=== PATIENT | male | born 1970 | race Two or more races ===

== ENCOUNTER 2017-08-29 23:50 | Emergency (ER) | payer BC, SELFPAY ==
[2017-08-29 23:59] VITALS: BP 118/80; PULSE 60; RESP 18; TEMP 36.8; O2SAT 98; BMI 28.6
--- NOTE | 2017-08-30 00:23 | HMH.EDGENADL ---
ED Disposition Clinical Impression: Paronychia of fifth toe, left, Onychomycosis Disposition: Home, Self-Care Condition on Discharge: Good Instructions: DI for Paronychia Additional Instructions: see pcp or podiatry for follow up Prescriptions: cephALEXin [Keflex 500mg Cap] 500 mg PO TID #30 cap Referrals: Dona Babb DPM [Physician] - - Critical Care Critical Care Time: No Attestation: On , the high probability of a clinically significant, sudden or life threatening deterioration of the following system(s) required my full and direct attention, intervention and personal management. The time I documented below is in addition to time spent performing reported procedures but includes the following listed in this critical care notation. Medical Decision Making - Medical Records Medical records reviewed: Yes: I reviewed the patient's medical records. Vital Signs: 08/29/17 23:59 Temperature 98.2 F Temperature Source Oral Pulse Rate [Right Radial] 60 Respiratory Rate 18 Blood Pressure [Right Arm] 118/80 Blood Pressure Mean [Right Arm] 92 Blood Pressure Source [Right Arm] Automatic Cuff Blood Pressure Position [Right Arm] Sitting 02 Sat by Pulse Oximetry 98 Oxygen Delivery Method Room Air - Jose Inquiry Pt receiving controlled substance: No General Adult HPI - General Chief complaint: PAIN Stated complaint: Bite on little toe left foot, swelling, pain Time Seen by Provider: 08/30/17 00:23 Mode of Arrival: Ambulatory Source of Information: Patient, Spouse, Medical Record Limitations: No Limitations Description of Symptoms (Recalled from ER Triage Doc. by RN): PT REPORTS PAIN AND PULSATING SENSATION IN LEFT PINKY TOE. - History of Present Illness HPI narrative: 1 day hx of lt fifth which is described as pulsation toe pain Onset (ago): day(s) Location: left, lower extremity Radiation: non-radiation Severity: moderate Associated symptoms: negative: rash Treatments prior to arrival: none - Related Data Home Medications Medication Instructions Recorded Confirmed Aspirin [Aspirin 81mg EC Tab] 81 mg PO DAILY 08/30/17 08/30/17 lamoTRIgine [Lamictal 100mg Tablet] 200 mg PO DAILY 08/30/17 08/30/17 Previous Rx's Medication Instructions Recorded cephALEXin [Keflex 500mg Cap] 500 mg PO TID #30 cap 08/30/17 Allergies Allergy/AdvReac Type Severity Reaction Status Date / Time acetaminophen [From NORCO] Allergy Unknown Verified 08/30/17 00:09 atorvastatin [From LIPITOR] Allergy Unknown FACIAL Verified 08/30/17 00:09 SWELLING hydrocodone [HYDROCODONE] Allergy Unknown FACIAL Verified 08/30/17 00:09 SWELLING oxycodone [From PERCOCET] Allergy Unknown FACIAL Verified 08/30/17 00:09 SWELLING [facility] History I have reviewed the patient's past medical history: Yes - *Social History Alcohol Intake: current Alcohol Intake Frequency:: a few times a month - Psychiatric History Expresses thoughts of harming self/others: None Suicide Plan Description: No Plan ROS Obtained: Yes All systems reviewed & no additional complaints - Constitutional Constitutional: Denies fever(s) - Eyes Eyes: Denies change in vision - Cardiovascular Cardiovascular: Denies chest pain - Respiratory Respiratory: No pain with cough - Gastrointestinal Gastrointestingal: Denies: abdominal pain - Integumentary/Breasts Skin/Breast: Reports as per HPI, Reports nail changes, Denies rash - Neurologic Neurologic: Denies seizure-like activity Physical Exam - General General appearance: alert - Head Head exam: normocephalic - Eye Eye exam: Present: PERRL, EOMI - ENT ENT exam: Present: mucous membranes moist - Neck Neck exam: Present: trachea midline - Respiratory Respiratory exam: Absent: respiratory distress - Cardiovascular Cardiovascular exam: Present: regular rate - Extremities Exam Extremities exam: Present: full ROM - Expanded Lower Extremity Exam
--- NOTE | 2017-08-30 05:36 | ED_ITS ---
ED Disposition Clinical Impression: Paronychia of fifth toe, left, Onychomycosis Disposition: Home, Self-Care Condition on Discharge: Good Instructions: DI for Paronychia Additional Instructions: see pcp or podiatry for follow up Prescriptions: cephALEXin [Keflex 500mg Cap] 500 mg PO TID #30 cap Referrals: Dona Babb DPM [Physician] - - Critical Care Critical Care Time: No Attestation: On , the high probability of a clinically significant, sudden or life threatening deterioration of the following system(s) required my full and direct attention, intervention and personal management. The time I documented below is in addition to time spent performing reported procedures but includes the following listed in this critical care notation. Medical Decision Making - Medical Records Medical records reviewed: Yes: I reviewed the patient's medical records. Vital Signs: 08/29/17 23:59 Temperature 98.2 F Temperature Source Oral Pulse Rate [Right Radial] 60 Respiratory Rate 18 Blood Pressure [Right Arm] 118/80 Blood Pressure Mean [Right Arm] 92 Blood Pressure Source [Right Arm] Automatic Cuff Blood Pressure Position [Right Arm] Sitting 02 Sat by Pulse Oximetry 98 Oxygen Delivery Method Room Air - Jose Inquiry Pt receiving controlled substance: No General Adult HPI - General Chief complaint: PAIN Stated complaint: Bite on little toe left foot, swelling, pain Time Seen by Provider: 08/30/17 00:23 Mode of Arrival: Ambulatory Source of Information: Patient, Spouse, Medical Record Limitations: No Limitations Description of Symptoms (Recalled from ER Triage Doc. by RN): PT REPORTS PAIN AND PULSATING SENSATION IN LEFT PINKY TOE. - History of Present Illness HPI narrative: 1 day hx of lt fifth which is described as pulsation toe pain Onset (ago): day(s) Location: left, lower extremity Radiation: non-radiation Severity: moderate Associated symptoms: negative: rash Treatments prior to arrival: none - Related Data Home Medications Medication Instructions Recorded Confirmed Aspirin [Aspirin 81mg EC Tab] 81 mg PO DAILY 08/30/17 08/30/17 lamoTRIgine [Lamictal 100mg Tablet] 200 mg PO DAILY 08/30/17 08/30/17 Previous Rx's Medication Instructions Recorded cephALEXin [Keflex 500mg Cap] 500 mg PO TID #30 cap 08/30/17 Allergies Allergy/AdvReac Type Severity Reaction Status Date / Time acetaminophen [From NORCO] Allergy Unknown Verified 08/30/17 00:09 atorvastatin [From LIPITOR] Allergy Unknown FACIAL Verified 08/30/17 00:09 SWELLING hydrocodone [HYDROCODONE] Allergy Unknown FACIAL Verified 08/30/17 00:09 SWELLING oxycodone [From PERCOCET] Allergy Unknown FACIAL Verified 08/30/17 00:09 SWELLING [facility] History I have reviewed the patient's past medical history: Yes - *Social History Alcohol Intake: current Alcohol Intake Frequency:: a few times a month - Psychiatric History Expresses thoughts of harming self/others: None Suicide Plan Description: No Plan ROS Obtained: Yes All systems reviewed & no additional complaints - Constitutional Constitutional: Denies fever(s) - Eyes Eyes: Denies change in vision - Cardiovascular Cardiovascular: Denies chest pain - Respiratory
== END 2017-08-30 00:44 | disposition home or self-care (01) ==
PROVIDERS: Emergency Provider Emergency Medicine; Family Provider Emergency Medicine; PCP Emergency Medicine
DX: L03.032 Cellulitis of left toe (principal); B35.1 Tinea unguium; Z79.899 Other long term (current) drug therapy; Z79.82 Long term (current) use of aspirin
CPT/HCPCS: 99282

== ENCOUNTER 2017-09-13 18:34 | Emergency (ER) | payer BC, SELFPAY ==
[2017-09-13 18:41] VITALS: BP 124/73; PULSE 56; RESP 18; TEMP 36.8; O2SAT 98; BMI 31.3
--- NOTE | 2017-09-13 18:50 | HMH.EDEYEP ---
ED Disposition Clinical Impression: Acute conjunctivitis of left eye Disposition: Home, Self-Care Condition on Discharge: Fair Additional Instructions: I discussed with the patient and his the need to start on allergy medication. Cannot totally exclude absence of foreign body. I will give him antibiotics. I strongly recommended full dilated eye examination by an jitterbug operator. They verbalized understanding Prescriptions: Ketotifen Fumarate [Zaditor] 5 ml OP Q6 #1 drops Referrals: Yoni Eason MD [Primary Care Provider] - - Critical Care Critical Care Time: No Attestation: On 09/13/17, the high probability of a clinically significant, sudden or life threatening deterioration of the following system(s) required my full and direct attention, intervention and personal management. The time I documented below is in addition to time spent performing reported procedures but includes the following listed in this critical care notation. Medical Decision Making - Medical Records Medical records reviewed: Yes: I reviewed the patient's medical records. Vital Signs: 09/13/17 18:41 Temperature 98.2 F Temperature Source Oral Pulse Rate [Right Brachial] 56 L Respiratory Rate 18 Blood Pressure [Right Arm] 124/73 Blood Pressure Mean [Right Arm] 90 Blood Pressure Source [Right Arm] Automatic Cuff Blood Pressure Position [Right Arm] Sitting 02 Sat by Pulse Oximetry 98 Oxygen Delivery Method Room Air - Jose Inquiry Pt receiving controlled substance: No Jose was queried for this patient: No Eye Problem HPI - General Chief complaint: Eye Problems Stated complaint: FB in Left Eye Mode of Arrival: Family Vehicle Limitations: No Limitations Description of Symptoms (Recalled from ER Triage Doc. by RN): object in eye - History of Present Illness HPI Narrative: 27 years old Salvadorean-speaking patient was brought by his because of a foreign body sensation and redness in the left eye. After feeding the cows had a the night before, he woke up with left eye foreign body sensation and irritation. there is no pain with movement. No fever or chills. He has no blurring of vision or diplopia. chief complaint: eye redness Onset (ago): day(s) (Yesterday) Onset description: gradual Duration: constant Location: left eye Eye Symptoms: redness, foreign body sensation Severity: mild (Irritation.) - Related Data Patient tetanus UTD: No Home Medications Medication Instructions Recorded Confirmed Aspirin [Aspirin 81mg EC Tab] 81 mg PO DAILY 08/30/17 08/30/17 lamoTRIgine [Lamictal 100mg Tablet] 200 mg PO DAILY 08/30/17 08/30/17 pantoprazole 40 mg tablet,delayed 40 mg PO QDAY 09/12/17 release Previous Rx's Medication Instructions Recorded cetirizine 10 mg tablet 10 mg PO QDAY #30 tab 09/12/17 ofloxacin 0.3 % eye drops 1 drp OPHTHALMIC QID 7 Days #20 ml 09/12/17 Ketotifen Fumarate [Zaditor] 5 ml OP Q6 #1 drops 09/13/17 Allergies Allergy/AdvReac Type Severity Reaction Status Date / Time acetaminophen [From NORCO] Allergy Unknown Verified 09/12/17 14:47 atorvastatin [From LIPITOR] Allergy Unknown FACIAL Verified 09/12/17 14:47 SWELLING hydrocodone [HYDROCODONE] Allergy Unknown FACIAL Verified 09/12/17 14:47 SWELLING oxycodone [From PERCOCET] Allergy Unknown FACIAL Verified 09/12/17 14:47 SWELLING [facility] History I have reviewed the patient's past medical history: Yes Medical History: Reports:: Gastroesophageal Reflux Disease(GERD), Seizures Amputation: No Fractures: No - *Social History Smoking Status: Never smoker Alcohol Intake: never Alcohol Intake Frequency:: a few times a month Substance Use Type: denies use - Psychiatric History Expresses thoughts of harming self/others: None Suicide Plan Description: No Plan *Family Hx:: Hypertension, Heart Attack, Diabetes ROS Obtained: Yes All systems reviewed & no additional complaints Physical Exam - G
--- NOTE | 2017-09-13 18:53 | ED_ITS ---
ED Disposition Clinical Impression: Acute conjunctivitis of left eye Disposition: Home, Self-Care Condition on Discharge: Fair Additional Instructions: I discussed with the patient and his the need to start on allergy medication. Cannot totally exclude absence of foreign body. I will give him antibiotics. I strongly recommended full dilated eye examination by an greenhouse transplanter. They verbalized understanding Prescriptions: Ketotifen Fumarate [Zaditor] 5 ml OP Q6 #1 drops Referrals: Yoni Eason MD [Primary Care Provider] - - Critical Care Critical Care Time: No Attestation: On 09/13/17, the high probability of a clinically significant, sudden or life threatening deterioration of the following system(s) required my full and direct attention, intervention and personal management. The time I documented below is in addition to time spent performing reported procedures but includes the following listed in this critical care notation. Medical Decision Making - Medical Records Medical records reviewed: Yes: I reviewed the patient's medical records. Vital Signs: 09/13/17 18:41 Temperature 98.2 F Temperature Source Oral Pulse Rate [Right Brachial] 56 L Respiratory Rate 18 Blood Pressure [Right Arm] 124/73 Blood Pressure Mean [Right Arm] 90 Blood Pressure Source [Right Arm] Automatic Cuff Blood Pressure Position [Right Arm] Sitting 02 Sat by Pulse Oximetry 98 Oxygen Delivery Method Room Air - Jose Inquiry Pt receiving controlled substance: No Jose was queried for this patient: No Eye Problem HPI - General Chief complaint: Eye Problems Stated complaint: FB in Left Eye Mode of Arrival: Family Vehicle Limitations: No Limitations Description of Symptoms (Recalled from ER Triage Doc. by RN): object in eye - History of Present Illness HPI Narrative: 27 years old Marshallese-speaking patient was brought by his because of a foreign body sensation and redness in the left eye. After feeding the cows had a the night before, he woke up with left eye foreign body sensation and irritation. there is no pain with movement. No fever or chills. He has no blurring of vision or diplopia. chief complaint: eye redness Onset (ago): day(s) (Yesterday) Onset description: gradual Duration: constant Location: left eye Eye Symptoms: redness, foreign body sensation Severity: mild (Irritation.) - Related Data Patient tetanus UTD: No Home Medications Medication Instructions Recorded Confirmed Aspirin [Aspirin 81mg EC Tab] 81 mg PO DAILY 08/30/17 08/30/17 lamoTRIgine [Lamictal 100mg Tablet] 200 mg PO DAILY 08/30/17 08/30/17 pantoprazole 40 mg tablet,delayed 40 mg PO QDAY 09/12/17 release Previous Rx's Medication Instructions Recorded cetirizine 10 mg tablet 10 mg PO QDAY #30 tab 09/12/17 ofloxacin 0.3 % eye drops 1 drp OPHTHALMIC QID 7 Days #20 ml 09/12/17 Ketotifen Fumarate [Zaditor] 5 ml OP Q6 #1 drops 09/13/17 Allergies Allergy/AdvReac Type Severity Reaction Status Date / Time acetaminophen [From NORCO] Allergy Unknown Verified 09/12/17 14:47 atorvastatin [From LIPITOR] Allergy Unknown FACIAL Verified 09/12/17 14:47 SWELLING hydrocodone [HYDROCODONE] Allergy Unknown FACIAL Verified 09/12/17 14:47 SWELLING oxycodone [From
== END 2017-09-13 19:18 | disposition home or self-care (01) ==
PROVIDERS: Emergency Provider Emergency Medicine; Family Provider Emergency Medicine; PCP Emergency Medicine
DX: H10.32 Unspecified acute conjunctivitis, left eye (principal); Z79.82 Long term (current) use of aspirin; Z79.899 Other long term (current) drug therapy; K21.9 Gastro-esophageal reflux disease without esophagitis
CPT/HCPCS: 99282

== ENCOUNTER → 2018-07-15 06:07 | Outpatient (CLI) | payer BC, SELFPAY ==
[2018-07-15 07:01] LABS: Basophils % 0.6 % (0.1-2.0); Eosinophils # 0.1 K/mm3 (0.0-0.4); Eosinophils % 2.5 % (0.1-12.0); Hematocrit 45.9 % (42.0-52.0); Hemoglobin 15.6 g/dL (14.1-18.0); Lymphocytes # 1.9 K/mm3 (0.7-4.5); Lymphocytes % 32.7 % (10-50); Mean Corpuscular HGB Conc 33.9 g/dL (31.8-35.4); Mean Corpuscular Hemoglobin 30.5 pg (27.0-31.2); Mean Platelet Volume 9.3 fl (7.4-10.4); Monocytes # 0.2 K/mm3 (0.1-1.0); Monocytes % 3.9 % (1.7-9.3); Neutrophils # 3.5 K/mm3 (1.8-7.8); Neutrophils % 60.3 % (37.0-80.0); Platelet Count 187 K/mm3 (142-424); Red Cell Distribution Width 13.6 % (11.5-17.5); White Blood Count 5.9 K/mm3 (4.8-10.8)
[2018-07-15 07:46] LABS: Alanine Aminotransferase 65 U/L (12-78); Albumin Level 4.2 gm/dL (3.4-5.0); Albumin/Globulin Ratio 1.2 (1.1-1.8); Alkaline Phosphatase 132 U/L (46-116); Anion Gap 14.4 mEq/L (5-15); Aspartate Amino Transferase 13 U/L (15-37); Bilirubin,Total 0.7 mg/dL (0.2-1.0); Blood Urea Nitrogen 26 mg/dL (7-18); Calcium 8.4 mg/dL (8.5-10.1); Carbon Dioxide 28 mmol/L (21.0-32.0); Chloride 104 mmol/L (98-107); Chol/HDL Ratio 7.2 (1-3.5); Cholesterol 230 mg/dL (140-200); Creatinine,Serum 0.69 mg/dL (0.70-1.30); Estimated Glomerular Filt Rate 122 ml/min (>60); Free T4 (Free Thyroxine) 0.86 ng/dl (0.76-1.46); GFR (African American) 147 ML/MIN (>60); Globulin 3.6 gm/dl (1.3-3.2); Glucose 128 mg/dL (74-106); HDL Cholesterol 32 mg/dL (27-67); Potassium 4.4 mmoL/L (3.5-5.1); Sodium 142 mmol/L (136-145); Thyroid Stimulating Hormone 3.73 uIU/ml (0.358-3.740); Total Protein,Serum 7.8 gm/dL (6.4-8.2)
[2018-07-15 08:17] LABS: Triglycerides 522 mg/dL (30-200)
[2018-07-17 10:51] LABS: Vitamin D 25 Hydroxy 13.9 ng/mL (30.0-100.0)
[2018-07-17 10:56] LABS: Lamotrigine (Lamictal) None Detected ug/mL (2.0-20.0)
[2018-07-17 13:52] LABS: Hemoglobin A1C 5.6 % (0.0-7.0)
== END ==
PROVIDERS: PCP Emergency Medicine; Visit Provider Nurse Practitioner Family
DX: G40.909 Epilepsy, unspecified, not intractable, without status epilepticus (principal); R53.83 Other fatigue
CPT/HCPCS: 80053; 80061; 80168; 82652; 83036; 84439; 84443; 85025

== ENCOUNTER → 2019-04-15 16:02 | Outpatient (CLI) | payer BC, SELFPAY ==
[2019-04-15 16:14] LABS: Basophils # 0.1 K/mm3 (0-0.2); Basophils % 0.9 % (0.1-2.0); Eosinophils # 0.1 K/mm3 (0.0-0.4); Eosinophils % 1.8 % (0.1-12.0); Hematocrit 41.5 % (42.0-52.0); Lymphocytes # 1.7 K/mm3 (0.7-4.5); Lymphocytes % 32.7 % (10-50); Mean Corpuscular HGB Conc 33.8 g/dL (31.8-35.4); Mean Corpuscular Hemoglobin 29.9 pg (27.0-31.2); Mean Corpuscular Volume 88.5 fl (80-94); Mean Platelet Volume 10.1 fl (7.4-10.4); Monocytes # 0.2 K/mm3 (0.1-1.0); Monocytes % 4.5 % (1.7-9.3); Neutrophils # 3.1 K/mm3 (1.8-7.8); Platelet Count 200 K/mm3 (142-424); Red Blood Count 4.69 M/mm3 (4.60-6.20); Red Cell Distribution Width 13.5 % (11.5-17.5); White Blood Count 5.2 K/mm3 (4.8-10.8)
[2019-04-15 16:54] LABS: Alanine Aminotransferase 36 U/L (12-78); Albumin Level 4.1 gm/dL (3.4-5.0); Albumin/Globulin Ratio 1.4 (1.1-1.8); Alkaline Phosphatase 93 U/L (46-116); Anion Gap 12.5 mEq/L (5-15); Aspartate Amino Transferase 22 U/L (15-37); Bilirubin,Total 1.3 mg/dL (0.2-1.0); Blood Urea Nitrogen 21 mg/dL (7-18); Calcium 8.5 mg/dL (8.5-10.1); Carbon Dioxide 25 mmol/L (21.0-32.0); Chloride 106 mmol/L (98-107); Cholesterol 170 mg/dL (140-200); Creatinine,Serum 0.74 mg/dL (0.70-1.30); Estimated Glomerular Filt Rate 112 ml/min (>60); GFR (African American) 135 ML/MIN (>60); Globulin 2.9 gm/dl (1.3-3.2); Glucose 113 mg/dL (74-106); HDL Cholesterol 34 mg/dL (27-67); LDL Cholesterol 101 mg/dL (0-130); Potassium 3.5 mmoL/L (3.5-5.1); Sodium 140 mmol/L (136-145); T4 (Thyroxine) 5.6 ug/dl (4.7-13.3); Thyroid Stimulating Hormone 1.82 uIU/ml (0.358-3.740); Triglycerides 177 mg/dL (30-200); VLDL Cholesterol 35 mg/dL (0-40)
== END ==
PROVIDERS: Visit Provider Nurse Practitioner Family
DX: B35.1 Tinea unguium (principal); R52 Pain, unspecified
CPT/HCPCS: 80053; 80061; 82652; 84436; 84443; 85025

== ENCOUNTER → 2019-05-07 17:14 | Outpatient (CLI) | payer BC, SELFPAY ==
[2019-05-07 17:50] LABS: Alanine Aminotransferase 34 U/L (12-78); Albumin Level 4.6 gm/dL (3.4-5.0); Albumin/Globulin Ratio 1.2 (1.1-1.8); Alkaline Phosphatase 115 U/L (46-116); Anion Gap 14.2 mEq/L (5-15); Aspartate Amino Transferase 24 U/L (15-37); Bilirubin,Total 1.1 mg/dL (0.2-1.0); Blood Urea Nitrogen 27 mg/dL (7-18); Calcium 9.3 mg/dL (8.5-10.1); Carbon Dioxide 25 mmol/L (21.0-32.0); Chloride 102 mmol/L (98-107); Creatinine,Serum 1.19 mg/dL (0.70-1.30); Estimated Glomerular Filt Rate 65 ml/min (>60); GFR (African American) 78 ML/MIN (>60); Globulin 3.7 gm/dl (1.3-3.2); Glucose 107 mg/dL (74-106); Potassium 4.2 mmoL/L (3.5-5.1); Sodium 137 mmol/L (136-145); Total Protein,Serum 8.3 gm/dL (6.4-8.2)
[2019-05-10 14:26] LABS: Vitamin D 25 Hydroxy 36.6 ng/mL (30.0-100.0)
== END ==
PROVIDERS: Nurse Practitioner Family; Visit Provider Emergency Medicine
DX: R53.83 Other fatigue (principal); N28.9 Disorder of kidney and ureter, unspecified
CPT/HCPCS: 80053; 82652

== ENCOUNTER → 2020-03-31 17:19 | Outpatient (CLI) | payer BC, SELFPAY ==
[2020-03-31 17:37] LABS: Basophils % 0.5 % (0.1-2.0); Eosinophils # 0.2 K/mm3 (0.0-0.4); Eosinophils % 2.5 % (0.1-12.0); Hematocrit 40.1 % (42.0-52.0); Hemoglobin 14.5 g/dL (14.1-18.0); Lymphocytes # 1.8 K/mm3 (0.7-4.5); Lymphocytes % 30.9 % (10-50); Mean Corpuscular HGB Conc 36.1 g/dL (31.8-35.4); Mean Corpuscular Hemoglobin 31.6 pg (27.0-31.2); Mean Corpuscular Volume 87.4 fl (80-94); Monocytes # 0.2 K/mm3 (0.1-1.0); Monocytes % 3.3 % (1.7-9.3); Neutrophils # 3.7 K/mm3 (1.8-7.8); Neutrophils % 62.8 % (37.0-80.0); Platelet Count 177 K/mm3 (142-424); Red Blood Count 4.59 M/mm3 (4.60-6.20); Red Cell Distribution Width 13.5 % (11.5-17.5); White Blood Count 5.9 K/mm3 (4.8-10.8)
[2020-03-31 17:39] LABS: Chloride 108 mmol/L (98-107); Sodium 140 mmol/L (136-145)
[2020-03-31 17:42] LABS: Alanine Aminotransferase 24 U/L (12-78); Albumin Level 4.1 g/dl (3.5-5.0); Albumin/Globulin Ratio 1.5 (1.1-1.8); Alkaline Phosphatase 93 U/L (38-126); Aspartate Amino Transferase 25 U/L (17-59); Bilirubin,Total 0.6 mg/dl (0.2-1.3); Blood Urea Nitrogen 18 mg/dl (9-20); Calcium 9.1 mg/dl (8.4-10.2); Carbon Dioxide 23 mmol/L (22.0-30.0); Estimated Glomerular Filt Rate 142 ml/min (>60); GFR (African American) 172 ML/MIN (>60); Globulin 2.8 g/dL (1.3-3.2); Glucose 119 mg/dl (74-100); Total Protein,Serum 6.9 g/dl (6.3-8.2)
== END ==
PROVIDERS: Visit Provider Emergency Medicine
DX: R10.9 Unspecified abdominal pain (principal)
CPT/HCPCS: 80053; 85025

== ENCOUNTER 2020-04-05 23:11 | Emergency (ER) | payer BC, SELFPAY ==
[2020-04-05 23:21] VITALS: BP 116/73; PULSE 68; RESP 14; TEMP 37.1; O2SAT 97; BMI 25.7
--- NOTE | 2020-04-05 23:29 | CT_ITS ---
PROCEDURE: CT ABDOMEN PELVIS W CON CLINICAL INDICATION: N/V Nausea and vomiting COMPARISON: CT ABDPELWO CT abdomen pelvis wo con from 04/24/2018 TECHNIQUE: IV Contrast: 75ML OPTIRAY 350 Oral Contrast None Axial images obtained with sagittal and coronal reformats. All CT scans at the facility use one or more dose reduction, viz: automated exposure control, ma/kV adjustment per patient size (including targeted exams where dose is matched to indication, i.e. head), or iterative reconstruction technique. FINDINGS: LOWER THORAX: No acute finding ABDOMEN & PELVIS: Prior cholecystectomy. The liver, spleen adrenal glands, and pancreas have an unremarkable appearance. No evidence of appendicitis. No intestinal obstruction or free air. There is a 2 mm stone at the right ureterovesical junction with minimal ectasia of the right distal ureter. No evidence of diverticulitis. No pelvic mass or localized fluid collection. There is mild lumbar scoliosis convex right. IMPRESSION: 2 mm right distal ureteral calculus at the UVJ with minimal ectasia of the distal right ureter Dictated by: Miles Monterroso MD 04/06/2020 06:01 Miles Monterroso MD in [facility] 04/06/2020 06:01
[2020-04-05 23:35] LABS: Basophils # 0.1 K/mm3 (0-0.2); Basophils % 0.4 % (0.1-2.0); Eosinophils # 0.1 K/mm3 (0.0-0.4); Eosinophils % 0.4 % (0.1-12.0); Hemoglobin 15.4 g/dL (14.1-18.0); Lymphocytes # 2.1 K/mm3 (0.7-4.5); Lymphocytes % 15.6 % (10-50); Mean Corpuscular HGB Conc 35.9 g/dL (31.8-35.4); Mean Corpuscular Hemoglobin 31.6 pg (27.0-31.2); Mean Corpuscular Volume 87.9 fl (80-94); Mean Platelet Volume 10.6 fl (7.4-10.4); Monocytes # 0.7 K/mm3 (0.1-1.0); Monocytes % 5.5 % (1.7-9.3); Neutrophils # 10.4 K/mm3 (1.8-7.8); Neutrophils % 78.2 % (37.0-80.0); Platelet Count 191 K/mm3 (142-424); Red Blood Count 4.89 M/mm3 (4.60-6.20); Red Cell Distribution Width 13.4 % (11.5-17.5); White Blood Count 13.3 K/mm3 (4.8-10.8)
[2020-04-05 23:40] LABS: Chloride 104 mmol/L (98-107)
[2020-04-05 23:41] LABS: Potassium 4.1 mmoL/L (3.5-5.1); Sodium 141 mmol/L (136-145)
[2020-04-05 23:43] LABS: Alanine Aminotransferase 46 U/L (12-78); Aspartate Amino Transferase 40 U/L (17-59); Blood Urea Nitrogen 24 mg/dl (9-20); Creatinine Clearance Estimated 84 mL/min (50-200); Estimated Glomerular Filt Rate 71 ml/min (>60); GFR (African American) 85 ML/MIN (>60)
[2020-04-05 23:44] LABS: Albumin Level 4.7 g/dl (3.5-5.0); Albumin/Globulin Ratio 1.5 (1.1-1.8); Alkaline Phosphatase 76 U/L (38-126); Anion Gap 16.1 mEq/L (5-15); Bilirubin,Total 1.4 mg/dl (0.2-1.3); Calcium 9.9 mg/dl (8.4-10.2); Carbon Dioxide 25 mmol/L (22.0-30.0); Globulin 3.2 g/dL (1.3-3.2); Glucose 106 mg/dl (74-100); Total Protein,Serum 7.9 g/dl (6.3-8.2)
[2020-04-05 23:49] LABS: C-Reactive Protein 1.8 mg/L (0-4)
[2020-04-06 00:06] LABS: Erythrocyte Sedimentation Rate 14 mm/hr (0-20)
[2020-04-06 00:13] VITALS: BP 129/76; PULSE 71; RESP 16; O2SAT 96
[2020-04-06 01:05] LABS: Microscopic, Urine URINE MICROSCOPIC (MICROSCOPIC)
[2020-04-06 01:11] LABS: Appearance,Urine CLEAR (Clear); Bilirubin,Urine Negative (Negative); Blood, Urine Negative (Negative); Color,Urine YELLOW (Yellow); Glucose,Urine (UA) Negative (Negative); Ketones,Urine Negative (Negative); Leukocyte Esterase,Urine Negative (Negative); Nitrate,Urine Negative (Negative); Protein,Urine Negative (Negative); Specific Gravity, Urine 1.015 (1.005-1.030); Urobilinogen,Urine 0.2 EU/dl (0.2)
[2020-04-06 01:20] LABS: Bacteria,Urine Trace /lpf; WBC,Urine Occasional #/hpf (0-3)
--- NOTE | 2020-04-06 01:21 | HMH.EDNVD ---
ED Disposition Clinical Impression: Renal colic on right side Tobacco poisoning Qualifiers: Encounter type: initial encounter Injury intent: accidental or unintentional Qualified Code(s): T65.291A - Toxic effect of other tobacco and nicotine, accidental (unintentional), initial encounter Disposition: Home, Self-Care Condition on Discharge: Good Instructions: DI for Nausea -- Adult Additional Instructions: fluids and call pcp for follow up and final reading of ct Referrals: Yoni Eason MD [Primary Care Provider] - - Critical Care Critical Care Time: No Attestation: On 04/05/20, the high probability of a clinically significant, sudden or life threatening deterioration of the following system(s) required my full and direct attention, intervention and personal management. The time I documented below is in addition to time spent performing reported procedures but includes the following listed in this critical care notation. Medical Decision Making - Medical Records Medical records reviewed: Yes: I reviewed the patient's medical records. - Jose Inquiry Pt receiving controlled substance: No Vital Signs: 04/05/20 23:21 04/06/20 00:13 Temperature 98.8 F Temperature Source Oral Pulse Rate [Right] 68 71 Respiratory Rate 14 16 Blood Pressure [Right Arm] 116/73 129/76 Blood Pressure Mean [Right Arm] 87 93 Blood Pressure Source [Right Arm] Automatic Cuff Automatic Cuff Blood Pressure Position [Right Arm] Supine Sitting 02 Sat by Pulse Oximetry 97 96 Oxygen Delivery Method Room Air Room Air - Lab Data Lab Results 04/05/20 23:23: WBC 13.3 H, RBC 4.89, Hgb 15.4, Hct 43.0, MCV 87.9, MCH 31.6 H, MCHC 35.9 H, RDW 13.4, Plt Count 191, MPV 10.6 H, Neut % (Auto) 78.2, Lymph % (Auto) 15.6, [place] % (Auto) 5.5, Eos % (Auto) 0.4, Baso % (Auto) 0.4, Neut # (Auto) 10.4 H, Lymph # (Auto) 2.1, [place] # (Auto) 0.7, Eos # (Auto) 0.1, Baso # (Auto) 0.1, ESR 14 04/05/20 23:23: Sodium 141, Potassium 4.1, Chloride 104, Carbon Dioxide 25, Anion Gap 16.1 H, BUN 24 H, Creatinine 1.10, Estimated Creat Clear 84, Estimated GFR 71, Est GFR ( Amer) 85, Glucose 106 H, Calcium 9.9, Total Bilirubin 1.4 H, AST 40, ALT 46, Alkaline Phosphatase 76, C-Reactive Protein 1.8, Total Protein 7.9, Albumin 4.7, Globulin 3.2, Albumin/Globulin Ratio 1.5 04/06/20 00:50: Urine Color Yellow, Urine Appearance Clear, Urine pH 6.0, Ur Specific [place] 1.015, Urine Protein Negative, Urine Glucose (UA) Negative, Urine Ketones Negative, Urine Blood Negative, Urine Nitrate Negative, Urine Bilirubin Negative, Urine Urobilinogen 0.2, Ur Leukocyte Esterase Negative, Urine WBC Occasional, Urine Bacteria Trace Result diagrams: 04/05/20 23:23 04/05/20 23:23 Orders (Tests/Meds): ED MEDICATIONS Generic Name Dose Route Start Last Admin Trade Name Freq PRN Reason Stop Dose Admin Sodium Chloride 1,000 mls @ 999 mls/hr 04/05/20 23:30 04/05/20 23:36 Sod Chlor 0.9% 1000ml Bag IV 04/06/20 00:30 999 mls/hr .Q1H1M JUSTIN Administration Sodium Chloride 1,000 mls @ 999 mls/hr 04/06/20 01:15 04/06/20 01:14 Sod Chlor 0.9% 1000ml Bag IV 04/06/20 02:15 999 mls/hr .Q1H1M JUSTIN Administration Discontinued Medications Generic Name Dose Route Start Last Admin Trade Name Freq PRN Reason Stop Dose Admin Ioversol 75 ml 04/06/20 00:09 04/06/20 00:10 Rad-Optiray 350 100ml Vial IV 04/06/20 00:10 75 ml ONCE ONE Administration Protocol Ondansetron HCl 4 mg 04/05/20 23:29 04/05/20 23:36 Zofran 4mg/2ml Vial IV 04/05/20 23:30 4 mg ONCE ONE Administration Sodium Chloride 10 ml 04/06/20 00:09 04/06/20 00:10 Rad-Saline Flush 10ml Syringe IV 04/06/20 00:10 10 ml ONCE ONE Administration ORDERS Category Date Time Status CT abdomen pelvis w con Stat Cat Scan 04/05/20 23:29 Taken - CT Data CT Scan: Abdomen, Pelvis Time Received: 01:[address] Reviewed: Yes: I have viewed the radiologist's interpretation Prel
[2020-04-06 01:44] VITALS: BP 119/75; PULSE 72; RESP 15; TEMP 36.8; O2SAT 97
== END 2020-04-06 01:47 | disposition home or self-care (01) ==
PROVIDERS: Emergency Provider Emergency Medicine; PCP Emergency Medicine
DX: N23 Unspecified renal colic (principal); T65.291A Toxic effect of other tobacco and nicotine, accidental (unintentional), initial encounter; K21.9 Gastro-esophageal reflux disease without esophagitis; E78.5 Hyperlipidemia, unspecified; Z79.899 Other long term (current) drug therapy; Z88.5 Allergy status to narcotic agent; Z90.49 Acquired absence of other specified parts of digestive tract
CPT/HCPCS: 74177; 80053; 81001; 85025; 85651; 86140; 96365; 96366; 96375; 99283; J2405; Q9967

== ENCOUNTER → 2020-04-14 16:14 | Outpatient (CLI) | payer BC, SELFPAY | PROVIDERS: PCP Nurse Practitioner Family; Visit Provider Nurse Practitioner Family | DX: N20.0 Calculus of kidney (principal) | CPT/HCPCS: 87086 ==

== ENCOUNTER → 2020-04-14 16:17 | Outpatient (CLI) | payer BC, SELFPAY ==
--- NOTE | 2020-04-14 16:20 | XR_ITS ---
PROCEDURE: XR KUB CLINICAL INDICATION: hematuria Follow-up ureteral stone COMPARISON: CT CT ABDOMEN PELVIS W CON from 04/05/2020 FINDINGS: Mild dextroscoliosis of the thoracolumbar spine. Surgical clips right upper quadrant. Nonspecific bowel gas pattern. There is a faint calcific density in the right pelvic region which could be due to a tiny distal ureteral stone at approximately 2 mm. IMPRESSION: Possible 2 mm right ureterovesical junction stone Dictated by: Miles Monterroso MD 04/14/2020 16:36 Miles Monterroso MD in [facility] 04/14/2020 16:36
== END ==
PROVIDERS: PCP Emergency Medicine; Visit Provider Urology
DX: R31.9 Hematuria, unspecified (principal)
CPT/HCPCS: 74018

== ENCOUNTER → 2020-04-19 13:10 | Outpatient (CLI) | payer BC, SELFPAY ==
[2020-04-19 15:53] LABS: Coronavirus 19 IgG Antibody Negative (Negative); Coronavirus 19 IgM Antibody Negative (Negative)
[2020-04-20 18:25] LABS: Chloride 105 mmol/L (98-107); Potassium 4.3 mmoL/L (3.5-5.1); Sodium 138 mmol/L (136-145)
[2020-04-20 18:28] LABS: Blood Urea Nitrogen 20 mg/dl (9-20); Calcium 9.2 mg/dl (8.4-10.2); Estimated Glomerular Filt Rate 119 ml/min (>60); GFR (African American) 144 ML/MIN (>60); Glucose 113 mg/dl (74-100)
[2020-04-20 19:49] LABS: Anion Gap 12.3 mEq/L (5-15); Carbon Dioxide 25 mmol/L (22.0-30.0)
== END ==
PROVIDERS: Visit Provider Urology
DX: N20.1 Calculus of ureter (principal)
CPT/HCPCS: 36415; 80048; 86328

== ENCOUNTER 2020-04-21 09:37 | Day surgery (SDC) | payer BC, SELFPAY ==
[2020-04-19 08:55] VITALS: BMI 27.1
[2020-04-21] VITALS (12 sets, daily range): BP systolic 109–140; BP diastolic 62–83; PULSE 46–92; RESP 17–23; TEMP 36.2–36.8; O2SAT 90–100
--- NOTE | 2020-04-21 10:17 | SUR.PREOP ---
Translation services offered to pt and family. Services declined. Pt's family member fluent in Arabic.
--- NOTE | 2020-04-21 10:41 | HMH.ANESCL ---
[facility] Anesthesia Checklist - Patient Identification Patient Identification: Arm Band - Structural Data Admitted From: Home Planned Operative Procedure/s: right ureteroscopy with stone extraction Consent for Planned Operative Procedure(s) Verified: Yes Verified Documents: Surgical Consent, History and Physical - NPO Status Verified Time NPO: 00:00 - Additional verifications Anesthesia Reactions: No Hx Blood Transfusions: No Blood Transfusion Reaction: No - Airway Assessment C-Spine Mobility Assessed: Yes (mp2) TMJ Mobility Assessed: Yes Dentition: Good Dentition - Neurological Assessment Level of Consciousness: Awake, Alert - Anesthesia Plan Anesthesia Risk discussed: Yes Anesthesia Plan: Verified ASA Class: II Anesthesia Type: General [facility] History I have reviewed the patient's past medical history: Yes Medical History: Reports:: Gastroesophageal Reflux Disease(GERD), Hyperlipidemia, Seizures (1 year ago) Denies:: Cancer, Diabetes Mellitus Type 1, Diabetes Mellitus Type 2, MRSA *Have you ever received a pneumonia vaccine?: No *Have you received a flu vaccine this season?: Yes Other Medical History: Denies: Blood Transfusion Reaction Anesthesia experience/problems:: nac Other Surgeries: Yes: Cardiac Catheterization, Cholecystectomy Amputation: No Fractures: No - *Social History Last grade of school completed: 5th or 6th Smoking Status: Never smoker Alcohol Intake: current Alcohol Intake Frequency:: holidays/special occasions only Substance Use Type: denies use *Occupational Status:: unemployed Housing: house Household Members: family *Travel in the last 8 weeks: None Family Hx:: Hypertension, Heart Attack, Diabetes
[2020-04-21 10:42] LABS: Basophils % 0.7 % (0.1-2.0); Eosinophils # 0.2 K/mm3 (0.0-0.4); Eosinophils % 4.3 % (0.1-12.0); Hematocrit 41.9 % (42.0-52.0); Lymphocytes % 34.8 % (10-50); Mean Corpuscular HGB Conc 35.8 g/dL (31.8-35.4); Mean Corpuscular Hemoglobin 32.1 pg (27.0-31.2); Mean Corpuscular Volume 89.4 fl (80-94); Mean Platelet Volume 9.9 fl (7.4-10.4); Monocytes # 0.3 K/mm3 (0.1-1.0); Monocytes % 4.6 % (1.7-9.3); Neutrophils # 3.1 K/mm3 (1.8-7.8); Neutrophils % 55.5 % (37.0-80.0); Platelet Count 162 K/mm3 (142-424); Red Blood Count 4.69 M/mm3 (4.60-6.20); Red Cell Distribution Width 13.6 % (11.5-17.5); White Blood Count 5.6 K/mm3 (4.8-10.8)
--- NOTE | 2020-04-21 11:38 | FL_ITS ---
PROCEDURE: FL URETHROCYSTOGRAM RETRO CLINICAL INDICATION: RIGHT URETEROSCOPY INOR COMPARISON: No exams were available for comparison FINDINGS: Fluoro time 1.2 minutes Single image submitted with the C-arm shows ureteral scope and ureteral wire in place on the right IMPRESSION: C-arm utilized for ureteroscopy Dictated by: Miles Monterroso MD 04/21/2020 15:03 Miles Monterroso MD in [facility] 04/21/2020 15:03
--- NOTE | 2020-04-21 11:38 | HMH.ANESI ---
[facility] Anesthesia Record Part I Intake, IV Amount: 900 Estimated blood loss (mL): 5 Urine output (mL): 0 Blood Products used (#): none Blood Pressure: 131/76 SaO2: 94 Pulse Rate: 53 Respiratory Rate: 18 Temperature: 97.1 F Patient is:: Drowsy, Nasal O2 Stable to PACU at:: 11:35
--- NOTE | 2020-04-21 13:14 | P.OP_ITS ---
Date of procedure: 04/21/20 Pre-op Diagnosis:: Right distal ureteral stone Post-op Diagnosis:: No evidence of ureteral stone, urethral stricture Procedure performed:: Cystoscopy with urethral dilation right ureteroscopy and left ureteral catheterization Surgeon:: Hugo Thompson MD ELECTRONIC PREPRESS TECHNICIAN:: Eleazar Oseguera Anesthesia: GETNicolette Estimated blood loss (mL): 0 Clinical Note:: 50-year-old male with bilateral lower abdominal pain had a recent CT scan which showed a small distal right ureteral stone. His pain has persisted and he presents for urologic evaluation. Operative findings:: Urethral stricture was noted and dilated, bladder was within normal limits, no evidence of trauma around the ureteral orifices, no evidence of stone in the right ureter. Operative note:: Patient taken to the operating room after informed consent was obtained. Placed on the operating table in supine position and general anesthesia administered. Preoperative antibiotics and sequential compression devices placed. He was then placed into the dorsal lithotomy position prepped and draped in the standard surgical fashion. 22 Kole attempted to be passed into the urethra but there was a resistance met about 2 cm into the urethra. The scope removed and the urethra dilated with a 20-24 and 26 [place] sound. Scope was then repassed without difficulty and prostatic urethra showed some moderate hyperplasia. The bladder was entered and examined in a systematic fashion. There is no evidence of mucosal abnormalities, stones, diverticula or trabeculation. The ureteral orifices in their normal anatomic position there is no evidence of any recent trauma from stone passage. A a guidewire was passed into the left ureteral orifice and under fluoroscopy passed proximally to the kidney. There is no evidence of any resistance or calcifications along the course of the ureter. The wire then passed into the right ureteral orifice and under fluoroscopy passed into the renal pelvis. Again there is no evidence of resistance or calcifications along the course of the urinary tract. Her cystos cope removed and our flexible ureteroscope was then passed over the guidewire and into the right ureteral orifice without difficulty. The guidewire removed and the ureter was examined from the renal pelvis to the bladder. There is no evidence of any stones in the right renal pelvis or ureter. Scope removed. Urojet placed into the urethra for comfort measures. Patient tolerated procedure well no complications. Condition: stable Disposition: PACU Specimens:: None Complications:: None
--- NOTE | 2020-04-21 13:37 | SUR.OPER ---
1045-interviewed patient at this time, patient and sister denied use of ipad for translation that is available in facility, sister at bedside and noted to speak fluent samoan, patient answering simple questions appropriately and able to verify name//procedure to be done correctly.
--- NOTE | 2020-04-21 14:08 | HMH.ANESII ---
[facility] Anesthesia Record Part II Discharge Time: 12:05 Destination: Surgical Day Care (OP Surgery) PACU nurse assessment reviewed?: Yes Patient Condition:: Good Anesthesia Complications:: None Swallowing reflex intact?: Yes Cyanosis?: No Blood Pressure: 127/75 Pulse Rate: 92 Temperature: 98.2 F Mental Status: Alert & Oriented Pain level:: 3 Nausea and/or vomitting:: None Intake, IV Amount: 25
== END 2020-04-21 12:53 | disposition home or self-care (01) ==
LOC: OR 09:39
PROVIDERS: PCP Emergency Medicine; Visit Provider Urology
PROC: (CPT 52352; principal; 2020-04-21 11:15)
DX: N20.1 Calculus of ureter (principal); N40.0 Benign prostatic hyperplasia without lower urinary tract symptoms; K21.9 Gastro-esophageal reflux disease without esophagitis; E78.5 Hyperlipidemia, unspecified; R56.9 Unspecified convulsions; Z79.82 Long term (current) use of aspirin; Z79.899 Other long term (current) drug therapy; Z90.49 Acquired absence of other specified parts of digestive tract; Z82.49 Family history of ischemic heart disease and other diseases of the circulatory system; Z83.3 Family history of diabetes mellitus; Z88.6 Allergy status to analgesic agent
CPT/HCPCS: 52344; 74450; 85025; 96374

== ENCOUNTER → 2020-04-26 06:26 | Outpatient (CLI) | payer BC, SELFPAY ==
--- NOTE | 2020-04-26 | CA_ITS ---
APPROVED REPORT Exam: Exercise Treadmill Technologist: [place], Ht: 5 ft 7 in Wt: 172 lbs BSA: 1.90 m2 HR: 52 bpm BP: 152/83 mmHg Indications: Chest pain Medical History Medications: Pantoprazole,,,,, LaMotrigine,,,,, Asprin,,,,, Stress Test Details Test: Kirk HR Resting HR: 59 bpm Max Heart Rate (APMHR): 169 bpm Max HR Achieved: 130 bpm Target HR (85% APMHR): 143 bpm % of APMHR: 76 Recovery HR: 78 bpm BP Resting BP: 117/82 mmHg Max BP: 152/83 mmHg Recovery BP: 136.0/76.0 mmHg ECG Clinical Exercise duration: 11:31 min Highest Stage Achieved: Exercise capacity: 12.8 METs Stress ECG Conclusion Resting EKG: Sinus kymberly, voltage criteria for LVH, ST abns inferiorly Exercised 11:31 on Kirk protocol Max HR: 130 % of PM: 77% Max BP: 152/70 MET's: 12.8 Test stopped due to SOA, leg fatigue Symptoms: No Chest pain Arrythmias/Ectopy: None ST-T changes: Exaggeration of baseline ST abns inferiorly, otherwise normal ST response to exercise. Conclusion: The EKG portion of the exercise Myoview is nondiagnostic due to patient not achieving the target heart rate. Test Summary RECOVERY 02:00 0.0 0.0 91 . 152/ 70 . . REST 06:08 0.0 0.0 59 . 117/ 82 . . Stage 1 01:00 10.0 1.7 78 . . . . Stage 1 02:00 10.0 1.7 74 . . . . Stage 1 03:00 10.0 1.7 80 . 126/ 80 . . Stage 2 01:00 12.0 2.5 81 . . . . Stage 2 02:00 12.0 2.5 80 . . . . Stage 2 03:00 12.0 2.5 82 . 130/ 76 . . Stage 3 01:00 14.0 3.4 92 . . . . Stage 3 02:00 14.0 3.4 96 . . . . Stage 3 03:00 14.0 3.4 98 . 140/ 78 . . Stage 4 01:00 16.0 4.2 115 . . . . Stage 4 . . . . . . . Myoview Injected Stage 4 02:00 16.0 4.2 123 . . . . Stage 4 02:31 16.0 4.2 129 . . . Stop exercise at 11:31 RECOVERY 01:00 0.0 0.0 109 . 152/ 70 . . RECOVERY 02:00 0.0 0.0 91 . 152/ 70 . . RECOVERY 03:00 0.0 0.0 80 . 146/ 72 . . RECOVERY 04:00 0.0 0.0 79 . 136/ 76 . . RECOVERY 05:00 0.0 0.0 74 . 136/ 76 . . RECOVERY 05:20 0.0 0.0 75 . 136/ 76 . . Electronically signed by : Yadiel Sprague, 04/27/2020 10:42:49
--- NOTE | 2020-04-26 06:32 | NM_ITS ---
APPROVED REPORT Exam: Nuclear Stress Test Indication: Chest pain, SOB, CAD, Family history Patient Location: Outpatient Stress Tech: Jess Solorzano NM Tech:Tiffanie Eisenberg, ARRT, RT (R)(N) Ht: 5 ft 7 in Wt: 172 lbs HR: 52 bpm BP: 117/82 mmHg BSA: 1.90 m2 BMI: 26.9 History: Chest pain, SOB, CAD, Family history Procedure: Patient exercised on Kirk protocol 11:31 minutes and sec, resting heart rate 52 bpm, resting blood pressure 117/82 mmHg, with exercise maximum heart rate achived was 130 bpm which is Less than 85 % of the maximum predicted heart rate and blood pressure was 152/70 mmHg. Test was stopped due to SOA and leg fatigue. Patient denied any complaint of chest pain. Patient has Good exercise capacity, achieved 12.8 METs of workload on treadmill, the blood pressure response to exercise was Adequate. Electrocardiogram Resting electrocardiogram showed sinus rhythm, with exercise there is less than 1.[address] segment depression noted from the baseline EKG. The EKG portion of the exercise Myoview is nondiagnostic as patient did not achieve the target heart rate. Cardiac Stress and Resting SPECT Images: Cardiac Stress and Resting SPECT images were obtained using technetium 99m Myoview 31.0 mCi stress and 10.52 mCi at rest. Gated SPECT for the analysis of segmental wall motion and calculation of the ejection fraction also done. Cardiac stress and resting SPECT images show a mild fixed defect in the apex with normal contractility gated SPECT is likely secondary to apical thinning, no reversible ischemia seen. Computer derived ejection fraction is 59% with no regional wall motion abnormality. Conclusion: 1. The EKG portion of the exercise Myoview is nondiagnostic as patient did not achieve the target heart rate, patient has good exercise capacity achieved 12.8 mets of workload on treadmill, the blood pressure response to exercise was adequate, there was no exercise-induced chest discomfort. 2. No scintigraphic evidence of reversible ischemia seen at this level of exercise, computer derived ejection fraction is 59% with no regional wall motion abnormality, right ventricle is normal size and contractility. Electronically signed by : Yadiel Sprague, 04/27/2020 10:52:48
--- NOTE | 2020-04-26 08:53 | HMH.ITSHM ---
Current Home Medications as stated by this patient Sincere Randhawa or customer sales representative. []LAMOTRIGINE PANTOPRAZOLE ASA
== END ==
PROVIDERS: PCP Emergency Medicine; Visit Provider Emergency Medicine
DX: R07.9 Chest pain, unspecified (principal); R06.00 Dyspnea, unspecified; R55 Syncope and collapse; R94.31 Abnormal electrocardiogram [ECG] [EKG]; R11.0 Nausea
CPT/HCPCS: 78454; 93017; A9502

== ENCOUNTER → 2020-04-28 17:53 | Outpatient (CLI) | payer BC, SELFPAY ==
[2020-04-28 18:30] LABS: Chol/HDL Ratio 6.2 (1-3.5); Cholesterol 197 mg/dl (140-200); HDL Cholesterol 32 mg/dl (40-60)
[2020-04-28 18:31] LABS: Hemoglobin A1C 5.8 % (4.0-6.0)
[2020-04-28 18:32] LABS: Triglycerides 455 mg/dl (30-150)
[2020-04-28 18:41] LABS: Direct LDL Cholesterol 117.65 mg/dL (100-129)
== END ==
PROVIDERS: Visit Provider Nurse Practitioner Family
DX: R53.83 Other fatigue (principal); R07.9 Chest pain, unspecified; R55 Syncope and collapse; R94.31 Abnormal electrocardiogram [ECG] [EKG]; R06.00 Dyspnea, unspecified; G40.909 Epilepsy, unspecified, not intractable, without status epilepticus
CPT/HCPCS: 80061; 83036

== ENCOUNTER 2020-05-12 08:28 | Day surgery (SDC) | payer BC, SELFPAY ==
[2020-05-12] VITALS (10 sets, daily range): BP systolic 109–133; BP diastolic 60–75; PULSE 44–60; RESP 16; TEMP 36.4; O2SAT 94–99; BMI 27.8
--- NOTE | 2020-05-12 | IR_ITS ---
APPROVED REPORT Patient Location: Outpatient Forensic Anthropologist: JUSTA Monk RT (R) PROCEDURES Left heart catheterization Left ventriculogram Selective coronary angiogram INDICATION Unstable angina, Bradycardia, Abnormal EKG Informed consent was obtained prior to the procedure. COMPLICATIONS None Estimated Blood Loss: less than 10 ml TECHNIQUE One percent lidocaine used to anesthetize the right anterior aspect of the wrist. The right radial artery was accessed via the Seldinger technique. A 6 Brazilian sheath was placed in the right radial artery. 2.5 mg of verapamil, 800 mcg of nitroglycerin, 1mg Lidocaine and 5000 U Heparin were given through the arterial sheath. The trap catheter was also used to perform left heart catheterization, left ventriculogram and selective coronary angiogram. At the end of the procedure the sheath was removed good hemostasis was achieved using Traclet band, patient was transferred to the postop holding area in stable condition. ANGIOGRAPHIC RESULTS The left main artery Normal The left anterior descending artery Normal The circumflex artery Normal The right coronary artery Dominant normal The TORIBIO ventriculogram reveals Normal 65% The left ventricular end-diastolic pressure Normal less than 10 mmHg IMPRESSION Normal coronary arteries Normal ejection fraction Normal left ventricular end-diastolic pressure PLAN 1. Evaluation of noncardiac chest pain Electronically signed by : Delon Jang, 05/12/2020 10:58:49
[2020-05-12 09:32] LABS: Chloride 104 mmol/L (98-107)
[2020-05-12 09:33] LABS: Potassium 4.3 mmoL/L (3.5-5.1); Sodium 140 mmol/L (136-145)
[2020-05-12 09:35] LABS: Blood Urea Nitrogen 19 mg/dl (9-20); Creatinine Clearance Estimated 125 mL/min (50-200); Estimated Glomerular Filt Rate 102 ml/min (>60); GFR (African American) 123 ML/MIN (>60)
[2020-05-12 09:36] LABS: Anion Gap 14.3 mEq/L (5-15); Calcium 8.6 mg/dl (8.4-10.2); Carbon Dioxide 26 mmol/L (22.0-30.0); Glucose 120 mg/dl (74-100)
[2020-05-12 09:47] LABS: Basophils % 0.8 % (0.1-2.0); Eosinophils # 0.1 K/mm3 (0.0-0.4); Eosinophils % 2.6 % (0.1-12.0); Hematocrit 42.1 % (42.0-52.0); Lymphocytes # 1.9 K/mm3 (0.7-4.5); Lymphocytes % 35.9 % (10-50); Mean Corpuscular HGB Conc 35.7 g/dL (31.8-35.4); Mean Corpuscular Hemoglobin 31.7 pg (27.0-31.2); Mean Corpuscular Volume 88.8 fl (80-94); Mean Platelet Volume 9.8 fl (7.4-10.4); Monocytes # 0.2 K/mm3 (0.1-1.0); Monocytes % 4.6 % (1.7-9.3); Neutrophils # 2.9 K/mm3 (1.8-7.8); Platelet Count 180 K/mm3 (142-424); Red Blood Count 4.74 M/mm3 (4.60-6.20); Red Cell Distribution Width 13.6 % (11.5-17.5); White Blood Count 5.2 K/mm3 (4.8-10.8)
[2020-05-12 09:56] LABS: Coronavirus 19 IgG Antibody Negative (Negative); Coronavirus 19 IgM Antibody Negative (Negative)
== END 2020-05-12 14:07 | disposition home or self-care (01) ==
LOC: CATHLAB 08:29
PROVIDERS: PCP Nurse Practitioner Family; Visit Provider Internal Medicine
DX: I25.118 Atherosclerotic heart disease of native coronary artery with other forms of angina pectoris (principal); R94.31 Abnormal electrocardiogram [ECG] [EKG]; R07.9 Chest pain, unspecified; R55 Syncope and collapse; G40.909 Epilepsy, unspecified, not intractable, without status epilepticus; Z88.8 Allergy status to other drugs, medicaments and biological substances; Z79.82 Long term (current) use of aspirin; Z79.899 Other long term (current) drug therapy
CPT/HCPCS: 80048; 85025; 86328; 93458; 99152; C1725; C1769; J1644; Q9967

== ENCOUNTER → 2020-05-23 14:53 | Outpatient (CLI) | payer BC, SELFPAY ==
--- NOTE | 2020-05-23 14:56 | XR_ITS ---
PROCEDURE: XR CHEST 2V CLINICAL HISTORY: dyspnea COMPARISON: CR CXR CHEST(2 VIEWS-NOT PORTABLE) from 04/17/2017 DX CXR CHEST(2 VIEWS-NOT PORTABLE) from 07/09/2017 CR CXR2V XR chest 2V from 04/24/2018 FINDINGS: The cardiomediastinal silhouette and pulmonary vascularity are within normal limits. The lungs are clear without infiltrates, suspicious nodules, or pleural effusions. No acute bony abnormalities. IMPRESSION: No acute findings. Dictated by: Miles Monterroso MD 05/23/2020 17:25 Miles Monterroso MD in [facility] 05/23/2020 17:25
== END ==
PROVIDERS: PCP Emergency Medicine; Visit Provider Nurse Practitioner Family
DX: R07.9 Chest pain, unspecified (principal); R06.00 Dyspnea, unspecified; R94.31 Abnormal electrocardiogram [ECG] [EKG]
CPT/HCPCS: 71046

== ENCOUNTER → 2020-05-25 11:19 | Outpatient (CLI) | payer BC, SELFPAY ==
--- NOTE | 2020-05-25 11:47 | CA_ITS ---
APPROVED REPORT EXAM: Comprehensive 2D, Doppler, and color-flow Echocardiogram Police Guard: Ivana Badillo RVT Ht: 5 ft 7 in Wt: 173lbs BSA: 1.90 BP: 110/58 mmHg Indications: SOA,BRADYCARDIA 2D Dimensions LVOT 2.33 cm (M/F) 1.5-2.5 M-Mode Dimensions RVDd 2.86 cm (0.9-2.6) LVDd 5.19 cm (3.5-5.7) LVDs 3.18 cm (3.5-5.7) IVSd 0.52 cm (0.6-1.1) PWd 1.01 cm (0.6-1.1) EF (Teich) 68.70% FS 38.70% EDV (Teich) 128.90 mL ESV (Teich) 40.30 mL LV Diastology E/A Ratio 0.76 Mitral Valve MV A Velocity 58.00 (40-130 cm/s) Left Ventricle Left atrium is approximately normal size, left ventricle is normal size, left ventricle wall thickness is upper limit of the normal, there is preserved left ventricular systolic function, visually estimated ejection fraction 55% with no regional wall motion abnormality, grade 1 diastolic dysfunction seen without tissue Doppler evidence of raise left atrial pressure. Right Ventricle Right atrium and right ventricular normal size and contractility. Aortic Valve Aortic valve is minimally thickened and fibrosed, there is no aortic stenosis or aortic insufficiency. Mitral Valve Mitral valve is grossly normal, there is mild mitral regurgitation. Tricuspid Valve Tricuspid valve grossly normal, there is mild tricuspid regurgitation. Pulmonic Valve Pulmonic valve is poorly visualized. Great Vessels Aortic root is normal size. Pericardium No significant pericardial effusion noted. Conclusion 1. Normal left ventricular size, preserved left ventricular systolic function, visually estimated ejection fraction 55% with no regional wall motion abnormality, grade 1 diastolic dysfunction seen without tissue Doppler evidence of raise left atrial pressure. 2. Mild mitral and tricuspid regurgitation. 3. No significant pericardial effusion noted. Electronically signed by : Yadiel Sprague, 05/25/2020 15:20:44
== END ==
PROVIDERS: PCP Emergency Medicine; Visit Provider Nurse Practitioner Family
DX: R06.00 Dyspnea, unspecified (principal); R07.9 Chest pain, unspecified; R94.31 Abnormal electrocardiogram [ECG] [EKG]
CPT/HCPCS: 93306; 94060; 94726; 94729

== ENCOUNTER → 2020-06-23 07:59 | Outpatient (CLI) | payer BC, SELFPAY ==
--- NOTE | 2020-06-23 07:59 | CT_ITS ---
PROCEDURE: CT CHEST WO CON CLINICAL INDICATION: soa dyspnea x 6 months COMPARISON: No exams were available for comparison TECHNIQUE: Axial images obtained with sagittal and coronal reformats. All CT scans at the facility use one or more dose reduction, viz: automated exposure control, ma/kV adjustment per patient size (including targeted exams where dose is matched to indication, i.e. head), or iterative reconstruction technique. FINDINGS: HEART AND MEDIASTINAL STRUCTURES: Unremarkable. LUNGS AND PLEURAL SPACES: Unremarkable. BONY STRUCTURES: No acute bony abnormalities apparent. UPPER ABDOMEN: Unremarkable. ADDITIONAL FINDINGS: No other significant abnormalities. IMPRESSION: Negative CT chest, no acute finding Dictated by: Miles Monterroso MD 06/24/2020 11:08 Miles Monterroso MD in [facility] 06/24/2020 11:08
== END ==
PROVIDERS: PCP Emergency Medicine; Visit Provider Physician Assistant
DX: R06.00 Dyspnea, unspecified (principal); R42 Dizziness and giddiness; E78.2 Mixed hyperlipidemia
CPT/HCPCS: 71250

== ENCOUNTER → 2020-06-29 15:00 | Outpatient (CLI) | payer BC, SELFPAY ==
[2020-06-29 15:39] LABS: Basophils % 0.5 % (0.1-2.0); Eosinophils # 0.1 K/mm3 (0.0-0.4); Eosinophils % 1.8 % (0.1-12.0); Hematocrit 42.9 % (42.0-52.0); Mean Corpuscular HGB Conc 34.9 g/dL (31.8-35.4); Mean Corpuscular Hemoglobin 30.9 pg (27.0-31.2); Mean Corpuscular Volume 88.3 fl (80-94); Mean Platelet Volume 9.9 fl (7.4-10.4); Monocytes # 0.3 K/mm3 (0.1-1.0); Monocytes % 4.3 % (1.7-9.3); Neutrophils # 3.5 K/mm3 (1.8-7.8); Neutrophils % 59.3 % (37.0-80.0); Platelet Count 193 K/mm3 (142-424); Red Blood Count 4.85 M/mm3 (4.60-6.20); Red Cell Distribution Width 13.5 % (11.5-17.5); White Blood Count 5.9 K/mm3 (4.8-10.8)
[2020-06-29 15:56] LABS: D-Dimer 0.39 ug/mL (0.15-8.0)
== END ==
PROVIDERS: Visit Provider Internal Medicine Pulmonary Disease
DX: J45.909 Unspecified asthma, uncomplicated (principal)
CPT/HCPCS: 36415; 85025; 85378

== ENCOUNTER → 2020-07-05 07:12 | Outpatient (CLI) | payer BC, SELFPAY ==
[2020-07-05 09:12] LABS: Erythrocyte Sedimentation Rate 44 mm/hr (0-20)
[2020-07-06 13:50] LABS: Rapid Plasma Reagin Ab Titer Non Reactive (NonRea<1:1)
[2020-07-15 18:38] LABS: Antinuclear Antibodies (ANA) NEGATIVE
== END ==
PROVIDERS: Visit Provider Specialist
DX: R42 Dizziness and giddiness (principal); G89.29 Other chronic pain; G93.40 Encephalopathy, unspecified; R51.9 Headache, unspecified
CPT/HCPCS: 36415; 85651; 86038; 86592

== ENCOUNTER → 2020-07-31 08:57 | Outpatient (CLI) | payer BC, SELFPAY ==
[2020-07-31 11:53] LABS: Coronavirus 19 IgG Antibody Negative (Negative); Coronavirus 19 IgM Antibody Negative (Negative)
--- NOTE | 2020-07-31 13:10 | MR_ITS ---
PROCEDURE: MR HEAD/BRAIN WO/W CON CLINICAL INDICATION: encephalopathy DIZZINESS. INTERMITTENT BLURRED VISION AND DARKNESS, HEADACHE, AND FORGETFULNESS. COMPARISON: No exams were available for comparison TECHNIQUE: Routine multiplanar multi echo sequences are performed without and with gadolinium enhancement. FINDINGS: No midline shift, mass effect, intracranial hemorrhage, or hydrocephalus. No evidence of acute infarction. The cerebellopontine angle, cerebellum, midbrain, and brainstem have an unremarkable appearance. The pituitary, , corpus callosum, and craniocervical junction are unremarkable. There is a bulging disc at C3-C4 with narrowing of the canal and some contour deformity of the anterior cord at that level with canal stenosis at 10 mm There are a few small T2 white matter hyperintensities nonspecific. These are in the frontal lobes. There is a rounded hypointensity anterior to the optic chiasm consistent with a 5 mm anterior communicating artery aneurysm which is abutting the optic chiasm. Suggest confirmation with MR angiogram. No enhancing lesions are evident. No mastoid effusion or sinus air-fluid level. 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 Recommend MRA for confirmation. Dictated by: Miles Monterroso MD 08/01/2020 06:18 Miles Monterroso MD in [facility] 08/01/2020 06:18
== END ==
PROVIDERS: Urology; PCP Emergency Medicine; Visit Provider Specialist
DX: R42 Dizziness and giddiness (principal); R51.9 Headache, unspecified; G89.29 Other chronic pain; G93.40 Encephalopathy, unspecified
CPT/HCPCS: 36415; 70553; 86328; A9576

== ENCOUNTER → 2020-07-31 20:05 | Outpatient (CLI) | payer BC, SELFPAY | PROVIDERS: PCP Emergency Medicine; Visit Provider Specialist | DX: Z01.818 Encounter for other preprocedural examination (principal); Z03.818 Encounter for observation for suspected exposure to other biological agents ruled out; G47.33 Obstructive sleep apnea (adult) (pediatric) | CPT/HCPCS: 95810 ==

== ENCOUNTER → 2020-08-02 12:49 | Outpatient (CLI) | payer BC, SELFPAY ==
--- NOTE | 2020-08-02 12:49 | MR_ITS ---
PROCEDURE: MR ANGIO HEAD WO CON CLINICAL INDICATION: Dizziness with intermittent blurred vision and headaches. Follow-up abnormal MRI. Abnormal finding on brain MRI ABNORMAL FINDONG ON MRI BRAIN 07-31-20 COMPARISON: MR MR HEAD/BRAIN WO/W CON from 07/31/2020 TECHNIQUE: [id number] images obtained without contrast with 3D multi slab MIP reformats. FINDINGS: There is a 6 x 5 mm aneurysm involving the anterior communicating artery. This projects anteriorly and inferiorly into the pituitary fossa region. This does have some compression upon the optic chiasm as seen on previous MRI. There is some flow artifact within the aneurysm. The right posterior cerebral artery arises from the anterior aspect of the supraclinoid portion of the right internal carotid artery approximately 8 mm proximal to the ICA bifurcation. This represents a replaced posterior cerebral artery on the right. At the SCRAP COLLECTOR origin there is a lobulation of the SCRAP COLLECTOR suggesting a small aneurysm at approximately 3 mm. There is also a lobular contour of the posterior aspect of the right ICA at its bifurcation suggesting some aneurysmal dilatation at this area. On the left side there is an absent A1 segment of the anterior cerebral artery.. The A1 segment on the right is hypertrophy. The basilar artery has an unremarkable appearance. The left posterior cerebral artery arises from the basilar artery. The right SCRAP COLLECTOR arises from the internal carotid artery. No evidence of AVM. There is hypertrophy of the left PICA. Single-shot MRV is unremarkable. IMPRESSION: 1. 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 2. Replaced right posterior cerebral artery with suspected 3 mm aneurysm at its origin 3. Mild fusiform dilatation of the right internal carotid artery. This may only represent infundibulum however cannot exclude an aneurysm measuring approximately 3 mm in with. 4. Absent A1 segment on the left. 5. CT angiogram of the brain may better demonstrate the anatomy and anatomic variance if clinically desired. Dictated by: Miles Monterroso MD 08/03/2020 09:02 Miles Monterroso MD in [facility] 08/03/2020 09:02
== END ==
PROVIDERS: PCP Emergency Medicine; Visit Provider Specialist
DX: I67.1 Cerebral aneurysm, nonruptured (principal)
CPT/HCPCS: 70544

== ENCOUNTER → 2020-08-03 11:34 | Outpatient (CLI) | payer BC, SELFPAY ==
[2020-08-03 14:05] LABS: Thyroid Stimulating Hormone 1.67 uIU/mL (0.465-4.68)
[2020-08-03 14:24] LABS: Vitamin B12 248 pg/mL (239-931)
[2020-08-04 10:28] LABS: HIV Screen 4th Generation wRfx Non Reactive (Non Reactive)
== END ==
PROVIDERS: Visit Provider Specialist
DX: G31.84 Mild cognitive impairment of uncertain or unknown etiology (principal); G89.29 Other chronic pain; H53.9 Unspecified visual disturbance; R51.9 Headache, unspecified
CPT/HCPCS: 36415; 82607; 84443; 86618; 86703; G0432

== ENCOUNTER → 2021-01-18 15:33 | Outpatient (CLI) | payer BC, SELFPAY ==
[2021-01-18 16:56] LABS: Basophils % 0.9 % (0.1-2.0); Eosinophils # 0.1 K/mm3 (0.0-0.4); Eosinophils % 2.8 % (0.1-12.0); Hematocrit 44.8 % (42.0-52.0); Lymphocytes # 1.6 K/mm3 (0.7-4.5); Mean Corpuscular HGB Conc 33.5 g/dL (31.8-35.4); Mean Corpuscular Hemoglobin 30.2 pg (27.0-31.2); Mean Corpuscular Volume 90.2 fl (80-94); Monocytes # 0.3 K/mm3 (0.1-1.0); Monocytes % 5.1 % (1.7-9.3); Neutrophils % 59.2 % (37.0-80.0); Platelet Count 167 K/mm3 (142-424); Red Blood Count 4.97 M/mm3 (4.60-6.20); Red Cell Distribution Width 13.2 % (11.5-17.5); White Blood Count 5.1 K/mm3 (4.8-10.8)
[2021-01-18 17:17] LABS: Alanine Aminotransferase 99 U/L (12-78); Albumin Level 4.5 g/dl (3.5-5.0); Albumin/Globulin Ratio 1.7 (1.1-1.8); Alkaline Phosphatase 120 U/L (38-126); Anion Gap 13.1 mEq/L (5-15); Aspartate Amino Transferase 55 U/L (17-59); Bilirubin,Total 0.7 mg/dl (0.2-1.3); Blood Urea Nitrogen 16 mg/dl (9-20); Calcium 8.7 mg/dl (8.4-10.2); Carbon Dioxide 25 mmol/L (22.0-30.0); Chloride 105 mmol/L (98-107); Chol/HDL Ratio 7.7 (1-3.5); Cholesterol 230 mg/dl (140-200); Estimated Glomerular Filt Rate 102 ml/min (>60); GFR (African American) 123 ML/MIN (>60); Globulin 2.7 g/dL (1.3-3.2); Glucose 113 mg/dl (74-100); HDL Cholesterol 30 mg/dl (40-60); Potassium 4.1 mmoL/L (3.5-5.1); Sodium 139 mmol/L (136-145); Total Protein,Serum 7.2 g/dl (6.3-8.2)
[2021-01-18 17:35] LABS: 25-OH Vitamin D, Total 29.8 ng/mL (30-100); Triglycerides 634 mg/dl (30-150)
[2021-01-18 17:36] LABS: Free T4 (Free Thyroxine) 1.14 ng/dl (0.78-2.19)
[2021-01-18 17:51] LABS: Prostate Specific Ag Screen 0.3 ng/ml (0.0-4.0)
[2021-01-20 08:53] LABS: Testosterone,Total 417 ng/dL (264-916)
== END ==
PROVIDERS: Visit Provider Nurse Practitioner Family
DX: Z00.00 Encounter for general adult medical examination without abnormal findings (principal); E55.9 Vitamin D deficiency, unspecified
CPT/HCPCS: 80053; 80061; 82306; 84403; 84439; 84443; 85025; G0103

== ENCOUNTER 2021-04-08 22:41 | Emergency (ER) | payer BC, SELFPAY ==
[2021-04-08 22:53] VITALS: BP 111/84; PULSE 74; RESP 20; TEMP 36.9; O2SAT 96; BMI 26.6
--- NOTE | 2021-04-08 23:04 | CT_ITS ---
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 Radiation optimization: All CT scans at this facility use at least one of these dose optimization techniques: automated exposure control; mA and/or kV adjustment per patient size (includes targeted exams where dose is matched to clinical indication); or iterative reconstruction. Contrast material: ISOVUE; Contrast volume: 75 ml; Contrast route: IV; COMPARISON: CT ABDOMEN PELVIS W CON 04/05/2020 11:55 PM FINDINGS: Lungs: Minimal dependent atelectasis at the lung bases. Liver: Liver is mildly enlarged measuring 18 cm in craniocaudal dimension. Liver does not meet criteria for steatosis on this study. Gallbladder and bile ducts: Cholecystectomy. No biliary dilation. Pancreas: Unremarkable. No main pancreatic duct dilation. Spleen: Normal. No splenomegaly. Adrenal glands: Unremarkable. Kidneys and ureters: Symmetric, homogeneous enhancement of both kidneys. No hydronephrosis. Previously visualized right ureterovesical junction calculus is no longer seen. Stomach and bowel: No obstruction. No abnormal bowel wall thickening. Appendix: Normal, diminutive caliber retrocecal appendix. Intraperitoneal space: No pneumoperitoneum. No ascites. Vasculature: No abdominal aortic aneurysm. Lymph nodes: No enlarged lymph nodes. Urinary bladder: Unremarkable as visualized. No wall thickening. Reproductive: Unremarkable as visualized. Bones/joints: No acute fracture. Spondylosis with scattered neural foraminal narrowing, greatest at the lower lumbar levels. Soft tissues: Small fat containing bilateral inguinal hernias. IMPRESSION: 1. No acute abnormality or specific etiology for symptoms identified. 2. Mild hepatomegaly.
[2021-04-08 23:16] LABS: Microscopic, Urine URINE MICROSCOPIC (MICROSCOPIC)
[2021-04-08 23:18] LABS: Appearance,Urine CLEAR (Clear); Bilirubin,Urine Negative (Negative); Blood, Urine Negative (Negative); Color,Urine YELLOW (Yellow); Glucose,Urine (UA) Negative (Negative); Ketones,Urine Negative (Negative); Leukocyte Esterase,Urine Negative (Negative); Nitrate,Urine Negative (Negative); PH,Urine 5.5 (5.0-8.5); Protein,Urine TRACE (Negative); Specific Gravity, Urine >= 1.030 (1.005-1.030); Urobilinogen,Urine 0.2 EU/dl (0.2)
[2021-04-08 23:19] LABS: Basophils # 0.1 K/mm3 (0-0.2); Basophils % 0.6 % (0.1-2.0); Eosinophils % 0.3 % (0.1-12.0); Hematocrit 46.1 % (42.0-52.0); Hemoglobin 15.5 g/dL (14.1-18.0); Lymphocytes # 1.9 K/mm3 (0.7-4.5); Lymphocytes % 16.5 % (10-50); Mean Corpuscular HGB Conc 33.6 g/dL (31.8-35.4); Mean Corpuscular Hemoglobin 30.1 pg (27.0-31.2); Mean Corpuscular Volume 89.7 fl (80-94); Mean Platelet Volume 10.2 fl (7.4-10.4); Monocytes # 0.7 K/mm3 (0.1-1.0); Monocytes % 6.1 % (1.7-9.3); Neutrophils % 76.4 % (37.0-80.0); Platelet Count 259 K/mm3 (142-424); Red Blood Count 5.14 M/mm3 (4.60-6.20); Red Cell Distribution Width 13.8 % (11.5-17.5); White Blood Count 11.7 K/mm3 (4.8-10.8)
[2021-04-08 23:21] LABS: Alanine Aminotransferase 66 U/L (12-78); Albumin Level 5.4 g/dl (3.5-5.0); Albumin/Globulin Ratio 1.5 (1.1-1.8); Alkaline Phosphatase 102 U/L (38-126); Amylase 67 U/L (30-110); Anion Gap 22.8 mEq/L (5-15); Aspartate Amino Transferase 69 U/L (17-59); Bilirubin,Total 1.5 mg/dl (0.2-1.3); Blood Urea Nitrogen 30 mg/dl (9-20); Calcium 9.8 mg/dl (8.4-10.2); Carbon Dioxide 20 mmol/L (22.0-30.0); Chloride 100 mmol/L (98-107); Creatinine Clearance Estimated 59 mL/min (50-200); Estimated Glomerular Filt Rate 46 ml/min (>60); GFR (African American) 55 ML/MIN (>60); Globulin 3.7 g/dL (1.3-3.2); Glucose 179 mg/dl (74-100); Lipase 44 U/L (23-300); Potassium 3.8 mmoL/L (3.5-5.1); Sodium 139 mmol/L (136-145); Total Protein,Serum 9.1 g/dl (6.3-8.2)
[2021-04-08 23:23] LABS: Amorphous Sediment,Urine Trace /lpf; Coarse Granular Casts,Urine Occasional #/lpf (0); Mucus,Urine 4+ /lpf; Squamous Epithelial Cell,Urine Occasional #/hpf (0-5)
[2021-04-08 23:26] LABS: C-Reactive Protein 2.6 mg/L (0-4)
[2021-04-08 23:30] VITALS: BP 124/79
[2021-04-08 23:40] LABS: Procalcitonin 0.084 ng/mL (0.0-2.0)
[2021-04-08 23:50] LABS: Erythrocyte Sedimentation Rate 10 mm/hr (0-20)
--- NOTE | 2021-04-09 00:08 | HMH.EDNVD ---
ED Disposition Clinical Impression: SANCHEZ (acute kidney injury) Tobacco poisoning Qualifiers: Encounter type: initial encounter Injury intent: accidental or unintentional Qualified Code(s): T65.291A - Toxic effect of other tobacco and nicotine, accidental (unintentional), initial encounter Disposition: Home, Self-Care Condition on Discharge: Good Instructions: DI for Nausea -- Adult Additional Instructions: fluids and see pcp for follow up Referrals: Yoni Eason MD [Primary Care Provider] - - Critical Care Critical Care Time: No Attestation: On 04/08/21, the high probability of a clinically significant, sudden or life threatening deterioration of the following system(s) required my full and direct attention, intervention and personal management. The time I documented below is in addition to time spent performing reported procedures but includes the following listed in this critical care notation. Medical Decision Making - Medical Records Medical records reviewed: Yes: I reviewed the patient's medical records. - Jose Inquiry Pt receiving controlled substance: No Vital Signs: 04/08/21 22:53 04/08/21 23:30 Temperature 98.5 F Temperature Source Oral Pulse Rate [Right] 74 Respiratory Rate 20 Blood Pressure 124/79 Blood Pressure [Right Arm] 111/84 Blood Pressure Mean 92 Blood Pressure Mean [Right Arm] 93 Blood Pressure Source [Right Arm] Automatic Cuff Blood Pressure Position [Right Arm] Supine 02 Sat by Pulse Oximetry 96 Oxygen Delivery Method Room Air - Lab Data Lab results reviewed: Yes: I reviewed the patient's lab results. Lab Results 04/08/21 23:00: WBC 11.7 H, RBC 5.14, Hgb 15.5, Hct 46.1, MCV 89.7, MCH 30.1, MCHC 33.6, RDW 13.8, Plt Count 259, MPV 10.2, Neut % (Auto) 76.4, Lymph % (Auto) 16.5, [place] % (Auto) 6.1, Eos % (Auto) 0.3, Baso % (Auto) 0.6, Neut # (Auto) 9.0 H, Lymph # (Auto) 1.9, [place] # (Auto) 0.7, Eos # (Auto) 0.0, Baso # (Auto) 0.1, ESR 10 04/08/21 23:00: Sodium 139, Potassium 3.8, Chloride 100, Carbon Dioxide 20 L, Anion Gap 22.8 H, BUN 30 H, Creatinine 1.60 H, Estimated Creat Clear 59, Estimated GFR 46 L, Est GFR ( Amer) 55 L, Glucose 179 H, Calcium 9.8, Total Bilirubin 1.5 H, AST 69 H, ALT 66, Alkaline Phosphatase 102, C-Reactive Protein 2.6, Total Protein 9.1 H D, Albumin 5.4 H, Globulin 3.7 H, Albumin/Globulin Ratio 1.5, Amylase 67, Lipase 44, Procalcitonin 0.084 04/08/21 23:05: Urine Color Yellow, Urine Appearance Clear, Urine pH 5.5, Ur Specific [place] >= 1.030, Urine Protein Trace, Urine Glucose (UA) Negative, Urine Ketones Negative, Urine Blood Negative, Urine Nitrate Negative, Urine Bilirubin Negative, Urine Urobilinogen 0.2, Ur Leukocyte Esterase Negative, Urine WBC 5-10, Ur Squamous Epith Cells Occasional, Amorphous Sediment Trace, Coarse Granular Casts Occasional, Urine Mucus 4+ Result diagrams: 04/08/21 23:00 04/08/21 23:00 Orders (Tests/Meds): ED MEDICATIONS Generic Name Dose Route Start Last Admin Trade Name Freq PRN Reason Stop Dose Admin Sodium Chloride 1,000 mls @ 999 mls/hr 04/08/21 23:15 04/08/21 23:11 Sod Chlor 0.9% 1000ml Bag IV 04/09/21 00:15 999 mls/hr .Q1H1M JUSTIN Administration Sodium Chloride 1,000 mls @ 999 mls/hr 04/09/21 00:45 04/09/21 00:41 Sod Chlor 0.9% 1000ml Bag IV 04/09/21 01:45 999 mls/hr .Q1H1M JUSTIN Administration Sodium Chloride 8 ml 04/08/21 23:04 Sodium Chloride 0.9% 10ml Vial IV 05/08/21 23:03 NEEDED PRN dilute pepcid Discontinued Medications Generic Name Dose Route Start Last Admin Trade Name Freq PRN Reason Stop Dose Admin Famotidine 20 mg 04/08/21 23:04 04/08/21 23:10 Famotidine 20mg/2ml Vial IV 04/08/21 23:05 20 mg ONCE ONE Administration Iopamidol 75 ml 04/08/21 23:54 04/08/21 23:55 Iopamidol-370 (76%);100ml Bottle IV 04/08/21 23:55 75 ml ONCE ONE Administration Ketorolac Tromethamine 30 mg 04/08/21 23:04 04/08/21 23:10 Ketorolac 3
[2021-04-09 01:32] VITALS: BP 125/67; PULSE 72; RESP 16; TEMP 36.9; O2SAT 98
== END 2021-04-09 01:35 | disposition home or self-care (01) ==
PROVIDERS: Emergency Provider Emergency Medicine; PCP Emergency Medicine
DX: N17.9 Acute kidney failure, unspecified (principal); T65.291A Toxic effect of other tobacco and nicotine, accidental (unintentional), initial encounter; K21.9 Gastro-esophageal reflux disease without esophagitis; E78.5 Hyperlipidemia, unspecified; Z87.442 Personal history of urinary calculi; Z88.5 Allergy status to narcotic agent
CPT/HCPCS: 74177; 80053; 81001; 82150; 83690; 84145; 85025; 85651; 86140; 96365; 96366; 96375; 99283; J2405; Q9967

== ENCOUNTER → 2021-04-17 14:17 | Outpatient (CLI) | payer BC, SELFPAY ==
[2021-04-17 14:23] LABS: Basophils % 0.7 % (0.1-2.0); Eosinophils # 0.1 K/mm3 (0.0-0.4); Eosinophils % 1.6 % (0.1-12.0); Hematocrit 38.8 % (42.0-52.0); Hemoglobin 13.7 g/dL (14.1-18.0); Lymphocytes # 1.6 K/mm3 (0.7-4.5); Lymphocytes % 34.7 % (10-50); Mean Corpuscular HGB Conc 35.2 g/dL (31.8-35.4); Mean Corpuscular Hemoglobin 31.3 pg (27.0-31.2); Mean Corpuscular Volume 88.8 fl (80-94); Mean Platelet Volume 10.6 fl (7.4-10.4); Monocytes # 0.2 K/mm3 (0.1-1.0); Monocytes % 4.7 % (1.7-9.3); Neutrophils # 2.6 K/mm3 (1.8-7.8); Neutrophils % 58.2 % (37.0-80.0); Platelet Count 192 K/mm3 (142-424); Red Blood Count 4.37 M/mm3 (4.60-6.20); Red Cell Distribution Width 13.3 % (11.5-17.5); White Blood Count 4.5 K/mm3 (4.8-10.8)
[2021-04-17 14:48] LABS: Erythrocyte Sedimentation Rate 15 mm/hr (0-20)
== END ==
PROVIDERS: Visit Provider Emergency Medicine
DX: N17.9 Acute kidney failure, unspecified (principal)
CPT/HCPCS: 85025; 85651

== ENCOUNTER 2021-05-03 11:22 | Emergency (ER) | payer BC, SELFPAY ==
[2021-05-03 11:48] VITALS: BP 115/55; PULSE 54; RESP 16; TEMP 36.8; O2SAT 99; BMI 27.1
--- NOTE | 2021-05-03 12:09 | HMH.EDUTC ---
[facility] [place]ression: Muscle spasm Disposition: Home, Self-Care Condition on Discharge: Good Instructions: Cyclobenzaprine, DI for Muscle Spasm Additional Instructions: *Ibuprofen jenni 6 hours with meal as needed for pain/inflammation *Not additional anti-inflammatory like motrin, aleve, advil with the above amount of ibuprofen. You can still take Tylenol every 4 hours as needed if you need something else for pain *Ice 20 minutes every 2 hours for the first 48 hours after the initial injury followed by moist heat every 20 minutes 3-4 times a day to affected area *Muscle relaxer every 8 hours as needed for muscle spasms but remember, it WILL cause drowsiness You cannot take it and drive, operate machinery or care for small children. *Keep this area active, no movement leads to more stiffness, However take it easy and avoid heavy lifting pushing or pulling *Follow up with you family doctor if no improvement for further treatment Soft stretches and Over the counter Muscle rubs may help with muscle spasm in shoulders and upper back Prescriptions: predniSONE [Deltasone 10mg tablet] 10 mg PO BID 5 Days #10 tab Transmission Status: Received by [id number] Cyclobenzaprine HCl [Flexeril 10mg tablet] 10 mg PO TID PRN #30 tab PRN Reason: Muscle Spasm Transmission Status: Received by [id number] Referrals: Yoni Eason MD [Primary Care Provider] - As needed Forms: Work/School Release Time of Disposition: 12:41 Medical Decision Making - Jose Inquiry Pt receiving controlled substance: No Jose was queried for this patient: No Vital Signs: 05/03/21 11:48 05/03/21 12:37 Temperature 98.3 F 98 F Temperature Source Oral Pulse Rate 50 L Pulse Rate [Left] 54 L Respiratory Rate 16 16 Blood Pressure 130/68 Blood Pressure [Right Arm] 115/55 L Blood Pressure Mean [Right Arm] 75 02 Sat by Pulse Oximetry 99 Medical Decision Narrative: Patient heart rate 54-58 patient appears muscular and family reports he walks alot and always moving and doing something and active and his HR is typically low in 50-60 [facility] [place] - General Stated complaint: bilateral arm/shoulder and back pain Time Seen by Provider: 05/03/21 12:10 Mode of Arrival: Ambulatory Source of Information: Patient Limitations: No Limitations Description of Symptoms (Recalled from Triage Doc. by RN): pt c/o of neck pain that feels like pressure. he states the pain radiates down his arms but worse in the left. pt states he woke up like this. no injury noted. HEENT Symptoms (Recalled from RN notes): No Resp Symptoms (Recalled from RN notes): No Skin Symptoms (Recalled from RN notes): No MS Symptoms (Recalled from RN notes): Yes (neck pain/pressure that goes down both arms.) Functional Status (Recalled from RN notes): na - History of Present Illness Provider Complaint: Patient and speaks very little japanese but understands most japanese well, per family, but at times has trouble saying what he wants and sister is with him to help if needed Reports woke up with pain in his upper back below his neck that shoots into both shoulders but worse in left shoulder and feels tight like rubber band and with certain movements radiates into upper arms Denies known injury reports thinks he slept wrong denies heart pain - Related Data Home Medications Medication Instructions Recorded Confirmed aspirin 81 mg tablet,delayed 81 mg PO DAILY 07/04/20 02/19/21 release Previous Rx's Medication Instructions Recorded albuterol sulfate 90 mcg/actuation 1 inh INHALATION QID PRN #8.5 g 06/29/20 aerosol inhaler budesonide-formoterol HFA 160 1 puff INHALATION BID #10.2 g 06/29/20 mcg-4.5 mcg/actuation aerosol inhaler amitriptyline 10 mg tablet 10 mg PO HS #30 tab 07/04/20 pantoprazole 40 mg tablet,delayed 40 mg PO QDAY #90 tab 07/04/20 release memantine 5 mg tablet 5 mg PO BID #60 tab 08/03/20 lamotrigine 200 mg tablet See
[2021-05-03 12:37] VITALS: BP 130/68; PULSE 50; RESP 16; TEMP 36.6
== END 2021-05-03 13:03 | disposition home or self-care (01) ==
PROVIDERS: Emergency Provider Nurse Practitioner; PCP Emergency Medicine
DX: M62.838 Other muscle spasm (principal)
CPT/HCPCS: 99202; G0463

== ENCOUNTER 2021-05-07 01:14 | Emergency (ER) | payer BC, SELFPAY ==
[2021-05-07 01:17] VITALS: BP 104/59; PULSE 62; RESP 16; TEMP 36.6; O2SAT 96; BMI 26.1
--- NOTE | 2021-05-07 01:37 | ECG_ITS ---
APPROVED REPORT Exam: Resting ECG HR:54 bpm ECG Measurements Heart Rate 54 AXES GA 190 P 43 QRSd 94 QRS 23 QT 444 T 41 QTc 421 Conclusion Sinus bradycardia Otherwise normal ECG Electronically signed by : Eleazar Huang MD 05/08/2021 17:37:09
--- NOTE | 2021-05-07 01:44 | XR_ITS ---
PROCEDURE INFORMATION: Exam: XR Chest Exam date and time: 05/07/2021 1:44 AM Age: 51 years old Clinical indication: Other: Nausea vomiting after taking his meds tonight; Additional info: N/v after taking his meds tonight TECHNIQUE: Imaging protocol: XR of the chest. Views: 2 views. Total images: 2 COMPARISON: CT CHEST WO CON 06/23/2020 8:03 AM FINDINGS: Lungs: Patchy right mid and lower lung opacity favors atelectasis though atypical pneumonia could have this appearance. Pleural spaces: Unremarkable. No pleural effusion. No pneumothorax. Heart/Mediastinum: Unremarkable. No cardiomegaly. Bones/joints: Unremarkable. IMPRESSION: Patchy right mid and lower lung opacity favors atelectasis though atypical pneumonia could have this appearance.
[2021-05-07 01:53] LABS: Microscopic, Urine URINE MICROSCOPIC (MICROSCOPIC)
[2021-05-07 01:56] LABS: Basophils % 0.5 % (0.1-2.0); Eosinophils % 0.4 % (0.1-12.0); Hematocrit 40.4 % (42.0-52.0); Hemoglobin 13.9 g/dL (14.1-18.0); Lymphocytes # 0.9 K/mm3 (0.7-4.5); Lymphocytes % 11.3 % (10-50); Mean Corpuscular HGB Conc 34.3 g/dL (31.8-35.4); Mean Corpuscular Hemoglobin 30.8 pg (27.0-31.2); Mean Corpuscular Volume 89.7 fl (80-94); Mean Platelet Volume 9.4 fl (7.4-10.4); Monocytes # 0.3 K/mm3 (0.1-1.0); Neutrophils # 6.8 K/mm3 (1.8-7.8); Neutrophils % 83.8 % (37.0-80.0); Platelet Count 215 K/mm3 (142-424); Red Blood Count 4.51 M/mm3 (4.60-6.20); Red Cell Distribution Width 13.3 % (11.5-17.5); White Blood Count 8.1 K/mm3 (4.8-10.8)
[2021-05-07 01:57] LABS: Chloride 102 mmol/L (98-107)
[2021-05-07 01:57] LABS: Appearance,Urine CLEAR (Clear); Bilirubin,Urine Negative (Negative); Blood, Urine Negative (Negative); Color,Urine YELLOW (Yellow); Glucose,Urine (UA) Negative (Negative); Ketones,Urine Negative (Negative); Leukocyte Esterase,Urine Negative (Negative); Nitrate,Urine Negative (Negative); Protein,Urine Negative (Negative); Specific Gravity, Urine >= 1.030 (1.005-1.030); Urobilinogen,Urine 0.2 EU/dl (0.2)
[2021-05-07 01:58] LABS: Potassium 3.8 mmoL/L (3.5-5.1); Sodium 138 mmol/L (136-145)
[2021-05-07 02:00] LABS: Alanine Aminotransferase 29 U/L (12-78); Albumin Level 4.4 g/dl (3.5-5.0); Alkaline Phosphatase 91 U/L (38-126); Aspartate Amino Transferase 47 U/L (17-59); Blood Urea Nitrogen 27 mg/dl (9-20); Creatinine Clearance Estimated 106 mL/min (50-200); Estimated Glomerular Filt Rate 89 ml/min (>60); GFR (African American) 107 ML/MIN (>60)
[2021-05-07 02:00] LABS: Amorphous Sediment,Urine 4+ /lpf; WBC,Urine Occasional #/hpf (0-3)
[2021-05-07 02:01] LABS: Albumin/Globulin Ratio 1.4 (1.1-1.8); Anion Gap 15.8 mEq/L (5-15); Calcium 8.6 mg/dl (8.4-10.2); Carbon Dioxide 24 mmol/L (22.0-30.0); Globulin 3.2 g/dL (1.3-3.2); Glucose 150 mg/dl (74-100); Total Protein,Serum 7.6 g/dl (6.3-8.2)
--- NOTE | 2021-05-07 02:22 | HMH.EDGENADL ---
ED Disposition Clinical Impression: Dizziness Vomiting Qualifiers: Vomiting type: unspecified Vomiting Intractability: non-intractable Nausea presence: with nausea Qualified Code(s): R11.2 - Nausea with vomiting, unspecified Disposition: Home, Self-Care Condition on Discharge: Good Instructions: DI for Vomiting -- Adult, DI for Dizziness-Nonvertigo Additional Instructions: Phenergan as needed for nausea or vomiting. Stop taking cyclobenzaprine. Ibuprofen as needed for pain. Follow-up with primary care provider, call today to make appointment. Referrals: Yoni Eason MD [Primary Care Provider] - - Critical Care Critical Care Time: No Attestation: On 05/07/21, the high probability of a clinically significant, sudden or life threatening deterioration of the following system(s) required my full and direct attention, intervention and personal management. The time I documented below is in addition to time spent performing reported procedures but includes the following listed in this critical care notation. Medical Decision Making - Medical Records Medical records reviewed: Yes: I reviewed the patient's medical records. MR Comment: Reviewed previous left heart cath, see results below - Jose Inquiry Pt receiving controlled substance: No Vital Signs: 05/07/21 01:17 Temperature 97.9 F Temperature Source Oral Pulse Rate [Right] 62 Respiratory Rate 16 Blood Pressure [Right Arm] 104/59 L Blood Pressure Mean [Right Arm] 74 02 Sat by Pulse Oximetry 96 - Lab Data Lab Results 05/07/21 01:24: Urine Color Yellow, Urine Appearance Clear, Urine pH 6.0, Ur Specific [place] >= 1.030, Urine Protein Negative, Urine Glucose (UA) Negative, Urine Ketones Negative, Urine Blood Negative, Urine Nitrate Negative, Urine Bilirubin Negative, Urine Urobilinogen 0.2, Ur Leukocyte Esterase Negative, Urine WBC Occasional, Amorphous Sediment 4+ 05/07/21 01:30: WBC 8.1, RBC 4.51 L, Hgb 13.9 L, Hct 40.4 L, MCV 89.7, MCH 30.8, MCHC 34.3, RDW 13.3, Plt Count 215, MPV 9.4, Neut % (Auto) 83.8 H, Lymph % (Auto) 11.3, Garrard % (Auto) 4.0, Eos % (Auto) 0.4, Baso % (Auto) 0.5, Neut # (Auto) 6.8, Lymph # (Auto) 0.9, Garrard # (Auto) 0.3, Eos # (Auto) 0.0, Baso # (Auto) 0.0 05/07/21 01:30: Sodium 138, Potassium 3.8, Chloride 102, Carbon Dioxide 24, Anion Gap 15.8 H, BUN 27 H, Creatinine 0.90, Estimated Creat Clear 106, Estimated GFR 89, Est GFR ( Amer) 107, Glucose 150 H, Calcium 8.6, Total Bilirubin 1.0, AST 47, ALT 29, Alkaline Phosphatase 91, Troponin I < 0.01, Total Protein 7.6, Albumin 4.4, Globulin 3.2, Albumin/Globulin Ratio 1.4 05/07/21 01:30: Lipase 44 Result diagrams: 05/07/21 01:30 05/07/21 01:30 Orders (Tests/Meds): ED MEDICATIONS Discontinued Medications Generic Name Dose Route Start Last Admin Trade Name Freq PRN Reason Stop Dose Admin Meclizine HCl 25 mg 05/07/21 02:35 05/07/21 02:54 Meclizine 25mg Tablet PO 05/07/21 02:36 25 mg ONCE ONE Administration Ondansetron HCl 4 mg 05/07/21 02:35 05/07/21 02:54 Ondansetron 4mg/2ml Vial IV 05/07/21 02:36 4 mg ONCE ONE Administration Sodium Chloride 1,000 ml 05/07/21 02:35 05/07/21 02:54 Sodium Chloride 0.9% 1000ml Bag IV 05/07/21 02:36 1,000 ml BOLUS ONE Administration ORDERS Category Date Time Status Troponin I Q3H Lab 05/07/21 04:45 Ordered Troponin I Q3H Lab 05/07/21 07:45 Ordered 05/03 [facility] Clinical Impression: Muscle spasm Disposition: Home, Self-Care Condition on Discharge: Good Instructions: Cyclobenzaprine, DI for Muscle Spasm Additional Instructions: *Ibuprofen jenni 6 hours with meal as needed for pain/inflammation *Not additional anti-inflammatory like motrin, aleve, advil with the above amount of ibuprofen. You can still take Tylenol every 4 hours as needed if you need something else for pain *Ice 20 minutes every 2 hours for the first 48 hours after the initial injury followed by shantal junior
[2021-05-07 02:35] LABS: Lipase 44 U/L (23-300)
[2021-05-07 02:42] LABS: Troponin I < 0.01 ng/ml (0.00-0.034)
[2021-05-07 03:38] VITALS: BP 100/58; PULSE 60; RESP 17; TEMP 36.8; O2SAT 99
== END 2021-05-07 03:46 | disposition home or self-care (01) ==
PROVIDERS: Emergency Provider Emergency Medicine; PCP Emergency Medicine
DX: R42 Dizziness and giddiness (principal); M62.838 Other muscle spasm; K21.9 Gastro-esophageal reflux disease without esophagitis; E78.5 Hyperlipidemia, unspecified
CPT/HCPCS: 71046; 80053; 81001; 83690; 84484; 85025; 93005; 96365; 96375; 99283; J2405

== ENCOUNTER 2021-07-05 13:50 | Emergency (ER) | payer BC, SELFPAY ==
[2021-07-05 15:25] VITALS: BP 135/70; PULSE 64; RESP 19; TEMP 36.8; O2SAT 98; BMI 26.6
--- NOTE | 2021-07-05 16:00 | HMH.EDUTC ---
[facility] [place]: Muscle sp[place] Disposition: Home, Self-Care Condition on Discharge: Good Instructions: Ibuprofen, Methocarbamol, DI for Muscle Spasm Additional Instructions: *Ibuprofen as directed on package with meal as needed for pain/inflammation if your Doctor has told you that you can take it *Not additional anti-inflammatory like motrin, aleve, advil with the above amount of ibuprofen. You can still take Tylenol every 4 hours as needed if you need something else for pain *Ice 20 minutes every 2 hours for the first 48 hours after the initial injury followed by moist heat every 20 minutes 3-4 times a day to affected area *Muscle relaxer every 12 hours as needed for muscle spasms but remember, it WILL cause drowsiness You cannot take it and drive, operate machinery or care for small children. *Keep this area active, no movement leads to more stiffness, However take it easy and avoid heavy lifting pushing or pulling *Follow up with you family doctor if no improvement for further treatment Return if needed Warm compresses to area may help with pain Prescriptions: methocarbamoL [Methocarbamol 500mg Tablet] 500 mg PO BID PRN #10 tab PRN Reason: Muscle Spasm Transmission Status: Pending to [id number] Referrals: Yoni Eason MD [Primary Care Provider] - As needed Time of Disposition: 16:23 Medical Decision Making - Jose Inquiry Pt receiving controlled substance: No Jose was queried for this patient: No Vital Signs: 07/05/21 15:25 Temperature 98.3 F Temperature Source Oral Pulse Rate [Right Brachial] 64 Respiratory Rate 19 Blood Pressure [Right Arm] 135/70 Blood Pressure Mean [Right Arm] 91 Blood Pressure Source [Right Arm] Automatic Cuff Blood Pressure Position [Right Arm] Sitting 02 Sat by Pulse Oximetry 98 Oxygen Delivery Method Room Air [facility] [place] - General Stated complaint: upper back pain, no accident Time Seen by Provider: 07/05/21 16:00 Mode of Arrival: Ambulatory Source of Information: Patient, Spouse Limitations: No Limitations Description of Symptoms (Recalled from Triage Doc. by RN): PATIENT C/O PAIN TO UPPER BACK, NECK AND SHOULDERS X 2 DAYS HEENT Symptoms (Recalled from RN notes): No Resp Symptoms (Recalled from RN notes): No Skin Symptoms (Recalled from RN notes): No MS Symptoms (Recalled from RN notes): Yes Functional Status (Recalled from RN notes): WNL - History of Present Illness Provider Complaint: Patient sister with him to help him communicate patient understands cymro but not able to speak it well. states that he thinks he may have slept wrong States that he woke up having pain in his left shoulder blade area that hurt from his left side of neck into left shoulder blade State that he thinks that he may have slept wrong State that he has had issues with muscle spasms in the past - Related Data Home Medications Medication Instructions Recorded Confirmed aspirin 81 mg tablet,delayed 81 mg PO DAILY 07/04/20 07/05/21 release lamoTRIgine [Lamotrigine] 200 mg PO DAILY 05/07/21 07/05/21 Previous Rx's Medication Instructions Recorded methocarbamoL [Methocarbamol 500mg 500 mg PO BID PRN #10 tab 07/05/21 Tablet] Allergies Allergy/AdvReac Type Severity Reaction Status Date / Time acetaminophen [From NORCO] Allergy Unknown Verified 02/19/21 09:43 atorvastatin [From LIPITOR] Allergy Unknown FACIAL Verified 02/19/21 09:43 SWELLING hydrocodone [HYDROCODONE] Allergy Unknown FACIAL Verified 02/19/21 09:43 SWELLING oxycodone [From PERCOCET] Allergy Unknown FACIAL Verified 02/19/21 09:43 SWELLING - Worker's Comp Is this a Worker's Comp case?: No [facility] History - Hepatitis A Screen Drug use history?: No High risk sexual behaviors?: No History of sexually transmitted infection?: No Currently employed?: No Childcare worker?: No Do you have indoor plumbing?: Yes Do you have electricity?: Yes Attestation st
[2021-07-05 16:31] VITALS: BP 135/70; PULSE 64; RESP 19; TEMP 36.8; O2SAT 98
== END 2021-07-05 16:39 | disposition home or self-care (01) ==
PROVIDERS: Emergency Provider Nurse Practitioner; PCP Emergency Medicine
DX: M54.6 Pain in thoracic spine (principal); M62.830 Muscle spasm of back; K21.9 Gastro-esophageal reflux disease without esophagitis; E78.5 Hyperlipidemia, unspecified
CPT/HCPCS: 99202; G0463

== ENCOUNTER 2021-08-09 13:50 | Emergency (ER) | payer BC, SELFPAY ==
[2021-08-09 13:51] VITALS: BP 117/62; PULSE 72; RESP 18; TEMP 36.9; O2SAT 97; BMI 27.3
--- NOTE | 2021-08-09 14:22 | HMH.EDGENADL ---
ED Disposition Clinical Impression: Torticollis Disposition: Home, Self-Care Condition on Discharge: Good Additional Instructions: Warm compresses or heating pad to right neck and shoulder 20 minutes 3-4 times a day. Ibuprofen for pain. Follow-up with primary care provider if not improved in 3 to 4 days. Return to the emergency department if worsening. Prescriptions: Ibuprofen [Ibuprofen 800mg Tablet] 800 mg PO Q8HP PRN #15 tab PRN Reason: Moderate Pain Transmission Status: Pending to [id number] Referrals: Yoni Eason MD [Primary Care Provider] - - Critical Care Critical Care Time: No Attestation: On 08/09/21, the high probability of a clinically significant, sudden or life threatening deterioration of the following system(s) required my full and direct attention, intervention and personal management. The time I documented below is in addition to time spent performing reported procedures but includes the following listed in this critical care notation. Medical Decision Making - Jose Inquiry Pt receiving controlled substance: No Vital Signs: 08/09/21 13:51 Temperature 98.4 F Temperature Source Oral Pulse Rate [Left Radial] 72 Respiratory Rate 18 Blood Pressure [Right Arm] 117/62 Blood Pressure Mean [Right Arm] 80 Blood Pressure Source [Right Arm] Automatic Cuff Blood Pressure Position [Right Arm] Sitting 02 Sat by Pulse Oximetry 97 Oxygen Delivery Method Room Air Medical Decision Narrative: Patient awake and with pain this morning that goes along the course of his right sternocleidomastoid muscle and lateral cervical muscles. He has pain with range of motion of the neck particularly rotating his head to the right. His tympanic membrane and external auditory canal are normal. Mastoid areas normal. I do not suspect infection. Do not suspect cardiac cause. He will be treated for musculoskeletal cause. General Adult HPI - General Chief complaint: Ear Stated complaint: left ear pressure Time Seen by Provider: 08/09/21 14:10 Mode of Arrival: Ambulatory Limitations: No Limitations Description of Symptoms (Recalled from ER Triage Doc. by RN): c/o right ear pain with it shooting up the side of his head into his right shoulder since this morning - History of Present Illness HPI narrative: Patient states he woke up this morning with pain that goes from his right postauricular area down the right side of his neck and into his right shoulder and up into the right side of his head. Denies pain actually in his ear. Denies URI symptoms or fever. Denies chest pain, shortness of breath, nausea, diaphoresis. Denies injury. - Related Data Home Medications Medication Instructions Recorded Confirmed aspirin 81 mg tablet,delayed 81 mg PO DAILY 07/04/20 07/05/21 release lamoTRIgine [Lamotrigine] 200 mg PO DAILY 05/07/21 07/05/21 Previous Rx's Medication Instructions Recorded methocarbamoL [Methocarbamol 500mg 500 mg PO BID PRN #10 tab 07/05/21 Tablet] Ibuprofen [Ibuprofen 800mg 800 mg PO Q8HP PRN #15 tab 08/09/21 Tablet] Allergies Allergy/AdvReac Type Severity Reaction Status Date / Time acetaminophen [From NORCO] Allergy Unknown Verified 02/19/21 09:43 atorvastatin [From LIPITOR] Allergy Unknown FACIAL Verified 02/19/21 09:43 SWELLING hydrocodone [HYDROCODONE] Allergy Unknown FACIAL Verified 02/19/21 09:43 SWELLING oxycodone [From PERCOCET] Allergy Unknown FACIAL Verified 02/19/21 09:[address] [facility] History - Hepatitis A Screen Drug use history?: No High risk sexual behaviors?: No History of sexually transmitted infection?: No Currently employed?: No Childcare worker?: No Do you have indoor plumbing?: Yes Do you have electricity?: Yes Attestation statement:: This patient has been screened for Hepatitis A risk factors. I have reviewed the patient's past medical history: Yes Medical History: Reports:: Gastroesophagea
[2021-08-09 14:52] VITALS: BP 122/65; PULSE 65; RESP 16; TEMP 36.8; O2SAT 98
== END 2021-08-09 14:53 | disposition home or self-care (01) ==
PROVIDERS: Emergency Provider Emergency Medicine; PCP Emergency Medicine
DX: M43.6 Torticollis (principal); K21.9 Gastro-esophageal reflux disease without esophagitis; G43.709 Chronic migraine without aura, not intractable, without status migrainosus
CPT/HCPCS: 96372; 99281

== ENCOUNTER → 2021-08-23 08:37 | Outpatient (CLI) | payer BC, SELFPAY ==
--- NOTE | 2021-08-23 08:37 | CT_ITS ---
FINAL REPORT TECHNIQUE: Axial CT images were performed through the head. Coronal reformatted images were submitted. This study was performed with techniques to keep radiation doses as low as reasonably achievable (ALARA). Individualized dose reduction techniques using automated exposure control or adjustment of mA and/or kV according to the patient's size were employed. 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 The ventricles are normal in size. There is mild atrophy. There is no evidence of hemorrhage. There is no mass or edema identified. There is no abnormal extra-axial fluid seen. The sinuses are well aerated. IMPRESSION: No acute intracranial process. 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 Reviewed, Interpreted and Dictated by Phil Javier MD Transcribed by Sue Cheng Authenticated by Phil Javier MD on 08/23/2021 11:56:51 AM [facility]
== END ==
PROVIDERS: PCP Emergency Medicine; Visit Provider Emergency Medicine
DX: R51.9 Headache, unspecified (principal)
CPT/HCPCS: 70450

== ENCOUNTER 2021-12-22 21:00 | Emergency (ER) | payer BC, SELFPAY ==
[2021-12-22 21:20] VITALS: BP 143/75; PULSE 54; RESP 18; TEMP 36.8; O2SAT 98; BMI 27.3
--- NOTE | 2021-12-22 21:27 | XR_ITS ---
PROCEDURE INFORMATION: Exam: XR Chest Exam date and time: 12/22/2021 9:33 PM Age: 51 years old Clinical indication: Cough and shortness of breath; Additional info: Cough, SOA TECHNIQUE: Imaging protocol: XR of the chest. Views: 1 view. COMPARISON: CR XR CHEST 2V 05/07/2021 2:14 AM FINDINGS: Lungs: Unremarkable. No consolidation. Pleural spaces: Unremarkable. No pleural effusion. No pneumothorax. Heart/Mediastinum: Unremarkable. No cardiomegaly. Bones/joints: Unremarkable. IMPRESSION: No acute findings.
--- NOTE | 2021-12-22 21:27 | ECG_ITS ---
APPROVED REPORT Exam: Resting ECG HR:54 bpm ECG Measurements Heart Rate 54 AXES OH 190 P 60 QRSd 108 QRS 52 QT 404 T 40 QTc 391 Conclusion SINUS BRADYCARDIA BORDERLINE ECG UNCONFIRMED REPORT Electronically signed by : Eleazar Huang MD 12/23/2021 08:21:00
--- NOTE | 2021-12-22 21:30 | CT_ITS ---
PROCEDURE INFORMATION: Exam: CT Head Without Contrast Exam date and time: 12/22/2021 9:41 PM Age: 51 years old Clinical indication: Pain; Headache not specified; Prior surgery; Surgery date: 6+ months; Surgery type: Anuerysm TECHNIQUE: Imaging protocol: Computed tomography of the head without contrast. Radiation optimization: All CT scans at this facility use at least one of these dose optimization techniques: automated exposure control; mA and/or kV adjustment per patient size (includes targeted exams where dose is matched to clinical indication); or iterative reconstruction. COMPARISON: CT HEAD/BRAIN WO CON 08/23/2021 8:44 AM FINDINGS: Brain: There is ill-defined hypodensity in the left posterior parietal lobe white matter which could reflect underlying vasogenic edema. This is more prominent than on previous examination. Atrophy and chronic small vessel ischemic changes. No hemorrhage. No mass effect or midline shift. Cerebral ventricles: No ventriculomegaly. Paranasal sinuses: Visualized sinuses are unremarkable. No fluid levels. Mastoid air cells: Visualized mastoid air cells are well aerated. 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 Bones/joints: Unremarkable. No acute fracture. Soft tissues: Unremarkable. IMPRESSION: Ill-defined area of hypodensity in the left occipital lobe and posterior left parietal lobe white matter. Cannot exclude vasogenic edema from underlying mass. Recommend MRI to further evaluate these findings.
[2021-12-22 21:32] LABS: Basophils # 0.2 K/mm3 (0-0.2); Basophils % 2.1 % (0.1-2.0); Eosinophils # 0.1 K/mm3 (0.0-0.4); Eosinophils % 0.5 % (0.1-12.0); Hematocrit 42.6 % (42.0-52.0); Hemoglobin 14.8 g/dL (14.1-18.0); Lymphocytes # 1.9 K/mm3 (0.7-4.5); Lymphocytes % 19.7 % (10-50); Mean Corpuscular HGB Conc 34.7 g/dL (31.8-35.4); Mean Corpuscular Volume 89.2 fl (80-94); Mean Platelet Volume 9.3 fl (7.4-10.4); Monocytes # 0.5 K/mm3 (0.1-1.0); Monocytes % 4.9 % (1.7-9.3); Neutrophils # 7.1 K/mm3 (1.8-7.8); Neutrophils % 72.7 % (37.0-80.0); Platelet Count 300 K/mm3 (142-424); Red Blood Count 4.77 M/mm3 (4.60-6.20); Red Cell Distribution Width 13.8 % (11.5-17.5); White Blood Count 9.8 K/mm3 (4.8-10.8)
[2021-12-22 21:37] LABS: Alanine Aminotransferase 61 U/L (12-78); Albumin Level 4.3 g/dl (3.5-5.0); Albumin/Globulin Ratio 1.4 (1.1-1.8); Alkaline Phosphatase 160 U/L (38-126); Anion Gap 13.7 mEq/L (5-15); Aspartate Amino Transferase 29 U/L (17-59); Bilirubin,Total 0.4 mg/dl (0.2-1.3); Blood Urea Nitrogen 25 mg/dl (9-20); Calcium 8.9 mg/dl (8.4-10.2); Carbon Dioxide 26 mmol/L (22.0-30.0); Chloride 102 mmol/L (98-107); Creatinine Clearance Estimated 121 mL/min (50-200); Estimated Glomerular Filt Rate 102 ml/min (>60); GFR (African American) 123 ML/MIN (>60); Globulin 3.1 g/dL (1.3-3.2); Glucose 191 mg/dl (74-100); Potassium 3.7 mmoL/L (3.5-5.1); Sodium 138 mmol/L (136-145); Total Protein,Serum 7.4 g/dl (6.3-8.2)
[2021-12-22 21:42] LABS: C-Reactive Protein 3.1 mg/L (0-4)
[2021-12-22 21:53] LABS: Troponin I < 0.01 ng/ml (0.00-0.034)
[2021-12-22 21:55] LABS: Procalcitonin 0.033 ng/mL (0.0-2.0)
[2021-12-22 22:01] LABS: Erythrocyte Sedimentation Rate 19 mm/hr (0-20)
--- NOTE | 2021-12-22 22:12 | HMH.EDSOB ---
ED Disposition Clinical Impression: Bronchitis Headache Qualifiers: Headache type: unspecified Headache chronicity pattern: acute headache Intractability: not intractable Qualified Code(s): R51.9 - Headache, unspecified Disposition: Home, Self-Care Condition on Discharge: Good Instructions: DI for Shortness of Breath Additional Instructions: use meds and call pcp for follow up Prescriptions: Azithromycin [Zithromax 250mg tab] 250 mg PO DIRECTED #6 tab Transmission Status: Pending to [id number] Referrals: Yoni Eason MD [Primary Care Provider] - - Critical Care Critical Care Time: No Attestation: On 12/22/21, the high probability of a clinically significant, sudden or life threatening deterioration of the following system(s) required my full and direct attention, intervention and personal management. The time I documented below is in addition to time spent performing reported procedures but includes the following listed in this critical care notation. Medical Decision Making - Medical Records Medical records reviewed: Yes: I reviewed the patient's medical records. - Jose Inquiry Pt receiving controlled substance: No Vital Signs: 12/22/21 21:20 Temperature 98.2 F Temperature Source Oral Pulse Rate [Apical] 54 L Respiratory Rate 18 Blood Pressure [Right Arm] 143/75 H Blood Pressure Mean [Right Arm] 97 Blood Pressure Source [Right Arm] Automatic Cuff Blood Pressure Position [Right Arm] Sitting 02 Sat by Pulse Oximetry 98 Oxygen Delivery Method Room Air - Lab Data Lab results reviewed: Yes: I reviewed the patient's lab results. Lab Results 12/22/21 21:15: WBC 9.8, RBC 4.77, Hgb 14.8, Hct 42.6, MCV 89.2, MCH 31.0, MCHC 34.7, RDW 13.8, Plt Count 300, MPV 9.3, Neut % (Auto) 72.7, Lymph % (Auto) 19.7, [place] % (Auto) 4.9, Eos % (Auto) 0.5, Baso % (Auto) 2.1 H, Neut # (Auto) 7.1, Lymph # (Auto) 1.9, [place] # (Auto) 0.5, Eos # (Auto) 0.1, Baso # (Auto) 0.2, ESR 19 12/22/21 21:15: Sodium 138, Potassium 3.7, Chloride 102, Carbon Dioxide 26, Anion Gap 13.7, BUN 25 H, Creatinine 0.80, Estimated Creat Clear 121, Estimated GFR 102, Est GFR ( Amer) 123, Glucose 191 H, Calcium 8.9, Total Bilirubin 0.4, AST 29, ALT 61, Alkaline Phosphatase 160 H, Troponin I < 0.01, C-Reactive Protein 3.1, Total Protein 7.4, Albumin 4.3, Globulin 3.1, Albumin/Globulin Ratio 1.4, Procalcitonin 0.033 Result diagrams: 12/22/21 21:15 12/22/21 21:15 Orders (Tests/Meds): ED MEDICATIONS Discontinued Medications Generic Name Dose Route Start Last Admin Trade Name Freq PRN Reason Stop Dose Admin Iopamidol 100 ml 12/22/21 22:50 12/22/21 22:51 Iopamidol-370 (76%);100ml Bottle IV 12/22/21 22:51 100 ml ONCE ONE Administration Sodium Chloride 10 ml 12/22/21 22:50 12/22/21 22:51 Sodium Chloride 0.9% 10ml Syr (Rad Only) IV 12/22/21 22:51 10 ml ONCE ONE Administration ORDERS Category Date Time Status Troponin I Q3H Lab 12/23/21 00:30 Ordered Troponin I Q3H Lab 12/23/21 03:30 Ordered - Radiology Data #1 Image(s): Chest Image Reviewed: Yes I have reviewed radiologist's interpretation Preliminary Findings: Normal/NAD - CT Data CT Scan: Head Time Received: 00:[address] Reviewed: Yes: I have viewed the radiologist's interpretation Preliminary Findings: Abnormal - ECG Data Tracing #1 Normal Sinus Rhythm: Yes Ischemic changes: non-specific ST-T wave changes Medical Decision Narrative: use meds and see pcp for follow up Resp/SOB HPI - General Chief Complaint: Shortness of Breath/Dyspnea Stated Complaint: Chronic Cough;SOA;Headache Time Seen by Provider: 12/22/21 22:00 Mode of Arrival: Ambulatory Source of Information: Patient, Spouse, Medical Record Limitations: Language Barrier Description of Symptoms (Recalled from ER Triage Doc. by RN): Information obtained by patients spouse. Patient c/o cough and shortness of air for the last week with a head
--- NOTE | 2021-12-22 22:13 | CT_ITS ---
PROCEDURE INFORMATION: Exam: CT Head With Contrast Exam date and time: 12/22/2021 10:42 PM Age: 51 years old Clinical indication: Pain; Headache not specified; Prior surgery; Surgery date: 6+ months; Surgery type: Aneurysm; Additional info: Per radiologist. PT had CT head wo earlier this pm TECHNIQUE: Imaging protocol: Computed tomography of the head with intravenous contrast. Radiation optimization: All CT scans at this facility use at least one of these dose optimization techniques: automated exposure control; mA and/or kV adjustment per patient size (includes targeted exams where dose is matched to clinical indication); or iterative reconstruction. Contrast material: ISOVUE; Contrast volume: 100 ml; Contrast route: IV; COMPARISON: CT HEAD/BRAIN WO CON 12/22/2021 9:41 PM FINDINGS: Brain: Unremarkable white matter. No mass effect. No abnormal enhancing lesions. Cerebral ventricles: Unremarkable. No ventriculomegaly. Bones/joints: Unremarkable. No acute fracture. Paranasal sinuses: Visualized sinuses are unremarkable. No fluid levels. Mastoid air cells: Visualized mastoid air cells are well aerated. Soft tissues: Unremarkable. 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 IMPRESSION: No acute intracranial abnormality. The area of possible edema in the left parietooccipital region is not appreciated on this exam and could have been due to artifact on the previous study.
[2021-12-23 00:11] VITALS: PULSE 83; PULSE 84
[2021-12-23 00:19] VITALS: BP 140/70; PULSE 83; RESP 18; TEMP 36.8; O2SAT 99
== END 2021-12-23 00:28 | disposition home or self-care (01) ==
PROVIDERS: Emergency Provider Emergency Medicine; PCP Emergency Medicine
DX: J40 Bronchitis, not specified as acute or chronic (principal); R51.9 Headache, unspecified; Z86.79 Personal history of other diseases of the circulatory system; Z79.82 Long term (current) use of aspirin; Z79.899 Other long term (current) drug therapy; Z88.6 Allergy status to analgesic agent; Z88.8 Allergy status to other drugs, medicaments and biological substances; K21.9 Gastro-esophageal reflux disease without esophagitis; E78.5 Hyperlipidemia, unspecified; G43.909 Migraine, unspecified, not intractable, without status migrainosus; R56.9 Unspecified convulsions; Z87.442 Personal history of urinary calculi; Z90.49 Acquired absence of other specified parts of digestive tract
CPT/HCPCS: 70450; 70460; 71045; 80053; 83036; 84145; 84484; 85025; 85651; 86140; 93005; 99284; Q9967

== ENCOUNTER 2022-01-11 11:24 | Emergency (ER) | payer BC, SELFPAY ==
[2022-01-11] VITALS (11 sets, daily range): BP systolic 135–155; BP diastolic 71–86; PULSE 49–65; RESP 16–19; TEMP 36.7–36.8; O2SAT 96–99; BMI 27.3
--- NOTE | 2022-01-11 11:51 | HMH.EDUTC ---
[facility] [place] Disposition Clinical Impression: Abdominal discomfort, Abdominal distention Disposition: Home, Self-Care Condition on Discharge: Fair Instructions: DI for Acute Abdominal Pain Referrals: Yoni Eason MD [Primary Care Provider] - Time of Disposition: 12:08 Medical Decision Making - Jose Inquiry Pt receiving controlled substance: No Jose was queried for this patient: No Vital Signs: 01/11/22 11:35 01/11/22 12:25 01/11/22 12:26 Temperature 98.3 F 98.1 F Temperature Source Oral Oral Pulse Rate 60 Pulse Rate [Right Brachial] 64 60 Respiratory Rate 19 16 18 Blood Pressure 149/71 H Blood Pressure [Right Arm] 138/72 149/71 H Blood Pressure Mean 95 Blood Pressure Mean [Right Arm] 94 97 Blood Pressure Source [Right Arm] Automatic Cuff Automatic Cuff Blood Pressure Position [Right Arm] Sitting Sitting 02 Sat by Pulse Oximetry 99 98 97 Oxygen Delivery Method Room Air Room Air 01/11/22 13:30 01/11/22 13:39 01/11/22 14:00 Temperature Temperature Source Pulse Rate 61 61 49 L Pulse Rate [Right Brachial] Respiratory Rate 18 18 18 Blood Pressure 135/77 155/78 H 150/86 H Blood Pressure [Right Arm] Blood Pressure Mean 124 107 Blood Pressure Mean [Right Arm] Blood Pressure Source [Right Arm] Blood Pressure Position [Right Arm] 02 Sat by Pulse Oximetry 99 96 98 Oxygen Delivery Method 01/11/22 14:30 01/11/22 15:00 01/11/22 15:31 Temperature Temperature Source Pulse Rate 54 L 56 L 56 L Pulse Rate [Right Brachial] Respiratory Rate 17 18 16 Blood Pressure 137/80 148/83 H 150/81 H Blood Pressure [Right Arm] Blood Pressure Mean 113 109 101 Blood Pressure Mean [Right Arm] Blood Pressure Source [Right Arm] Blood Pressure Position [Right Arm] 02 Sat by Pulse Oximetry 97 97 97 Oxygen Delivery Method 01/11/22 16:00 01/11/22 16:38 Temperature 98.3 F Temperature Source Oral Pulse Rate 56 L 65 Pulse Rate [Right Brachial] Respiratory Rate 17 17 Blood Pressure 152/83 H 137/77 Blood Pressure [Right Arm] Blood Pressure Mean 106 Blood Pressure Mean [Right Arm] Blood Pressure Source [Right Arm] Blood Pressure Position [Right Arm] 02 Sat by Pulse Oximetry 97 Oxygen Delivery Method Room Air - Lab Data Lab Results 01/11/22 12:10: Urine Color Yellow, Urine Appearance Clear, Urine pH 6.5, Ur Specific [place] 1.020, Urine Protein Negative, Urine Glucose (UA) Negative, Urine Ketones Negative, Urine Blood Negative, Urine Nitrate Negative, Urine Bilirubin Negative, Urine Urobilinogen 0.2, Ur Leukocyte Esterase Negative, Urine RBC Occasional, Urine WBC Occasional, Ur Squamous Epith Cells Occasional, Urine Bacteria Trace 01/11/22 12:35: WBC 5.1, RBC 4.90, Hgb 14.9, Hct 42.4, MCV 86.5, MCH 30.5, MCHC 35.2, RDW 13.4, Plt Count 167, MPV 9.4, Neut % (Auto) 56.4, Lymph % (Auto) 34.5, [place] % (Auto) 4.6, Eos % (Auto) 3.9, Baso % (Auto) 0.6, Neut # (Auto) 2.9, Lymph # (Auto) 1.8, [place] # (Auto) 0.2, Eos # (Auto) 0.2, Baso # (Auto) 0.0 01/11/22 12:35: Sodium 138, Potassium 3.9, Chloride 105, Carbon Dioxide 27, Anion Gap 9.9, BUN 11, Creatinine 0.60 L, Estimated Creat Clear 162, Estimated GFR 141, Est GFR ( Amer) 171, Glucose 122 H, Calcium 8.8, Total Bilirubin 1.0, AST 40, ALT 47, Alkaline Phosphatase 105, Total Protein 7.3, Albumin 4.4, Globulin 2.9, Albumin/Globulin Ratio 1.5, Amylase 72 01/11/22 12:35: Lipase 58 Result diagrams: 01/11/22 12:35 01/11/22 12:35 Orders (Tests/Meds): ED MEDICATIONS Discontinued Medications Generic Name Dose Route Start Last Admin Trade Name Freq PRN Reason Stop Dose Admin Diatrizoate Meglum/Diatrizoate Sod 30 ml 01/11/22 12:47 01/11/22 12:50 Diatrizoate Jihan 66% & Diatrizoate Na 10% 30ml Udc PO 01/11/22 12:48 30 ml ONCE ONE Administration Ketorolac Tromethamine 15 mg 01/11/22 12:48 01/11/22 13:34 Ketorolac 30mg/Ml Vial IV 01/11/22 12:49 15 mg ONCE ONE Administration Morphine
--- NOTE | 2022-01-11 12:08 | PC.NURSE ---
PATIENT SENT TO ER PER Michelle MAHMOOD APRN FOR FURTHER EVALUATION. REPORT GIVEN TO Lawanda GAN RN BY Michelle MAHMOOD APRN
[2022-01-11 12:47] LABS: Microscopic, Urine URINE MICROSCOPIC (MICROSCOPIC)
--- NOTE | 2022-01-11 12:47 | CT_ITS ---
FINAL REPORT TECHNIQUE: Thin section axial images were obtained from the lung bases to the pubic symphysis without IV contrast. Oral contrast was administered. Coronal reformatted images were submitted. This study was performed with techniques to keep radiation doses as low as reasonably achievable (ALARA). Individualized dose reduction techniques using automated exposure control or adjustment of mA and/or kV according to the patient's size were employed. CLINICAL HISTORY: abdominal distention and pain for 1 month COMPARISON: April 08, 2021 FINDINGS: There are no renal or ureteral stones. There is no hydronephrosis or perinephric stranding. The gallbladder is absent. The remaining unenhanced solid abdominal organs are unremarkable. There is a moderate amount of retained stool. There is no evidence of small bowel obstruction. The appendix is normal. GI tract is without acute abnormality. There is no lymphadenopathy or ascites. The prostate and bladder are unremarkable. No acute osseous abnormality is identified. IMPRESSION: No acute intra-abdominal or intrapelvic process. Reviewed, Interpreted and Dictated by Amarilys Spicer MD Transcribed by Krystian Butler Authenticated by Amarilys Spicer MD on 01/11/2022 03:38:35 PM [facility]
--- NOTE | 2022-01-11 12:49 | HMH.EDGENADL ---
ED Disposition Clinical Impression: Abdominal discomfort, Abdominal distention Disposition: Home, Self-Care Condition on Discharge: Good Instructions: DI for Acute Abdominal Pain Referrals: Yoni Eason MD [Primary Care Provider] - - Critical Care Critical Care Time: No Attestation: On 01/11/22, the high probability of a clinically significant, sudden or life threatening deterioration of the following system(s) required my full and direct attention, intervention and personal management. The time I documented below is in addition to time spent performing reported procedures but includes the following listed in this critical care notation. Medical Decision Making - Jose Inquiry Pt receiving controlled substance: Yes Jose was queried for this patient: No Risks and benefits of using a controlled substance: were not discussed with pt by me Vital Signs: 01/11/22 11:35 01/11/22 12:25 01/11/22 12:26 Temperature 98.3 F 98.1 F Temperature Source Oral Oral Pulse Rate 60 Pulse Rate [Right Brachial] 64 60 Respiratory Rate 19 16 18 Blood Pressure 149/71 H Blood Pressure [Right Arm] 138/72 149/71 H Blood Pressure Mean 95 Blood Pressure Mean [Right Arm] 94 97 Blood Pressure Source [Right Arm] Automatic Cuff Automatic Cuff Blood Pressure Position [Right Arm] Sitting Sitting 02 Sat by Pulse Oximetry 99 98 97 Oxygen Delivery Method Room Air Room Air 01/11/22 13:30 01/11/22 13:39 01/11/22 14:00 Temperature Temperature Source Pulse Rate 61 61 49 L Pulse Rate [Right Brachial] Respiratory Rate 18 18 18 Blood Pressure 135/77 155/78 H 150/86 H Blood Pressure [Right Arm] Blood Pressure Mean 124 107 Blood Pressure Mean [Right Arm] Blood Pressure Source [Right Arm] Blood Pressure Position [Right Arm] 02 Sat by Pulse Oximetry 99 96 98 Oxygen Delivery Method 01/11/22 14:30 01/11/22 15:00 01/11/22 15:31 Temperature Temperature Source Pulse Rate 54 L 56 L 56 L Pulse Rate [Right Brachial] Respiratory Rate 17 18 16 Blood Pressure 137/80 148/83 H 150/81 H Blood Pressure [Right Arm] Blood Pressure Mean 113 109 101 Blood Pressure Mean [Right Arm] Blood Pressure Source [Right Arm] Blood Pressure Position [Right Arm] 02 Sat by Pulse Oximetry 97 97 97 Oxygen Delivery Method 01/11/22 16:00 01/11/22 16:38 Temperature 98.3 F Temperature Source Oral Pulse Rate 56 L 65 Pulse Rate [Right Brachial] Respiratory Rate 17 17 Blood Pressure 152/83 H 137/77 Blood Pressure [Right Arm] Blood Pressure Mean 106 Blood Pressure Mean [Right Arm] Blood Pressure Source [Right Arm] Blood Pressure Position [Right Arm] 02 Sat by Pulse Oximetry 97 Oxygen Delivery Method Room Air - Lab Data Lab Results 01/11/22 12:10: Urine Color Yellow, Urine Appearance Clear, Urine pH 6.5, Ur Specific [place] 1.020, Urine Protein Negative, Urine Glucose (UA) Negative, Urine Ketones Negative, Urine Blood Negative, Urine Nitrate Negative, Urine Bilirubin Negative, Urine Urobilinogen 0.2, Ur Leukocyte Esterase Negative, Urine RBC Occasional, Urine WBC Occasional, Ur Squamous Epith Cells Occasional, Urine Bacteria Trace 01/11/22 12:35: WBC 5.1, RBC 4.90, Hgb 14.9, Hct 42.4, MCV 86.5, MCH 30.5, MCHC 35.2, RDW 13.4, Plt Count 167, MPV 9.4, Neut % (Auto) 56.4, Lymph % (Auto) 34.5, [place] % (Auto) 4.6, Eos % (Auto) 3.9, Baso % (Auto) 0.6, Neut # (Auto) 2.9, Lymph # (Auto) 1.8, [place] # (Auto) 0.2, Eos # (Auto) 0.2, Baso # (Auto) 0.0 01/11/22 12:35: Sodium 138, Potassium 3.9, Chloride 105, Carbon Dioxide 27, Anion Gap 9.9, BUN 11, Creatinine 0.60 L, Estimated Creat Clear 162, Estimated GFR 141, Est GFR ( Amer) 171, Glucose 122 H, Calcium 8.8, Total Bilirubin 1.0, AST 40, ALT 47, Alkaline Phosphatase 105, Total Protein 7.3, Albumin 4.4, Globulin 2.9, Albumin/Globulin Ratio 1.5, Amylase 72 01/11/22 12:35: Lipase 58 Result diagrams: 01/11/22 12:35 01/11/22 12:35 Orders (Tests/
[2022-01-11 12:51] LABS: Appearance,Urine CLEAR (Clear); Bilirubin,Urine Negative (Negative); Blood, Urine Negative (Negative); Color,Urine YELLOW (Yellow); Glucose,Urine (UA) Negative (Negative); Ketones,Urine Negative (Negative); Leukocyte Esterase,Urine Negative (Negative); Nitrate,Urine Negative (Negative); PH,Urine 6.5 (5.0-8.5); Protein,Urine Negative (Negative); Urobilinogen,Urine 0.2 EU/dl (0.2)
[2022-01-11 12:52] LABS: Basophils % 0.6 % (0.1-2.0); Eosinophils # 0.2 K/mm3 (0.0-0.4); Eosinophils % 3.9 % (0.1-12.0); Hematocrit 42.4 % (42.0-52.0); Hemoglobin 14.9 g/dL (14.1-18.0); Lymphocytes # 1.8 K/mm3 (0.7-4.5); Lymphocytes % 34.5 % (10-50); Mean Corpuscular HGB Conc 35.2 g/dL (31.8-35.4); Mean Corpuscular Hemoglobin 30.5 pg (27.0-31.2); Mean Corpuscular Volume 86.5 fl (80-94); Mean Platelet Volume 9.4 fl (7.4-10.4); Monocytes # 0.2 K/mm3 (0.1-1.0); Monocytes % 4.6 % (1.7-9.3); Neutrophils # 2.9 K/mm3 (1.8-7.8); Neutrophils % 56.4 % (37.0-80.0); Platelet Count 167 K/mm3 (142-424); Red Cell Distribution Width 13.4 % (11.5-17.5); White Blood Count 5.1 K/mm3 (4.8-10.8)
[2022-01-11 12:59] LABS: Chloride 105 mmol/L (98-107); Potassium 3.9 mmoL/L (3.5-5.1); Sodium 138 mmol/L (136-145)
[2022-01-11 13:01] LABS: Lipase 58 U/L (23-300)
[2022-01-11 13:02] LABS: Alanine Aminotransferase 47 U/L (12-78); Albumin Level 4.4 g/dl (3.5-5.0); Alkaline Phosphatase 105 U/L (38-126); Amylase 72 U/L (30-110); Anion Gap 9.9 mEq/L (5-15); Aspartate Amino Transferase 40 U/L (17-59); Blood Urea Nitrogen 11 mg/dl (9-20); Carbon Dioxide 27 mmol/L (22.0-30.0); Creatinine Clearance Estimated 162 mL/min (50-200); Estimated Glomerular Filt Rate 141 ml/min (>60); GFR (African American) 171 ML/MIN (>60)
--- NOTE | 2022-01-11 13:02 | PC.NURSE ---
oral contrast administered rad advised per Carlos Hamilton RN
[2022-01-11 13:03] LABS: Albumin/Globulin Ratio 1.5 (1.1-1.8); Calcium 8.8 mg/dl (8.4-10.2); Globulin 2.9 g/dL (1.3-3.2); Glucose 122 mg/dl (74-100); Total Protein,Serum 7.3 g/dl (6.3-8.2)
[2022-01-11 13:21] LABS: Bacteria,Urine Trace /lpf; RBC,Urine Occasional #/hpf (0-3); Squamous Epithelial Cell,Urine Occasional #/hpf (0-5); WBC,Urine Occasional #/hpf (0-3)
== END 2022-01-11 16:46 | disposition home or self-care (01) ==
LOC: UTC 12:08 → ER 12:09
PROVIDERS: Emergency Provider Student in an Organized Health Care Education/Training Program; PCP Emergency Medicine
DX: R14.0 Abdominal distension (gaseous) (principal); R10.9 Unspecified abdominal pain; I25.10 Atherosclerotic heart disease of native coronary artery without angina pectoris; N17.9 Acute kidney failure, unspecified; Z87.442 Personal history of urinary calculi; Z79.82 Long term (current) use of aspirin; Z79.899 Other long term (current) drug therapy; Z88.6 Allergy status to analgesic agent; Z88.8 Allergy status to other drugs, medicaments and biological substances; K21.9 Gastro-esophageal reflux disease without esophagitis; E78.5 Hyperlipidemia, unspecified; G43.909 Migraine, unspecified, not intractable, without status migrainosus; R56.9 Unspecified convulsions
CPT/HCPCS: 74176; 80053; 81001; 82150; 83690; 85025; 96374; 96375; 99284; J2405

== ENCOUNTER → 2022-01-21 10:34 | Outpatient (CLI) | payer BC, SELFPAY ==
--- NOTE | 2022-01-21 10:37 | CA_ITS ---
FINAL REPORT TECHNIQUE: Multiple transverse and longitudinal images were performed of right the femoral-popliteal deep venous system with augmentation and compression maneuvers. CLINICAL HISTORY: RT LEG PAIN FINDINGS: Right lower extremity duplex ultrasound demonstrates normal flow in the deep venous system. There is no abnormal echogenicity to suggest thrombus. There is normal compression and augmentation. IMPRESSION: No evidence of right DVT. Reviewed, Interpreted and Dictated by Benjamín Aguero III, MD Transcribed by Carmen Carranza Authenticated and [facility]
== END ==
PROVIDERS: PCP Emergency Medicine; Visit Provider Emergency Medicine
DX: M79.604 Pain in right leg (principal); M79.89 Other specified soft tissue disorders
CPT/HCPCS: 93971

== ENCOUNTER → 2022-04-19 08:14 | Outpatient (CLI) | payer BC, SELFPAY ==
--- NOTE | 2022-04-19 08:15 | MR_ITS ---
FINAL REPORT CLINICAL HISTORY: neck pain - abnormal EMG. 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 FINDINGS: Multiplanar MR imaging of the cervical spine was performed without contrast. On the sagittal T2-weighted images, disc degeneration is seen at multiple levels. There is straightening of the normal cervical curvature which could be due to positioning or muscle spasm. There is no evidence of fracture. The vertebral alignment is normal. The cervical spinal cord has an unremarkable appearance without evidence of mass, edema or syrinx. The cervicomedullary junction is normal. C2-3: There is no significant canal stenosis or neural foraminal narrowing. C3-4: A small right paracentral disc protrusion causes mild cord contouring. There is mild bilateral neural foraminal narrowing. C4-5: There is an annular bulge with a small central disc protrusion causing mild cord contouring. There is mild right neural foraminal narrowing. C5-6: A central disc protrusion causes mild cord contouring. There is mild central canal stenosis with an AP thecal sac diameter of 9 mm. There is mild right neural foraminal narrowing. C6-7: There is an annular bulge with a small central disc protrusion. There is mild left neural foraminal narrowing. C7-T1: There is a left foraminal disc protrusion with mild left neural foraminal narrowing. There is a decreased signal area on the right in the T3-T4 canal that may represent a calcification or facet arthropathy. No axial images were obtained through this level. IMPRESSION: Multilevel disc protrusions with neural foraminal narrowing and central canal stenosis as described. Decreased signal area on the right in the T3-T4 spinal canal may represent a calcification or facet arthropathy. CT could further evaluate. Reviewed, Interpreted and Dictated by Benjamín Aguero III, MD Transcribed by Krystian Butler Authenticated and [facility]
== END ==
PROVIDERS: PCP Emergency Medicine; Visit Provider Emergency Medicine
DX: M54.2 Cervicalgia (principal); R20.0 Anesthesia of skin; R94.131 Abnormal electromyogram [EMG]
CPT/HCPCS: 72141; 76376

== ENCOUNTER → 2022-05-17 16:00 | Outpatient (CLI) | payer BC, SELFPAY ==
[2022-05-17 14:37] LABS: Amphetamine/Metha Screen,Urine Negative ng/ml (<1000)
[2022-05-17 14:38] LABS: Barbiturates Screen,Urine Negative ng/ml (<200)
[2022-05-17 14:49] LABS: Benzodiazepines Screen,Urine Negative ng/ml (<200)
[2022-05-17 14:50] LABS: Cannabinoid Screen,Urine Negative ng/ml (<50); Cocaine Screen,Urine Negative ng/ml (<300)
[2022-05-17 14:51] LABS: Methadone Screen,Urine Negative ng/ml (<300)
[2022-05-17 14:52] LABS: Opiate Screen,Urine Negative ng/ml (<300); Phencyclidine Screen,Urine Negative ng/ml (<25)
== END ==
PROVIDERS: PCP Emergency Medicine; Visit Provider Emergency Medicine
DX: Z79.899 Other long term (current) drug therapy (principal)
CPT/HCPCS: 80305

== ENCOUNTER → 2022-05-20 10:26 | Outpatient (POV) | payer BC, SELFPAY ==
[2022-05-20 10:59] VITALS: BP 113/67; PULSE 57; RESP 18; TEMP 36.8; O2SAT 100; BMI 28.1
--- NOTE | 2022-05-20 11:45 | EXP.PAIN.OV ---
HPI Data of Consult Patient: new to practice Consult date: 05/20/22 Requesting Physician: Amie Dean APRN Consult Narrative Reason for consult: Neck pain, low back pain, right leg pain History of present illness: Mr. Randhawa is a 52 year old male who presents today as a new patient. He is a referral from Yoni Eason's office. Today he rates his pain a 10 out of 10. He states the pain is in his neck with radiating symptoms of numbness and tingling in his bilateral arms. He states he has been having trouble due to him losing feeling and dropping objects. Patient denies any specific trauma or injury, he states this pain has progressively worsened over time. Patient also states he has low back pain that radiates into his right leg. He states this is a aching, throbbing sensation that is worse with increased activity. Patient has been prescribed gabapentin 100 mg 3 times a day by Dr. Eason's office. Patient states he is also used tramadol in the past that is provided some improvement of his symptoms. Patient has not been seen by physical therapy and he has not ever done any injective therapy in the past however he has tried home exercise and stretching for longer than 6 weeks with no improvement of his symptoms. Patient has tried [id number] Tylenol and ibuprofen with minimal improvement of his symptoms. He has also used heat and ice with no relief. Patient states he has tried compounding cream however this did not do anything for his pain. His Jose is [phone]. It has been reviewed and appropriate CC: Amie Dean APRN [facility] Medical History (Updated 05/20/22 @ 11:51 by Amie Dean APRN) Aneurysm Dizziness GERD (gastroesophageal reflux disease) H/O (corrected) congenital malformations of digestive system HLD (hyperlipidemia) Kidney stones Migraine Seizure Surgical History (Updated 05/20/22 @ 11:09 by Sanjuanita Mackey RN) Hx of cardiac cath Social History (Updated 05/20/22 @ 11:11 by Sanjuanita Mackey RN) Smoking Status: Never smoker alcohol intake: current substance use type: denies use current occupational status: other Travel in the last 8 weeks: None household members: family housing: house caffeine: No Review of Systems Review of Systems Review of systems:: pertinent systems reviewed and negative unless documented below Review of systems (narrative): Review of Systems: General: No recent weight changes, no fever, no sleep disturbances Respiratory: No cough, no shortness of air, no recurring pulmonary infections Cardiovascular/peripheral vascular: No chest pain, no palpitations, no edema, no shortness of breath Gastrointestinal: No new onset incontinence, normal bowel movements reported Genitourinary: No new onset incontinence Musculoskeletal: Neck pain, arm pain, low back pain, right leg pain Psychiatric: [Normal mood/affect] Neurological: [Denies weakness in extremities], [denies balance issues] Meds Home Medications and Allergies Home Medications Medication Instructions Recorded Confirmed Type aspirin 81 mg tablet,delayed 81 mg PO DAILY Blood thinner 07/04/20 05/20/22 History release lamotrigine 200 mg tablet 200 mg PO DAILY SEIZURES 05/07/21 05/20/22 History tramadol 50 mg tablet 50 mg PO TID pain #90 tabs 05/17/22 05/20/22 Rx dicyclomine 10 mg capsule 10 mg PO BID Infection 05/20/22 05/20/22 History gabapentin 100 mg capsule 100 mg PO TID Pain 05/20/22 05/20/22 History gabapentin 300 mg capsule 300 mg PO TID Pain 05/20/22 05/20/22 History hydrocodone 5 mg-acetaminophen 325 1 tab PO BID Pain 05/20/22 05/20/22 History mg tablet pantoprazole 40 mg tablet,delayed 40 mg PO DAILY STOMACH 05/20/22 05/20/22 History release (Protonix) New Prescriptions to Start Prescriptions: Allergies Allergy/AdvReac Type Severity Reaction Status Date / Time acetaminophen [From [facility]] Allergy Unknown Verified 05/17/22 10:44 atorvastatin [From [facility]] Allergy U
== END ==
PROVIDERS: Visit Provider Nurse Practitioner Family
DX: M50.123 Cervical disc disorder at C6-C7 level with radiculopathy (principal); M54.16 Radiculopathy, lumbar region; M79.604 Pain in right leg
CPT/HCPCS: 99202; G0463

== ENCOUNTER → 2022-05-22 13:00 | Outpatient (CLI) | payer BC, SELFPAY | PROVIDERS: PCP Nurse Practitioner Family; Visit Provider Nurse Practitioner Family | DX: N23 Unspecified renal colic (principal) | CPT/HCPCS: 87086 ==

== ENCOUNTER 2022-05-23 07:39 | Outpatient (RCR) | payer BC, SELFPAY ==
--- NOTE | 2022-05-23 09:53 | HMH.PTOPEV ---
PT Outpatient Evaluation Rehab PT Outpatient Evaluation Start: 05/23/22 08:02 Freq: Status: Active Protocol: Document 05/23/22 09:30 PRANAV (Rec: 05/23/22 09:50 PRANAV [id number]) E-signed By Aquiles Dutta, PT Outpatient Therapy Subjective History Subjective History Patient is a 52 year old male presenting to outpatient PT with reports of chronic cervical and lumbar spine pain of insidious onset. Lumbar spine pain is more of a concern at this point in time. Most recent imaging indicates multi-level disc bulges and and central canal stenosis. No recent lumbar spine imaging to report. Comorbidities include hx of seizures and brain aneuysm x 2 . Chief Complaint Pain,Spasms,Stiff,Paresthesia, Weakness,Decreased Credit Risk Modeler Strength Symptom Type Ache,Sharp,Dull,Numbness, Tingling Symptoms Relieved By Rest/Positioning,Prescription Meds Symptoms Aggravated By Bending/Stooping,Physical Activity,Walking,Lifting Prior Functional Limitations Reaching,Lifting,Housework, Sleeping,Standing,Walking, Bending/Stooping Current Functional Limitations Reaching,Lifting,Housework, Standing,Walking,Bending/ Stooping Symptom Description Constant but Variable Level of pain today (0-10) 9 Pain scale - at its best (0-10) 7 Pain scale - at its worst (0-10) 10 Cervical Eval Palpation Cervical Muscles R Cervical Paraspinal,R CT Junction,R Upper Trapezius,R Thoracic Paraspinals Cervical/Thoracic Palpation Findings Tenderness,Spasm Posture Head/C-Spine Posture Sitting Position Flexed Head/C-Spine Posture Standing Position Flexed Flexibility Deficits Upper Trapezius Muscle Length (R) Moderate Tightness Levaetor Scapulae Muscle Length (R) Moderate Tightness Pectoralis Minor Muscle Length (R) Moderate Tightness Passive Joint Mobility Cervical PIVM Dec: R OA L OA R AA L AA R C2/3 L C2/3
== END 2022-05-23 07:40 | disposition home or self-care (01) ==
LOC: PT 07:39
PROVIDERS: Visit Provider Nurse Practitioner Family
DX: M54.2 Cervicalgia (principal); M54.50 Low back pain, unspecified
CPT/HCPCS: 97163

== ENCOUNTER 2022-05-28 11:14 | Day surgery (SDC) | payer BC, SELFPAY ==
[2022-05-28 11:16] VITALS: BP 126/63; PULSE 60; RESP 16; TEMP 36.8; O2SAT 96; BMI 28.1
--- NOTE | 2022-05-28 11:36 | EXP.PAIN.PRO ---
Procedure Date: 05/28/22 Time: 11:36 Anesthesiologist:: Jed Cramer CRNA Complications:: None Pre-procedure Diagnosis:: Degenerative disc disease cervical spine multilevels. Cervical radiculopathy Post-procedure Diagnosis:: Same. Indications for Procedure:: Pleasant 52-year-old male who comes our clinic today for cervical epidural steroid injection. Patient complains of cervical neck pain as well as frequent headaches and right arm radicular symptoms to the hand. Procedure Details:: Procedure:Cervical epidural steroid injection Informed consent was obtained and the risks and benefits of the procedure were explained to the patient. The patient was taken to the procedure room and noninvasive monitors placed, including noninvasive blood pressure cuff and pulse oximeter. The neck was prepped using Betadine as a cleansing solution. The C6-C7 interspace was palpated. The skin and subcutaneous tissues were anesthetized using lidocaine 1.5% and a 25-gauge needle. After this an 18-gauge Touhy epidural needle was placed into the C6-C7 interspace and advanced using loss of resistance to air until the epidural space was encountered. After confirmation of needle placement in the epidural space, a solution containing lidocaine 1.5%, 4 mL and Depo-Medrol 80 mg was incrementally injected into the cervical epidural space.~ The patient tolerated the procedure well with no complications. The patient was observed in the Pain Clinic and then discharged home neurologically intact. Plan and Disposition:: Patient was discharged without incident
[2022-05-28 11:37] VITALS: BP 127/76; PULSE 58; RESP 18; O2SAT 98
[2022-05-28 11:39] VITALS: BP 127/76; PULSE 58; RESP 18; O2SAT 98
[2022-05-28 11:44] VITALS: BP 121/64; PULSE 60; RESP 20; O2SAT 97
== END 2022-05-28 11:45 | disposition home or self-care (01) ==
PROVIDERS: PCP Nurse Practitioner Family; Visit Provider Nurse Anesthetist, Certified Registered
DX: M50.123 Cervical disc disorder at C6-C7 level with radiculopathy (principal)
CPT/HCPCS: 62321; J1040

== ENCOUNTER → 2022-06-13 11:16 | Outpatient (POV) | payer BC, SELFPAY ==
--- NOTE | 2022-06-13 11:41 | EXP.PAIN.SOA ---
[facility] Pain Management SOAP Note Subjective:: Patient is a pleasant 52-year-old male who presents today for follow-up of cervical epidural steroid injection at C6-C7 on 05/28/2022. We are currently treating the patient for degenerative disc disease cervical spine multilevels with cervical radiculopathy symptoms, low back pain, right leg pain, neck pain. Today he states he has had at least 50% improvement in his neck symptoms following this injection and feels like it is still continuing to help. Today he rates his pain a 6 out of 10. He states the pain is primarily in his low back that radiates into his right leg. Patient denies any new trauma or injury. Patient denies any change in location or type of pain he experiences. Patient is currently prescribed gabapentin 100 mg 3 times a day by Dr. Eason's office as needed. He has also been given tramadol in the past that he stated provided some improvement patient does manage his pain with [id number] Tylenol and ibuprofen however minimal relief is given. Patient has also tried heat and ice and topical cream however this did nothing for his pain. His Jose is [id number]. It has been reviewed and appropriate. Review of Systems: General: No recent weight changes, no fever, no sleep disturbances Respiratory: No cough, no shortness of air, no recurring pulmonary infections Cardiovascular/peripheral vascular: No chest pain, no palpitations, no edema, no shortness of breath Gastrointestinal: No new onset incontinence, normal bowel movements reported Genitourinary: No new onset incontinence Musculoskeletal: Low back pain, right leg pain Psychiatric: [Normal mood/affect] Neurological: [Denies weakness in extremities], [denies balance issues] Objective:: Physical Exam: General: Alert and oriented x3, no acute distress, pleasant and cooperative Lungs: Respirations even and unlabored, symmetrical chest expansion Eyes: PERRL Musculoskeletal: Flexion and extension of lumbar [spine] somewhat guarded secondary to pain, [antalgic gait noted] Neurological: Speech clear, no gross sensory deficit Assessment:: Degenerative disc disease of cervical spine multilevels with cervical radiculopathy symptoms, low back pain, right leg pain, neck pain Plan:: Patient is experiencing significant pain in his low back that radiates into his right leg. Patient did have limited range of motion of his lumbar spine during today's visit. Patient has tried and failed conservative therapy such as oral medications, topical creams, heat and ice, at home exercising and stretching for longer than 6 weeks. Patient did have significant improvement of his neck symptoms following his cervical epidural. I have counseled the patient that he may benefit from a transforaminal epidural. Risk and benefits were discussed with the patient. He would like to proceed forward with this plan of care. He is not currently on any blood thinners. We will schedule him for a right transforaminal L4-L5 and L5-S1 and epidural injection. Patient has been instructed to contact the clinic with any concerns before the next appointment. Dr. Barrientos has reviewed this note and agrees with this plan of care. This note was dictated using voice recognition software and make contain errors or omissions. PFSH PFSH Medical History (Updated 06/02/22 @ 10:58 by Salvador Muñoz APRN) Aneurysm Dizziness GERD (gastroesophageal reflux disease) H/O (corrected) congenital malformations of digestive system HLD (hyperlipidemia) Kidney stones Migraine Seizure Surgical History Hx of cardiac cath Social History (Updated 05/28/22 @ 11:25 by Tiffanie Slater RN) Smoking Status: Never smoker alcohol intake: current substance use type: denies use current occupational status: other Travel in the last 8 weeks: None household members: family housing: house caffeine: No
[2022-06-13 12:26] VITALS: BP 125/68; PULSE 56; RESP 18; TEMP 36.4; O2SAT 99; BMI 28.5
== END ==
PROVIDERS: PCP Emergency Medicine; Visit Provider Nurse Practitioner Family
DX: M50.123 Cervical disc disorder at C6-C7 level with radiculopathy (principal); M54.50 Low back pain, unspecified; M79.604 Pain in right leg
CPT/HCPCS: 99212; G0463

== ENCOUNTER 2022-06-25 08:04 | Day surgery (SDC) | payer BC, SELFPAY ==
[2022-06-25 08:15] VITALS: BP 127/71; PULSE 55; RESP 18; TEMP 36.6; O2SAT 98; BMI 27.3
[2022-06-25 08:35] VITALS: BP 130/83; PULSE 55; RESP 18; O2SAT 97
[2022-06-25 08:36] VITALS: BP 141/78; PULSE 54; RESP 18; O2SAT 97
--- NOTE | 2022-06-25 08:50 | P.PCN_ITS ---
Procedure Date: 06/25/22 Time: 08:50 Anesthesiologist:: Jed Cramer CRNA Complications:: None Pre-procedure Diagnosis:: Degenerative disc disease lumbar spine multilevels. Lumbar radiculopathy. Post-procedure Diagnosis:: Same. Indications for Procedure:: This patient is a pleasant 52-year-old male that comes our clinic today for right L4-5, L5-S1 transforaminal epidural steroid injection. Patient has right hip and leg radicular symptoms associated with his lumbar back pain. He desc ribes the pain as constant, dull, aching to the foot. He rates the pain 7/10. Patient is status post cervical epidural steroid injection 2 weeks ago. He reports significant improvement after his cervical epidural steroid injection. However, his right arm pain has returned including the hand and fingers. He describes it as constant, dull, aching. This return 2 days ago. Otherwise, he had complete relief from his first cervical epidural steroid injection. I recommend to him a repeat cervical epidural steroid injection at the C6-7 level. He will return in 2 weeks for the that injection. Procedure Details:: Details of the procedure were explained to the patient. The patient taken the procedure room placed in the prone position. The area over the lumbar spine was cleansed using chlorhexidine as a cleansing solution. Using fluoroscopy guidance a marker was placed at the right lateral border of the L4 vertebral body and the L5 vertebral body. The skin and subcutaneous tissue was anesthetized using 1% lidocaine and 25-gauge needle at each marker. At this time using a 25-gauge 3-1/2 inch needle and live fluoroscopy the needle was inserted to the right upper one third foramen at the L4 and L5 vertebral body. The needles were confirmed and a lateral view. At this time after negative aspiration 1 cc of 1% lidocaine and 20 mg of Depo-Medrol was injected at each level. [place] removed. Band-Aid applied. Patient tolerated the procedure without difficulty. There were no complications. Plan and Disposition:: Patient was given instruction regarding right leg numbness postinjection. He understands. He will return to see us in 2 weeks for repeat cervical epidural steroid injection C6-7 level.
[2022-06-25 08:57] VITALS: BP 141/71; PULSE 55; RESP 20; O2SAT 98
== END 2022-06-25 08:59 | disposition home or self-care (01) ==
PROVIDERS: PCP Emergency Medicine; Visit Provider Nurse Anesthetist, Certified Registered
DX: M51.16 Intervertebral disc disorders with radiculopathy, lumbar region (principal)
CPT/HCPCS: 64483; 64484; J1040

== ENCOUNTER 2022-07-05 10:15 | Day surgery (SDC) | payer BC, SELFPAY ==
[2022-07-05 10:39] VITALS: BP 137/87; PULSE 49; RESP 18; TEMP 36.6; O2SAT 99; BMI 27.3
--- NOTE | 2022-07-05 10:56 | P.PCN_ITS ---
Procedure Date: 07/05/22 Time: 11:00 Anesthesiologist:: Jed Cramer CRNA Complications:: None Pre-procedure Diagnosis:: Degenerative disc disease cervical spine multilevels. Cervical radiculopathy. Post-procedure Diagnosis:: Same. Indications for Procedure:: Patient is a very pleasant 52-year-old male that comes our clinic today for repeat cervical epidural steroid injection C6-7 level. Patient had his first injection several weeks ago. He is reporting 2 weeks of significant improvement terms of his cervical neck pain as well as right arm radicular symptoms. His cervical pain has continued to improve however, his right arm is hurting into the fingers. Procedure Details:: Procedure:Cervical epidural steroid injection Informed consent was obtained and the risks and benefits of the procedure were explained to the patient. The patient was taken to the procedure room and noninvasive monitors placed, including noninvasive blood pressure cuff and pulse oximeter. The neck was prepped using Chloraprep as a cleansing solution. The C6- C7 interspace was viewed using fluroscopy. The skin and subcutaneous tissues were anesthetized using lidocaine 1.5% and a 25-gauge needle. After this an 18- gauge Touhy epidural needle was placed into the C6-C7 interspace under fluroscopy guidance and advanced using loss of resistance to air until the epidural space was encountered. After confirmation of needle placement in the epidural space using contrast dye, a solution containing normal saline, 2 mL and Depo-Medrol 80 mg was incrementally injected into the cervical epidural space.~ The patient tolerated the procedure well with no complications. The patient was observed in the Pain Clinic and then discharged home neurologically intact. Plan and Disposition:: Patient was discharged without incident. Also of note, patient is 2 weeks status post right L4-5, L5-S1 transforaminal epidural steroid injection. Patient reports his right leg is without pain at this time. He is doing very well in regards to his low back as well as right hip and leg pain.
[2022-07-05 11:03] VITALS: BP 151/77; PULSE 51; RESP 20
== END 2022-07-05 11:04 | disposition home or self-care (01) ==
PROVIDERS: PCP Emergency Medicine; Visit Provider Nurse Anesthetist, Certified Registered
DX: M50.123 Cervical disc disorder at C6-C7 level with radiculopathy (principal)
CPT/HCPCS: 62321; J1040; Q9966

== ENCOUNTER 2022-12-24 15:27 | Emergency (ER) | payer BC, SELFPAY ==
[2022-12-24 15:28] VITALS: BP 130/70; PULSE 53; RESP 16; TEMP 37.2; O2SAT 96; BMI 33.2
[2022-12-24 15:50] VITALS: BP 130/70; PULSE 53; RESP 16; TEMP 37.2; O2SAT 96; BMI 33.3
[2022-12-24 16:09] LABS: Apearance,Urine Clear (Clear); Bilirubin,Urine Negative (Negative); Blood, Urine Negative (Negative); Color,Urine Yellow (Yellow); Glucose,Urine (UA) Negative (Negative); Ketones,Urine Negative (Negative); Protein,Urine Negative (Negative); Specific Gravity, Urine 1.025 (1.005-1.030); UTC Leukocyte Esterase,Urine Negative (Negative); UTC Nitrate,Urine Negative (Negative); Urobilinogen,Urine 0.2 EU/dl (0.2)
--- NOTE | 2022-12-24 16:13 | EXP.UTC ---
Discharge Plan Disposition Patient Disposition: Home, Self-Care Condition: Good Prescriptions Prescriptions: New cyclobenzaprine 10 mg tablet 10 mg PO TID PRN (Reason: muscle spasm) Qty: 14 0RF prednisone [prednisone] 20 mg tablet 20 mg PO BID 5 Days Qty: 10 0RF No Action aspirin 81 mg tablet,delayed release (DR/EC) 81 mg PO DAILY cyclobenzaprine 10 mg tablet 10 mg PO TID PRN (Reason: muscle spasm) Qty: 60 0RF tramadol 50 mg tablet 50 mg PO TID Qty: 90 1RF lamotrigine 200 mg tablet 200 mg PO DAILY Qty: 90 0RF Rx Instructions: Take 1 tablet by mouth once daily pantoprazole [Protonix] 40 mg tablet,delayed release (DR/EC) 40 mg PO DAILY gabapentin 100 mg capsule 100 mg PO TID Rx Instructions: step one dicyclomine 10 mg capsule 10 mg PO BID Referrals Follow up/Referrals: Yoni Eason MD [Primary Care Provider] - See instructions Activity Restrictions/Add. Instructions Additional Instructions/Restrictions: *Ibuprofen jenni 6 hours with meal as needed for pain/inflammation if you can take it *Remember you had a Toradol shot in the clinic today, which is similar to Motrin *Not additional anti-inflammatory like motrin, aleve, advil with the above amount of ibuprofen. You can still take Tylenol every 4 hours as needed if you need something else for pain *Ice 20 minutes every 2 hours for the first 48 hours after the initial injury followed by moist heat every 20 minutes 3-4 times a day to affected area *Muscle relaxer every 8 hours as needed for muscle spasms but remember, it WILL cause drowsiness You cannot take it and drive, operate machinery or care for small children. *Keep this area active, no movement leads to more stiffness, However take it easy and avoid heavy lifting pushing or pulling *Follow up with you family doctor if no improvement for further treatment Dont start oral Prednisone until till tomorrow 12/25/22 Clinical Impressions Clinical Impression: Low back pain Instructions Patient Instructions: DI for Chronic Pain -- Adult, DI for Back Pain With Sciatica, DI for Sciatica Discharge ED Provider: Dayana Morrow [facility] General Stated complaint: loewr back pain Mode of Arrival: Ambulatory Source of Information: Patient and Significant Other Limitations: No Limitations Time Seen by Provider: 12/24/22 16:13 Description of Symptoms (Recalled from Triage Doc. by RN): PATIENT C/O LOWER BACK PAIN THAT STARTED YESTERDAY. NO KNOWN INJURY. 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 Patient reports back pain in right lower back that started yesterday and goes into right hip/leg area States that he also wants to have his urine checked for infection Related Data Home Medications Medication Instructions Recorded Confirmed aspirin 81 mg tablet,delayed 81 mg PO DAILY Blood thinner 07/04/20 06/25/22 release dicyclomine 10 mg capsule 10 mg PO BID Infection 05/20/22 06/25/22 gabapentin 100 mg capsule 100 mg PO TID Pain 05/20/22 06/25/22 pantoprazole 40 mg tablet,delayed 40 mg PO DAILY STOMACH 05/20/22 06/25/22 release (Protonix) Previous Rx's Medication Instructions Recorded tramadol 50 mg tablet 50 mg PO TID pain #90 tabs 05/17/22 cyclobenzaprine 10 mg tablet 10 mg PO TID PRN muscle spasm #60 05/22/22 tabs lamotrigine 200 mg tablet 200 mg PO DAILY SEIZURES #90 tabs 09/25/22 cyclobenzaprine 10 mg tablet 10 mg PO TID PRN muscle spasm #14 12/24/22 tabs prednisone 20 mg tablet 20 mg PO BID 5 days #10 tabs 12/24/22 Allergies All
[2022-12-24 16:34] VITALS: BP 130/70; PULSE 53; RESP 16; TEMP 37.2; O2SAT 96
== END 2022-12-24 16:49 | disposition home or self-care (01) ==
LOC: UTC 16:31
PROVIDERS: Physician Assistant; Emergency Provider Nurse Practitioner; PCP Emergency Medicine
DX: M54.31 Sciatica, right side (principal); K21.9 Gastro-esophageal reflux disease without esophagitis; E78.5 Hyperlipidemia, unspecified
CPT/HCPCS: 81003; 96372; 99212; 99214; G0463

== ENCOUNTER → 2023-01-06 09:37 | Outpatient (POV) | payer BC, SELFPAY ==
--- NOTE | 2023-01-06 09:55 | EXP.PAIN.SOA ---
[facility] Pain Management SOAP Note Subjective:: Patient is a pleasant 52-year-old male who presents today for follow-up. We are currently treating the patient for degenerative disc disease of cervical and lumbar spine with cervical and lumbar radiculopathy symptoms, low back pain, right leg pain, neck pain. Today he rates his pain a 10 out of 10. Patient denies any new injury or trauma. Patient states that he is experiencing significant pain in his low back along the right side with radiating symptoms into his right leg. He does describe this as an aching, throbbing sensation that is worse with increased activity and does have where his leg will give out along the right side. He does state this pain interferes with his ability to perform activities of daily living such as cooking and cleaning. Patient has tried and failed conservative therapy such as oral medications, heat and ice, topicals, physical therapy, at home stretching and exercise for longer than 6 weeks. Patient is not on any scheduled medications. Patient has had right transforaminal epidurals in the past that provided significant relief for several months. His Jose is [id number]. Its been reviewed and appropriate. Review of Systems: General: No recent weight changes, no fever, no sleep disturbances Respiratory: No cough, no shortness of air, no recurring pulmonary infections Cardiovascular/peripheral vascular: No chest pain, no palpitations, no edema, no shortness of breath Gastrointestinal: No new onset incontinence, normal bowel movements reported Genitourinary: No new onset incontinence Musculoskeletal: Low back pain, right leg pain Psychiatric: [Normal mood/affect] Neurological: [Denies weakness in extremities], [denies balance issues] Objective:: Physical Exam: General: Alert and oriented x3, no acute distress, pleasant and cooperative Lungs: Respirations even and unlabored, symmetrical chest expansion Eyes: PERRL Musculoskeletal: Flexion and extension of lumbar [spine] somewhat guarded secondary to pain, [antalgic gait noted] Neurological: Speech clear, no gross sensory deficit Assessment:: Degenerative disc disease of cervical and lumbar spine with cervical and lumbar radiculopathy symptoms, low back pain, right leg pain, right neck pain Plan:: Patient is experiencing significant pain in his low back along the right side with radiating symptoms into his right leg. Patient had limited range of motion of his lumbar spine during today's visit. I have discussed with the patient that he may benefit from repeat right transforaminal epidural steroid injection. Risk and benefits were discussed with the patient and he would like to proceed forward with this plan of care. Patient is not on any blood thinners. I will also order the patient tizanidine 4 mg at at bedtime and provide a 2-week supply of this medication. Patient has tried and failed conservative therapy such as oral medications, heat and ice, topicals, physical therapy, at home stretching and exercise longer than 6 weeks. Patient will be scheduled for a right transforaminal epidural steroid injection L4-L5 and L5-S1. Patient has been instructed to contact the clinic with any concerns before the next appointment. Dr. Barrientos has reviewed this note and agrees with this plan of care. This note was dictated using voice recognition software and make contain errors or omissions. [facility] Disclaimer: The information contained in this section may have been updated after the patient was seen, as this information can be updated by other users. Medical History (Updated 12/24/22 @ 16:29 by Dayana Morrow APRN) Aneurysm Dizziness GERD (gastroesophageal reflux disease) H/O (corrected) congenital malformations of digestive system HLD (hyperlipidemia) Kidney stones Migraine Seizure Surgical History Hx of cardiac cath Family History Ot
[2023-01-06 10:59] VITALS: BP 132/72; PULSE 52; RESP 18; O2SAT 99; BMI 27.3
== END | disposition home or self-care (01) ==
PROVIDERS: Visit Provider Nurse Practitioner Family
DX: M51.16 Intervertebral disc disorders with radiculopathy, lumbar region (principal); M50.10 Cervical disc disorder with radiculopathy, unspecified cervical region; M79.604 Pain in right leg
CPT/HCPCS: 99212; G0463

== ENCOUNTER → 2023-01-08 23:12 | Outpatient (CLI) | payer BC, SELFPAY ==
[2023-01-08 17:47] LABS: Basophils % 0.5 % (0.1-2.0); Eosinophils # 0.1 K/mm3 (0.0-0.4); Eosinophils % 2.4 % (0.1-12.0); Hemoglobin 15.1 g/dL (14.1-18.0); Lymphocytes # 1.8 K/mm3 (0.7-4.5); Lymphocytes % 33.4 % (10-50); Mean Corpuscular HGB Conc 34.4 g/dL (31.8-35.4); Mean Corpuscular Hemoglobin 30.8 pg (27.0-31.2); Mean Corpuscular Volume 89.6 fl (80-94); Mean Platelet Volume 10.6 fl (7.4-10.4); Monocytes # 0.2 K/mm3 (0.1-1.0); Monocytes % 4.2 % (1.7-9.3); Neutrophils # 3.2 K/mm3 (1.8-7.8); Neutrophils % 59.5 % (37.0-80.0); Platelet Count 186 K/mm3 (142-424); Red Blood Count 4.91 M/mm3 (4.60-6.20); Red Cell Distribution Width 13.4 % (11.5-17.5); White Blood Count 5.4 K/mm3 (4.8-10.8)
[2023-01-08 18:39] LABS: Alanine Aminotransferase 35 U/L (12-78); Albumin Level 4.2 g/dl (3.5-5.0); Albumin/Globulin Ratio 1.5 (1.1-1.8); Alkaline Phosphatase 118 U/L (38-126); Aspartate Amino Transferase 33 U/L (17-59); Blood Urea Nitrogen 21 mg/dl (9-20); Calcium 8.2 mg/dl (8.4-10.2); Carbon Dioxide 23 mmol/L (22.0-30.0); Chloride 102 mmol/L (98-107); Chol/HDL Ratio 6.3 (1-3.5); Cholesterol 207 mg/dl (140-200); Estimated Glomerular Filt Rate 141 ml/min (>60); GFR (African American) 171 ML/MIN (>60); Globulin 2.8 g/dL (1.3-3.2); Glucose 108 mg/dl (74-100); HDL Cholesterol 33 mg/dl (40-60); Sodium 138 mmol/L (136-145)
[2023-01-08 18:42] LABS: Triglycerides 421 mg/dl (30-150)
[2023-01-08 18:50] LABS: Direct LDL Cholesterol 128.76 mg/dL (100-129)
[2023-01-08 19:10] LABS: Prostate Specific Ag Screen 0.6 ng/ml (0.0-4.0); Thyroid Stimulating Hormone 1.41 uIU/mL (0.465-4.68)
[2023-01-08 20:07] LABS: Hemoglobin A1C 5.8 % (4.0-6.0)
[2023-01-13 21:08] LABS: Lamotrigine (Lamictal) 2.8 ug/mL (2.0-20.0)
[2023-01-20 19:43] LABS: 1,25 Dihydroxy Vitamin D 67 pg/mL (.); 1,25-Dihydroxy, Vitamin D-2 15 pg/mL (.); 1,25-Dihydroxy, Vitamin D-3 52 pg/mL (.)
== END ==
PROVIDERS: PCP Nurse Practitioner Family; Visit Provider Nurse Practitioner Family
DX: R00.1 Bradycardia, unspecified (principal); R73.03 Prediabetes; E78.5 Hyperlipidemia, unspecified; G40.909 Epilepsy, unspecified, not intractable, without status epilepticus; Z12.5 Encounter for screening for malignant neoplasm of prostate
CPT/HCPCS: 80053; 80061; 80168; 82652; 83036; 84443; 85025; G0103

== ENCOUNTER 2023-01-14 13:20 | Day surgery (SDC) | payer BC, SELFPAY ==
[2023-01-14 14:04] VITALS: BP 116/63; PULSE 57; RESP 16; TEMP 36.7; O2SAT 97; BMI 26.9
[2023-01-14 14:08] VITALS: BP 124/61; PULSE 57; RESP 18; O2SAT 99
[2023-01-14 14:09] VITALS: BP 124/61; PULSE 57; RESP 18; O2SAT 99
[2023-01-14 14:15] VITALS: BP 112/69; PULSE 55; RESP 18; O2SAT 97
--- NOTE | 2023-01-14 14:19 | P.PCN_ITS ---
Procedure Date: 01/14/23 Time: 14:15 Anesthesiologist:: Jed Cramer CRNA Complications:: None Pre-procedure Diagnosis:: Degenerative disc lumbar spine multilevels. Lumbar radiculopathy. Lumbar disc bulge L4-5, L5-S1. Post-procedure Diagnosis:: Same. Indications for Procedure:: Patient is a pleasant 52-year-old male that comes our clinic today for repeat L4-5, L5-S1 right transforaminal epidural steroid injection. Patient has had significant improvement in his right hip and leg symptoms with previous injections at the same site. Patient rates his pain today 7/10. Patient complains of low lumbar right-sided back pain as well as right hip and leg radicular symptoms that he describes as constant, dull, aching. Procedure Details:: Details of the procedure were explained to the patient. The patient was taken the procedure room placed in the prone position. The area of the lumbar spine was cleansed using chlorhexidine as a cleansing solution. At this time using fluoroscopy guidance markers were placed on the right lateral border of the L4 and L5 vertebral body. The skin and subcutaneous tissue was anesthetized using 1% lidocaine and 25-gauge needle. At this time using a 22-gauge 3-1/2 inch spinal needle the right upper one third of the L4-5 foramen was accessed. The same was done at the right L5-S1 foramen. Needle positions were confirmed and a lateral view using fluoroscopy and contrast dye. At this time 1 cc of 1% lidocaine +20 mg of Depo-Medrol was injected at each level after negative aspiration. [place] were removed. Band-Aid applied. Patient tolerated the procedure without difficulty. There are no complications. Plan and Disposition:: Patient was discharged without incident.
== END 2023-01-14 14:15 | disposition home or self-care (01) ==
PROVIDERS: PCP Nurse Practitioner Family; Visit Provider Nurse Anesthetist, Certified Registered
DX: M51.16 Intervertebral disc disorders with radiculopathy, lumbar region (principal)
CPT/HCPCS: 64483; 64484; J1030; Q9966

== ENCOUNTER → 2023-01-29 09:14 | Outpatient (POV) | payer BC, SELFPAY ==
[2023-01-29 09:22] VITALS: BP 138/68; PULSE 52; RESP 18; TEMP 36.7; O2SAT 97; BMI 26.9
--- NOTE | 2023-01-29 09:42 | EXP.PAIN.SOA ---
[facility] Pain Management SOAP Note Subjective:: Patient is a pleasant 52-year-old male who presents today for follow-up for transforaminal epidural steroid injection L4-L5 and L5-S1 along the right side on 01/14/2023.? We are currently treating the patient for degenerative disc disease of cervical and lumbar spine with cervical and lumbar radiculopathy symptoms, low back pain, right leg pain, neck pain.? Today he rates his pain a 8 out of 10 and states he only had a few hours of relief from this injection.? During that time he does state it did take away 80 to 100% relief however it was very short-lived. Patient denies any new injury or trauma.? He continues to experience severe pain in his low back along the right side with radiating symptoms into his right leg.? He describes this as an aching, throbbing sensation that is worse with increased activity and does continues to have his right leg give out from time to time. He does state this pain interferes with his ability to perform activities of daily living such as cooking and cleaning.? Patient has tried and failed conservative therapy such as oral medications, heat and ice, topicals, physical therapy, at home stretching and exercise for longer than 6 weeks.? Patient did previously have a right transforaminal epidural prior to this injection that provided 80 to 100% relief lasting several months. His Jose is [phone]. Its been reviewed and appropriate. Review of Systems: General: No recent weight changes, no fever, no sleep disturbances Respiratory: No cough, no shortness of air, no recurring pulmonary infections Cardiovascular/peripheral vascular: No chest pain, no palpitations,? no edema, no shortness of breath Gastrointestinal: No new onset incontinence, normal bowel movements reported Genitourinary: No new onset incontinence Musculoskeletal: Low back pain, right leg pain Psychiatric: [Normal mood/affect] Neurological: [Denies weakness in extremities], [denies balance issues] Objective:: Physical Exam: General: Alert and oriented x3, no acute distress, pleasant and cooperative Lungs: Respirations even and unlabored, symmetrical chest expansion Eyes: PERRL Musculoskeletal: Flexion and extension of lumbar [spine] somewhat guarded secondary to pain, [antalgic gait noted] Neurological: Speech clear, no gross sensory deficit Assessment:: degenerative disc disease of cervical and lumbar spine with cervical and lumbar radiculopathy symptoms, low back pain, right leg pain, neck pain Plan:: Patient is experiencing significant pain in his low back along the right side with radiating symptoms into his right leg. Patient did have limited range of motion of his lumbar spine during today's visit. I have discussed with the patient that he may benefit from a repeat right transforaminal epidural steroid injection. He previously had an injection that provided 80 to 100% relief lasting several months. Risk and benefits were discussed with the patient and he would like to proceed forward with this plan of care. Patient is not on any blood thinners. We will schedule him for a right transforaminal epidural steroid injection L4-L5 and L5-S1. Patient has been instructed to contact the clinic with any concerns before the next appointment. Dr. Barrientos has reviewed this note and agrees with this plan of care. This note was dictated using voice recognition software and make contain errors or omissions. [facility] Disclaimer: The information contained in this section may have been updated after the patient was seen, as this information can be updated by other users. Medical History Abdominal discomfort Abdominal distention Abdominal pain Acute conjunctivitis of left eye SANCHEZ (acute kidney injury) Aneurysm Bronchitis Cervical radiculopathy Chest pain Corneal abrasion of both eyes Dizziness Dyspnea GERD (gastroesophageal reflux disease) H/O (corrected) congenital malform
== END ==
PROVIDERS: PCP Emergency Medicine; Visit Provider Nurse Practitioner Family
DX: M51.16 Intervertebral disc disorders with radiculopathy, lumbar region (principal); M50.10 Cervical disc disorder with radiculopathy, unspecified cervical region; M79.604 Pain in right leg
CPT/HCPCS: 99212; G0463

== ENCOUNTER 2023-02-11 09:37 | Day surgery (SDC) | payer BC, SELFPAY ==
[2023-02-11 09:51] VITALS: BP 125/68; PULSE 52; RESP 18; TEMP 36.6; O2SAT 98; BMI 26.9
[2023-02-11 09:54] VITALS: BP 136/78; PULSE 54; RESP 18; O2SAT 97
--- NOTE | 2023-02-11 09:58 | EXP.PAIN.PRO ---
Procedure Date: 02/11/23 Time: 09:20 Anesthesiologist:: Jed Cramer CRNA Complications:: None Pre-procedure Diagnosis:: Degenerative disc lumbar spine multilevels. Lumbar radiculopathy Post-procedure Diagnosis:: Same Indications for Procedure:: Patient is a very pleasant 52-year-old male that comes our clinic today for lumbar epidural steroid injection at the L4-5 level. Patient describes low back pain as well as bilateral hip and leg radicular symptoms as constant, dull, aching. He rates pain 7/10. Patient has difficulty with ambulation. Describes having difficulty with flexion, extension. Procedure Details:: Procedure: Lumbar epidural steroid injection under fluoroscopy Informed consent was obtained and the risks and benefits of the procedure were explained to the patient. The patient was taken to the procedure room and noninvasive monitors placed, including noninvasive blood pressure cuff and pulse oximeter. The back was viewed using C-arm Fluoroscopy and prepped using Chloraprep as a cleansing solution and the L4-L5 interspace was palpated. Skin and subcutaneous tissues were anesthetized using lidocaine 1.5% and a 25-gauge needle. After this, an 18-gauge Touhy epidural needle was placed into the L4-L5 interspace and advanced using fluoroscopic guidance and loss of resistance to air until the epidural space was encountered. After confirmation of needle placement in the epidural space, with dye, a solution containing normal saline, 3 mL and Depo-Medrol 80 mg were incrementally injected into the lumbar epidural space. The patient tolerated the procedure well with no complications. The patient was observed in the Pain Clinic and then discharged home neurologically intact. Plan and Disposition:: Patient was discharged without incident.
[2023-02-11 10:00] VITALS: BP 119/72; PULSE 52; RESP 18; O2SAT 97
== END 2023-02-11 10:00 | disposition home or self-care (01) ==
PROVIDERS: PCP Emergency Medicine; Visit Provider Nurse Anesthetist, Certified Registered
DX: M51.16 Intervertebral disc disorders with radiculopathy, lumbar region (principal)
CPT/HCPCS: 62323; J1040

== ENCOUNTER → 2023-02-20 10:21 | Outpatient (CLI) | payer BC, SELFPAY | PROVIDERS: PCP Emergency Medicine; Visit Provider Nurse Practitioner | DX: R06.02 Shortness of breath (principal) | CPT/HCPCS: 93306 ==

== ENCOUNTER → 2023-02-25 10:18 | Outpatient (CLI) | payer BC, SELFPAY ==
--- NOTE | 2023-02-25 10:26 | XR_ITS ---
FINAL REPORT CLINICAL HISTORY: right tib fib pain, starts in bottom of foot and goes up whole leg and into hip FINDINGS: RIGHT TIBIA/FIBULA SERIES Two views of the right tibia/fibula were obtained. There is no acute fracture or dislocation. There is mild degenerative change of the knee. There is no soft tissue abnormality. IMPRESSION: Mild degenerative change of the knee. Reviewed, Interpreted and Dictated by Benjamín Aguero III, MD Transcribed by Justin Kam Authenticated and [facility]
== END ==
PROVIDERS: PCP Emergency Medicine; Visit Provider Orthopaedic Surgery
DX: M79.604 Pain in right leg (principal); S82.201A Unspecified fracture of shaft of right tibia, initial encounter for closed fracture; S82.401A Unspecified fracture of shaft of right fibula, initial encounter for closed fracture
CPT/HCPCS: 73590

== ENCOUNTER → 2023-02-26 09:06 | Outpatient (POV) | payer BC, SELFPAY ==
--- NOTE | 2023-02-26 09:29 | EXP.PAIN.SOA ---
[facility] Pain Management SOAP Note Subjective:: Patient is a pleasant 52-year-old male who presents today for follow-up of lumbar epidural steroid injection L4-L5 on 02/11/2023. We are currently treating the patient for degenerative disc disease of cervical and lumbar spine with cervical and lumbar radiculopathy, low back pain, right leg pain, neck pain. Today he states that he has had 90% improvement of his back pain however starting approximately 1 week ago he had debilitating pain that was shooting down his right leg. He does describe this as an aching, pulling sensation that is worse with increased ambulation or extension of his right leg. Patient states that it typically starts around his right hip and goes all the way to his right foot. Patient denies any new injury or trauma. He states the pain does make it difficult for ambulation and does affect his ability perform activities of daily living such as cooking and cleaning. Patient denies any recent imaging of his hip or his lumbar spine. Patient states that he did have imaging of his lower leg however there were no significant findings. Patient is not on any scheduled medications. His Jose is [phone]. Its been reviewed and appropriate. Review of Systems: General: No recent weight changes, no fever, no sleep disturbances Respiratory: No cough, no shortness of air, no recurring pulmonary infections Cardiovascular/peripheral vascular: No chest pain, no palpitations, no edema, no shortness of breath Gastrointestinal: No new onset incontinence, normal bowel movements reported Genitourinary: No new onset incontinence Musculoskeletal: Right hip/right leg pain Psychiatric: [Normal mood/affect] Neurological: [Denies weakness in extremities], [denies balance issues] Objective:: Physical Exam: General: Alert and oriented x3, no acute distress, pleasant and cooperative Lungs: Respirations even and unlabored, symmetrical chest expansion Eyes: PERRL Musculoskeletal: Flexion and extension of lumbar [spine] somewhat guarded secondary to pain, [antalgic gait noted] positive right leg raise with diminished sensation along the right leg and diminished Achilles reflex Neurological: Speech clear, no gross sensory deficit Assessment:: Degenerative disc disease of cervical and lumbar spine with cervical and lumbar radiculopathy symptoms, low back pain, right leg pain, neck pain Plan:: Patient is experiencing increased pain in his right hip down his right leg. Patient did have limited range of motion of his lumbar spine during today's visit along with a positive right leg raise with diminished sensation along the right leg and diminished Achilles reflex. I will order x-ray imaging of his lumbar spine along with his right hip with the plan to order MRI imaging without contrast of both of these locations. We are trying to rule out possible tear or worsening stenosis in his lumbar spine that could explain his increased pain down his right extremity. Patient will follow-up in clinic in 2 weeks for reevaluation of symptoms and plan of care. Patient has been instructed to contact the clinic with any concerns before the next appointment. Dr. Barrientos has reviewed this note and agrees with this plan of care. This note was dictated using voice recognition software and make contain errors or omissions. [facility] Disclaimer: The information contained in this section may have been updated after the patient was seen, as this information can be updated by other users. Medical History Abdominal discomfort Abdominal distention Abdominal pain Acute conjunctivitis of left eye SANCHEZ (acute kidney injury) Aneurysm Bronchitis Cervical radiculopathy Chest pain Chest pain Corneal abrasion of both eyes Dizziness Dyspnea Fracture of right tibia and fibula GERD (gastroesophageal reflux disease) H/O (corrected) congenital malformations of digestive system Headache History of renal sto
[2023-02-26 09:30] VITALS: BP 124/74; PULSE 63; RESP 18; O2SAT 96; BMI 26.9
== END ==
PROVIDERS: PCP Emergency Medicine; Visit Provider Nurse Practitioner Family
DX: M50.10 Cervical disc disorder with radiculopathy, unspecified cervical region (principal); M51.16 Intervertebral disc disorders with radiculopathy, lumbar region; M79.604 Pain in right leg
CPT/HCPCS: 99212; G0463

== ENCOUNTER → 2023-02-26 09:44 | Outpatient (CLI) | payer BC, SELFPAY ==
--- NOTE | 2023-02-26 | XR_ITS ---
FINAL REPORT CLINICAL HISTORY: LBP WITH RT HIP/LEG PAIN COMPARISON: None FINDINGS: RIGHT HIP Two views of the right hip demonstrate no acute fracture or dislocation. There is mild degenerative change of the right hip. The visualized bony structures are well aligned. No soft tissue abnormality is seen. IMPRESSION: No acute bony abnormality. Reviewed, Interpreted and Dictated by Benjamín Aguero III, MD Transcribed by Emelina Perdomo Authenticated and [facility]
--- NOTE | 2023-02-26 09:50 | XR_ITS ---
FINAL REPORT CLINICAL HISTORY: LBP RT LEG AND HIP PAIN COMPARISON: None FINDINGS: 5 views of the lumbar spine were obtained. There is no evidence of fracture or dislocation. The vertebral alignment is normal. Mild degenerative change with osteophytes. There is rightward curvature of the lumbar spine. No paraspinous soft tissue abnormalities identified. IMPRESSION: No acute bony abnormality. Reviewed, Interpreted and Dictated by Benjamín Aguero III, MD Transcribed by Emelina Perdomo Authenticated and . [facility]
== END ==
PROVIDERS: PCP Emergency Medicine; Visit Provider Nurse Practitioner Family
DX: M54.50 Low back pain, unspecified (principal); M79.604 Pain in right leg; M25.551 Pain in right hip
CPT/HCPCS: 72110; 73502

== ENCOUNTER → 2023-03-06 10:33 | Outpatient (CLI) | payer BC, SELFPAY ==
--- NOTE | 2023-03-06 10:35 | MR_ITS ---
FINAL REPORT TECHNIQUE: Multiplanar and multisequence imaging of the lumbar spine was obtained without contrast. CLINICAL HISTORY: LOW BACK PAIN WITH RIGHT LEG PAIN. RIGHT LEG PAIN, NUMBNESS AND TINGLING. WEAKNESS IN RIGHT LEG WITH SWELLING. FINDINGS: There is normal alignment of the lumbar vertebral bodies. Vertebral body height is preserved. The spinal cord ends at the level of L2. There is normal signal intensity within the substance of the distal spinal cord. No acute bone marrow edema or pathologic marrow replacement. No acute paraspinal abnormality is identified. L1-2: There is no focal disc herniation, central canal stenosis or neuroforaminal narrowing. L2-3: There is no focal disc herniation, central canal stenosis or neuroforaminal narrowing. L3-4: There is no focal disc herniation, central canal stenosis or neuroforaminal narrowing. L4-5: An annular bulge is present. There is mild facet osteoarthropathy, without canal narrowing. There is mild right and moderate left neural foraminal narrowing. L5-S1: An annular bulge is present with degenerative endplate changes and facet arthropathy. There is moderate bilateral neural foraminal narrowing. IMPRESSION: There is mild degenerative change of the lower lumbar spine at the L4-5 and L5-S1 levels as described above. Reviewed, Interpreted and Dictated by Amarilys pSicer MD Transcribed by Lilian Jaramillo Authenticated and [facility]
== END ==
PROVIDERS: PCP Emergency Medicine; Visit Provider Nurse Practitioner Family
DX: R07.9 Chest pain, unspecified (principal); R00.2 Palpitations; K21.9 Gastro-esophageal reflux disease without esophagitis; R60.9 Edema, unspecified; R94.31 Abnormal electrocardiogram [ECG] [EKG]
CPT/HCPCS: 72148; 76376; 93270

== ENCOUNTER → 2023-03-13 12:16 | Outpatient (POV) | payer BC, SELFPAY ==
[2023-03-13 13:01] VITALS: BP 119/68; PULSE 53; RESP 20; BMI 27.6
--- NOTE | 2023-03-13 13:10 | EXP.PAIN.SOA ---
[facility] Pain Management SOAP Note Subjective:: Patient is a pleasant 53-year-old male who presents today for follow-up of lumbar MRI. We are currently treating the patient for degenerative disc disease of cervical and lumbar spine with cervical and lumbar radiculopathy symptoms. Today he rates his pain a 9 out of 10. Patient denies any new trauma or injury. Patient denies any change location or type of pain he experiences. He states he still has pain in his low back with radiating symptoms into his right leg. He describes this as an aching, throbbing sensation that is worse with increased activity or certain range of movement exercises. He does state the pain interferes with his ability to perform activities of daily living such as cooking and cleaning. Patient has tried [id number] medications such as Tylenol and ibuprofen along with heat and ice and topicals with no additional relief. His Jose is [phone]. Its been reviewed and appropriate. Review of Systems: General: No recent weight changes, no fever, no sleep disturbances Respiratory: No cough, no shortness of air, no recurring pulmonary infections Cardiovascular/peripheral vascular: No chest pain, no palpitations, no edema, no shortness of breath Gastrointestinal: No new onset incontinence, normal bowel movements reported Genitourinary: No new onset incontinence Musculoskeletal: Low back pain, right leg pain Psychiatric: [Normal mood/affect] Neurological: [Denies weakness in extremities], [denies balance issues] Objective:: Physical Exam: General: Alert and oriented x3, no acute distress, pleasant and cooperative Lungs: Respirations even and unlabored, symmetrical chest expansion Eyes: PERRL Musculoskeletal: Flexion and extension of lumbar [spine] somewhat guarded secondary to pain, [antalgic gait noted] Neurological: Speech clear, no gross sensory deficit FINDINGS: There is normal alignment of the lumbar vertebral bodies. Vertebral body height is preserved. The spinal cord ends at the level of L2. There is normal signal intensity within the substance of the distal spinal cord. No acute bone marrow edema or pathologic marrow replacement. No acute paraspinal abnormality is identified. L1-2: There is no focal disc herniation, central canal stenosis or neuroforaminal narrowing. L2-3: There is no focal disc herniation, central canal stenosis or neuroforaminal narrowing. L3-4: There is no focal disc herniation, central canal stenosis or neuroforaminal narrowing. L4-5: An annular bulge is present. There is mild facet osteoarthropathy, without canal narrowing. There is mild right and moderate left neural foraminal narrowing. L5-S1: An annular bulge is present with degenerative endplate changes and facet arthropathy. There is moderate bilateral neural foraminal narrowing. IMPRESSION: There is mild degenerative change of the lower lumbar spine at the L4-5 and L5-S1 levels as described above. Reviewed, Interpreted and Dictated by Amarilys Spicer MD Transcribed by Lilian Jaramillo Authenticated and [facility] Assessment:: Degenerative disc disease of cervical and lumbar spine with cervical and lumbar radiculopathy symptoms Plan:: Patient is experiencing significant pain in his low back with lumbar radiculopathy. Patient had limited range of motion of his lumbar spine during today's visit. I have discussed with the patient that he may benefit from a lumbar epidural at L5-S1 where he is recent MRI did show an annular bulge with facet arthropathy and moderate bilateral neuroforaminal narrowing. Risk and benefits were discussed with the patient and he would like to proceed forward with this plan of care. Patient is not on any blood thinners. We will schedule the patient for a LESI L5-S1. Patient has been instructed to contact the clinic with any concerns before the next appointment. Dr. Barrientos has reviewed this note and agr
== END ==
PROVIDERS: Visit Provider Nurse Practitioner Family
DX: M50.10 Cervical disc disorder with radiculopathy, unspecified cervical region (principal); M51.16 Intervertebral disc disorders with radiculopathy, lumbar region
CPT/HCPCS: 99212; G0463

== ENCOUNTER 2023-03-13 21:41 | Emergency (ER) | payer BC, SELFPAY ==
[2023-03-13 21:50] VITALS: BP 134/74; PULSE 53; RESP 16; TEMP 36.6; O2SAT 97; BMI 26.6
--- NOTE | 2023-03-13 21:57 | ECG_ITS ---
APPROVED REPORT Exam: Resting ECG HR:49 bpm ECG Measurements Heart Rate 49 AXES NE 203 P 43 QRSd 117 QRS 12 QT 410 T 33 QTc 380 Conclusion SINUS BRADYCARDIA MODERATE INTRAVENTRICULAR CONDUCTION DELAY [110+ ms QRS DURATION] NONSPECIFIC ST ELEVATION [0.05+ mV ST ELEVATION] BORDERLINE ECG UNCONFIRMED REPORT Electronically signed by : Eleazar Huang MD 03/14/2023 16:16:41
--- NOTE | 2023-03-13 22:03 | HMH.EDGENADL ---
Discharge Plan Disposition Patient Disposition: Home, Self-Care Prescriptions Prescriptions: New polymyxin B sulf-trimethoprim [Polytrim] 10,000 unit- 1 mg/mL drops 1 drp ophthalmic (eye) QID 7 Days Qty: 10 0RF No Action aspirin 81 mg tablet,delayed release (DR/EC) 81 mg PO DAILY pantoprazole [Protonix] 40 mg tablet,delayed release (DR/EC) 40 mg PO DAILY Qty: 90 1RF lamotrigine 200 mg tablet 200 mg PO BID Rx Instructions: Take 1 tablet by mouth once daily tramadol 50 mg tablet 50 mg PO TID PRN (Reason: pain) fenofibrate nanocrystallized 145 mg tablet 145 mg PO DAILY Referrals Follow up/Referrals: Yoni Eason MD [Primary Care Provider] - See instructions Clinical Impressions Clinical Impression: Facial swelling, Corneal ulcer of right eye Discharge ED Provider: Trenton Farrar General Adult HPI General Chief complaint: Recheck/Abnormal Lab/Rx Stated complaint: numbness and swelling on face Time Seen by Provider: 03/13/23 21:45 Mode of Arrival: Family Vehicle Source of Information: Patient Limitations: No Limitations Description of Symptoms (Recalled from ER Triage Doc. 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 states he notices he has some dyspnea at times. GCS 15. identifies vision to be different in that eye. afebrile. denies focal deficit History of Present Illness HPI narrative: Is a 53-year-old male with history of hypertension, hyperlipidemia, seizure disorder presenting with right-sided facial swelling. This has been going on since 2 days prior to arrival. Patient initially had some eye redness and swelling, then stated that he felt swollen on the entire right side of his body. Denies shortness of breath, nausea or vomiting, fevers or chills, chest pain or shortness of breath, but went to an urgent care today, who recommended he come to the ER for further evaluation given concern for TIA. Because of this, patient and present to the ER. Related Data Home Medications Medication Instructions Recorded Confirmed aspirin 81 mg tablet,delayed 81 mg PO DAILY Blood thinner 07/04/20 03/13/23 release fenofibrate nanocrystallized 145 145 mg PO DAILY . 01/14/23 03/13/23 mg tablet lamotrigine 200 mg tablet 200 mg PO BID SEIZURES 02/06/23 03/13/23 tramadol 50 mg tablet 50 mg PO TID PRN pain 02/06/23 03/13/23 Previous Rx's Medication Instructions Recorded pantoprazole 40 mg tablet,delayed 40 mg PO DAILY STOMACH #90 tabs 01/08/23 release (Protonix) polymyxin B sulfate 10,000 1 drp ophthalmic (eye) QID 7 days 03/14/23 unit-trimethoprim 1 mg/mL eye #10 mL drops (Polytrim) Allergies Allergy/AdvReac Type Severity Reaction Status Date / Time acetaminophen [From NORCO] Allergy Unknown Verified 03/13/23 13:41 atorvastatin [From LIPITOR] Allergy Unknown FACIAL Verified 03/13/23 13:41 SWELLING hydrocodone [HYDROCODONE] Allergy Unknown FACIAL Verified 03/13/23 13:41 SWELLING oxycodone [From PERCOCET] Allergy Unknown FACIAL Verified 03/13/23 13:41 SWELLING PFSH PFSH Disclaimer: The information contained in this section may have been updated after the patient was seen, as this information can be updated by other users. Medical History Abdominal discomfort Abdominal distention Abdominal pain Acute conjunctivitis of left eye SANCHEZ (acute kidney injury) Aneurysm Bronchitis Cervical radiculopathy Chest pain Chest pain Corneal abrasion of both eyes Dizziness Dyspnea Fracture of right tibia and fibula GERD (gastroesophageal reflux disease) H/O (corrected) congenital malformations of digestive system Headache History of renal stone 2019 HLD (hyperlipidemia) Kidney stones Low back pain Lumbar radiculopathy Migraine Mild intermittent asthma 2019,
--- NOTE | 2023-03-13 22:14 | XR_ITS ---
PROCEDURE INFORMATION: Exam: XR Chest Exam date and time: 03/13/2023 10:19 PM Age: 53 years old Clinical indication: Pain; Right-sided; Additional info: Cp right sided TECHNIQUE: Imaging protocol: Radiologic exam of the chest. Views: 1 view. COMPARISON: CR XR CHEST PORTABLE 12/22/2021 9:33 PM FINDINGS: Lungs: Unremarkable. No consolidation. Pleural spaces: Unremarkable. No pleural effusion. No pneumothorax. Heart/Mediastinum: Mild prominence of the heart. Bones/joints: Unremarkable. IMPRESSION: No acute findings.
[2023-03-13 22:21] LABS: Basophils % 0.6 % (0.1-2.0); Eosinophils # 0.2 K/mm3 (0.0-0.4); Hemoglobin 13.9 g/dL (14.1-18.0); Lymphocytes # 1.8 K/mm3 (0.7-4.5); Lymphocytes % 32.8 % (10-50); Mean Corpuscular HGB Conc 32.3 g/dL (31.8-35.4); Mean Corpuscular Hemoglobin 29.8 pg (27.0-31.2); Mean Corpuscular Volume 92.3 fl (80-94); Mean Platelet Volume 9.9 fl (7.4-10.4); Monocytes # 0.3 K/mm3 (0.1-1.0); Monocytes % 4.4 % (1.7-9.3); Neutrophils # 3.3 K/mm3 (1.8-7.8); Neutrophils % 59.3 % (37.0-80.0); Platelet Count 190 K/mm3 (142-424); Red Blood Count 4.66 M/mm3 (4.60-6.20); Red Cell Distribution Width 13.8 % (11.5-17.5); White Blood Count 5.6 K/mm3 (4.8-10.8)
[2023-03-13 22:22] LABS: Chloride 106 mmol/L (98-107); Sodium 140 mmol/L (136-145)
[2023-03-13 22:23] LABS: Potassium 3.5 mmoL/L (3.5-5.1)
[2023-03-13 22:25] LABS: Alanine Aminotransferase 47 U/L (12-78); Albumin Level 4.6 g/dl (3.5-5.0); Albumin/Globulin Ratio 1.6 (1.1-1.8); Alkaline Phosphatase 100 U/L (38-126); Anion Gap 12.5 mEq/L (5-15); Aspartate Amino Transferase 40 U/L (17-59); Bilirubin,Total 0.6 mg/dl (0.2-1.3); Blood Urea Nitrogen 23 mg/dl (9-20); Carbon Dioxide 25 mmol/L (22.0-30.0); Creatinine Clearance Estimated 115 mL/min (50-200); Estimated Glomerular Filt Rate 101 ml/min (>60); GFR (African American) 122 ML/MIN (>60); Globulin 2.9 g/dL (1.3-3.2); Total Protein,Serum 7.5 g/dl (6.3-8.2)
[2023-03-13 22:26] LABS: Calcium 9.1 mg/dl (8.4-10.2); Glucose 150 mg/dl (74-100)
[2023-03-13 22:39] LABS: Troponin I < 0.01 ng/ml (0.00-0.034)
--- NOTE | 2023-03-13 22:43 | CT_ITS ---
PROCEDURE INFORMATION: Exam: CTA Neck With Contrast Exam date and time: 03/13/2023 10:56 PM Age: 53 years old Clinical indication: Weakness; Additional info: Right sided weakness TECHNIQUE: Imaging protocol: Computed tomographic angiography of the neck with contrast. 3D rendering (Not supervised by radiologist): MIP and/or 3D reconstructed images were created by the technologist. Radiation optimization: All CT scans at this facility use at least one of these dose optimization techniques: automated exposure control; mA and/or kV adjustment per patient size (includes targeted exams where dose is matched to clinical indication); or iterative reconstruction. Contrast material: ISOVUE; Contrast volume: 100 ml; Contrast route: INTRAVENOUS (IV); REPORTING DATA: Count of CT and Cardiac NM exams in prior 12 months: This patient has received 0 known CTs and 0 known cardiac nuclear medicine studies in the 12 months prior to the current study. COMPARISON: MR ANGIO HEAD WO CON 08/02/2020 1:01 PM FINDINGS: Right common carotid artery: No stenosis. No dissection or occlusion. Right internal carotid artery: No stenosis of the extracranial segment. No dissection or occlusion. Right external carotid artery: No occlusion or stenosis of the origin. Left common carotid artery: No stenosis. No dissection or occlusion. Left internal carotid artery: No stenosis of the extracranial segment. No dissection or occlusion. Left external carotid artery: No occlusion or stenosis of the origin. Right vertebral artery: No stenosis. No dissection or occlusion. Left vertebral artery: No stenosis. No dissection or occlusion. Soft tissues: Normal. No significant soft tissue swelling. Bones/joints: Mild degenerative changes of the spine. IMPRESSION: No acute findings. REFERENCES: NASCET CRITERIA. The degree of stenosis in the cervical segment of the internal carotid artery is based on NASCET criteria. Normal is no stenosis. Mild is less than 50% stenosis. Moderate is 50-69% stenosis. Severe is 70% to 99% stenosis. Total occlusion is no detectable patent lumen.
--- NOTE | 2023-03-13 22:43 | CT_ITS ---
PROCEDURE INFORMATION: Exam: CT Head Without Contrast Exam date and time: 03/13/2023 10:53 PM Age: 53 years old Clinical indication: Weakness, extremity; Right; Additional info: Right sided weakness TECHNIQUE: Imaging protocol: Computed tomography of the head without contrast. Radiation optimization: All CT scans at this facility use at least one of these dose optimization techniques: automated exposure control; mA and/or kV adjustment per patient size (includes targeted exams where dose is matched to clinical indication); or iterative reconstruction. REPORTING DATA: Count of CT and Cardiac NM exams in prior 12 months: This patient has received 0 known CTs and 0 known cardiac nuclear medicine studies in the 12 months prior to the current study. COMPARISON: CT HEAD/BRAIN W CON 12/22/2021 10:42 PM FINDINGS: Brain: Status post anterior communicating artery aneurysm vascular coiling. Coil material creates artifact limiting evaluation of nearby brain structures. No obvious acute hemorrhage. No mass or infarct is seen. Cerebral ventricles: No ventriculomegaly. Paranasal sinuses: Visualized sinuses are unremarkable. No fluid levels. Mastoid air cells: Visualized mastoid air cells are well aerated. Bones/joints: Unremarkable. No acute fracture. Soft tissues: Unremarkable. IMPRESSION: No acute findings.
--- NOTE | 2023-03-13 22:43 | CT_ITS ---
PROCEDURE INFORMATION: Exam: CTA Head With Contrast, Arteriography Exam date and time: 03/13/2023 10:56 PM Age: 53 years old Clinical indication: Weakness; Additional info: Right sided weakness TECHNIQUE: Imaging protocol: Computed tomographic angiography of the head with contrast. Exam focused on the arteries. 3D rendering (Not supervised by radiologist): MIP and/or 3D reconstructed images were created by the technologist. Radiation optimization: All CT scans at this facility use at least one of these dose optimization techniques: automated exposure control; mA and/or kV adjustment per patient size (includes targeted exams where dose is matched to clinical indication); or iterative reconstruction. Contrast material: ISOVUE; Contrast volume: 100 ml; Contrast route: INTRAVENOUS (IV); REPORTING DATA: Count of CT and Cardiac NM exams in prior 12 months: This patient has received 0 known CTs and 0 known cardiac nuclear medicine studies in the 12 months prior to the current study. COMPARISON: MR ANGIO HEAD WO CON 08/02/2020 1:01 PM FINDINGS: ANTERIOR CIRCULATION: Right internal carotid artery: Intracranial segment is patent with no significant stenosis. No aneurysm. Right middle cerebral artery: No occlusion or significant stenosis. No aneurysm. Right anterior cerebral artery: No occlusion or significant stenosis. No aneurysm. Anterior communicating artery: Status post anterior communicating artery aneurysm coiling. No obvious residual aneurysm detected. Streak artifact from the patient's vascular coil material limits evaluation of nearby structures. Left internal carotid artery: Intracranial segment is patent with no significant stenosis. No aneurysm. Left middle cerebral artery: No occlusion or significant stenosis. No aneurysm. Left anterior cerebral artery: No occlusion or significant stenosis. No aneurysm. POSTERIOR CIRCULATION: Right vertebral artery: No occlusion or significant stenosis. No aneurysm. Left vertebral artery: No occlusion or significant stenosis. No aneurysm. Basilar artery: No occlusion or significant stenosis. No aneurysm. Right posterior cerebral artery: origin of the right [employer]. Status post aneurysm coiling near the origin of the vessel. Left posterior cerebral artery: No occlusion or significant stenosis. No aneurysm. Brain: No definite mass, mass effect, or midline shift. Cerebral ventricles: No ventriculomegaly. Bones/joints: Unremarkable. No acute fracture. Soft tissues: Unremarkable. IMPRESSION: No acute findings. Status post previous aneurysm coiling.
[2023-03-14 01:30] VITALS: PULSE 52; RESP 16
[2023-03-14 01:30] LABS: Troponin I < 0.01 ng/ml (0.00-0.034)
[2023-03-14 01:36] VITALS: BP 124/70; PULSE 45; RESP 16; TEMP 36.6
== END 2023-03-14 01:48 | disposition home or self-care (01) ==
PROVIDERS: Emergency Provider Emergency Medicine; PCP Emergency Medicine
DX: R51.9 Headache, unspecified (principal); R20.0 Anesthesia of skin; R22.0 Localized swelling, mass and lump, head; H16.001 Unspecified corneal ulcer, right eye; E78.5 Hyperlipidemia, unspecified; J45.20 Mild intermittent asthma, uncomplicated; K21.9 Gastro-esophageal reflux disease without esophagitis
CPT/HCPCS: 70450; 70496; 70498; 71045; 80053; 83880; 84484; 85025; 93005; 93041; 99285; Q9967

== ENCOUNTER → 2023-03-18 07:24 | Outpatient (CLI) | payer BC, SELFPAY ==
--- NOTE | 2023-03-18 | CA_ITS ---
APPROVED REPORT Exam: Pharmacologic Technologist: Jess Solorzano Ht: 5 ft 7 in Wt: 178 lbs BSA: 1.92 m2 HR: 41 bpm BP: 139/69 mmHg Rhythm: NSR Indications: Palpitations Medical History Medications: Aspirin,,,,, Tricor,,,,, Tramadol,,,,, Protonix,,,,, LaMotrigine,,,,, Stress Test Details Test: LEXISCAN HR Resting HR: 46 bpm Max Heart Rate (APMHR): 166 bpm Max HR Achieved: 67 bpm Target HR (85% APMHR): 141 bpm % of APMHR: 40 Recovery HR: 50 bpm BP Resting BP: 139.0/69.0 mmHg Max BP: 139.0/69.0 mmHg Recovery BP: 134.0/76.0 mmHg ECG Resting ECG: Sinus bradycardia, rightward axis, ST abnormalities inferiorly Stress ECG: No change Arrhythmia: PACs Clinical Exercise duration: 04:00 min Highest Stage Achieved: Stress ECG Conclusion Symptoms: Mild shortness of air and stomach discomfort. No chest pain. Arrhythmias/Ectopy: Minor variations in heart rate; possible sinus arrhythmia. PACs ST-T Changes: No significant ST changes Conclusion: Non-diagnostic Lexiscan stress due to baseline abnormalities. Myoview images reported separately. Test Summary REST . . . . . . . Resting REST 08:17 . . 46 . 139/ 69 . . Stage 1 . . . . . . . Myoview Injected Stage 1 01:00 . . 53 . . . . Stage 2 01:00 . . 66 . . . . Stage 3 01:00 . . 60 . 120/ 66 . . Stage 4 01:00 . . 62 . 123/ 72 . Stop exercise at 04:00 RECOVERY 01:00 . . 56 . 135/ 72 . . RECOVERY 02:00 . . 53 . 136/ 72 . . RECOVERY 03:00 . . 57 . 136/ 72 . . RECOVERY 04:00 . . 53 . 136/ 72 . . RECOVERY 04:43 . . 53 . 134/ 76 . . Electronically signed by : Darline Leonard, 03/18/2023 20:42:45
--- NOTE | 2023-03-18 07:25 | NM_ITS ---
APPROVED REPORT Exam: Nuclear Stress Test Indication: HYPERLIPIDEMIA, C.P., SOB, SYNCOPE, PALPITATIONS Patient Location: Outpatient Stress Tech: Jess Solorzano MD Tech:JUSTA Skinner RT (R)(N)(M) Ht: 5 ft 7 in Wt: 172 lbs HR: 46 bpm BP: 139/69 mmHg BSA: 1.90 m2 Rhythm: NSR TID: 1.15 BMI: 26.9 History: HYPERLIPIDEMIA, C.P., SOB, SYNCOPE, PALPITATIONS Procedure: Patient received 0.4 mg of intravenous Lexiscan, resting heart rate 46 bpm, resting blood pressure 139/69 mmHg, with Lexiscan maximum heart rate achieved was 66 bpm which is % of the maximum predicted heart rate and blood pressure was 120/66 mmHg. With Lexiscan, patient denied any complaint of chest pain. Cardiac Stress and Resting SPECT Images: Cardiac Stress and Resting SPECT images were obtained using technetium 99m Myoview 31.2 mCi stress and 10.75 mCi at rest. Resting and stress perfusion imaging in both supine and prone positions demonstrate a medium sized, moderate, fixed perfusion defect in the basal to mid inferior LV wall. Gated imaging demonstrates mild reduction in global systolic function. There is moderate hypokinesis in the basal to mid inferior LV wall. LVEF is calculated at 43%. Of note, the LV appears dilated, suggestive of underlying dilated cardiomyopathy. Conclusion: Medium sized, moderate, fixed perfusion defect in the basal to mid inferior LV wall. No evidence of reversible ischemia. Gated imaging demonstrates mild reduction in global systolic function. There is moderate hypokinesis in the basal to mid inferior LV wall. LVEF is calculated at 43%. Of note, the LV appears dilated, suggestive of underlying dilated cardiomyopathy. Electronically signed by : Darline Leonard, 03/18/2023 20:46:08
== END ==
PROVIDERS: PCP Emergency Medicine; Visit Provider Nurse Practitioner
DX: R00.2 Palpitations (principal); R07.9 Chest pain, unspecified; K21.9 Gastro-esophageal reflux disease without esophagitis; R94.31 Abnormal electrocardiogram [ECG] [EKG]
CPT/HCPCS: 78452; 93017; A9502; J2785

== ENCOUNTER 2023-03-28 08:50 | Day surgery (SDC) | payer BC, SELFPAY ==
[2023-03-28 09:24] VITALS: BP 185/77; PULSE 48; RESP 18; O2SAT 99
[2023-03-28 09:25] VITALS: BP 128/70; PULSE 58; RESP 18; TEMP 36.3; O2SAT 96; BMI 26.9
[2023-03-28 09:27] VITALS: BP 185/77; PULSE 48; RESP 18; O2SAT 99
--- NOTE | 2023-03-28 09:29 | EXP.PAIN.PRO ---
Procedure Date: 03/28/23 Time: 09:20 Anesthesiologist:: Jed Cramer CRNA Complications:: None Pre-procedure Diagnosis:: Degenerative disc lumbar spine multilevels. Lumbar radiculopathy. Lumbar disc bulge L4-5, L5-S1. Post-procedure Diagnosis:: Same. Indications for Procedure:: Patient is a very pleasant 53-year-old male that comes our clinic today for lumbar epidural steroid injection L5-S1 level. Patient having low back pain as well as right posterior hip and right leg radicular symptoms. He rates his pain 9/10. Patient has had injections in the past with significant improvement terms of his overall symptoms. Procedure Details:: Procedure: Lumbar epidural steroid injection under fluoroscopy Informed consent was obtained and the risks and benefits of the procedure were explained to the patient. The patient was taken to the procedure room and noninvasive monitors placed, including noninvasive blood pressure cuff and pulse oximeter. The back was viewed using C-arm Fluoroscopy and prepped using Chloraprep as a cleansing solution and the L5-S1 interspace was palpated. Skin and subcutaneous tissues were anesthetized using lidocaine 1.5% and a 25-gauge needle. After this, an 18-gauge Touhy epidural needle was placed into the L5-S1 interspace and advanced using fluoroscopic guidance and loss of resistance to air until the epidural space was encountered. After confirmation of needle placement in the epidural space, with dye, a solution containing normal saline, 3 mL and Depo-Medrol 80 mg were incrementally injected into the lumbar epidural space. The patient tolerated the procedure well with no complications. The patient was observed in the Pain Clinic and then discharged home neurologically intact. Plan and Disposition:: Patient was discharged without incident.
[2023-03-28 09:30] VITALS: BP 133/88; PULSE 57; RESP 18; O2SAT 96
[2023-03-28 10:01] LABS: Chol/HDL Ratio 5.6 (1-3.5); Cholesterol 174 mg/dl (140-200); HDL Cholesterol 31 mg/dl (40-60); Triglycerides 200 mg/dl (30-150); VLDL Cholesterol 40 mg/dL (0-40)
[2023-03-28 10:12] LABS: Direct LDL Cholesterol 95.16 mg/dL (100-129)
== END 2023-03-28 09:30 | disposition home or self-care (01) ==
PROVIDERS: Nurse Practitioner Family; PCP Emergency Medicine; Visit Provider Nurse Anesthetist, Certified Registered
DX: M51.16 Intervertebral disc disorders with radiculopathy, lumbar region (principal)
CPT/HCPCS: 36415; 62323; 80061; J1040

== ENCOUNTER 2023-04-02 23:35 | Emergency (ER) | payer BC, SELFPAY ==
[2023-04-02 23:36] VITALS: BP 146/70; PULSE 76; RESP 16; TEMP 36.5; O2SAT 97; BMI 26.6
--- NOTE | 2023-04-02 23:54 | PC.NURSE ---
offered pt a gyro mechanic for Maur[place], declined, pt has sister at bedside that will interpret
--- NOTE | 2023-04-03 00:08 | HMH.EDGENADL ---
Discharge Plan Disposition Patient Disposition: Home, Self-Care Prescriptions Prescriptions: New methocarbamol 750 mg tablet 1,500 mg PO TID 5 Days Qty: 90 0RF prednisone 20 mg tablet 40 mg PO BID 5 Days Qty: 20 0RF lidocaine 5 % adhesive patch,medicated 1 patch topical Q24H Qty: 30 0RF Rx Instructions: leave on most painful area for up to 12 hrs No Action aspirin 81 mg tablet,delayed release (DR/EC) 81 mg PO DAILY lamotrigine 200 mg tablet 200 mg PO BID 90 Days Qty: 180 5RF pantoprazole [Protonix] 40 mg tablet,delayed release (DR/EC) 40 mg PO DAILY Qty: 90 1RF tramadol 50 mg tablet 50 mg PO TID PRN (Reason: pain) fenofibrate nanocrystallized 145 mg tablet 145 mg PO DAILY Referrals Follow up/Referrals: Yoni Eason MD [Primary Care Provider] - See instructions Activity Restrictions/Add. Instructions Additional Instructions/Restrictions: Call your family doctor to establish care for this visit to the emergency department and schedule follow-up within 48 hours to ensure improvement. If you have any worsening of your condition or any other concerning signs or symptoms, return to the emergency department or your primary care doctor for further evaluation. Robaxin 3 times daily as needed. Prednisone 40 mg every day for 5 days. Lidocaine patch once daily on affected area. Clinical Impressions Clinical Impression: Lumbar radiculopathy, Muscle spasm of back Instructions Patient Instructions: DI for Low Back Pain Discharge ED Provider: Trenton Farrar General Adult HPI General Chief complaint: Back Pain/Injury Stated complaint: Low back pain going down into leg Time Seen by Provider: 04/02/23 23:41 Mode of Arrival: Ambulatory Source of Information: Patient and Relative Limitations: Language Barrier Description of Symptoms (Recalled from ER Triage Doc. by RN): lower back pain that radiates down right leg History of Present Illness HPI narrative: choir leader offered in Sinhala, patient declined and opting for family member at bedside to be primary choir leader. This a 53-year-old male with history of hypertension, hyperlipidemia, prediabetes, seizure disorder, chronic back pain being managed by pain management with injections presenting with lower back pain. Patient states that it started hurting Friday, 5 days prior to arrival. Since that time, he actually received an injection on Suman 8/11. States that the injections usually help quite a bit, he has received no relief with this round of steroid/pain injections. Denies bowel or bladder dysfunction, saddle anesthesia, weakness, falls, or any other concerns. Patient states that he is having pain shoot from his right lower back down his leg into the sole of his foot. It is intermittent, moderate in intensity, made worse with sitting, better by standing and laying down. Denies any trauma to the area, heavy lifting, falls, or any other concerns. Related Data Home Medications Medication Instructions Recorded Confirmed aspirin 81 mg tablet,delayed 81 mg PO DAILY Blood thinner 07/04/20 03/28/23 release fenofibrate nanocrystallized 145 145 mg PO DAILY . 01/14/23 03/28/23 mg tablet tramadol 50 mg tablet 50 mg PO TID PRN pain 02/06/23 03/28/23 Previous Rx's Medication Instructions Recorded lamotrigine 200 mg tablet 200 mg PO BID SEIZURES 90 days 03/27/23 #180 tabs pantoprazole 40 mg tablet,delayed 40 mg PO DAILY STOMACH #90 tabs 03/27/23 release (Protonix) lidocaine 5 % topical patch 1 patch topical Q24H #30 ea 04/03/23 methocarbamol 750 mg tablet 1,500 mg PO TID 5 days #90 tabs 04/03/23 prednisone 20 mg tablet 40 mg PO BID 5 days #20 tabs 04/03/23 Allergies Allergy/AdvReac Type Severity Reaction Status Date / Time acetaminophen [From NORCO] Allergy Unknown Verified 03/28/23 09:25 atorvastatin [From LIPITOR] Allergy Unknown FACIAL Verified 03/28/23 09:25 SWELLING hydrocodon
--- NOTE | 2023-04-03 00:23 | PC.NURSE ---
Rounded on patient, no needs at this time, urine collected and sent to lab
[2023-04-03 00:30] LABS: Appearance,Urine CLEAR (Clear); Bilirubin,Urine Negative (Negative); Blood, Urine Negative (Negative); Color,Urine YELLOW (Yellow); Glucose,Urine (UA) Negative (Negative); Ketones,Urine Negative (Negative); Leukocyte Esterase,Urine Negative (Negative); Nitrate,Urine Negative (Negative); Protein,Urine Negative (Negative); Specific Gravity, Urine 1.025 (1.005-1.030); Urobilinogen,Urine 0.2 EU/dl (0.2)
[2023-04-03 00:31] LABS: Microscopic, Urine URINE MICROSCOPIC (MICROSCOPIC)
[2023-04-03 00:47] LABS: Bacteria,Urine Trace /lpf; WBC,Urine Occasional #/hpf (0-3)
[2023-04-03 00:59] VITALS: BP 138/82; PULSE 74; RESP 18; TEMP 36.9; O2SAT 99
== END 2023-04-03 01:01 | disposition home or self-care (01) ==
PROVIDERS: Emergency Provider Emergency Medicine; PCP Emergency Medicine
DX: M54.16 Radiculopathy, lumbar region (principal); M79.604 Pain in right leg; G40.909 Epilepsy, unspecified, not intractable, without status epilepticus; I10 Essential (primary) hypertension; E78.5 Hyperlipidemia, unspecified; R73.03 Prediabetes; J45.20 Mild intermittent asthma, uncomplicated
CPT/HCPCS: 81001; 99283

== ENCOUNTER → 2023-04-08 10:10 | Outpatient (CLI) | payer BC, SELFPAY ==
[2023-04-08 10:57] LABS: Reticulocyte % (Auto) 1.3 % (0.9-3.2)
[2023-04-08 11:24] LABS: Iron 97 ug/dL (49-181)
[2023-04-08 11:33] LABS: Total Iron Binding Capacity 375 ug/dL (261-462)
[2023-04-08 11:55] LABS: Thyroid Stimulating Hormone 1.96 uIU/mL (0.465-4.68)
[2023-04-08 13:00] LABS: Vitamin B12 232 pg/mL (239-931)
[2023-04-08 13:01] LABS: Folate 5.22 ng/mL
== END ==
PROVIDERS: PCP Nurse Practitioner Family; Visit Provider Nurse Practitioner
DX: I42.0 Dilated cardiomyopathy (principal); E53.8 Deficiency of other specified B group vitamins
CPT/HCPCS: 36415; 82607; 82746; 83540; 83550; 84443; 85044

== ENCOUNTER → 2023-05-05 09:49 | Outpatient (POV) | payer BC, SELFPAY ==
--- NOTE | 2023-05-05 10:01 | EXP.PAIN.SOA ---
[facility] Pain Management SOAP Note Subjective:: Patient is a pleasant 53-year-old male who presents today for follow-up of lumbar epidural steroid injection L5-S1 on 03/28/2023. We are currently treating the patient for degenerative disc disease of cervical and lumbar spine with cervical and lumbar radiculopathy symptoms. Today he rates his pain a 10 out of 10. Patient denies any new trauma or injury. He states that he had no improvement following this injection and it in fact made his pain worse. He states he still has pain in his low back with radiating symptoms into his right leg. He states he has even been experiencing his right leg wants to give out while he is ambulating. He describes this as an aching, throbbing sensation that is worse with increased activity or certain range of movement exercises. The pain interferes with his ability to perform activities of daily living such as cooking and cleaning and even simple ambulation. Patient has tried neyj-[id number] medications such as Tylenol and ibuprofen along with heat and ice and topicals with no additional relief. He is not on any scheduled medications. His Jose is [phone]. Its been reviewed and appropriate. Review of Systems: General: No recent weight changes, no fever, no sleep disturbances Respiratory: No cough, no shortness of air, no recurring pulmonary infections Cardiovascular/peripheral vascular: No chest pain, no palpitations, no edema, no shortness of breath Gastrointestinal: No new onset incontinence, normal bowel movements reported Genitourinary: No new onset incontinence Musculoskeletal: Low back pain, right leg pain Psychiatric: [Normal mood/affect] Neurological: [Denies weakness in extremities], [denies balance issues] Objective:: Physical Exam: General: Alert and oriented x3, no acute distress, pleasant and cooperative Lungs: Respirations even and unlabored, symmetrical chest expansion Eyes: PERRL Musculoskeletal: Flexion and extension of lumbar [spine] somewhat guarded secondary to pain, [antalgic gait noted] positive right leg raise with decreased sensation to light touch and decreased reflexes on right leg Neurological: Speech clear, no gross sensory deficit Assessment:: Degenerative disc disease of cervical and lumbar spine with cervical and lumbar radiculopathy symptoms Plan:: Patient is experiencing significant pain in his low back with radiating symptoms into his right leg. Patient does have findings consistent with a possible pinched nerve root. Patient did have a positive right leg raise with decreased sensation to light touch and decreased reflexes along the right leg. Patient has previously gotten upwards of 90% relief or more with the transforaminal epidurals and that they do typically last at least a couple of months. His last transforaminal was done back in January. I have discussed with the patient that he may benefit from repeating this injection. Risk and benefits were explained to the patient and he would like to proceed forward with this plan of care. I will also send in a 5-day dose of prednisone 20 mg twice daily and baclofen 10 mg at bedtime with a 14-day supply of this medication. Patient will be scheduled for a right transforaminal epidural steroid injection L4-L5 and L5-S1. Patient has been instructed to contact the clinic with any concerns before the next appointment. Dr. Barrientos has reviewed this note and agrees with this plan of care. This note was dictated using voice recognition software and make contain errors or omissions. [facility] Disclaimer: The information contained in this section may have been updated after the patient was seen, as this information can be updated by other users. Medical History Abdominal discomfort Abdominal distention Abdominal pain Acute conjunctivitis of left eye SANCHEZ (acute kidney injury) Aneurysm Bronchitis Cervical radiculopathy Chest pain Chest pain Corneal abr
[2023-05-05 10:16] VITALS: BP 151/67; PULSE 56; RESP 18; O2SAT 98; BMI 26.9
== END | disposition home or self-care (01) ==
PROVIDERS: PCP Emergency Medicine; Visit Provider Nurse Practitioner Family
DX: M50.10 Cervical disc disorder with radiculopathy, unspecified cervical region (principal); M51.16 Intervertebral disc disorders with radiculopathy, lumbar region
CPT/HCPCS: 99212; G0463

== ENCOUNTER 2023-05-13 08:59 | Day surgery (SDC) | payer BC, SELFPAY ==
[2023-05-13 09:10] VITALS: BP 128/78; PULSE 51; RESP 18; TEMP 36.5; O2SAT 98; BMI 27.1
[2023-05-13 09:32] VITALS: BP 116/76; PULSE 52; RESP 18; O2SAT 98
--- NOTE | 2023-05-13 09:37 | P.PCN_ITS ---
Procedure Date: 05/13/23 Time: 09:15 Anesthesiologist:: Jed Cramer CRNA Complications:: None Pre-procedure Diagnosis:: Degenerative disc lumbar spine multilevels. Lumbar radiculopathy. Disc bulge lumbar spine L4-5, L5-S1 Post-procedure Diagnosis:: Same. Indications for Procedure:: Very pleasant 53-year-old male that comes our clinic today for repeat right L4-5 and L5-S1 transforaminal epidural steroid injection. Patient receives several months of relief following previous injections at the same level. He rates his pain 7/10. He describes his low back pain as constant, dull, aching. Patient also complains of right hip and leg radicular symptoms. Procedure Details:: Details of the procedure were explained to the patient. The patient was taken the procedure room placed in the prone position. The area of the lumbar spine was cleansed using chlorhexidine as a cleansing solution. At this time using fluoroscopy guidance markers were placed on the right lateral border of the L4 and L5 vertebral body. The skin and subcutaneous tissue was anesthetized using 1% lidocaine and 25-gauge needle. At this time using a 22-gauge 3-1/2 inch spinal needle the right upper one third of the L4-5 foramen was accessed. The same was done at the right L5-S1 foramen. Needle positions were confirmed and a lateral view using fluoroscopy and contrast dye. At this time 1 cc of 1% lidocaine +20 mg of Depo-Medrol was injected at each level after negative aspiration. [place] were removed. Band-Aid applied. Patient tolerated the procedure without difficulty. There are no complications. Plan and Disposition:: Patient was discharged without incident.
[2023-05-13 09:47] VITALS: BP 119/71; PULSE 52; RESP 18; O2SAT 99
[2023-05-13 09:52] VITALS: BP 119/71; PULSE 52; RESP 18; O2SAT 99
== END 2023-05-13 09:32 | disposition home or self-care (01) ==
PROVIDERS: PCP Emergency Medicine; Visit Provider Nurse Anesthetist, Certified Registered
DX: M51.16 Intervertebral disc disorders with radiculopathy, lumbar region (principal)
CPT/HCPCS: 64483; 64484; J1030

== ENCOUNTER → 2023-06-19 09:53 | Outpatient (POV) | payer BC, SELFPAY ==
--- NOTE | 2023-06-19 10:18 | EXP.PAIN.SOA ---
[facility] Pain Management SOAP Note Subjective:: Patient is a pleasant 53-year-old male who presents today for follow-up of right transforaminal epidural steroid injection L4-L5 and L5-S1 on 05/13/2023. We are currently treating the patient for degenerative disc disease of cervical and lumbar spine with cervical and lumbar radiculopathy symptoms. Today he rates his pain a 7 out of 10. He does state that he had at least 50% improvement following this injection and feels like it is still helping provide additional relief however he continues to have some low back and neck pain. He does state that his low back pain is much better though and that he has been able to increase his activity with decreased pain symptoms. Patient denies any recent imaging of his cervical spine. He does state that he has pins and needle sensations into his hands and that he has right arm frequently has a loss of strength and will just drop things. Patient states that the neck issues have been going on for at least 5 years. He does have a history of heart cath and does not do any NSAIDs. Patient will just continue to use Tylenol along with heat and ice. His Jose has been reviewed and is appropriate. Review of Systems: General: No recent weight changes, no fever, no sleep disturbances Respiratory: No cough, no shortness of air, no recurring pulmonary infections Cardiovascular/peripheral vascular: No chest pain, no palpitations, no edema, no shortness of breath Gastrointestinal: No new onset incontinence, normal bowel movements reported Genitourinary: No new onset incontinence Musculoskeletal: Low back pain, neck pain Psychiatric: [Normal mood/affect] Neurological: [Denies weakness in extremities], [denies balance issues] Objective:: Physical Exam: General: Alert and oriented x3, no acute distress, pleasant and cooperative Lungs: Respirations even and unlabored, symmetrical chest expansion Eyes: PERRL Musculoskeletal: Flexion and extension of cervical [spine] somewhat guarded secondary to pain, [antalgic gait noted] Neurological: Speech clear, no gross sensory deficit Assessment:: Degenerative disc disease of cervical and lumbar spine with cervical and lumbar radiculopathy symptoms Plan:: Patient continues to experience neck pain with weakness and numbness into his extremities. I will order x-ray imaging as well as MRI without contrast of his cervical spine. Patient will return to clinic in 1 month following imaging for reevaluation of symptoms and plan of care. Patient has been instructed to contact the clinic with any concerns before the next appointment. Dr. Barrientos has reviewed this note and agrees with this plan of care. This note was dictated using voice recognition software and make contain errors or omissions. [facility] Disclaimer: The information contained in this section may have been updated after the patient was seen, as this information can be updated by other users. Medical History Abdominal discomfort Abdominal distention Abdominal pain Acute conjunctivitis of left eye SANCHEZ (acute kidney injury) Aneurysm Bronchitis Cervical radiculopathy Chest pain Chest pain Corneal abrasion of both eyes Dizziness Dyspnea Fracture of right tibia and fibula GERD (gastroesophageal reflux disease) H/O (corrected) congenital malformations of digestive system Headache History of renal stone 2019 HLD (hyperlipidemia) Kidney stones Low back pain Lumbar radiculopathy Migraine Mild intermittent asthma 2019, Dr. Edwards Muscle spasm Nausea Near syncope Neck pain Onychomycosis Overweight Pain Paronychia of fifth toe, left Renal colic on right side Renal insufficiency Right leg pain Seizure Strain of latissimus dorsi muscle Tobacco poisoning Torticollis Vomiting Surgical History History of laparoscopic cholecystectomy Hx of cardiac cath Family History (Revi
[2023-06-19 10:55] VITALS: BP 145/54; PULSE 56; RESP 20; O2SAT 100; BMI 27.3
== END ==
LOC: SC.PAIN 09:54
PROVIDERS: PCP Emergency Medicine; Visit Provider Nurse Practitioner Family
DX: M50.10 Cervical disc disorder with radiculopathy, unspecified cervical region (principal); M51.16 Intervertebral disc disorders with radiculopathy, lumbar region
CPT/HCPCS: 99212; G0463

== ENCOUNTER → 2023-06-19 10:33 | Outpatient (CLI) | payer BC, SELFPAY ==
--- NOTE | 2023-06-19 10:39 | XR_ITS ---
FINAL REPORT TECHNIQUE: 5 views CLINICAL HISTORY: NECK PAIN COMPARISON: None FINDINGS: There is no fracture present. There is no malalignment. There is mild degenerative change present in the lower cervical spine. IMPRESSION: No acute process. Mild lower cervical degenerative change. Reviewed, Interpreted and Dictated by Benjamín Aguero III, MD Transcribed by Lilian Jaramillo Authenticated and [facility]
== END ==
PROVIDERS: PCP Emergency Medicine; Visit Provider Nurse Practitioner Family
DX: M54.2 Cervicalgia (principal)
CPT/HCPCS: 72050

== ENCOUNTER → 2023-07-15 08:04 | Outpatient (CLI) | payer BC, SELFPAY ==
[2023-07-15 17:54] LABS: Chol/HDL Ratio 7.5 (1-3.5); Cholesterol 188 mg/dl (140-200); HDL Cholesterol 25 mg/dl (40-60); Triglycerides 331 mg/dl (30-150); VLDL Cholesterol 66 mg/dL (0-40)
[2023-07-15 18:12] LABS: Direct LDL Cholesterol 106.19 mg/dL (100-129)
== END ==
PROVIDERS: PCP Nurse Practitioner Family; Visit Provider Nurse Practitioner Family
DX: E78.5 Hyperlipidemia, unspecified (principal)
CPT/HCPCS: 80061

== ENCOUNTER → 2023-07-21 12:50 | Outpatient (CLI) | payer BC, SELFPAY ==
--- NOTE | 2023-07-21 12:55 | US_ITS ---
FINAL REPORT CLINICAL HISTORY: RLE pain,EDEMA,CLAUDICATION RLE COMPARISON: None FINDINGS: ANKLE-BRACHIAL PRESSURE INDICES Pressure indices are as follows: RIGHT LOWER EXTREMITY: Ankle-brachial pressure index: 1.5 Comments: Noncompressible LEFT LOWER EXTREMITY: Ankle-brachial pressure index: 1.4 Comments: Normal IMPRESSION: Noncompressible on the right. No evidence of significant obstructive peripheral vascular disease on the left. Reviewed, Interpreted and Dictated by Benjamín Aguero III, MD Transcribed by Emelina Perdomo Authenticated and . [facility]
== END ==
PROVIDERS: PCP Nurse Practitioner Family; Visit Provider Nurse Practitioner Family
DX: M79.604 Pain in right leg (principal)
CPT/HCPCS: 93923

== ENCOUNTER → 2023-08-01 10:10 | Outpatient (CLI) | payer BC, SELFPAY ==
--- NOTE | 2023-08-01 10:10 | MR_ITS ---
APPROVED REPORT Policeman: CLINICAL INDICATION Cardiomyopathy evaluation TECHNIQUE Image Acquisition: Cardiac magnetic resonance (CMR) was performed on Siemens Espree MRI 1.5T scanner. Software platform sequences were performed using the Siemens Glowforth MR B19 platform. A set of three-plane, low-resolution, large [id number] localizers were initially acquired. Then axial, coronal, sagittal TrueFISP, as well as axial HASTE images, were obtained. These were followed by gated TrueFISP breathold cinematic sequences obtained in the short axis with 8 mm slices and 2 mm gaps, 2-chamber (vertical long axis), 3-chamber, 4-chamber (horizontal long axis). A bolus of contrast was injected intravenously with first-pass sequences obtained in the short axis and four-chamber planes. After approximately 10 minutes, a TI reed dipper sequence was performed to determine the optimal TI time. Using the optimized TI time, delayed contrast enhancement segmented inversion???recovery TurboFLASH sequences were obtained in the short axis, 2-chamber, 3-chamber, and 4-chamber projections. 2D-velocity phase mapping was performed. Functional parameters were calculated by offline analysis on an independent workstation ([employer], [employer]). Contrast: ProHance??? (Gadoteridol) FINDINGS MORPHOLOGY AND FUNCTION Left ventricle: The left ventricle is normal in size. The indexed left ventricular end-diastolic volume (LVEDVi) is 90 ml/m2 (reference range 57-105 ml/m2 in males, 56-96 ml/m2 in females). Normal left ventricular systolic function is present. There is normal left ventricular wall thickness. There is mild hypokinesis of the basal inferoseptal LV wall present. The left ventricular apical wall appears hypertrabeculated, but does not meet criteria for LV non-compaction syndrome. LVEF is calculated at 57.4 % (reference range 57-77%). Right ventricle: The right ventricle is normal in size. The indexed right ventricular end-diastolic volume (RVEDVi) is 89 ml/m2 (reference range 61-121 ml/m2 in males, 48-112 ml/m2 in females). Normal right ventricular systolic function is present. RVEF is calculated at 56.0 % (reference range 52-72% in males, 51-71% in females). Atria: The left atrium is normal in size. The maximum indexed left atrial volume is 31 ml/m2 (reference range 26-52 ml/m2 in males, 27-53 ml/m2 in females). The right atrium is normal in size. The maximum indexed right atrial volume is 40 ml/m2 (reference range 18-90 ml/m2). Aorta: The diameter of the aortic annulus is normal, measuring 27 mm (coronal view reference range 21-30 mm in males, 19-27 mm in females). The diameter of the aortic sinus is normal, measuring 34 mm (coronal view reference range 25-42 mm in males, 24-36 mm in females). The diameter of the sinotubular junction is normal, measuring 26 mm (coronal view reference range 18-32 mm in males, 18-28 mm in females). The diameters of the ascending and descending thoracic aorta are normal. Main pulmonary artery: The main pulmonary artery diameter is normal. Pericardium: The pericardial thickness is normal. The pericardial thickness measures 1.7 cm (normal < 4.0 cm). There is no pericardial effusion. VALVES The valvular morphologies in the visualized sequences appear normal. There is no significant valvular stenosis or regurgitation of the mitral, aortic, tricuspid, or pulmonic valve noted visually. Systolic anterior motion of the mitral valve is not visualized. Ratio of pulmonary to systemic flow, Qp:Qs ratio = 1.3 (normal < or = 1.2), demonstrating possible evidence of hemodynamically significant shunt. TISSUE CHARACTERIZATION Resting Perfusion: There is resting hypokinesis present in the basal inferior and inferoseptal LV [place]. Myocardia
== END ==
PROVIDERS: PCP Nurse Practitioner Family; Visit Provider Nurse Practitioner
DX: I42.0 Dilated cardiomyopathy (principal)
CPT/HCPCS: 75561; A9576

== ENCOUNTER 2023-08-03 09:57 | Emergency (ER) | payer BC, SELFPAY ==
--- NOTE | 2023-08-03 09:56 | ECG_ITS ---
APPROVED REPORT Exam: Resting ECG HR:67 bpm ECG Measurements Heart Rate 67 AXES SC 191 P 59 QRSd 116 QRS 62 QT 357 T 39 QTc 373 Conclusion SINUS RHYTHM MODERATE INTRAVENTRICULAR CONDUCTION DELAY [110+ ms QRS DURATION] NONSPECIFIC T-WAVE ABNORMALITY BORDERLINE ECG UNCONFIRMED REPORT Electronically signed by : Eleazar Huang MD 08/04/2023 14:46:01
[2023-08-03 09:58] VITALS: BP 139/79; PULSE 68; RESP 16; TEMP 36.7; O2SAT 98; BMI 28.1
--- NOTE | 2023-08-03 10:01 | XR_ITS ---
PROCEDURE INFORMATION: Exam: XR Chest Exam date and time: 08/03/2023 10:02 AM Age: 53 years old Clinical indication: Pain; Other: Cp; Additional info: Chest pain TECHNIQUE: Imaging protocol: Radiologic exam of the chest. Views: 2 views. COMPARISON: CR XR CHEST PORTABLE 03/13/2023 10:19 PM FINDINGS: Lungs: Unremarkable. No consolidation. Pleural spaces: Unremarkable. No pleural effusion. No pneumothorax. Heart/Mediastinum: Unremarkable. No cardiomegaly. Bones/joints: Unremarkable. IMPRESSION: No acute findings.
[2023-08-03 10:04] LABS: Influenza A, PCR Not Detected (NotDetected); Influenza B, PCR Not Detected (NotDetected)
[2023-08-03 10:15] LABS: Basophils % 0.4 % (0.1-2.0); Eosinophils # 0.1 K/mm3 (0.0-0.4); Hemoglobin 15.3 g/dL (14.1-18.0); Lymphocytes # 0.8 K/mm3 (0.7-4.5); Lymphocytes % 7.8 % (10-50); Mean Corpuscular Hemoglobin 30.6 pg (27.0-31.2); Mean Corpuscular Volume 89.9 fl (80-94); Mean Platelet Volume 10.2 fl (7.4-10.4); Monocytes # 0.5 K/mm3 (0.1-1.0); Monocytes % 4.6 % (1.7-9.3); Neutrophils # 8.5 K/mm3 (1.8-7.8); Neutrophils % 86.1 % (37.0-80.0); Platelet Count 165 K/mm3 (142-424); Red Cell Distribution Width 13.3 % (11.5-17.5); White Blood Count 9.9 K/mm3 (4.8-10.8)
[2023-08-03 10:17] LABS: Chloride 105 mmol/L (98-107); Potassium 4.1 mmoL/L (3.5-5.1); Sodium 138 mmol/L (136-145)
[2023-08-03 10:19] LABS: Blood Urea Nitrogen 17 mg/dl (9-20); Creatinine Clearance Estimated 139 mL/min (50-200); Estimated Glomerular Filt Rate 118 ml/min (>60)
[2023-08-03 10:20] LABS: Alanine Aminotransferase 54 U/L (12-78); Albumin Level 4.8 g/dl (3.5-5.0); Albumin/Globulin Ratio 1.5 (1.1-1.8); Alkaline Phosphatase 95 U/L (38-126); Anion Gap 15.1 mEq/L (5-15); Aspartate Amino Transferase 44 U/L (17-59); Bilirubin,Total 1.1 mg/dl (0.2-1.3); Calcium 8.7 mg/dl (8.4-10.2); Carbon Dioxide 22 mmol/L (22.0-30.0); GFR (African American) 142 ML/MIN (>60); Globulin 3.2 g/dL (1.3-3.2); Glucose 134 mg/dl (74-100); Lipase 59 U/L (23-300)
--- NOTE | 2023-08-03 10:23 | HMH.EDGENADL ---
Discharge Plan Disposition Patient Disposition: Home, Self-Care Condition: Good Prescriptions Prescriptions: New ondansetron 4 mg tablet,disintegrating 4 mg PO Q8H PRN (Reason: nausea and vomiting) 4 Days Qty: 12 0RF famotidine [Pepcid] 20 mg tablet 20 mg PO DAILY Qty: 10 0RF No Action aspirin 81 mg tablet,delayed release (DR/EC) 81 mg PO DAILY tramadol 50 mg tablet 50 mg PO TID PRN (Reason: pain) fenofibrate nanocrystallized 145 mg tablet 145 mg PO DAILY Qty: 90 1RF lamotrigine 200 mg tablet 200 mg PO BID 90 Days Qty: 180 1RF pantoprazole [Protonix] 40 mg tablet,delayed release (DR/EC) 40 mg PO DAILY Qty: 90 1RF mecobalamin (vitamin B12) 1,000 mcg tablet,chewable 1,000 mcg PO DAILY ezetimibe [Zetia] 10 mg tablet 10 mg PO DAILY Qty: 90 1RF methocarbamol 750 mg tablet 1,500 mg PO TID lidocaine 5 % adhesive patch,medicated 1 patch topical Q24H Rx Instructions: leave on most painful area for up to 12 hrs baclofen 10 mg tablet 10 mg PO HS Referrals Follow up/Referrals: Kathie Street PA [Primary Care Provider] - See instructions Activity Restrictions/Add. Instructions Additional Instructions/Restrictions: You were evaluated in the emergency department today and diagnosed with COVID-19. Please make sure that you are staying orally hydrated. Take Tylenol and ibuprofen every 4-6 hours as needed for pain and fever. 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 Return to the emergency department for new or worsening symptoms. Follow-up with your primary care provider over the next 3 days for reassessment. Clinical Impressions Clinical Impression: COVID-19, Myalgia Instructions Patient Instructions: DI for Atypical Chest Pain, DI for COVID-19 (Suspected or Confirmed ) Discharge ED Provider: Amie He General Adult HPI General Chief complaint: Chest Pain Stated complaint: CP Time Seen by Provider: 08/03/23 10:01 Mode of Arrival: Ambulatory Source of Information: Patient Limitations: No Limitations Description of Symptoms (Recalled from ER Triage Doc. by RN): Patient complaint of chest pain, feeling of pins and needles, pain in bones, and an empty feeling in his stomach. was COVID positive last week. History of Present Illness HPI narrative: This patient is a 53-year-old male with a history of hypertension, hyperlipidemia, prediabetes, GERD, YVONNE, and dilated cardiomyopathy presenting to the emergency department for evaluation with concern for multiple complaints. Patient has had chest pains, aching in his bones, especially his knees, nausea, and an empty feeling in his stomach. This started on Friday and has progressively worsened since then. He notes that he did have a cardiac MRI on Friday, and has not felt right since. Patient's did test positive for COVID-19 last week. On medical record review, I do not yet see results for the cardiac MRI. Patient does not have medications prior to arrival. No other concerns noted at this time. Related Data Home Medications Medication Instructions Recorded Confirmed aspirin 81 mg tablet,delayed 81 mg PO DAILY Blood thinner 07/04/20 07/08/23 release tramadol 50 mg tablet 50 mg PO TID PRN pain 02/06/23 07/08/23 lidocaine 5 % topical patch 1 patch topical Q24H Pain 05/05/23 07/08/23 methocarbamol 750 mg tablet 1,500 mg PO TID Pain 05/05/23 07/08/23 baclofen 10 mg tablet 10 mg PO HS . 05/13/23 07/08/23 mecobalamin (vitamin B12) 1,000 1,000 mcg PO DAILY 07/15/23 07/15/23 mcg chewable tablet Previous Rx's Medication Instructions Recorded ezetimibe 10 mg tablet (Zetia) 10 mg PO DAILY #90 tabs 07/15/23 fenofibrate nanocrystallized 145 145 mg PO DAILY . #90 tabs 07/15/23 mg tablet lamotrigine 200 mg tablet 200 mg PO BID SEIZURES 90 days 07/15/23 #180 tabs pantoprazole 40 mg tablet,delayed 40 mg PO DAILY STOMACH #90 tabs 07/15/23 release (Protonix) fam
[2023-08-03 10:30] VITALS: BP 136/73; PULSE 62; RESP 22; O2SAT 94
[2023-08-03 10:35] LABS: Troponin I < 0.01 ng/ml (0.00-0.034)
--- NOTE | 2023-08-03 10:38 | PC.NURSE ---
Rounded on pt. No needs or complaints voiced at this time. Visitor at BS and call light within reach
[2023-08-03 10:56] LABS: MANUAL DIFFERENTIAL MANUAL DIFFERENTIAL (MANUAL DIFF)
[2023-08-03 11:01] VITALS: BP 126/71; PULSE 64; RESP 20; O2SAT 96
[2023-08-03 11:12] LABS: Coronavirus 19, PCR Detected (NotDetected)
[2023-08-03 11:20] LABS: Lymphocytes % 8 % (10-50); Monocytes % 4 % (2-9); Neutrophils % 88 % (42-76); RBC Morphology Normal; Total Cells Counted 100
[2023-08-03 11:21] LABS: Platelet Estimate Normal
--- NOTE | 2023-08-03 11:26 | PC.NURSE ---
Dr. He at BS to update pt/visitor on results and POC
[2023-08-03 11:37] VITALS: BP 137/78; PULSE 64; RESP 20; TEMP 36.7; O2SAT 96
== END 2023-08-03 11:38 | disposition home or self-care (01) ==
PROVIDERS: Emergency Provider Emergency Medicine; PCP Student in an Organized Health Care Education/Training Program
DX: U07.1 COVID-19 (principal); R07.9 Chest pain, unspecified; I10 Essential (primary) hypertension; E78.5 Hyperlipidemia, unspecified; I45.9 Conduction disorder, unspecified; R73.03 Prediabetes; I42.0 Dilated cardiomyopathy; G47.33 Obstructive sleep apnea (adult) (pediatric)
CPT/HCPCS: 71046; 80053; 83690; 84484; 85007; 85025; 87636; 93005; 96361; 96374; 96375; 99285; J2405

== ENCOUNTER 2023-08-15 08:41 | Day surgery (SDC) | payer BC, SELFPAY ==
[2023-08-15] VITALS (15 sets, daily range): BP systolic 115–157; BP diastolic 68–103; PULSE 54–65; RESP 16–20; TEMP 36.6; O2SAT 96–100; BMI 28.1
--- NOTE | 2023-08-15 07:13 | IR_ITS ---
APPROVED REPORT Patient Location: Outpatient [facility] [employer]: JUSTA Castillo RT (R) PROCEDURES Left heart catheterization Left ventriculogram Selective coronary angiogram INDICATION Abnormal Myoview, Angina pectoris Informed consent was obtained prior to the procedure. COMPLICATIONS NONE Estimated Blood Loss: LESS THAN 10 ML TECHNIQUE One percent lidocaine used to anesthetize the right anterior aspect of the wrist. The right radial artery was accessed via the Seldinger technique. A 6 Chadian sheath was placed in the right radial artery. 2.5 mg of Verapamil, 800 mcg of nitroglycerin, 1mg Lidocaine and 5000 U Heparin were given through the arterial sheath. The papa catheter was also used to perform left heart catheterization, left ventriculogram and selective coronary angiogram. At the end of the procedure the sheath was removed good hemostasis was achieved using Traclet band, patient was transferred to the postop holding area in stable condition. ANGIOGRAPHIC RESULTS The left main artery Normal The left anterior descending artery Normal The circumflex artery Normal The right coronary artery Dominant normal The TORIBIO ventriculogram reveals Normal 65% The left ventricular end-diastolic pressure Normal 10 mmHg IMPRESSION Normal coronary arteries Normal ejection fraction Normal LVEDP PLAN 1. Medical management Electronically signed by : Delon Jang MD 08/15/2023 10:19:20
[2023-08-15] MEDS: HEPARIN 1,000 UNITS/500ML NS (CATH LAB) 3000 UNIT IV (10:00)
[2023-08-15] MEDS: 0.9 % SODIUM CHLORIDE 500 ML 25 ML IV (10:01)
[2023-08-15] MEDS: NITROGLYCERIN 800MCG/8ML SYR (CATH LAB) 800 MCG IA (10:01)
[2023-08-15] MEDS: HEPARIN 1,000 UNITS/ML 10ML VIAL (CATH LAB) 10000 UNIT IV (10:01)
[2023-08-15] MEDS: VERAPAMIL 2.5MG/ML 2ML VIAL 2.5 MG IV (10:01)
[2023-08-15] MEDS: LIDOCAINE 1% 10ML MDV 20 ML IJ (10:01)
[2023-08-15] MEDS: diphenhydrAMINE 50MG/ML VIAL 50 MG IV (10:01)
[2023-08-15] MEDS: MIDAZOLAM HCL 1MG/1ML 5ML VIAL 1 MG IV (10:02)
[2023-08-15] MEDS: IOPAMIDOL-370 (76%);100ML BOTTLE 50 ML IV (10:57)
--- NOTE | 2023-08-15 12:26 | SUR.PHASEII ---
Patient taken to post op for recovery.
--- NOTE | 2023-08-15 12:45 | SUR.PHASEII ---
Pt sitting up in bed eating. No needs or concerns voiced. 2ml of air removed from radialband. Family at bedside.
== END 2023-08-15 13:33 | disposition home or self-care (01) ==
PROVIDERS: PCP Student in an Organized Health Care Education/Training Program; Visit Provider Internal Medicine
DX: R93.1 Abnormal findings on diagnostic imaging of heart and coronary circulation (principal); Z79.899 Other long term (current) drug therapy; R94.31 Abnormal electrocardiogram [ECG] [EKG]; I42.0 Dilated cardiomyopathy; K21.9 Gastro-esophageal reflux disease without esophagitis; E78.5 Hyperlipidemia, unspecified
CPT/HCPCS: 93458; 99152; C1725; C1760; C1769; J1644; Q9967

== ENCOUNTER → 2023-10-13 10:10 | Outpatient (POV) | payer BC, SELFPAY ==
--- NOTE | 2023-10-13 10:45 | A.OFFVIS_ITS ---
[facility] Pain Management SOAP Note Subjective:: Patient is a pleasant 53-year-old male who presents today for follow-up. We are currently treating the patient for degenerative disc disease of cervical and lumbar spine with cervical and lumbar radiculopathy symptoms. Today he rates his pain a 8 out of 10. Patient denies any new trauma or injury. He does state that he is starting to having worsening pain in his low back with radiating symptoms down his right leg. Patient states this is an aching, throbbing sensation with numbness and tingling. Patient has had right transforaminal epidural injections in the past that have provided upwards of 50% improvement or more. Patient's last injection was in April and has worked well up until the last month. Patient is interested in repeating this injection. Patient states when the transforaminal epidural was working he was able to increase his activity with decreased pain symptoms and felt overall more functional. Today he feels like he is back to his baseline and it is interfering with his ability to perform activities of daily living. Patient does use Tylenol along with heat and ice for temporary relief. His Jose has been reviewed and is appropriate. Review of Systems: General: No recent weight changes, no fever, no sleep disturbances Respiratory: No cough, no shortness of air, no recurring pulmonary infections Cardiovascular/peripheral vascular: No chest pain, no palpitations, no edema, no shortness of breath Gastrointestinal: No new onset incontinence, normal bowel movements reported Genitourinary: No new onset incontinence Musculoskeletal: Low back pain, right leg pain Psychiatric: [Normal mood/affect] Neurological: [Denies weakness in extremities], [denies balance issues] Objective:: Physical Exam: General: Alert and oriented x3, no acute distress, pleasant and cooperative Lungs: Respirations even and unlabored, symmetrical chest expansion Eyes: PERRL Musculoskeletal: Flexion and extension of lumbar [spine] somewhat guarded secondary to pain, [antalgic gait noted] positive right leg raise with decreased sensation to light touch and decreased reflexes Neurological: Speech clear, no gross sensory deficit Assessment:: Degenerative disc disease of cervical and lumbar spine with cervical and lumbar radiculopathy symptoms Plan:: Patient is experiencing worsening pain in his low back with radiating symptoms to his right leg. Patient had limited range of motion of his lumbar spine along with a positive right leg raise and decreased sensation to light touch and decreased reflexes. Patient did just have his last right transforaminal epidural injection back in April that provided more than 50% relief lasting more than 4 months. I have discussed with the patient that he may benefit from repeat transforaminal injection. Risk and benefits were discussed with the patient and he would like to proceed forward with this plan of care. Patient is not on any blood thinners. Patient will be scheduled for a right transforaminal epidural steroid injection L4-L5 and L5-S1 under fluoroscopy. Patient has been instructed to contact the clinic with any concerns before the next appointment. Dr. Barrientos has reviewed this note and agrees with this plan of care. This note was dictated using voice recognition software and make contain errors or omissions. [facility] Disclaimer: The information contained in this section may have been updated after the patient was seen, as this information can be updated by other users. Medical History Abdominal discomfort Abdominal distention Abdominal pain Abnormal findings on diagnostic imaging of heart and coronary circulation Acute conjunctivitis of left eye SANCHEZ (acute kidney injury) Aneurysm Bronchitis Cervical radiculopathy Chest pain Chest pain Corneal abrasion of both eyes Corneal ulcer of right eye Dizziness Dyspnea Facial swelling Fracture of right tibia and fibula GERD (gastroesophageal reflux disease) H/O (corrected) congenital malformations of digestive system Headache History of renal stone 2019 HLD (hyperlipidemia) Kidney stones Low back pain Lumbar radiculopathy Lumbar radiculopathy Migraine Mild intermittent asthma 2019, Dr. Edwards Muscle spasm Muscle spasm of back Nausea Near syncope Neck pain Onychomycosis Overweight Pain Paronychia of fifth toe, left Renal colic on right side Renal insufficiency Right leg pain Seizure Strain of latissimus dorsi muscle Tobacco poisoning Torticollis Vomiting Surgical History History of laparoscopic cholecystectomy Hx of cardiac cath Family History Other No significant family history Social History Smoking Status: Never smoker alcohol intake: current substance use type: denies use current occupational status: other Travel in the last 8 weeks: None household members: family housing: house caffeine: No
[2023-10-13 12:09] VITALS: BP 151/74; PULSE 62; RESP 18; O2SAT 94; BMI 26.6
== END ==
LOC: SC.PAIN 10:11
PROVIDERS: PCP Student in an Organized Health Care Education/Training Program; Visit Provider Nurse Practitioner Family
DX: M51.16 Intervertebral disc disorders with radiculopathy, lumbar region (principal); M50.10 Cervical disc disorder with radiculopathy, unspecified cervical region
CPT/HCPCS: 99212; G0463

== ENCOUNTER 2023-11-04 09:24 | Day surgery (SDC) | payer BC, SELFPAY ==
[2023-11-04 09:45] VITALS: BP 127/83; PULSE 59; RESP 18; TEMP 36.7; O2SAT 98; BMI 28.6
[2023-11-04] MEDS: LIDOCAINE 1% 5ML PF VIAL 5 ML (09:59)
[2023-11-04 10:00] VITALS: BP 140/68; PULSE 56; RESP 18; O2SAT 98
[2023-11-04 10:04] VITALS: BP 140/68; PULSE 58; RESP 18; O2SAT 98
--- NOTE | 2023-11-04 10:12 | P.PCN_ITS ---
Procedure Date: 11/04/23 Time: 09:50 Anesthesiologist:: Jed Cramer CRNA Complications:: None Pre-procedure Diagnosis:: Degenerative disc lumbar spine multilevels. Lumbar radiculopathy. Lumbar disc bulge L4-5, L5-S1. Post-procedure Diagnosis:: Same. Indications for Procedure:: Very pleasant 53-year-old male comes our clinic today for right L4-5, L5-S1 transforaminal epidural steroid injection. Patient had significant improvement in terms of his overall right low lumbar back pain and right hip and leg radicular symptoms for 6 months following previous injection same levels. He rates his pain today 6/10. Patient describes low back pain as constant, dull, aching. Right side greater than left side. Also, right hip and leg radicular symptoms to the foot. Procedure Details:: Details of the procedure were explained to the patient. The patient was taken the procedure room placed in the prone position. The area of the lumbar spine was cleansed using chlorhexidine as a cleansing solution. At this time using fluoroscopy guidance markers were placed on the right lateral border of the L4 and L5 vertebral body. The skin and subcutaneous tissue was anesthetized using 1% lidocaine and 25-gauge needle. At this time using a 22-gauge 3-1/2 inch spinal needle the right upper one third of the L4-5 foramen was accessed. The same was done at the right L5-S1 foramen. Needle positions were confirmed and a lateral view using fluoroscopy and contrast dye. At this time 1 cc of 1% lidocaine +20 mg of Depo-Medrol was injected at each level after negative aspiration. [place] were removed. Band-Aid applied. Patient tolerated the procedure without difficulty. There are no complications. Plan and Disposition:: Patient discharged from the clinic without incident
[2023-11-04 10:15] VITALS: BP 134/72; PULSE 58; RESP 18; O2SAT 98
== END 2023-11-04 10:15 | disposition home or self-care (01) ==
PROVIDERS: PCP Nurse Practitioner Family; Visit Provider Nurse Anesthetist, Certified Registered
DX: M51.16 Intervertebral disc disorders with radiculopathy, lumbar region (principal); M51.26 Other intervertebral disc displacement, lumbar region
CPT/HCPCS: 64483; 64484; J1030

== ENCOUNTER 2023-12-05 23:44 | Emergency (ER) | payer BC, SELFPAY ==
[2023-12-05 23:46] VITALS: BP 153/83; PULSE 50; RESP 16; TEMP 36.8; O2SAT 98; BMI 27.6
[2023-12-06] VITALS: BP 146/74; PULSE 48; O2SAT 98
--- NOTE | 2023-12-06 00:13 | CT_ITS ---
PROCEDURE INFORMATION: Exam: CTA Chest With Contrast Exam date and time: 12/06/2023 12:44 AM Age: 53 years old Clinical indication: Shortness of breath; Additional info: Intermittent cp/soa, dvt present TECHNIQUE: Imaging protocol: Computed tomographic angiography of the chest with contrast. Exam focused on the arteries. 3D rendering (Not supervised by radiologist): MIP and/or 3D reconstructed images were created by the technologist. Radiation optimization: All CT scans at this facility use at least one of these dose optimization techniques: automated exposure control; mA and/or kV adjustment per patient size (includes targeted exams where dose is matched to clinical indication); or iterative reconstruction. Contrast material: ISOUVE; Contrast volume: 70 ml; Contrast route: INTRAVENOUS (IV); COMPARISON: CT CHEST WO CON 06/23/2020 8:03 AM FINDINGS: Pulmonary arteries: No pulmonary emboli. Aorta: Unremarkable. No aortic aneurysm. No aortic dissection. Lungs: There are dependent opacities, likely atelectasis.. No consolidation. No masses. Pleural spaces: Unremarkable. No pneumothorax. No pleural effusion. Heart: Borderline cardiomegaly. No large pericardial effusion.. Lymph nodes: Unremarkable. No enlarged lymph nodes. Bones/joints: Mild chronic compression deformity of the T12 vertebral body. No retropulsion. No acute fracture. Soft tissues: The patient is status post cholecystectomy. Cholecystectomy clips are seen in the lamont hepatis. IMPRESSION: No evidence of acute pulmonary embolism.
--- NOTE | 2023-12-06 00:14 | HMH.EDGENADL ---
Discharge Plan Disposition Patient Disposition: Home, Self-Care Prescriptions Prescriptions: New rivaroxaban 10 mg tablet 10 mg PO DAILY 45 Days Qty: 45 0RF No Action aspirin 81 mg tablet,delayed release (DR/EC) 81 mg PO DAILY fenofibrate nanocrystallized 145 mg tablet 145 mg PO DAILY Qty: 90 1RF lamotrigine 200 mg tablet 200 mg PO BID 90 Days Qty: 180 1RF pantoprazole [Protonix] 40 mg tablet,delayed release (DR/EC) 40 mg PO DAILY Qty: 90 1RF mecobalamin (vitamin B12) 1,000 mcg tablet,chewable 1,000 mcg PO DAILY ezetimibe [Zetia] 10 mg tablet 10 mg PO DAILY Qty: 90 1RF baclofen 10 mg tablet 10 mg PO HS ondansetron 4 mg tablet,disintegrating 4 mg PO Q8H PRN (Reason: nausea and vomiting) 4 Days Qty: 12 0RF famotidine [Pepcid] 20 mg tablet 20 mg PO DAILY Qty: 10 0RF Referrals Follow up/Referrals: Sallie Shelton APRN [Primary Care Provider] - See instructions Activity Restrictions/Add. Instructions Additional Instructions/Restrictions: Please follow-up with your primary care provider. Please return to the emergency department if you develop any new or worsening symptoms or become concerned for your health. Please follow-up for a formal ultrasound of the right lower extremity to confirm diagnosis. Begin taking anticoagulation as prescribed for the next 45 days. Clinical Impressions Clinical Impression: Thrombosis of right saphenous vein Discharge ED Provider: Kulwant Farah Adult HPI General Chief complaint: PAIN Stated complaint: had surgery on right leg, pain right leg Time Seen by Provider: 12/05/23 23:45 Mode of Arrival: Ambulatory Source of Information: Patient and Spouse Limitations: Language Barrier Description of Symptoms (Recalled from ER Triage Doc. by RN): Pt had recent varicose vein surgery at [facility] on November 18 to his right/left leg. He was given stocking to wear on legs and today he noticed severe pain that developed at surgical site radiating into his right groin around noon. Pt took Tylenol & Ibuprofen with no relief and had to wait for his spouse to get off work to come in. Pt rates pain 9/10. Pt denies any other symptoms at this time. Pt is Mosotho speaking, spouse at bedside. History of Present Illness HPI narrative: 53-year-old male with history of GERD, seizure disorder, history of varicose vein surgery less than 1 month ago presents for pain that developed today in his right leg. He reports the pain runs up the medial aspect of the right leg from the low calf up to the mid thigh. No reported trauma. He reports taking Tylenol ibuprofen at home without significant improvement. Denies any fever or recent illness. No history of blood clot, no reported evidence of infection. He reports that he has had intermittent chest pain lasting between 15 and 30 minutes in the left upper chest for the last 3 days. Currently has no chest pain, has not had chest pain for hours. Related Data Home Medications Medication Instructions Recorded Confirmed aspirin 81 mg tablet,delayed 81 mg PO DAILY Blood thinner 07/04/20 11/04/23 release baclofen 10 mg tablet 10 mg PO HS . 05/13/23 11/04/23 mecobalamin (vitamin B12) 1,000 1,000 mcg PO DAILY 07/15/23 11/04/23 mcg chewable tablet Previous Rx's Medication Instructions Recorded ezetimibe 10 mg tablet (Zetia) 10 mg PO DAILY #90 tabs 07/15/23 fenofibrate nanocrystallized 145 145 mg PO DAILY . #90 tabs 07/15/23 mg tablet lamotrigine 200 mg tablet 200 mg PO BID SEIZURES 90 days 07/15/23 #180 tabs pantoprazole 40 mg tablet,delayed 40 mg PO DAILY STOMACH #90 tabs 07/15/23 release (Protonix) famotidine 20 mg tablet (Pepcid) 20 mg PO DAILY #10 tabs 08/03/23 ondansetron 4 mg disintegrating 4 mg PO Q8H PRN nausea and 08/03/23 tablet vomiting 4 days #12 tabs rivaroxaban 10 mg tablet 10 mg PO DAILY 45 days #45 tabs 12/06/23 Allergies Allergy/AdvReac Type Severity Reaction Status Date / Time acetaminophen [From NORCO] Allergy Unknown Verified 11/04/23 09:47 atorvastatin [From LIPITOR] Allergy Unknown FACIAL Verified 11/04/23 09:47 SWELLING hydrocodone [HYDROCODONE] Allergy Unknown FACIAL Verified 11/04/23 09:47 SWELLING oxycodone [From PERCOCET] Allergy Unknown FACIAL Verified 11/04/23 09:47 SWELLING PFSH PFS Disclaimer: The information contained in this section may have been updated after the patient was seen, as this information can be updated by other users. Medical History Abdominal discomfort Abdominal distention Abdominal pain Abnormal findings on diagnostic imaging of heart and coronary circulation Acute conjunctivitis of left eye SANCHEZ (acute kidney injury) Aneurysm Bronchitis Cervical radiculopathy Chest pain Chest pain Corneal abrasion of both eyes Corneal ulcer of right eye Dizziness Dyspnea Facial swelling Fracture of right tibia and fibula GERD (gastroesophageal reflux disease) H/O (corrected) congenital malformations of digestive system Headache History of renal stone 2019 HLD (hyperlipidemia) Kidney stones Low back pain Lumbar radiculopathy Lumbar radiculopathy Migraine Mild intermittent asthma 2019, Dr. Edwards Muscle spasm Muscle spasm of back Nausea Near syncope Neck pain Onychomycosis Overweight Pain Paronychia of fifth toe, left Renal colic on right side Renal insufficiency Right leg pain Seizure Strain of latissimus dorsi muscle Tobacco poisoning Torticollis Vomiting Surgical History History of laparoscopic cholecystectomy Hx of cardiac cath Family History Other No significant family history Social History Smoking Status: Never smoker alcohol intake: current substance use type: denies use current occupational status: other Travel in the last 8 weeks: None household members: family housing: house caffeine: No ROS Obtained: Yes All systems reviewed & no additional complaints except as documented Physical Exam General General appearance: alert and in no apparent distress Head Head exam: atraumatic and normocephalic Eye Eye exam: Present normal appearance, PERRL and EOMI ENT ENT exam: Present normal oropharynx and normal external ear exam Neck Neck exam: Present normal inspection and full ROM Chest Chest inspection: Present normal inspection and symmetric chest wall rise; Absent tenderness Respiratory Respiratory exam: Present normal lung sounds bilaterally; Absent respiratory distress Cardiovascular Cardiovascular exam: Present regular rate and normal rhythm Abdominal Exam Abdominal exam: Present soft; Absent distention, tenderness or guarding Extremities Exam Extremities exam: Present normal inspection and other (Focal tenderness that matches the course of the saphenous vein, no overlying skin changes, no evidence of infection); Absent edema or joint swelling Back Exam Back exam: Present normal inspection; Absent tenderness Neurological Exam Neurological exam: Present alert and oriented X3; Absent motor sensory deficit Psychiatric Psychiatric exam: Present normal affect and normal mood Skin Skin exam: Present warm, dry and normal color Lymphatic Lymphatic Findings: no adenopathy Medical Decision Making Medical Records Medical records reviewed: Yes I reviewed the patient's medical records. Jose Inquiry Pt receiving controlled substance: No Jose was queried for this patient: No Vital Signs: 12/05/23 23:46 12/06/23 00:00 12/06/23 00:30 Temperature 98.2 F Temperature Source Oral Pulse Rate 48 L 47 L Pulse Rate [Left] 50 L Respiratory Rate 16 Blood Pressure 146/74 H 150/77 H Blood Pressure [Right Arm] 153/83 H Blood Pressure Mean [Right Arm] 106 Blood Pressure Source [Right Arm] Automatic Cuff Blood Pressure Position Blood Pressure Position [Right Arm] Sitting 02 Sat by Pulse Oximetry 98 98 98 Oxygen Delivery Method Room Air 12/06/23 01:15 12/06/23 01:30 12/06/23 03:09 Temperature 98.2 F Temperature Source Oral Pulse Rate 47 L 51 L 58 L Pulse Rate [Left] Respiratory Rate 16 Blood Pressure 137/74 135/76 131/80 Blood Pressure [Right Arm] Blood Pressure Mean [Right Arm] Blood Pressure Source [Right Arm] Blood Pressure Position Sitting Blood Pressure Position [Right Arm] 02 Sat by Pulse Oximetry 98 97 Oxygen Delivery Method Room Air Lab Data Lab results reviewed: Yes I reviewed the patient's lab results. Lab Results 12/06/23 00:15: WBC 5.2, RBC 4.60, Hgb 14.1, Hct 40.7 L, MCV 88.4, MCH 30.8, MCHC 34.8, RDW 14.4, Plt Count 181, MPV 9.5, Neut % (Auto) 50.6, Lymph % (Auto) 39.6, Rowan % (Auto) 4.9, Eos % (Auto) 3.7, Baso % (Auto) 1.1, Neut # (Auto) 2.6, Lymph # (Auto) 2.1, Rowan # (Auto) 0.3, Eos # (Auto) 0.2, Baso # (Auto) 0.1, Sodium 141, Potassium 3.9, Chloride 109 H, Carbon Dioxide 24, Anion Gap 11.9, BUN 19, Creatinine 0.70, Estimated Creat Clear 136, Estimated GFR 118, Est GFR ( Amer) 142, Glucose 120 H, Calcium 8.7, Total Bilirubin 0.7, AST 33, ALT 39, Alkaline Phosphatase 127 H, Troponin I < 0.01, Total Protein 6.8, Albumin 4.2, Globulin 2.6, Albumin/Globulin Ratio 1.6 12/06/23 00:15 12/06/23 00:15 Orders (Tests/Meds): ED MEDICATIONS Discontinued Medications Generic Name Dose Route Start Last Admin Trade Name Freq PRN Reason Stop Dose Admin Acetaminophen 1,000 mg 12/06/23 00:22 12/06/23 00:26 Acetaminophen 500mg Tab PO 12/06/23 00:23 1,000 mg ONCE ONE Administration Iopamidol 70 ml 12/06/23 01:01 12/06/23 01:02 Iopamidol-370 (76%);100ml Bottle IV 12/06/23 01:02 70 ml ONCE ONE Administration Ketorolac Tromethamine 30 mg 12/06/23 00:22 12/06/23 00:28 Ketorolac 30mg/Ml Vial IV 12/06/23 00:23 30 mg ONCE ONE Administration Rivaroxaban 10 mg 12/06/23 01:23 12/06/23 01:33 Rivaroxaban 10mg Tablet PO 12/06/23 01:24 10 mg ONCE ONE Administration Sodium Chloride 50 ml 12/06/23 01:01 12/06/23 01:02 0.9 % Sodium Chloride 50 Ml Vial IV 12/06/23 01:02 50 ml ONCE ONE Administration Sodium Chloride 10 ml 12/06/23 01:01 12/06/23 01:02 Sodium Chloride 0.9% 10ml Syr (Rad Only) IV 01/05/24 01:00 10 ml NEEDED PRN Administration Maintain IV Site ORDERS Category Date Time Status CT angio chest PE protocol Stat Cat Scan 12/06/23 00:13 Completed CBC w/Auto Diff [Complete Blood Count Auto Diff] Stat Lab 12/06/23 00:15 Completed CMP [Comprehensive Metabolic Panel] Stat Lab 12/06/23 00:15 Completed Troponin I Q3H Lab 12/06/23 00:15 Completed ECG Data Tracing #1: I reviewed this ECG and interpreted as documented below: ECG initial impression date: 12/06/23 ECG initial impression time: 00:17 ECG normal with no acute: arrhythmias, ischemia, conduction abnormalities, chamber hypertrophy Normal Sinus Rhythm: No Arrhythmias present: sinus kymberly Medical Decision Narrative: 53-year-old male, history of seizure disorder, recently had varicose vein surgery bilaterally presents with focal pain that runs along the course of the saphenous vein in the right leg, started today, has also had intermittent self-limiting chest pain for the last 3 days, not currently having any chest pain. History was obtained interactive discussion with patient. On arrival, patient is [afebrile, hemodynamically stable, satting appropriately, alert, oriented x4, GCS 15], moving all extremities spontaneously. Full physical exam performed and significant for focal tenderness without signs of trauma or infection. Differential includes but is not limited to DVT, superficial venous thrombosis, infection, fracture, dislocation, neuropathic pain. Patient was given p.o. Tylenol, IV Toradol for symptomatic management and correction of underlying abnormalities. Bedside ultrasound was performed by me and shows superficial thrombosis in the lesser and greater saphenous vein of the right leg. No evidence of deep venous thrombosis in the popliteal or proximal femoral vein of the right lower extremity. Given his intermittent chest pain, it is possible he has had VTE, will assess with CBC CMP troponin CT PE. On re-evaluation, patient [remains afebrile, HD stable.] Laboratory workup independently interpreted by me and significant for normal renal function, no leukocytosis. Initial troponin negative. No indication for second troponin given chronicity of symptoms and no active pain. Imaging independently interpreted by me and significant for CTA chest without evidence of pulmonary embolism or lung opacity.. See radiology read for full review of final results. Given patient history, exam and workup, patient's presentation most likely represents acute right greater and lesser saphenous vein thrombosis. These findings were communicated with patient. Patient will initiate therapeutic anticoagulation with rivaroxaban. Was given dose in ED. A outpatient order was placed for formal Doppler ultrasound of the right lower extremity for further assessment. Patient was instructed to follow-up with PCP and was given return precautions regarding signs and symptoms of pulmonary embolism. Procedures Risk/Benefits of Procedure(s) Were Explained: Yes Limited Ultrasound Indication:: Limited DVT ultrasound Indication: Limited compression ultrasonography of the right lower extremity was performed to evaluate for non-compressibility of the deep veins in the patient. The ultrasound was performed with the following indications, as noted in the H&P: Right medial leg pain Identified structures: Right [common femoral vein, femoral vein, popliteal vein, greater saphenous vein, lesser saphenous vein were examined. Findings: Lower Extremity: Right CFV: Good compressibility Right FV: Good compressibility Right Popliteal vein: Good compressibility Right greater saphenous: Noncompressible, echoic structure within the vein Right lesser saphenous: Noncompressible, echoic structure within the vein Impression: Superficial thrombosis of the right greater and lesser saphenous veins, no evidence of deep venous thrombosis Images were saved to permanent archive The study was technically adequate CPT: 79138-50-LY This study was performed by me, and I personally interpreted all images/videos. Based on my clinical judgement, these images were adequate and did not necessitate further imaging. Critical Care Critical Care Time Critical Care Time: No
--- NOTE | 2023-12-06 00:16 | ECG_ITS ---
APPROVED REPORT Exam: Resting ECG HR:47 bpm ECG Measurements Heart Rate 47 AXES IN 196 P 55 QRSd 118 QRS 63 QT 423 T 29 QTc 387 Conclusion SINUS BRADYCARDIA MODERATE INTRAVENTRICULAR CONDUCTION DELAY [110+ ms QRS DURATION] NONSPECIFIC ST & T-WAVE ABNORMALITY Electronically signed by : PAUL BARRIENTOS, 12/06/2023 16:09:28
[2023-12-06] MEDS: ACETAMINOPHEN 500MG TAB 1000 MG PO (00:26)
[2023-12-06] MEDS: KETOROLAC 30MG/ML VIAL 30 MG IV (00:28)
[2023-12-06 00:30] VITALS: BP 150/77; PULSE 47; O2SAT 98
[2023-12-06 00:34] LABS: Basophils # 0.1 K/mm3 (0-0.2); Basophils % 1.1 % (0.1-2.0); Eosinophils # 0.2 K/mm3 (0.0-0.4); Eosinophils % 3.7 % (0.1-12.0); Hematocrit 40.7 % (42.0-52.0); Hemoglobin 14.1 g/dL (14.1-18.0); Lymphocytes # 2.1 K/mm3 (0.7-4.5); Lymphocytes % 39.6 % (10-50); Mean Corpuscular HGB Conc 34.8 g/dL (31.8-35.4); Mean Corpuscular Hemoglobin 30.8 pg (27.0-31.2); Mean Corpuscular Volume 88.4 fl (80-94); Mean Platelet Volume 9.5 fl (7.4-10.4); Monocytes # 0.3 K/mm3 (0.1-1.0); Monocytes % 4.9 % (1.7-9.3); Neutrophils # 2.6 K/mm3 (1.8-7.8); Neutrophils % 50.6 % (37.0-80.0); Platelet Count 181 K/mm3 (142-424); Red Cell Distribution Width 14.4 % (11.5-17.5); White Blood Count 5.2 K/mm3 (4.8-10.8)
[2023-12-06 00:38] LABS: Alanine Aminotransferase 39 U/L (12-78); Albumin Level 4.2 g/dl (3.5-5.0); Albumin/Globulin Ratio 1.6 (1.1-1.8); Alkaline Phosphatase 127 U/L (38-126); Anion Gap 11.9 mEq/L (5-15); Aspartate Amino Transferase 33 U/L (17-59); Bilirubin,Total 0.7 mg/dl (0.2-1.3); Blood Urea Nitrogen 19 mg/dl (9-20); Calcium 8.7 mg/dl (8.4-10.2); Carbon Dioxide 24 mmol/L (22.0-30.0); Chloride 109 mmol/L (98-107); Creatinine Clearance Estimated 136 mL/min (50-200); Estimated Glomerular Filt Rate 118 ml/min (>60); GFR (African American) 142 ML/MIN (>60); Globulin 2.6 g/dL (1.3-3.2); Glucose 120 mg/dl (74-100); Potassium 3.9 mmoL/L (3.5-5.1); Sodium 141 mmol/L (136-145); Total Protein,Serum 6.8 g/dl (6.3-8.2)
[2023-12-06 00:53] LABS: Troponin I < 0.01 ng/ml (0.00-0.034)
[2023-12-06] MEDS: SODIUM CHLORIDE 0.9% 10ML SYR (RAD ONLY) 10 ML IV (01:02)
[2023-12-06] MEDS: IOPAMIDOL-370 (76%);100ML BOTTLE 70 ML IV (01:02)
[2023-12-06] MEDS: 0.9 % SODIUM CHLORIDE 50 ML VIAL IV (01:02)
[2023-12-06 01:15] VITALS: BP 137/74; PULSE 47; O2SAT 98
--- NOTE | 2023-12-06 01:15 | PC.NURSE ---
rounded on pt at this time, pt voices no needs. at bedside.
[2023-12-06 01:30] VITALS: BP 135/76; PULSE 51; O2SAT 97
[2023-12-06] MEDS: RIVAROXABAN 10MG TABLET 10 MG PO (01:33)
[2023-12-06 03:09] VITALS: BP 131/80; PULSE 58; RESP 16; TEMP 36.8; O2SAT 99
== END 2023-12-06 03:11 | disposition home or self-care (01) ==
PROVIDERS: Emergency Provider Emergency Medicine; PCP Nurse Practitioner Family
DX: M79.604 Pain in right leg (principal); I82.811 Embolism and thrombosis of superficial veins of right lower extremity; R00.1 Bradycardia, unspecified; K21.9 Gastro-esophageal reflux disease without esophagitis; E78.5 Hyperlipidemia, unspecified
CPT/HCPCS: 71275; 80053; 84484; 85025; 93005; 96374; 99285; Q9967

== ENCOUNTER 2023-12-06 14:34 | Outpatient (CLI) | payer BC, SELFPAY ==
--- NOTE | 2023-12-06 | CA_ITS ---
FINAL REPORT TECHNIQUE: extremity venous duplex was performed with augmentation and compression. CLINICAL HISTORY: SUPERFICIAL VENOUS THOMBOSIS SCANNED IN ER BY ATTENDING GISELL 12/05/2023. PATIENT BEING TREATED WITH XARELLTO RX THERAPY COMPARISON: None FINDINGS: Proper flow is seen throughout the deep venous system. There is no evidence of deep venous thrombosis. There is however thrombus identified in a superficial medial right calf vein, consistent with superficial thrombosis. IMPRESSION: No evidence of deep venous thrombosis. There is superficial thrombus identified in a medial right calf vein. Reviewed, Interpreted and Dictated by Phil Javier MD Transcribed by Lilian Jaramillo Authenticated and [facility]
== END 2023-12-06 23:59 | disposition home or self-care (01) ==
LOC: RAD 14:36
PROVIDERS: PCP Nurse Practitioner Family; Visit Provider Nurse Practitioner Family
DX: M79.604 Pain in right leg (principal)
CPT/HCPCS: 93971

== ENCOUNTER 2023-12-22 09:22 | Outpatient (CLI) | payer BC, SELFPAY ==
[2023-12-22 13:51] LABS: Hemoglobin A1C 6.1 % (4.0-6.0)
[2023-12-22 15:37] LABS: Vitamin B12 318 pg/mL (239-931)
[2023-12-22 16:44] LABS: 25-OH Vitamin D, Total 27.8 ng/mL (30-100)
== END 2023-12-22 23:59 | disposition home or self-care (01) ==
LOC: LAB.DROPOF 12-25 09:23
PROVIDERS: PCP Nurse Practitioner Family; Visit Provider Nurse Practitioner Family
DX: E53.8 Deficiency of other specified B group vitamins (principal); I82.811 Embolism and thrombosis of superficial veins of right lower extremity; R53.83 Other fatigue; R73.03 Prediabetes; E55.9 Vitamin D deficiency, unspecified; Z68.28 Body mass index [BMI] 28.0-28.9, adult
CPT/HCPCS: 82306; 82607; 83036

== ENCOUNTER 2023-12-30 09:49 | Outpatient (CLI) | payer BC, SELFPAY ==
--- NOTE | 2023-12-30 09:50 | CA_ITS ---
FINAL REPORT CLINICAL HISTORY: Patient had bilateral varicose vein stripping 11/19/23. Patient complained of right thigh pain resulting in an ER visit 12/06/23. Patient had a venous doppler of RLE at that time and was found to have a SVT of the RLE. Patient is currently taking Xarelto. He is now having pain in the left thigh as well as persistent pain in RLE. COMPARISON: None FINDINGS: Color Doppler, duplex Doppler and compression sonography of the bilateral lower extremities was performed. There is no evidence of deep venous thrombosis from the level of the groin to the calf. The deep veins are patent and compressible. There is bilateral thrombus with lack of compressibility in the greater saphenous veins bilaterally. The technologist to perform the study called results to Matt Santiago, 12/30/2023. IMPRESSION: No evidence of deep venous thrombosis bilateral lower extremities. Bilateral thrombosis in the greater saphenous veins. Reviewed, Interpreted and Dictated by Benjamín Aguero III, MD Transcribed by Lilian Jaramillo Authenticated and [facility]
== END 2023-12-30 23:59 | disposition home or self-care (01) ==
LOC: RT 09:50
PROVIDERS: PCP Student in an Organized Health Care Education/Training Program; Visit Provider Student in an Organized Health Care Education/Training Program
DX: Z86.718 Personal history of other venous thrombosis and embolism (principal); M79.661 Pain in right lower leg; M79.651 Pain in right thigh
CPT/HCPCS: 93970

== ENCOUNTER 2023-12-31 18:55 | Emergency (ER) | payer BC, SELFPAY ==
--- NOTE | 2023-12-31 18:58 | ED_ITS ---
<Statement entered by Amie He DO - 12/31/23 21:58> I was consulted by the DENISHA, and we discussed the complexity of the problems being addressed. I approved the treatment and management plan for this patient's care in the emergency department, thus performing a substantive portion of the medical decision making. Amie He DO Discharge Plan Disposition Patient Disposition: Home, Self-Care Condition: Good Prescriptions Prescriptions: New ketorolac 10 mg tablet 10 mg PO Q8H PRN (Reason: pain) Qty: 30 0RF Rx Instructions: maximum total duration of 5 days from all oral, intranasal, or parenteral for mulations No Action aspirin 81 mg tablet,delayed release (DR/EC) 81 mg PO DAILY mecobalamin (vitamin B12) 1,000 mcg tablet,chewable 1,000 mcg PO DAILY ezetimibe [Zetia] 10 mg tablet 10 mg PO DAILY Qty: 90 3RF famotidine [Pepcid] 20 mg tablet 20 mg PO DAILY Qty: 90 3RF fenofibrate nanocrystallized 145 mg tablet 145 mg PO DAILY Qty: 90 3RF lamotrigine 200 mg tablet 200 mg PO BID 90 Days Qty: 180 3RF rivaroxaban 10 mg tablet 10 mg PO DAILY Qty: 90 0RF cholecalciferol (vitamin D3) 50 mcg (2,000 unit) capsule 50 mcg PO DAILY Qty: 90 3RF baclofen 10 mg tablet 10 mg PO HS Referrals Follow up/Referrals: Kathie Street PA [Primary Care Provider] - See instructions Yahir Pérez MD [Referring] - See instructions Activity Restrictions/Add. Instructions Additional Instructions/Restrictions: Please call [facility] in the morning to establish follow-up care. Return to your PCP or ER as needed for any worsening signs or symptoms. Clinical Impressions Clinical Impression: Superficial thrombosis of both lower extremities Discharge ED Provider: Amie He General Adult HPI General Chief complaint: PAIN Stated complaint: bilateral pain Time Seen by Provider: 12/31/23 18:57 History of Present Illness HPI narrative: Patient presents for evaluation of bilateral lower extremity pain. Patient had varicose vein stripping on 11/19/[address] Tinajero of [facility]. Patient had a saphenous thrombosis diagnosed on 12/06/2023 (expected) secondary to having pain. He was placed on Xarelto but has continued to have pain since that time. He saw his PCP today who again ordered a bilateral lower extremity ultrasound for blood clot and was diagnosed with a left saphenous clot. Patient does not however have evidence of thrombus in the deep vein system of either lower extremity. Patient has been compliant with Xarelto. He denies chest pain shortness of breath fever chills hemoptysis hematochezia melena nausea vomiting diarrhea. Related Data Home Medications Medication Instructions Recorded Confirmed aspirin 81 mg tablet,delayed 81 mg PO DAILY Blood thinner 07/04/20 12/31/23 release baclofen 10 mg tablet 10 mg PO HS . 05/13/23 12/31/23 mecobalamin (vitamin B12) 1,000 1,000 mcg PO DAILY 07/15/23 12/31/23 mcg chewable tablet Previous Rx's Medication Instructions Recorded ezetimibe 10 mg tablet (Zetia) 10 mg PO DAILY #90 tabs 12/22/23 famotidine 20 mg tablet (Pepcid) 20 mg PO DAILY #90 tabs 12/22/23 fenofibrate nanocrystallized 145 145 mg PO DAILY . #90 tabs 12/22/23 mg tablet lamotrigine 200 mg tablet 200 mg PO BID SEIZURES 90 days 12/22/23 #180 tabs rivaroxaban 10 mg tablet 10 mg PO DAILY #90 tabs 12/22/23 cholecalciferol (vitamin D3) 50 50 mcg PO DAILY #90 caps 12/24/23 mcg (2,000 unit) capsule ketorolac 10 mg tablet 10 mg PO Q8H PRN pain #30 tabs 12/31/23 Allergies Allergy/AdvReac Type Severity Reaction Status Date / Time acetaminophen [From NORCO] Allergy Unknown Verified 12/26/23 10:20 atorvastatin [From LIPITOR] Allergy Unknown FACIAL Verified 12/26/23 10:20 SWELLING hydrocodone [HYDROCODONE] Allergy Unknown FACIAL Verified 12/26/23 10:20 SWELLING oxycodone [From PERCOCET] Allergy Unknown FACIAL Verified 12/26/23 10:20 SWELLING PFSH PFSH Disclaimer: The information contained in this section may have been updated after the patient was seen, as this information can be updated by other users. Medical History Establishing care with new doctor, encounter for Acute pain of right lower extremity Myalgia Abnormal findings on diagnostic imaging of heart and coronary circulation Muscle spasm of back Lumbar radiculopathy Corneal ulcer of right eye Facial swelling Fracture of right tibia and fibula Chest pain Mild intermittent asthma 2020, Dr. Edwards History of renal stone 2019 Overweight Strain of latissimus dorsi muscle Right leg pain Lumbar radiculopathy Cervical radiculopathy Low back pain Neck pain H/O (corrected) congenital malformations of digestive system Seizure Migraine Kidney stones HLD (hyperlipidemia) GERD (gastroesophageal reflux disease) Aneurysm Abdominal distention Abdominal discomfort Headache Bronchitis Torticollis Vomiting Muscle spasm SANCHEZ (acute kidney injury) Dizziness Nausea Dyspnea Near syncope Chest pain Renal colic on right side Renal insufficiency Tobacco poisoning Corneal abrasion of both eyes Abdominal pain Acute conjunctivitis of left eye Onychomycosis Paronychia of fifth toe, left Pain Surgical History History of laparoscopic cholecystectomy Hx of cardiac cath Family History Other No significant family history Social History Smoking Status: Unknown if ever smoked alcohol intake: current alcohol intake frequency: holidays/special occasions only substance use type: denies use current occupational status: other Travel in the last 8 weeks: None household members: family housing: house caffeine: No ROS Obtained: Yes Systems reviewed as appropriate & no additional complaints except as documented Physical Exam General General appearance: alert and in no apparent distress Respiratory Respiratory exam: Present normal lung sounds bilaterally Cardiovascular Cardiovascular exam: Present regular rate and normal rhythm Neurological Exam Neurological exam: Present alert and oriented X3 Lymphatic Lymphatic Findings: no adenopathy Other Other exam information: Patient has bilateral palpable superficial vein thrombus from groin down. There is no evidence of erythema edema skin breakdown etc. Patient is neurovascular intact distally in the bilateral lower extremities. Medical Decision Making Medical Records Medical records reviewed: Yes I reviewed the patient's medical records. Jose Inquiry Pt receiving controlled substance: No Vital Signs: 12/31/23 19:03 12/31/23 19:48 Temperature 97.6 F 97.8 F Temperature Source Oral Oral Pulse Rate 52 L Pulse Rate [Right Brachial] 59 L Respiratory Rate 16 15 Blood Pressure 113/72 Blood Pressure [Right Arm] 125/75 Blood Pressure Mean [Right Arm] 91 Blood Pressure Source Automatic Cuff Blood Pressure Source [Right Arm] Automatic Cuff Blood Pressure Position Sitting Blood Pressure Position [Right Arm] Sitting 02 Sat by Pulse Oximetry 98 Oxygen Delivery Method Room Air Room Air Lab Data Lab results reviewed: Yes I reviewed the patient's lab results. Orders (Tests/Meds): ED MEDICATIONS Discontinued Medications Generic Name Dose Route Start Last Admin Trade Name Ade PRN Reason Stop Dose Admin Ketorolac Tromethamine 60 mg 12/31/23 19:29 12/31/23 19:47 Ketorolac 60mg/2ml Vial IM 12/31/23 19:30 60 mg ONCE ONE Administration Medical Decision Narrative: In summary patient is a 53-year-old male who presents to the emergency department for evaluation of bilateral lower extremity pain. Patient is hemodynamically stable upon arrival, afebrile. Physical exam is remarkable for tenderness to palpation in the medial aspect superficially of both lower extremities along the course of the saphenous vein.. Differential diagnosis includes expected thrombus of the saphenous vein post varicose vein stripping, thrombophlebitis, deep vein thrombosis. Patient has not followed up with vascular surgery since his procedure. Given that, I had an interactive discussion with Dr. Yahir Pérez of [facility] regarding patient management. Dr. Veronica was reassuring and that these are expected postoperative events especially reassuring given there is no evidence of thrombus in the deep vein system, with exception of his discomfort. Recommended attempts at pain control and for the patient to follow-up in the office and to call in the morning for an appointment. I reviewed the patient's medical history and he has reported intolerance to both opiates and Tylenol therefore will try tramadol for now. Thus patient is appropriate for discharge with follow-up with his vascular surgeon. Follow-up with PCP as needed. Critical Care Critical Care Time Critical Care Time: No
[2023-12-31 19:03] VITALS: BP 125/75; PULSE 59; RESP 16; TEMP 36.4; O2SAT 98; BMI 26.6
--- NOTE | 2023-12-31 19:19 | PC.NURSE ---
Called [facility] per ANABELLE Vela's request to set up an appt for the pt. No answer left message with call center to call us back. SCOTTIE
[2023-12-31] MEDS: KETOROLAC 60MG/2ML VIAL 60 MG IM (19:47)
[2023-12-31 19:48] VITALS: BP 113/72; PULSE 52; RESP 15; TEMP 36.6; O2SAT 98
== END 2023-12-31 19:50 | disposition home or self-care (01) ==
PROVIDERS: Emergency Provider Emergency Medicine; PCP Student in an Organized Health Care Education/Training Program
DX: I82.813 Embolism and thrombosis of superficial veins of lower extremities, bilateral (principal); Z79.01 Long term (current) use of anticoagulants
CPT/HCPCS: 96372; 99283

== ENCOUNTER 2024-01-21 09:50 | Outpatient (POV) | payer BC, SELFPAY ==
[2024-01-21 10:18] VITALS: BP 135/69; PULSE 51; RESP 18; O2SAT 99; BMI 27.8
--- NOTE | 2024-01-21 10:20 | A.OFFVIS_ITS ---
[facility] Pain Management SOAP Note Subjective:: Patient is a pleasant 53-year-old male who presents today for follow-up. We are currently treating the patient for degenerative disc disease of cervical and lumbar spine with cervical and lumbar radiculopathy symptoms, right leg pain. Today he rates his pain a 9 out of 10. Patient denies any new trauma or injury. He does state that he believes his last right transforaminal injection has officially worn off. He is experiencing more aching, throbbing sensation with numbness and tingling into his entire right lower extremity. He does state the pain interferes with his ability to perform activities of daily living such as cooking and cleaning. Patient is very interested in repeating his prior injections because he does get such good relief of more than 50% lasting several months. Patient does continue to use Tylenol along with heat and ice for for temporary relief. His Jose has been reviewed and is appropriate. Review of Systems: General: No recent weight changes, no fever, no sleep disturbances Respiratory: No cough, no shortness of air, no recurring pulmonary infections Cardiovascular/peripheral vascular: No chest pain, no palpitations, no edema, no shortness of breath Gastrointestinal: No new onset incontinence, normal bowel movements reported Genitourinary: No new onset incontinence Musculoskeletal: Low back pain, right leg pain Psychiatric: [Normal mood/affect] Neurological: [Denies weakness in extremities], [denies balance issues] Objective:: physical Exam: General: Alert and oriented x3, no acute distress, pleasant and cooperative Lungs: Respirations even and unlabored, symmetrical chest expansion Eyes: PERRL Musculoskeletal: Flexion and extension of lumbar [spine] somewhat guarded secondary to pain, [antalgic gait noted] positive right leg raise with decreased sensation to light touch and decreased reflexes Neurological: Speech clear, no gross sensory deficit Assessment:: Degenerative disc disease of cervical and lumbar spine with cervical and lumbar radiculopathy symptoms, right leg pain Plan:: Patient is experiencing worsening pain in his low back with radiating symptoms down his entire right leg. Patient does have numbness and tingling with increased weakness where his legs will give out. Patient did have limited range of motion of his lumbar spine along with a positive right leg raise and decreased sensation to light touch and reflexes during today's exam. I have discussed with patient that he may benefit from a repeat right transforaminal epidural steroid injection. Risk and benefits were discussed with the patient and he would like to proceed forward with this plan of care. Patient has had these in the past that did provide upwards of 50% or more and typically last a few months. His last injection was in October. Patient does state he is currently on Xarelto due to a clot in his legs that was found a few months ago. Patient states that he cannot remember which provider wrote this medication. I have counseled the patient that we will review over his chart to see what provider wrote it and confirm that he can stop this medication prior to his injection. We will schedule the patient for a right transforaminal epidural steroid injection L4-L5 and L5-S1 under fluoroscopy. Patient was prescribed the Xarelto from Dr. He who was in the ER. We will reach out to his primary care provider to confirm that he can stop this medication. Patient has been instructed to contact the clinic with any concerns before the next appointment. Dr. Barrientos has reviewed this note and agrees with this plan of care. This note was dictated using voice recognition software and make contain errors or omissions. [facility] Disclaimer: The information contained in this section may have been updated after the patient was seen, as this information can be updated by other users. Medical History Establishing care with new doctor, encounter for Acute pain of right lower extremity Myalgia Abnormal findings on diagnostic imaging of heart and coronary circulation Muscle spasm of back Lumbar radiculopathy Corneal ulcer of right eye Facial swelling Fracture of right tibia and fibula Chest pain Mild intermittent asthma 2019, Dr. Edwards History of renal stone 2019 Overweight Strain of latissimus dorsi muscle Right leg pain Lumbar radiculopathy Cervical radiculopathy Low back pain Neck pain H/O (corrected) congenital malformations of digestive system Seizure Migraine Kidney stones HLD (hyperlipidemia) GERD (gastroesophageal reflux disease) Aneurysm Abdominal distention Abdominal discomfort Headache Bronchitis Torticollis Vomiting Muscle spasm SANCHEZ (acute kidney injury) Dizziness Nausea Dyspnea Near syncope Chest pain Renal colic on right side Renal insufficiency Tobacco poisoning Corneal abrasion of both eyes Abdominal pain Acute conjunctivitis of left eye Onychomycosis Paronychia of fifth toe, left Pain Surgical History History of laparoscopic cholecystectomy Hx of cardiac cath Family History Other No significant family history Social History Smoking Status: Unknown if ever smoked alcohol intake: current alcohol intake frequency: holidays/special occasions only substance use type: denies use current occupational status: other Travel in the last 8 weeks: None household members: family housing: house caffeine: No
== END 2024-01-21 23:59 | disposition home or self-care (01) ==
LOC: SC.PAIN 09:50
PROVIDERS: Visit Provider Nurse Practitioner Family
DX: M50.10 Cervical disc disorder with radiculopathy, unspecified cervical region (principal); M51.16 Intervertebral disc disorders with radiculopathy, lumbar region; M79.604 Pain in right leg
CPT/HCPCS: 99212; G0463

== ENCOUNTER 2024-02-09 15:02 | Emergency (ER) | payer MEDICARE, BC, SELFPAY ==
[2024-02-09 15:04] VITALS: BP 131/81; PULSE 62; RESP 18; TEMP 36.8; O2SAT 97; BMI 27.8
--- NOTE | 2024-02-09 15:12 | HMH.EDGENADL ---
Discharge Plan Disposition Patient Disposition: Home, Self-Care Condition: Good Prescriptions Prescriptions: New methocarbamol 750 mg tablet 750 mg PO Q8H PRN (Reason: muscle spasm) Qty: 10 0RF No Action aspirin 81 mg tablet,delayed release (DR/EC) 81 mg PO DAILY mecobalamin (vitamin B12) 1,000 mcg tablet,chewable 1,000 mcg PO DAILY ezetimibe [Zetia] 10 mg tablet 10 mg PO DAILY Qty: 90 3RF famotidine [Pepcid] 20 mg tablet 20 mg PO DAILY Qty: 90 3RF fenofibrate nanocrystallized 145 mg tablet 145 mg PO DAILY Qty: 90 3RF lamotrigine 200 mg tablet 200 mg PO BID 90 Days Qty: 180 3RF rivaroxaban 10 mg tablet 10 mg PO DAILY Qty: 90 0RF cyclobenzaprine 10 mg tablet 10 mg PO TID PRN (Reason: muscle spasm) Qty: 30 0RF celecoxib [Celebrex] 100 mg capsule 100 mg PO BID Qty: 60 2RF cholecalciferol (vitamin D3) 50 mcg (2,000 unit) capsule 50 mcg PO DAILY Qty: 90 3RF Referrals Follow up/Referrals: Sallie Shelton APRN [Primary Care Provider] - See instructions Activity Restrictions/Add. Instructions Additional Instructions/Restrictions: Please keep your follow-up with Dr. Barrientos. Turn to ER for any worsening signs or symptoms as needed. Clinical Impressions Clinical Impression: Low back pain Qualifiers: Chronicity: acute Back pain laterality: right Sciatica presence: without sciatica Qualified Code(s): M54.50 - Low back pain, unspecified Instructions Patient Instructions: DI for Low Back Pain Discharge ED Provider: Amie He General Adult HPI <ANABELLE Traore - Last Filed: 02/09/24 16:25> General Chief complaint: PAIN Stated complaint: back pain Time Seen by Provider: 02/09/24 15:12 History of Present Illness HPI narrative: Patient presents for evaluation of low back pain. Patient reports that he woke up this morning with center and right-sided low back pain. He does have a known history of chronic back pain and back to his due to have injections this week with Dr. Barrientos's office. However patient states that this is different than what he is experienced in the past that he has no radiculopathy or neuropathy associated with it. He denies difficulty with urination or bowel movements. He reports some muscle weakness. He denies any trauma. He denies dysuria or hematuria. Related Data Home Medications Medication Instructions Recorded Confirmed aspirin 81 mg tablet,delayed 81 mg PO DAILY Blood thinner 07/04/20 02/10/24 release mecobalamin (vitamin B12) 1,000 1,000 mcg PO DAILY 07/15/23 02/10/24 mcg chewable tablet Previous Rx's Medication Instructions Recorded ezetimibe 10 mg tablet (Zetia) 10 mg PO DAILY #90 tabs 12/22/23 famotidine 20 mg tablet (Pepcid) 20 mg PO DAILY #90 tabs 12/22/23 fenofibrate nanocrystallized 145 145 mg PO DAILY . #90 tabs 12/22/23 mg tablet lamotrigine 200 mg tablet 200 mg PO BID SEIZURES 90 days 12/22/23 #180 tabs rivaroxaban 10 mg tablet 10 mg PO DAILY #90 tabs 12/22/23 cholecalciferol (vitamin D3) 50 50 mcg PO DAILY #90 caps 12/24/23 mcg (2,000 unit) capsule celecoxib 100 mg capsule (Celebrex) 100 mg PO BID #60 caps 01/26/24 cyclobenzaprine 10 mg tablet 10 mg PO TID PRN muscle spasm #30 01/26/24 tabs methocarbamol 750 mg tablet 750 mg PO Q8H PRN muscle spasm #10 02/09/24 tabs Allergies Allergy/AdvReac Type Severity Reaction Status Date / Time acetaminophen [From NORCO] Allergy Unknown Verified 02/10/24 09:04 atorvastatin [From LIPITOR] Allergy Unknown FACIAL Verified 02/10/24 09:04 SWELLING hydrocodone [HYDROCODONE] Allergy Unknown FACIAL Verified 02/10/24 09:04 SWELLING oxycodone [From PERCOCET] Allergy Unknown FACIAL Verified 02/10/24 09:04 SWELLING PFSH <ANABELLE Traore - Last Filed: 02/09/24 16:25> [facility] Disclaimer: The information contained in this section may have been updated after the patient was seen, as this information can be updated by other users. Medical History COVID-19 Thrombosis of right saphenous vein Superficial thrombosis of both lower extremities Establishing care with new doctor, encounter for Acute pain of right lower extremity Myalgia Abnormal findings on diagnostic imaging of heart and coronary circulation Muscle spasm of back Lumbar radiculopathy Corneal ulcer of right eye Facial swelling Fracture of right tibia and fibula Chest pain Mild intermittent asthma History of renal stone Overweight Strain of latissimus dorsi muscle Right leg pain Lumbar radiculopathy Cervical radiculopathy Low back pain Neck pain H/O (corrected) congenital malformations of digestive system Seizure Migraine Kidney stones HLD (hyperlipidemia) GERD (gastroesophageal reflux disease) Aneurysm Abdominal distention Abdominal discomfort Headache Bronchitis Torticollis Vomiting Muscle spasm SANCHEZ (acute kidney injury) Dizziness Nausea Dyspnea Near syncope Chest pain Renal colic on right side Renal insufficiency Tobacco poisoning Corneal abrasion of both eyes Abdominal pain Acute conjunctivitis of left eye Onychomycosis Paronychia of fifth toe, left Pain Surgical History History of laparoscopic cholecystectomy Hx of cardiac cath Family History Other No significant family history Social History Smoking Status: Never smoker alcohol intake: current alcohol intake frequency: holidays/special occasions only substance use type: denies use current occupational status: other Travel in the last 8 weeks: None household members: family housing: house caffeine: No <ANABELLE Traore - Last Filed: 02/09/24 16:25> ROS Obtained: Yes Systems reviewed as appropriate & no additional complaints except as documented Physical Exam <ANABELLE Traore - Last Filed: 02/09/24 16:25> General General appearance: alert and in no apparent distress Respiratory Respiratory exam: Present normal lung sounds bilaterally; Absent respiratory distress, wheezes or stridor Cardiovascular Cardiovascular exam: Present regular rate and normal rhythm Abdominal Exam Abdominal exam: Present soft and normal bowel sounds; Absent tenderness, guarding, rebound or rigidity Extremities Exam Extremities exam: Present normal inspection and full ROM; Absent tenderness or edema Back Exam Back exam: Present normal inspection, full ROM, tenderness, CVA tenderness (R), paraspinal tenderness and vertebral tenderness; Absent CVA tenderness (L) Back 1 view image: 1. Neurological Exam Neurological exam: Present alert, oriented X3, CN II-XII intact, normal gait and reflexes normal; Absent motor sensory deficit Medical Decision Making <ANABELLE Traore - Last Filed: 02/09/24 16:25> Medical Records Medical records reviewed: Yes I reviewed the patient's medical records. Jose Inquiry Pt receiving controlled substance: No Vital Signs: 02/09/24 15:04 02/09/24 16:40 Temperature 98.2 F 98.0 F Temperature Source Oral Pulse Rate 60 Pulse Rate [Left Radial] 62 Respiratory Rate 18 20 Blood Pressure 142/89 H Blood Pressure [Right Arm] 131/81 Blood Pressure Mean [Right Arm] 97 Blood Pressure Source [Right Arm] Automatic Cuff Blood Pressure Position [Right Arm] Sitting 02 Sat by Pulse Oximetry 97 Oxygen Delivery Method Room Air Room Air Lab Data Lab results reviewed: Yes I reviewed the patient's lab results. Lab Results 02/09/24 15:40: WBC 5.2, RBC 5.04, Hgb 15.4, Hct 46.4, MCV 92.1, MCH 30.5, MCHC 33.1, RDW 14.0, Plt Count 196, MPV 10.0, Neut % (Auto) 53.7, Lymph % (Auto) 36.1, [place] % (Auto) 4.9, Eos % (Auto) 3.6, Baso % (Auto) 1.6, Neut # (Auto) 2.8, Lymph # (Auto) 1.9, [place] # (Auto) 0.3, Eos # (Auto) 0.2, Baso # (Auto) 0.1, Sodium 137, Potassium 4.3, Chloride 105, Carbon Dioxide 25, Anion Gap 11.3, BUN 20, Creatinine 0.80, Estimated Creat Clear 121, Estimated GFR 101, Est GFR ( Amer) 122, Glucose 119 H, Calcium 9.2, Total Bilirubin 0.8, AST 39, ALT 40, Alkaline Phosphatase 111, Total Protein 7.9, Albumin 4.5, Globulin 3.4 H, Albumin/Globulin Ratio 1.3, Lipase 83 02/09/24 16:03: Urine Color Yellow, Urine Appearance Clear, Urine pH 6.0, Ur Specific [place] >= 1.030, Urine Protein Negative, Urine Glucose (UA) Negative, Urine Ketones Negative, Urine Blood Negative, Urine Nitrate Negative, Urine Bilirubin Negative, Urine Urobilinogen 0.2, Ur Leukocyte Esterase Negative, Urine RBC None, Urine WBC None, Ur Squamous Epith Cells 3-5, Urine Bacteria Trace, Urine Mucus Trace 02/09/24 15:40 02/09/24 15:40 Orders (Tests/Meds): ED MEDICATIONS Discontinued Medications Generic Name Dose Route Start Last Admin Trade Name Ade PRN Reason Stop Dose Admin Dexamethasone Sodium Phosphate 10 mg 02/09/24 15:21 02/09/24 15:55 Dexamethasone 4mg/Ml 5ml Mdv IV 02/09/24 15:22 10 mg ONCE ONE Administration Ketorolac Tromethamine 15 mg 02/09/24 15:21 02/09/24 15:55 Ketorolac 30mg/Ml Vial IV 02/09/24 15:22 15 mg ONCE ONE Administration Methocarbamol 500 mg 02/09/24 15:21 02/09/24 15:55 Methocarbamol 500mg Tablet PO 02/09/24 15:22 500 mg ONCE ONE Administration ORDERS Category Date Time Status CT abdomen pelvis wo con Stat Cat Scan 02/09/24 15:21 Completed CBC w/Auto Diff [Complete Blood Count Auto Diff] Stat Lab 02/09/24 15:40 Completed CMP [Comprehensive Metabolic Panel] Stat Lab 02/09/24 15:40 Completed Lipase Stat Lab 02/09/24 15:40 Completed UA [Urinalysis and Microscopic] Stat Lab 02/09/24 16:03 Completed Medical Decision Narrative: In summary patient is a 53-year-old male who presents to the emergency department for evaluation of low back pain. Patient is hemodynamically stable upon arrival, afebrile. Physical exam is remarkable for lumbar spine tenderness both in the midline and the paraspinous musculature. He has positive CVA tenderness on the right negative on the left. Patient has no focal neurologic deficits and his bilateral lower extremities are neurovascularly intact distally. Patient has no gait abnormalities. He has no saddle anesthesia. He does have a known history of low back pain and is due for injections with Dr. Barrientos this week. Differential diagnosis includes acute on chronic low back pain versus kidney stone versus pyelonephritis etc. Initial workup will be conducted with hematologic labs CT scan abdomen pelvis urinalysis.. Initial interventions include Toradol Tylenol Decadron and Robaxin. Initial workup reviewed by me and his hematologic labs and urinalysis are nonactionable and my informal interpretation of CT scan abdomen pelvis without contrast shows no evidence of stones prior to radiology read.. Upon repeat evaluation patient has had resolution of his symptoms after initial intervention. Given this patient is appropriate for discharge with encouragement to keep his follow-up with pain management for his injections this week. <Trenton Farrar MD - Last Filed: 02/13/24 15:29> Vital Signs: 02/09/24 15:04 02/09/24 16:40 Temperature 98.2 F 98.0 F Temperature Source Oral Pulse Rate 60 Pulse Rate [Left Radial] 62 Respiratory Rate 18 20 Blood Pressure 142/89 H Blood Pressure [Right Arm] 131/81 Blood Pressure Mean [Right Arm] 97 Blood Pressure Source [Right Arm] Automatic Cuff Blood Pressure Position [Right Arm] Sitting 02 Sat by Pulse Oximetry 97 Oxygen Delivery Method Room Air Room Air Lab Data Lab Results 02/09/24 15:40: WBC 5.2, RBC 5.04, Hgb 15.4, Hct 46.4, MCV 92.1, MCH 30.5, MCHC 33.1, RDW 14.0, Plt Count 196, MPV 10.0, Neut % (Auto) 53.7, Lymph % (Auto) 36.1, [place] % (Auto) 4.9, Eos % (Auto) 3.6, Baso % (Auto) 1.6, Neut # (Auto) 2.8, Lymph # (Auto) 1.9, [place] # (Auto) 0.3, Eos # (Auto) 0.2, Baso # (Auto) 0.1, Sodium 137, Potassium 4.3, Chloride 105, Carbon Dioxide 25, Anion Gap 11.3, BUN 20, Creatinine 0.80, Estimated Creat Clear 121, Estimated GFR 101, Est GFR ( Amer) 122, Glucose 119 H, Calcium 9.2, Total Bilirubin 0.8, AST 39, ALT 40, Alkaline Phosphatase 111, Total Protein 7.9, Albumin 4.5, Globulin 3.4 H, Albumin/Globulin Ratio 1.3, Lipase 83 02/09/24 16:03: Urine Color Yellow, Urine Appearance Clear, Urine pH 6.0, Ur Specific [place] >= 1.030, Urine Protein Negative, Urine Glucose (UA) Negative, Urine Ketones Negative, Urine Blood Negative, Urine Nitrate Negative, Urine Bilirubin Negative, Urine Urobilinogen 0.2, Ur Leukocyte Esterase Negative, Urine RBC None, Urine WBC None, Ur Squamous Epith Cells 3-5, Urine Bacteria Trace, Urine Mucus Trace Orders (Tests/Meds): ED MEDICATIONS Discontinued Medications Generic Name Dose Route Start Last Admin Trade Name Ade PRN Reason Stop Dose Admin Dexamethasone Sodium Phosphate 10 mg 02/09/24 15:21 02/09/24 15:55 Dexamethasone 4mg/Ml 5ml Mdv IV 02/09/24 15:22 10 mg ONCE ONE Administration Ketorolac Tromethamine 15 mg 02/09/24 15:21 02/09/24 15:55 Ketorolac 30mg/Ml Vial IV 02/09/24 15:22 15 mg ONCE ONE Administration Methocarbamol 500 mg 02/09/24 15:21 02/09/24 15:55 Methocarbamol 500mg Tablet PO 02/09/24 15:22 500 mg ONCE ONE Administration ORDERS Category Date Time Status CT abdomen pelvis wo con Stat Cat Scan 02/09/24 15:21 Completed CBC w/Auto Diff [Complete Blood Count Auto Diff] Stat Lab 02/09/24 15:40 Completed CMP [Comprehensive Metabolic Panel] Stat Lab 02/09/24 15:40 Completed Lipase Stat Lab 02/09/24 15:40 Completed UA [Urinalysis and Microscopic] Stat Lab 02/09/24 16:03 Completed Medical Decision Narrative: In summary patient is a 53-year-old male who presents to the emergency department for evaluation of low back pain. Patient is hemodynamically stable upon arrival, afebrile. Physical exam is remarkable for lumbar spine tenderness both in the midline and the paraspinous musculature. He has positive CVA tenderness on the right negative on the left. Patient has no focal neurologic deficits and his bilateral lower extremities are neurovascularly intact distally. Patient has no gait abnormalities. He has no saddle anesthesia. He does have a known history of low back pain and is due for injections with Dr. Barrientos this week. Differential diagnosis includes acute on chronic low back pain versus kidney stone versus pyelonephritis etc. Initial workup will be conducted with hematologic labs CT scan abdomen pelvis urinalysis.. Initial interventions include Toradol Tylenol Decadron and Robaxin. Initial workup reviewed by me and his hematologic labs and urinalysis are nonactionable and my informal interpretation of CT scan abdomen pelvis without contrast shows no evidence of stones prior to radiology read.. Upon repeat evaluation patient has had resolution of his symptoms after initial intervention. Given this patient is appropriate for discharge with encouragement to keep his follow-up with pain management for his injections this week. I was consulted by the DENISHA, and we discussed the complexity of the problems being addressed. I approved the treatment and management plan for this patient?s care in the Emergency Department, thus performing a substantive portion of the medical decision making. Trenton Farrar MD Critical Care <ANABELLE Traore - Last Filed: 02/09/24 16:25> Critical Care Time Critical Care Time: No
--- NOTE | 2024-02-09 15:21 | CT_ITS ---
FINAL REPORT TECHNIQUE: Axial CT images of the abdomen and pelvis were obtained without intravenous contrast. Coronal and sagittal reformatted images were also obtained.This study was performed with techniques to keep radiation doses as low as reasonably achievable (ALARA). Individualized dose reduction techniques using automated exposure control or adjustment of mA and/or kV according to the patient's size were employed. CLINICAL HISTORY: Right flank pain COMPARISON: 04/08/2021 FINDINGS: Abdomen: Lung bases are clear. Liver, spleen, pancreas and adrenal glands have a normal CT appearance in their limited unenhanced state. Status post cholecystectomy. The kidneys show no stone disease or obstruction. No obvious renal mass is present. No ureteral stones are present. Pelvis: The appendix is normal. No distal ureteral stones are seen. Bladder is unremarkable. No fluid collection or adenopathy is seen. IMPRESSION: No evidence of upper urinary tract stone disease or obstruction. Reviewed, Interpreted and Dictated by Dexter Mann MD Transcribed by Emelina Perdomo Authenticated and [facility]
--- NOTE | 2024-02-09 15:28 | PC.NURSE ---
pt going to RAD
[2024-02-09 15:50] LABS: Basophils # 0.1 K/mm3 (0-0.2); Basophils % 1.6 % (0.1-2.0); Eosinophils # 0.2 K/mm3 (0.0-0.4); Eosinophils % 3.6 % (0.1-12.0); Hematocrit 46.4 % (42.0-52.0); Hemoglobin 15.4 g/dL (14.1-18.0); Lymphocytes # 1.9 K/mm3 (0.7-4.5); Lymphocytes % 36.1 % (10-50); Mean Corpuscular HGB Conc 33.1 g/dL (31.8-35.4); Mean Corpuscular Hemoglobin 30.5 pg (27.0-31.2); Mean Corpuscular Volume 92.1 fl (80-94); Monocytes # 0.3 K/mm3 (0.1-1.0); Monocytes % 4.9 % (1.7-9.3); Neutrophils # 2.8 K/mm3 (1.8-7.8); Neutrophils % 53.7 % (37.0-80.0); Platelet Count 196 K/mm3 (142-424); Red Blood Count 5.04 M/mm3 (4.60-6.20); White Blood Count 5.2 K/mm3 (4.8-10.8)
[2024-02-09 15:54] LABS: Chloride 105 mmol/L (98-107); Sodium 137 mmol/L (136-145)
[2024-02-09 15:55] LABS: Potassium 4.3 mmoL/L (3.5-5.1)
[2024-02-09] MEDS: METHOCARBAMOL 500MG TABLET 500 MG PO (15:55)
[2024-02-09] MEDS: KETOROLAC 30MG/ML VIAL 15 MG IV (15:55)
[2024-02-09] MEDS: DEXAMETHASONE 4MG/ML 5ML MDV 10 MG IV (15:55)
[2024-02-09 15:57] LABS: Alanine Aminotransferase 40 U/L (12-78); Alkaline Phosphatase 111 U/L (38-126); Anion Gap 11.3 mEq/L (5-15); Aspartate Amino Transferase 39 U/L (17-59); Bilirubin,Total 0.8 mg/dl (0.2-1.3); Blood Urea Nitrogen 20 mg/dl (9-20); Carbon Dioxide 25 mmol/L (22.0-30.0); Creatinine Clearance Estimated 121 mL/min (50-200); Estimated Glomerular Filt Rate 101 ml/min (>60); GFR (African American) 122 ML/MIN (>60); Lipase 83 U/L (23-300)
[2024-02-09 15:58] LABS: Albumin Level 4.5 g/dl (3.5-5.0); Albumin/Globulin Ratio 1.3 (1.1-1.8); Calcium 9.2 mg/dl (8.4-10.2); Globulin 3.4 g/dL (1.3-3.2); Glucose 119 mg/dl (74-100); Total Protein,Serum 7.9 g/dl (6.3-8.2)
[2024-02-09 16:06] LABS: Microscopic, Urine URINE MICROSCOPIC (MICROSCOPIC)
[2024-02-09 16:09] LABS: Appearance,Urine CLEAR (Clear); Bilirubin,Urine Negative (Negative); Blood, Urine Negative (Negative); Color,Urine YELLOW (Yellow); Glucose,Urine (UA) Negative (Negative); Ketones,Urine Negative (Negative); Leukocyte Esterase,Urine Negative (Negative); Nitrate,Urine Negative (Negative); Protein,Urine Negative (Negative); Specific Gravity, Urine >= 1.030 (1.005-1.030); Urobilinogen,Urine 0.2 EU/dl (0.2)
[2024-02-09 16:40] VITALS: BP 142/89; PULSE 60; RESP 20; TEMP 36.7; O2SAT 98
[2024-02-09 16:50] LABS: Bacteria,Urine Trace /lpf; Mucus,Urine Trace /lpf
== END 2024-02-09 16:41 | disposition home or self-care (01) ==
PROVIDERS: Physician Assistant; Emergency Provider Emergency Medicine; PCP Nurse Practitioner Family
DX: M54.50 Low back pain, unspecified (principal)
CPT/HCPCS: 74176; 80053; 81001; 83690; 85025; 96374; 96375; 99284; J1885

== ENCOUNTER 2024-02-10 08:49 | Day surgery (SDC) | payer MEDICARE, BC, SELFPAY ==
[2024-02-10 09:01] VITALS: BP 138/70; PULSE 55; RESP 18; TEMP 36.7; O2SAT 98; BMI 27.8
[2024-02-10] MEDS: LIDOCAINE 1% 5ML PF VIAL 5 ML (09:15)
[2024-02-10 09:16] VITALS: BP 135/87; PULSE 59; RESP 18; O2SAT 98
[2024-02-10 09:17] VITALS: BP 135/87; PULSE 59; RESP 18; O2SAT 98
[2024-02-10 09:27] VITALS: BP 140/68; PULSE 55; RESP 18; O2SAT 97
--- NOTE | 2024-02-10 09:31 | EXP.PAIN.PRO ---
Procedure Date: 02/10/24 Time: 09:00 Anesthesiologist:: Jed Cramer CRNA Complications:: None Pre-procedure Diagnosis:: Degenerative disc lumbar spine multilevels. Lumbar radiculopathy. Disc bulge L4-5, L5-S1. Post-procedure Diagnosis:: Same. Indications for Procedure:: Patient is a very pleasant 53-year-old male that comes our clinic today for repeat right L4-5 and L5-S1 transforaminal epidural steroid injection. Patient describes right hip and leg pain to the foot as constant, dull, aching. Pain increases with activity. Patient reports having significant improvement in terms of his symptoms with previous injections at the same level. Today, he rates his pain 7/10. Procedure Details:: Details of the procedure explained to the patient. The patient was taken to procedure room placed in the prone position. The area over the lumbar spine was cleansed using chlorhexidine as a cleansing solution. Using fluoroscopy guidance markers were placed over the right border of the L4-5 and L5-S1 vertebral body. At each marker the skin and subcutaneous tissue was anesthetized using 1% lidocaine and a 25-gauge needle. At this time using fluoroscopy guidance 3 and half inch 22-gauge spinal needle was used to access the upper one third of the right L4 for 5 and L5-S1 foramen. Using fluoroscopy guidance in the lateral position needle position was confirmed using 0.5 mL of contrast dye. Good spread was noted in the epidural space at each level. After negative aspiration 2 mL of 1% lidocaine and 40 mg of Depo-Medrol was injected at each level. Patient tolerated procedure without difficulty. There are no complications. Plan and Disposition:: Patient was discharged without incident.
== END 2024-02-10 09:29 | disposition home or self-care (01) ==
LOC: SC.PAINP 08:50
PROVIDERS: PCP Nurse Practitioner Family; Visit Provider Nurse Anesthetist, Certified Registered
DX: M54.16 Radiculopathy, lumbar region (principal); M51.36 Other intervertebral disc degeneration, lumbar region; M25.551 Pain in right hip
CPT/HCPCS: 64483; 64484; J1010

== ENCOUNTER 2024-03-22 08:27 | Outpatient (POV) | payer MEDICARE, SELFPAY ==
[2024-03-22 08:38] VITALS: BP 120/69; PULSE 49; RESP 16; O2SAT 97; BMI 28.1
--- NOTE | 2024-03-22 08:42 | EXP.PAIN.SOA ---
[facility] Disclaimer: The information contained in this section may have been updated after the patient was seen, as this information can be updated by other users. Medical History COVID-19 Thrombosis of right saphenous vein Superficial thrombosis of both lower extremities Establishing care with new doctor, encounter for Acute pain of right lower extremity Myalgia Abnormal findings on diagnostic imaging of heart and coronary circulation Muscle spasm of back Lumbar radiculopathy Corneal ulcer of right eye Facial swelling Fracture of right tibia and fibula Chest pain Mild intermittent asthma 2019, Dr. Edwards History of renal stone 2019 Overweight Strain of latissimus dorsi muscle Right leg pain Lumbar radiculopathy Dr. Barrientos Cervical radiculopathy Low back pain Neck pain H/O (corrected) congenital malformations of digestive system Seizure Migraine Kidney stones HLD (hyperlipidemia) GERD (gastroesophageal reflux disease) Aneurysm Abdominal distention Abdominal discomfort Headache Bronchitis Torticollis Vomiting Muscle spasm SANCHEZ (acute kidney injury) Dizziness Nausea Dyspnea Near syncope Chest pain Renal colic on right side Renal insufficiency Tobacco poisoning Corneal abrasion of both eyes Abdominal pain Acute conjunctivitis of left eye Onychomycosis Paronychia of fifth toe, left Pain Surgical History History of laparoscopic cholecystectomy Hx of cardiac cath Family History Other No significant family history Social History Smoking Status: Never smoker alcohol intake: current alcohol intake frequency: holidays/special occasions only substance use type: denies use current occupational status: unemployed Travel in the last 8 weeks: None household members: family housing: house caffeine: No PM Subjective & Objective Subjective Subjective:: Patient is a pleasant 54-year-old male who presents today for follow-up right transforaminal epidural steroid injection L4-L5 and L5-S1 on 02/10/2024. We are currently treating the patient for degenerative disc disease of cervical and lumbar spine with cervical and lumbar radiculopathy symptoms, right leg pain. Today he rates his pain a 7 out of 10. Patient denies any new trauma or injury. He does state that he had at least 2 weeks of 80% improvement following this injection. He states he was able to move around a lot easier. He does state that he is still experiencing more pain along his low back on the right hip and into his buttocks area. He does state it has some aching and burning sensation and interferes with his ability to perform activities of daily living such as cooking and cleaning. Patient has tried and failed conservative treatment including oral medication, heat and ice, topicals, needed at home stretching exercise for longer than 12 weeks. His Jose has been reviewed and is appropriate. Review of Systems: General: No recent weight changes, no fever, no sleep disturbances Respiratory: No cough, no shortness of air, no recurring pulmonary infections Cardiovascular/peripheral vascular: No chest pain, no palpitations, no edema, no shortness of breath Gastrointestinal: No new onset incontinence, normal bowel movements reported Genitourinary: No new onset incontinence Musculoskeletal: Low back pain, right hip pain, right buttocks pain Psychiatric: [Normal mood/affect] Neurological: [Denies weakness in extremities], [denies balance issues] Pain at rest (0-10 scale): 7 Objective Objective:: Physical Exam: General: Alert and oriented x3, no acute distress, pleasant and cooperative Lungs: Respirations even and unlabored, symmetrical chest expansion Eyes: PERRL Musculoskeletal: Flexion and extension of lumbar [spine] somewhat guarded secondary to pain, [antalgic gait noted] point tenderness along right SI with positive right Ana's, Grupo's, Gaenslen's, compression and distraction exam Neurological: Speech clear, no gross sensory deficit Has patient had previous pain injection?: Yes Percent improvement in pain since last injection: 80% Conservative treatment options previously tried: NSAIDS Length of treatment: Longer than 12 weeks and Home exercise plan Length of treatment: Longer than 12 weeks Meds Home Medications and Allergies Home Medications ?Medication ?Instructions ?Recorded ?Confirmed ?Type aspirin 81 mg tablet,delayed 81 mg PO DAILY Blood thinner 07/04/20 02/23/24 History release mecobalamin (vitamin B12) 1,000 1,000 mcg PO DAILY 07/15/23 02/23/24 History mcg chewable tablet ezetimibe 10 mg tablet (Zetia) 10 mg PO DAILY #90 tabs 12/22/23 02/23/24 Rx famotidine 20 mg tablet (Pepcid) 20 mg PO DAILY #90 tabs 12/22/23 02/23/24 Rx fenofibrate nanocrystallized 145 145 mg PO DAILY . #90 tabs 12/22/23 02/23/24 Rx mg tablet lamotrigine 200 mg tablet 200 mg PO BID SEIZURES 90 days 12/22/23 02/23/24 Rx #180 tabs rivaroxaban 10 mg tablet 10 mg PO DAILY #90 tabs 12/22/23 02/23/24 Rx cholecalciferol (vitamin D3) 50 50 mcg PO DAILY #90 caps 12/24/23 02/23/24 Rx mcg (2,000 unit) capsule celecoxib 100 mg capsule (Celebrex) 100 mg PO BID #60 caps 01/26/24 02/23/24 Rx cyclobenzaprine 10 mg tablet 10 mg PO TID PRN muscle spasm #30 01/26/24 02/23/24 Rx tabs New Prescriptions to Start Prescriptions: Allergies Allergy/AdvReac Type Severity Reaction Status Date / Time acetaminophen [From NORCO] Allergy Unknown Verified 02/23/24 09:02 atorvastatin [From LIPITOR] Allergy Unknown FACIAL Verified 02/23/24 09:02 SWELLING hydrocodone [HYDROCODONE] Allergy Unknown FACIAL Verified 02/23/24 09:02 SWELLING oxycodone [From PERCOCET] Allergy Unknown FACIAL Verified 02/23/24 09:02 SWELLING Assessment and Plan *Assessment and plan (1) Sacroiliitis: Status: Acute Category: Medical Code(s): M46.1 - Sacroiliitis, not elsewhere classified Plan Patient is experiencing worsening pain in his low back and right hip with limited range of motion and point tenderness along his right SI with positive right Ana's, Grupo's, Gaenslen's, compression and distraction exam. I did discuss with the patient that he may benefit from a right SI injection. Risk and benefits were discussed with the patient and he would like to proceed forward with this plan of care. Patient has tried and failed conservative treatment including continued at home exercising and stretching for longer than 12 weeks. Patient continues to try to stay very active and exercise on a daily basis with no changes. We will submit to insurance for right SI injection under fluoroscopy. Patient has been instructed to contact the clinic with any concerns before the next appointment. Dr. Barrientos has reviewed this note and agrees with this plan of care. This note was dictated using voice recognition software and make contain errors or omissions. All injections are used with Lidocaine or Bupivacaine and Depo Medrol.
== END 2024-03-22 23:59 | disposition home or self-care (01) ==
LOC: SC.PAIN 08:30
PROVIDERS: PCP Nurse Practitioner Family; Visit Provider Nurse Practitioner Family
DX: M46.1 Sacroiliitis, not elsewhere classified (principal); Z73.89 Other problems related to life management difficulty
CPT/HCPCS: 99212; G0463

== ENCOUNTER 2024-04-06 09:03 | Day surgery (SDC) | payer MEDICARE, SELFPAY ==
[2024-04-06 09:18] VITALS: BP 135/79; PULSE 49; RESP 16; TEMP 36.6; O2SAT 98; BMI 28.1
--- NOTE | 2024-04-06 09:31 | EXP.PAIN.PRO ---
Procedure Date: 04/06/24 Time: 09:15 Anesthesiologist:: Jed Cramer CRNA Complications:: None Pre-procedure Diagnosis:: Right sacroiliitis Post-procedure Diagnosis:: Same Indications for Procedure:: Patient is a pleasant 54-year-old male that comes our clinic today for right sacroiliac joint injection of cortisone. Patient describes right posterior hip pain as constant, dull, aching. Patient reports difficulty transitioning from sitting to standing. Difficulty with ambulation. He rates his pain 8/10. Procedure Details:: Procedure: Right sacroliliac joint injection under fluoroscopy Informed consent was obtained and the risk and benefits of the procedure were explained to the patient.~ The patient was taken to the procedure room and noninvasive monitors were placed including noninvasive blood pressure cuff and pulse oximeter.~ The patient was placed prone on the procedure table.~ The~ right hip was cleansed using Betadine as a cleansing solution.~ C-arm fluorosocpy was used to view the right SI joint.~ The skin and subcutaneous tissues were anesthetized using Lidocaine 1.5% and a 25-gauge needle.~ After this, a 22-gauge spinal needle was inserted under fluoroscopic guidance into the inferior aspect of the right SI joint.~ Omnipaque dye was injected and a good spread was seen throughout the joint.~ After this, approximately 5 mL of bupivacaine 0.25% and Depo-Medrol 40 mg was incrementally injected into the sacroiliac joint.~ The patient tolerated the procedure well with no complications.~ The patient was observed in the Pain Clinic, then discharged home neurologically intact.~ Plan and Disposition:: Patient was discharged without incident.
[2024-04-06 09:32] VITALS: BP 136/66; PULSE 48; RESP 16; O2SAT 99
[2024-04-06] MEDS: BUPIVACAINE 0.25% 10ML INJ 25 MG IJ (09:35)
[2024-04-06] MEDS: LIDOCAINE 1% 5ML PF VIAL 5 ML (09:35)
[2024-04-06] MEDS: methylPREDNISolone ACETATE 80MG/ML VIAL 80 MG (09:35)
[2024-04-06 09:36] VITALS: BP 134/67; PULSE 48; RESP 18; O2SAT 99
[2024-04-06 09:37] VITALS: BP 134/67; PULSE 48; RESP 18; O2SAT 99
== END 2024-04-06 09:32 | disposition home or self-care (01) ==
PROVIDERS: PCP Nurse Practitioner Family; Visit Provider Nurse Anesthetist, Certified Registered
DX: M46.1 Sacroiliitis, not elsewhere classified (principal)
CPT/HCPCS: 27096; G0260; J1010

== ENCOUNTER 2024-05-24 09:57 | Emergency (ER) | payer MEDICARE, SELFPAY ==
[2024-05-24 09:58] VITALS: BP 142/72; PULSE 60; RESP 20; TEMP 36.6; O2SAT 99; BMI 26.6
--- NOTE | 2024-05-24 10:10 | PC.NURSE ---
Dr. Wynne at bedside for pt eval
[2024-05-24 10:11] LABS: Microscopic, Urine URINE MICROSCOPIC (MICROSCOPIC)
--- NOTE | 2024-05-24 10:15 | CT_ITS ---
FINAL REPORT CLINICAL HISTORY: eval kidney stones COMPARISON: 02/09/2024 FINDINGS: Axial CT images of the abdomen and pelvis were obtained without intravenous contrast. Coronal and sagittal reformatted images were also obtained.This study was performed with techniques to keep radiation doses as low as reasonably achievable (ALARA). Individualized dose reduction techniques using automated exposure control or adjustment of mA and/or kV according to the patient's size were employed. Abdomen:The lung bases are clear. There is no evidence of renal stone or hydronephrosis. The gallbladder has been surgically resected. The liver, spleen and pancreas have an unremarkable, unenhanced appearance. No mass or adenopathy is seen. No inflammatory process is identified. Pelvis: Images of the pelvis reveal no evidence of ureteral dilation or ureteral stone.No mass or abnormal fluid collection is identified. The appendix is normal in appearance. There are small inguinal hernias containing fat. IMPRESSION: No renal or ureteral stone, or hydronephrosis. No mass or inflammatory process. Reviewed, Interpreted and Dictated by Benjamín Aguero III, MD Transcribed by Lilian Jaramillo Authenticated and [facility]
--- NOTE | 2024-05-24 10:15 | CT_ITS ---
FINAL REPORT TECHNIQUE: Axial imaging of the lumbar spine was obtained without contrast. Sagittal and coronal reformatted images were also obtained and reviewed. This study was performed with techniques to keep radiation doses as low as reasonably achievable (ALARA). Individualized dose reduction techniques using automated exposure control or adjustment of mA and/or kV according to the patient's size were employed. CLINICAL HISTORY: back pain, midline TTP COMPARISON: None FINDINGS: There is no fracture. There is a mild right curvature of the lumbar spine. There are multilevel moderate degenerative changes in the lumbar disc spaces..There is no evidence of significant central canal stenosis. L1-L2: An annular bulge is present with facet arthropathy and osteophytes. There is no evidence of central canal stenosis or neural foraminal narrowing. L2-L3: An annular bulge is present with facet arthropathy and osteophytes. No evidence of central canal stenosis or neural foraminal narrowing. L3-L4: An annular bulge is present with facet arthropathy and osteophytes. No evidence of central canal stenosis or neural foraminal narrowing. L4-L5: An annular bulge is present with facet arthropathy and osteophytes. There is mild right and moderate left neural foraminal narrowing. L5-S1: An annular bulge is present with facet arthropathy and osteophytes. There is moderate right and mild left neural foraminal narrowing. There is degenerative change of the sacroiliac joint bilaterally, more severe on the left than on the right. IMPRESSION: Multilevel bulges as described, with mild to moderate neural foraminal narrowing at the L4-5 and L5-S1 levels. Degenerative changes of the sacroiliac joints bilaterally, greater on the left than on the right.. Reviewed, Interpreted and Dictated by Benjamín Aguero III, MD Transcribed by Lilian Jaramillo Authenticated and . [facility]
--- NOTE | 2024-05-24 10:16 | HMH.EDGENADL ---
Discharge Plan Disposition Patient Disposition: Home, Self-Care Condition: Good Prescriptions Prescriptions: No Action aspirin 81 mg tablet,delayed release (DR/EC) 81 mg PO DAILY mecobalamin (vitamin B12) 1,000 mcg tablet,chewable 1,000 mcg PO DAILY ezetimibe [Zetia] 10 mg tablet 10 mg PO DAILY Qty: 90 3RF famotidine [Pepcid] 20 mg tablet 20 mg PO DAILY Qty: 90 3RF fenofibrate nanocrystallized 145 mg tablet 145 mg PO DAILY Qty: 90 3RF lamotrigine 200 mg tablet 200 mg PO BID 90 Days Qty: 180 3RF cyclobenzaprine 10 mg tablet 10 mg PO TID PRN (Reason: muscle spasm) Qty: 30 0RF celecoxib [Celebrex] 100 mg capsule 100 mg PO BID Qty: 60 2RF cholecalciferol (vitamin D3) 50 mcg (2,000 unit) capsule 50 mcg PO DAILY Qty: 90 3RF Xarelto 10 mg tablet See Rx Instructions .ROUTE .COMPLEX Qty: 90 1RF Dose Instruction: Take 1 tablet by mouth once daily Rx Instructions: Take 1 tablet by mouth once daily Referrals Follow up/Referrals: Sallie Shelton APRN [Primary Care Provider] - See instructions Activity Restrictions/Add. Instructions Additional Instructions/Restrictions: Take Tylenol and ibuprofen as needed for pain. You can take them both every 6 hours. Please return the emerged part with any new, concerning, worsening symptoms including but not limited to numbness or tingling of the legs, difficulty walking due to weakness, difficulty urinating, urinating or pooping on yourself, numbness in the groin. These would all be concerning for a spinal cord compression problem. Follow-up with PCP regarding chronic back pain. Clinical Impressions Clinical Impression: Back pain Qualifiers: Back pain location: low back pain Chronicity: acute Back pain laterality: midline Sciatica presence: without sciatica Qualified Code(s): M54.50 - Low back pain, unspecified Print Language Print Language: Yakut Discharge ED Provider: Ameya Wynne General Adult [facility] General Chief complaint: PAIN Stated complaint: back pain Time Seen by Provider: 05/24/24 10:03 Mode of Arrival: Ambulatory Source of Information: Patient and Significant Other Limitations: No Limitations Description of Symptoms (Recalled from ER Triage Doc. by RN): Patient presents to ED with lower/middle back pain that started around 16:00 yesterday. Patient denies injury. Sister reports patient has had hx of kidney stones in the past. Patient rates pain 05/27. History of Present Illness HPI narrative: This is a 54-year-old male with a history of kidney stones, seizures, and intracranial aneurysms who presents with atraumatic low back pain since yesterday. States that it began at approximately 4 PM yesterday afternoon. Patient states that he was not doing anything whenever it happened and that he was just sitting. States that it is better with sitting and lying down. Worse with bending over. Also reports some mild periumbilical abdominal pain. Denies any dysuria. Denies any difficulty urinating, urinary or fecal incontinence, bilateral lower extremity numbness or tingling, difficulty walking. Related Data Home Medications ?Medication ?Instructions ?Recorded ?Confirmed aspirin 81 mg tablet,delayed 81 mg PO DAILY Blood thinner 07/04/20 04/06/24 release mecobalamin (vitamin B12) 1,000 1,000 mcg PO DAILY 07/15/23 04/06/24 mcg chewable tablet Previous Rx's ?Medication ?Instructions ?Recorded ezetimibe 10 mg tablet (Zetia) 10 mg PO DAILY #90 tabs 12/22/23 famotidine 20 mg tablet (Pepcid) 20 mg PO DAILY #90 tabs 12/22/23 fenofibrate nanocrystallized 145 145 mg PO DAILY . #90 tabs 12/22/23 mg tablet lamotrigine 200 mg tablet 200 mg PO BID SEIZURES 90 days 12/22/23 #180 tabs cholecalciferol (vitamin D3) 50 50 mcg PO DAILY #90 caps 12/24/23 mcg (2,000 unit) capsule celecoxib 100 mg capsule (Celebrex) 100 mg PO BID #60 caps 01/26/24 cyclobenzaprine 10 mg tablet 10 mg PO TID PRN muscle spasm #30 01/26/24 tabs rivaroxaban 10 mg tablet (Xarelto) See Rx Instructions .Route 04/27/24 .COMPLEX #90 tabs Allergies Allergy/AdvReac Type Severity Reaction Status Date / Time acetaminophen [From NORCO] Allergy Unknown Verified 04/06/24 09:18 atorvastatin [From LIPITOR] Allergy Unknown FACIAL Verified 04/06/24 09:18 SWELLING hydrocodone [HYDROCODONE] Allergy Unknown FACIAL Verified 04/06/24 09:18 SWELLING oxycodone [From PERCOCET] Allergy Unknown FACIAL Verified 04/06/24 09:18 SWELLING PFSH PFSH Disclaimer: The information contained in this section may have been updated after the patient was seen, as this information can be updated by other users. Medical History COVID-19 Thrombosis of right saphenous vein Superficial thrombosis of both lower extremities Establishing care with new doctor, encounter for Acute pain of right lower extremity Myalgia Abnormal findings on diagnostic imaging of heart and coronary circulation Muscle spasm of back Lumbar radiculopathy Corneal ulcer of right eye Facial swelling Fracture of right tibia and fibula Chest pain Mild intermittent asthma 2019, Dr. Edwards History of renal stone 2019 Overweight Strain of latissimus dorsi muscle Right leg pain Lumbar radiculopathy Dr. Barrientos Cervical radiculopathy Low back pain Neck pain H/O (corrected) congenital malformations of digestive system Seizure Migraine Kidney stones HLD (hyperlipidemia) GERD (gastroesophageal reflux disease) Aneurysm Abdominal distention Abdominal discomfort Headache Bronchitis Torticollis Vomiting Muscle spasm SANCHEZ (acute kidney injury) Dizziness Nausea Dyspnea Near syncope Chest pain Renal colic on right side Renal insufficiency Tobacco poisoning Corneal abrasion of both eyes Abdominal pain Acute conjunctivitis of left eye Onychomycosis Paronychia of fifth toe, left Pain Surgical History History of laparoscopic cholecystectomy Hx of cardiac cath Family History Other No significant family history Social History Smoking Status: Never smoker alcohol intake: current alcohol intake frequency: holidays/special occasions only substance use type: denies use current occupational status: unemployed Travel in the last 8 weeks: None household members: family housing: house caffeine: No Other Medical History Have you received the Flu Vaccine for this season: No Have you received the Pneumonia Vaccine: No ROS Obtained: Yes All systems reviewed & no additional complaints except as documented Physical Exam General General appearance: alert and in no apparent distress Eye Eye exam: Present normal appearance, PERRL and EOMI Respiratory Respiratory exam: Present normal lung sounds bilaterally; Absent respiratory distress Cardiovascular Cardiovascular exam: Present regular rate and normal rhythm Abdominal Exam Abdominal exam: Present soft and distention; Absent tenderness, guarding or rebound Extremities Exam Extremities exam: Present normal inspection Back Exam Back exam: Present tenderness (Midline lumbar spine); Absent CVA tenderness (R) or CVA tenderness (L) Neurological Exam Neurological exam: Present alert and oriented X3 Skin Skin exam: Present warm and dry Medical Decision Making Medical Records Medical records reviewed: Yes I reviewed the patient's medical records. Screening: Per USPSTF and CDC recommendations, given the prevalence of disease in our region, it is our hospital?s policy to screen for HIV and viral Hepatitis for all patients aged 18 and over and those with ongoing risk factors. Jose Inquiry Pt receiving controlled substance: No Vital Signs: 05/24/24 09:58 05/24/24 10:45 05/24/24 12:04 Temperature 97.9 F 98.7 F Temperature Source Oral Oral Pulse Rate 52 L 80 Pulse Rate [Right Brachial] 60 Respiratory Rate 20 20 Blood Pressure 125/67 134/60 Blood Pressure [Right Arm] 142/72 H Blood Pressure Mean [Right Arm] 95 Blood Pressure Source Automatic Cuff Blood Pressure Source [Right Arm] Automatic Cuff Blood Pressure Position Sitting Blood Pressure Position [Right Arm] Supine 02 Sat by Pulse Oximetry 99 99 Oxygen Delivery Method Room Air Room Air Room Air Lab Data Lab Results 05/24/24 10:04: Urine Color Yellow, Urine Appearance Clear, Urine pH 6.0, Ur Specific [place] >= 1.030, Urine Protein Negative, Urine Glucose (UA) 2+, Urine Ketones Negative, Urine Blood Negative, Urine Nitrate Negative, Urine Bilirubin Negative, Urine Urobilinogen 0.2, Ur Leukocyte Esterase Negative, Urine RBC None, Urine WBC None, Ur Squamous Epith Cells Occasional, Urine Bacteria None Orders (Tests/Meds): ED MEDICATIONS Discontinued Medications Generic Name Dose Route Start Last Admin Trade Name Freq PRN Reason Stop Dose Admin Ketorolac Tromethamine 15 mg 05/24/24 10:37 05/24/24 10:41 Ketorolac 30mg/Ml Vial IM 05/24/24 10:38 15 mg ONCE ONE Administration ORDERS Category Date Time Status CT abdomen pelvis wo con Stat Cat Scan 05/24/24 10:[address] lumbar spine wo con Stat Cat Scan 05/24/24 10:15 Completed Urinalysis and Microscopic Stat Lab 05/24/24 10:04 Completed Medical Decision Narrative: In summary, this 54-year-old male with a past medical history of kidney stones, seizures, intracranial aneurysm presents to the emergency department today with atraumatic low back pain that began yesterday. On initial evaluation patient is afebrile, hemodynamically stable, nontoxic-appearing. Differential diagnosis includes but is not limited to musculoskeletal back pain, disc herniation, AAA, kidney stone, cauda equina. No red flag symptoms suggesting of cord compression syndrome. No focal neurological deficits. Tenderness was at the midline, suspect musculoskeletal back pain however will obtain imaging to evaluate for kidney stone or osseous pathology of lumbar spine. Based on these concerns, I ordered urinalysis, CT abdomen pelvis without IV contrast and CT lumbar spine. Considered CTA imaging of patient's abdomen/pelvis, however patient had no significant abdominal tenderness or other significant risk factors for AAA. Would also be able to visualize the caliber of aorta on noncontrasted imaging. ECG personally interpreted as noted above. Patient received intramuscular Toradol for treatment. Labs personally reviewed demonstrate no UTI. CT imaging personally interpreted demonstrates no kidney stones or acute spinal pathology. Radiology report notes degenerative changes of the lumbar spine. On reassessment patient is stable condition with improvement in symptoms, neurologically intact. Appropriate for discharge with PCP follow-up at this time. Critical Care Critical Care Time Critical Care Time: No
[2024-05-24 10:17] LABS: Appearance,Urine CLEAR (Clear); Bilirubin,Urine Negative (Negative); Blood, Urine Negative (Negative); Color,Urine YELLOW (Yellow); Glucose,Urine (UA) 2+ (Negative); Ketones,Urine Negative (Negative); Leukocyte Esterase,Urine Negative (Negative); Nitrate,Urine Negative (Negative); Protein,Urine Negative (Negative); Specific Gravity, Urine >= 1.030 (1.005-1.030); Urobilinogen,Urine 0.2 EU/dl (0.2)
--- NOTE | 2024-05-24 10:23 | PC.NURSE ---
PT gone to RAD via wheelchair
--- NOTE | 2024-05-24 10:30 | PC.NURSE ---
Pt back in room from Rad
[2024-05-24 10:36] LABS: Squamous Epithelial Cell,Urine Occasional #/hpf (0-5)
[2024-05-24] MEDS: KETOROLAC 30MG/ML VIAL 15 MG IM (10:41)
[2024-05-24 10:45] VITALS: BP 125/67; PULSE 52; O2SAT 99
[2024-05-24 12:04] VITALS: BP 134/60; PULSE 80; RESP 20; TEMP 37.1; O2SAT 97
== END 2024-05-24 12:07 | disposition home or self-care (01) ==
PROVIDERS: Emergency Provider Student in an Organized Health Care Education/Training Program; PCP Nurse Practitioner Family
DX: M54.50 Low back pain, unspecified (principal); R10.9 Unspecified abdominal pain
CPT/HCPCS: 72131; 74176; 81001; 96372; 99284; J1885

== ENCOUNTER 2024-11-11 08:29 | Outpatient (CLI) | payer MEDICARE, SELFPAY ==
[2024-11-11 08:54] LABS: Microscopic, Urine URINE MICROSCOPIC (MICROSCOPIC)
[2024-11-11 09:30] LABS: Basophils % 0.4 % (0.1-2.0); Eosinophils # 0.2 K/mm3 (0.0-0.4); Eosinophils % 3.2 % (0.1-12.0); Hematocrit 43.1 % (42.0-52.0); Hemoglobin 14.7 g/dL (14.1-18.0); Lymphocytes % 42.9 % (10-50); Mean Corpuscular HGB Conc 34.1 g/dL (31.8-35.4); Mean Corpuscular Hemoglobin 29.6 pg (27.0-31.2); Mean Corpuscular Volume 86.7 fl (80-94); Mean Platelet Volume 11.7 fl (7.4-10.4); Monocytes # 0.4 K/mm3 (0.1-1.0); Monocytes % 7.5 % (1.7-9.3); Neutrophils # 2.1 K/mm3 (1.8-7.8); Neutrophils % 45.4 % (37.0-80.0); Platelet Count 182 K/mm3 (142-424); Red Blood Count 4.97 M/mm3 (4.60-6.20); Red Cell Distribution Width 12.7 % (11.5-17.5); White Blood Count 4.7 K/mm3 (4.8-10.8)
[2024-11-11 09:42] LABS: D-Dimer < 0.25 ug/mL (0.0-0.5)
[2024-11-11 09:51] LABS: Appearance,Urine CLEAR (Clear); Bilirubin,Urine Negative (Negative); Blood, Urine Negative (Negative); Color,Urine YELLOW (Yellow); Glucose,Urine (UA) Negative (Negative); Ketones,Urine Negative (Negative); Leukocyte Esterase,Urine Negative (Negative); Nitrate,Urine Negative (Negative); Protein,Urine Negative (Negative); Specific Gravity, Urine 1.025 (1.005-1.030); Urobilinogen,Urine 0.2 EU/dl (0.2)
[2024-11-11 09:52] LABS: Alanine Aminotransferase 72 U/L (12-78); Albumin Level 4.7 g/dl (3.5-5.0); Albumin/Globulin Ratio 1.9 (1.1-1.8); Alkaline Phosphatase 90 U/L (38-126); Anion Gap 15.4 mEq/L (5-15); Aspartate Amino Transferase 43 U/L (17-59); Bilirubin,Total 0.8 mg/dl (0.2-1.3); Blood Urea Nitrogen 18 mg/dl (9-20); Calcium 9.6 mg/dl (8.4-10.2); Carbon Dioxide 25 mmol/L (22.0-30.0); Chloride 103 mmol/L (98-107); Chol/HDL Ratio 6.8 (1-3.5); Cholesterol 226 mg/dl (140-200); Estimated Glomerular Filt Rate 100 ml/min (>60); GFR (African American) 121 ML/MIN (>60); Globulin 2.5 g/dL (1.3-3.2); Glucose 125 mg/dl (74-100); HDL Cholesterol 33 mg/dl (40-60); Magnesium 2.1 mg/dl (1.6-2.3); Phosphorous 4.2 mg/dl (2.5-4.5); Potassium 4.4 mmoL/L (3.5-5.1); Sodium 139 mmol/L (136-145); Total Protein,Serum 7.2 g/dl (6.3-8.2); Triglycerides 274 mg/dl (30-150); VLDL Cholesterol 55 mg/dL (0-40)
[2024-11-11 10:01] LABS: Bacteria,Urine Trace /lpf; Squamous Epithelial Cell,Urine Occasional #/hpf (0-5)
[2024-11-11 10:04] LABS: Direct LDL Cholesterol 122.42 mg/dL (100-129)
[2024-11-11 10:10] LABS: Hemoglobin A1C 5.9 % (4.0-6.0)
[2024-11-11 10:11] LABS: Total Protein,Urine Random < 5.0 mg/dL (0.0-12.0)
[2024-11-11 10:13] LABS: Free T4 (Free Thyroxine) 1.04 ng/dl (0.78-2.19)
[2024-11-11 10:17] LABS: Microalbumin/Creatinine Ratio 7.7
[2024-11-11 10:21] LABS: Creatinine,Urine Random 85 mg/dL (Not Estab.)
[2024-11-11 10:26] LABS: Prostate Specific Ag Screen 0.4 ng/ml (0.0-4.0); Thyroid Stimulating Hormone 4.38 uIU/mL (0.465-4.68)
[2024-11-11 10:31] LABS: HIV Combo NEGATIVE (Negative)
[2024-11-11 10:39] LABS: Hepatitis C Ab Qual. W/ RFX NEGATIVE (Negative)
[2024-11-11 10:45] LABS: Vitamin B12 292 pg/mL (239-931)
[2024-11-11 11:06] LABS: Iron 140 ug/dL (49-181)
[2024-11-11 11:20] LABS: Total Iron Binding Capacity 355 ug/dL (261-462)
[2024-11-11 11:40] LABS: Ferritin 110 ng/ml (17.9-464)
[2024-11-15 18:10] LABS: Lamotrigine (Lamictal) 6.3 ug/mL (2.0-20.0)
== END 2024-11-11 23:59 | disposition home or self-care (01) ==
LOC: LAB 08:31
PROVIDERS: PCP Nurse Practitioner Family; Visit Provider Nurse Practitioner Family
DX: E53.8 Deficiency of other specified B group vitamins (principal); I10 Essential (primary) hypertension; E55.9 Vitamin D deficiency, unspecified; Z00.00 Encounter for general adult medical examination without abnormal findings; G62.9 Polyneuropathy, unspecified; D64.9 Anemia, unspecified; R39.198 Other difficulties with micturition; R73.03 Prediabetes; G40.909 Epilepsy, unspecified, not intractable, without status epilepticus; M79.604 Pain in right leg; Z86.718 Personal history of other venous thrombosis and embolism; Z11.4 Encounter for screening for human immunodeficiency virus [HIV]; Z11.59 Encounter for screening for other viral diseases; Z12.5 Encounter for screening for malignant neoplasm of prostate
CPT/HCPCS: 36415; 80053; 80061; 80168; 81001; 82043; 82306; 82570; 82607; 82728; 83036; 83540; 83550; 83735; 84100; 84156; 84439; 84443; 85025; 85378; 86803; 87086; 87389; G0103

== ENCOUNTER 2024-11-25 13:22 | Outpatient (CLI) | payer MEDICARE, SELFPAY ==
[2024-11-25] MEDS: INCLISIRAN SODIUM 284 MG/1.5 ML SYRINGE SUBCUT (13:44)
[2024-11-25 13:45] VITALS: BP 136/73; PULSE 61; RESP 20; TEMP 36.6; O2SAT 98
--- OUTSIDE RECORDS SUMMARY | 2024-11-25 23:27 | XMS_ITS ---
Author Organization Unknown TREATMENT PLAN Planned [facility] Start Date Provider Encounter for Check-up [phone] [facility]
== END 2024-11-25 14:00 | disposition home or self-care (01) ==
LOC: INF 13:23
PROVIDERS: PCP Nurse Practitioner Family; Visit Provider Nurse Practitioner Family
DX: E78.2 Mixed hyperlipidemia (principal)
CPT/HCPCS: 96372; J1306

== ENCOUNTER 2024-12-09 07:43 | Outpatient (CLI) | payer MEDICARE, SELFPAY ==
--- NOTE | 2024-12-09 07:45 | MR_ITS ---
FINAL REPORT TECHNIQUE: Multiplanar and multisequence imaging of the lumbar spine was obtained without contrast. CLINICAL HISTORY: lumbar foraminal stenosis right sided lbp pain unable to walk pain down right leg tingling in 1st toe COMPARISON: 03/06/2023 FINDINGS: There is normal alignment of the lumbar vertebral bodies. Vertebral body height is preserved. The spinal cord ends at the level of L 2-3. There is normal signal intensity within the substance of the distal spinal cord. No acute bone marrow edema or pathologic marrow replacement. No acute paraspinal abnormality is identified. L1-2: Bilateral facet osteoarthropathy is present. There is no focal disc herniation, central canal stenosis or neuroforaminal narrowing. L2-3: Mild bilateral facet osteoarthropathy is present. There is no focal disc herniation, central canal stenosis or neuroforaminal narrowing. L3-4: Mild bilateral facet osteoarthropathy is present. There is no focal disc herniation, central canal stenosis or neuroforaminal narrowing. L4-5: An annular bulge is present, with degenerative endplate change and facet osteoarthropathy. No canal stenosis is present, there is mild left greater than right neural foraminal narrowing present. L5-S1: An annular bulge is present with degenerative endplate change and facet osteoarthropathy. There is moderate left and severe right neural foraminal narrowing present, significantly more pronounced than seen on the prior exam of 03/06/2023. IMPRESSION: Worsening neuroforaminal narrowing at the L5-S1 level compared to the prior MRI of 03/06/2023, greater on the right than on the left. Reviewed, Interpreted and Dictated by Amarilys Spicer MD Transcribed by Lilian Jaramillo Authenticated and [facility]
[2024-12-09 14:53] LABS: Cholesterol 122 mg/dl (140-200); Triglycerides 259 mg/dl (30-150); VLDL Cholesterol 52 mg/dL (0-40)
[2024-12-09 14:54] LABS: Chol/HDL Ratio 3.9 (1-3.5); HDL Cholesterol 31 mg/dl (40-60)
[2024-12-09 15:04] LABS: Direct LDL Cholesterol 54.68 mg/dL (100-129)
== END 2024-12-09 23:59 | disposition home or self-care (01) ==
LOC: RAD 07:44
PROVIDERS: PCP Nurse Practitioner Family; Visit Provider Nurse Practitioner Family
DX: M48.061 Spinal stenosis, lumbar region without neurogenic claudication (principal); M79.604 Pain in right leg; G62.9 Polyneuropathy, unspecified; M46.1 Sacroiliitis, not elsewhere classified; M54.50 Low back pain, unspecified; M54.16 Radiculopathy, lumbar region; E78.2 Mixed hyperlipidemia
CPT/HCPCS: 72148; 80061

== ENCOUNTER 2024-12-14 07:54 | Outpatient (CLI) | payer MEDICARE, SELFPAY ==
--- NOTE | 2024-12-14 08:00 | CA_ITS ---
FINAL REPORT TECHNIQUE: Bilateral lower extremity venous duplex was performed with augmentation and compression. CLINICAL HISTORY: Bilateral leg pain x long time per patient. States he can't sleep because of pain. HTN, HLD. Hx of SVT in GSV bilaterally 12/30/23. FINDINGS: Proper flow is seen throughout the deep venous systems bilaterally. There is no evidence of deep venous thrombosis. IMPRESSION: No evidence of deep venous thrombosis. Reviewed, Interpreted and Dictated by Phil Javier MD Transcribed by Oma Ham Authenticated and [facility]
== END 2024-12-14 23:59 | disposition home or self-care (01) ==
PROVIDERS: PCP Nurse Practitioner Family; Visit Provider Nurse Practitioner Family
DX: M79.661 Pain in right lower leg (principal); M79.662 Pain in left lower leg
CPT/HCPCS: 93970

== ENCOUNTER 2024-12-31 18:25 | Emergency (ER) | payer MEDICARE, SELFPAY ==
[2024-12-31 18:57] VITALS: BP 142/78; PULSE 52; O2SAT 96
[2024-12-31 18:59] VITALS: BP 142/78; PULSE 53; RESP 18; TEMP 36.8; O2SAT 97; BMI 29.2
[2024-12-31 19:00] VITALS: BP 140/79; PULSE 54; O2SAT 97
--- NOTE | 2024-12-31 19:28 | CT_ITS ---
PROCEDURE INFORMATION: Exam: CT Lumbar Spine Without Contrast Exam date and time: 12/31/2024 7:41 PM Age: 54 years old Clinical indication: Other: R low back pain rad down R leg TECHNIQUE: Imaging protocol: Computed tomography of the lumbar spine without contrast. Radiation optimization: All CT scans at this facility use at least one of these dose optimization techniques: automated exposure control; mA and/or kV adjustment per patient size (includes targeted exams where dose is matched to clinical indication); or iterative reconstruction. COMPARISON: MR LUMBAR SPINE WO CON 12/09/2024 8:00 AM FINDINGS: Bones/joints: No acute fracture. Stable alignment. L1/2: No significant disc herniation or bulge. No central canal or neural foraminal narrowing. L2/3: No significant disc herniation or bulge. Mild facet/ligamentum flavum hypertrophy. No central canal narrowing. Minimal right neural foraminal narrowing. Mild left neural foraminal narrowing. L3/4: No significant disc herniation or bulge. Mild facet/ligamentum flavum hypertrophy. No central canal narrowing. Minimal right neural foraminal narrowing. Mild left neural foraminal narrowing. L4/5: No significant disc herniation or bulge. Facet/ligamentum flavum hypertrophy. Cmyv-jx-cutcooan central canal narrowing. Rdhy-ug-lhbcoshx foraminal narrowing. Mild left neural foraminal narrowing. L5/S1: Mild broad-based degenerative disc/osteophyte complex. Facet/ligamentum flavum hypertrophy. No central canal narrowing. Severe right neural foraminal narrowing. Uxcr-ui-ihjpugft left neural foraminal narrowing. Soft tissues: Unremarkable. IMPRESSION: 1. No acute findings. 2. Multilevel central canal and neural foraminal narrowing most pronounced at L4/5 and L5/S1 from combination of degenerative disc/osteophyte complex and facet/ligamentum flavum hypertrophy.
--- NOTE | 2024-12-31 19:31 | ED_ITS ---
Discharge Plan Disposition Patient Disposition: Home, Self-Care Condition: Good Prescriptions Prescriptions: New prednisone 20 mg tablet 40 mg PO DAILY 5 Days Qty: 10 0RF gabapentin 300 mg capsule 300 mg PO BID PRN (Reason: pain) Qty: 10 0RF methocarbamol 750 mg tablet 750 mg PO Q8H PRN (Reason: pain) Qty: 20 0RF No Action aspirin 81 mg tablet,delayed release (DR/EC) 81 mg PO DAILY pregabalin 100 mg capsule 100 mg PO HS Qty: 30 0RF desvenlafaxine succinate [Pristiq] 25 mg tablet extended release 24 hr 25 mg PO DAILY Qty: 30 0RF ezetimibe [Zetia] 10 mg tablet 10 mg PO DAILY Qty: 90 3RF fenofibrate nanocrystallized 145 mg tablet 145 mg PO DAILY Qty: 90 3RF cyclobenzaprine 10 mg tablet 10 mg PO TID PRN (Reason: muscle spasm) Qty: 30 0RF buspirone 10 mg tablet 10 mg PO BID PRN (Reason: anxiety) Qty: 60 2RF cholecalciferol (vitamin D3) 50 mcg (2,000 unit) capsule 50 mcg PO DAILY Qty: 90 3RF lamotrigine 200 mg tablet 200 mg PO BID 90 Days Qty: 180 3RF Leqvio 284 mg/1.5 mL syringe 284 mg SQ .COMPLEX Qty: 1.5 2RF Rx Instructions: 1st dose now, 2nd dose in 3 months, then every 6 months thereafter famotidine 20 mg tablet See Rx Instructions .ROUTE .COMPLEX Qty: 90 3RF Dose Instruction: Take 1 tablet by mouth once daily Rx Instructions: Take 1 tablet by mouth once daily Referrals Follow up/Referrals: Igor Barrientos MD [Staff Physician] - See instructions Sallie Shelton APRN [Primary Care Provider] - See instructions Activity Restrictions/Add. Instructions Additional Instructions/Restrictions: You were evaluated in the emergency department today. Please follow-up closely with your primary care provider as well as with pain management. 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 Gabapentin can be sedating, so use caution when taking this medication. Do not drive or operate heavy machinery while taking this pain medication. You may also take Tylenol and ibuprofen every 4-6 hours as needed for pain in addition to these medicines. Return to the emergency department for new or worsening symptoms. Clinical Impressions Clinical Impression: Degenerative lumbar spinal stenosis, Acute lumbar radiculopathy Stand Alone Forms Stand Alone Forms: Work/School Release Instructions Patient Instructions: DI for Acute Pain -- Adult, DI for Lumbar Radiculopathy Print Language Print Language: English Discharge ED Provider: Amie He General Adult HPI General Chief complaint: PAIN Stated complaint: Right leg pain radiating up leg,denies injury Time Seen by Provider: 12/31/24 19:15 Mode of Arrival: Ambulatory Source of Information: Patient Description of Symptoms (Recalled from ER Triage Doc. by RN): Reports right foot pain and swelling that radiates up his leg to his back. States it has been going on for a couple of days and that at times it feels as if his leg is going to give out. Denies any injury. History of Present Illness HPI narrative: This patient is a 54-year-old male with a history of chronic back pain who used to get injections at pain management, but has not been getting them because he did not feel they were helpful, presenting to the emergency department for evaluation with concern for right leg pain extending all the way from his foot to his low back. This started acutely when he stood up from a seated position at a restaurant a few days ago. He has significant pain is worse with walking and attempted movement. It shoots from his back down the medial aspect of his left leg into his foot. No falls or significant traumatic injury noted. No fevers or infectious symptoms. He has no numbness, ting, saddle anesthesia, fecal incontinence, or lack of awareness of needing to go pee. According to his sister, he does have some urgency with urination and has to welsh to the bathroom once it hits. History is obtained with the help of his sister, as patient is English-speaking. I offered personal care aid but they declined Related Data Home Medications ?Medication ?Instructions ?Recorded ?Confirmed aspirin 81 mg tablet,delayed 81 mg PO DAILY Blood thinner 07/04/20 12/09/24 release Previous Rx's ?Medication ?Instructions ?Recorded ezetimibe 10 mg tablet (Zetia) 10 mg PO DAILY #90 tabs 12/22/23 fenofibrate nanocrystallized 145 145 mg PO DAILY . #90 tabs 12/22/23 mg tablet cholecalciferol (vitamin D3) 50 50 mcg PO DAILY #90 caps 12/24/23 mcg (2,000 unit) capsule cyclobenzaprine 10 mg tablet 10 mg PO TID PRN muscle spasm #30 01/26/24 tabs lamotrigine 200 mg tablet 200 mg PO BID SEIZURES 90 days 06/09/24 #180 tabs buspirone 10 mg tablet 10 mg PO BID PRN anxiety #60 tabs 11/09/24 inclisiran 284 mg/1.5 mL 284 mg (1.5 mL) SQ .COMPLEX 11/11/24 subcutaneous syringe (Leqvio) allergy to statins #1.5 mL desvenlafaxine succinate 25 mg 25 mg PO DAILY #30 tabs 12/09/24 tablet,extended release 24 hr (Pristiq) pregabalin 100 mg capsule 100 mg PO HS #30 caps 12/09/24 famotidine 20 mg tablet See Rx Instructions .Route 12/30/24 .COMPLEX #90 tabs gabapentin 300 mg capsule 300 mg PO BID PRN pain #10 caps 12/31/24 methocarbamol 750 mg tablet 750 mg PO Q8H PRN pain #20 tabs 12/31/24 prednisone 20 mg tablet 40 mg (2 x 20 mg) PO DAILY 5 days 12/31/24 #10 tabs Allergies Allergy/AdvReac Type Severity Reaction Status Date / Time acetaminophen (From NORCO) Allergy Unknown Unknown Verified 12/31/24 19:02 allergy reaction atorvastatin (From LIPITOR) Allergy Unknown FACIAL Verified 12/09/24 10:35 SWELLING hydrocodone (HYDROCODONE) Allergy Unknown FACIAL Verified 12/09/24 10:35 SWELLING oxycodone (From PERCOCET) Allergy Unknown FACIAL Verified 12/09/24 10:35 SWELLING tegaderm Allergy Unknown Uncoded 12/31/24 19:02 allergy reaction [facility] Disclaimer: The information contained in this section may have been updated after the patient was seen, as this information can be updated by other users. Medical History Right leg pain Back pain Edema COVID-19 Thrombosis of right saphenous vein Superficial thrombosis of both lower extremities Establishing care with new doctor, encounter for Acute pain of right lower extremity Myalgia Abnormal findings on diagnostic imaging of heart and coronary circulation Muscle spasm of back Lumbar radiculopathy Corneal ulcer of right eye Facial swelling Fracture of right tibia and fibula Chest pain Mild intermittent asthma History of renal stone Overweight Strain of latissimus dorsi muscle Lumbar radiculopathy Cervical radiculopathy Low back pain Neck pain H/O (corrected) congenital malformations of digestive system Seizure Migraine Kidney stones HLD (hyperlipidemia) GERD (gastroesophageal reflux disease) Aneurysm Abdominal distention Abdominal discomfort Headache Bronchitis Torticollis Vomiting Muscle spasm SANCHEZ (acute kidney injury) Dizziness Nausea Dyspnea Near syncope Chest pain Renal colic on right side Renal insufficiency Tobacco poisoning Corneal abrasion of both eyes Abdominal pain Acute conjunctivitis of left eye Onychomycosis Paronychia of fifth toe, left Pain Surgical History History of laparoscopic cholecystectomy Hx of cardiac cath Family History Other No significant family history Social History Smoking Status: Never smoker alcohol intake: current alcohol intake frequency: holidays/special occasions only substance use type: denies use current occupational status: unemployed Travel in the last 8 weeks?: None household members: family housing: house caffeine: No Have you lived/traveled outside [place] in past 30 days?: No Contact w/someone who lives/traveled outside US past 30 days?: No Exposure to someone with infectious disease in past 14 days?: No Do you have a fever (greater than 100.4 F or 38 C)?: No Have you tested positive for COVID-19?: No Exposed to someone with COVID-19 in past 14 days?: No Do you have a sore throat?: No Do you have a cough?: No Do you have any weakness?: No Do you have any diarrhea?: No Are you experiencing any unusual bleeding?: No Do you have any muscle aches/pain?: No Do you have any abdominal pain?: No Are you experiencing loss of taste or smell?: No Other Medical History Have you received the Flu Vaccine for this season: No Have you received the Pneumonia Vaccine: No ROS Obtained: Yes All systems reviewed & no additional complaints except as documented Physical Exam General General appearance: alert, in no apparent distress and obese Head Head exam: atraumatic and normocephalic Eye Eye exam: Present normal appearance, PERRL and EOMI ENT ENT exam: Present normal exam, normal oropharynx, mucous membranes moist and normal external ear exam Neck Neck exam: Present normal inspection, full ROM and trachea midline; Absent tenderness Chest Chest inspection: Present normal inspection and symmetric chest wall rise; Absent tenderness Respiratory Respiratory exam: Present normal lung sounds bilaterally; Absent respiratory distress, wheezes, stridor or accessory muscle use Cardiovascular Cardiovascular exam: Present regular rate and normal rhythm Abdominal Exam Abdominal exam: Present soft; Absent distention, tenderness or guarding Extremities Exam Extremities exam: Present normal inspection, full ROM and normal capillary refill; Absent tenderness or edema Back Exam Back exam: Present tenderness (R sided low back/paraspinal muscles) and straight leg raise (R); Absent full ROM (pain in low back with ROM) Comment: positive straight leg raise on R, neurologically intact in lower extremities. Able to walk. Neurological Exam Neurological exam: Present alert, oriented X3, CN II-XII intact and normal gait; Absent motor sensory deficit Psychiatric Psychiatric exam: Present normal affect and normal mood Skin Skin exam: Present warm and dry Medical Decision Making Medical Records Medical records reviewed: Yes I reviewed the patient's medical records. Screening: Per USPSTF and CDC recommendations, given the prevalence of disease in our region, it is our hospital?s policy to screen for HIV and viral Hepatitis for all patients aged 18 and over and those with ongoing risk factors. Jose Inquiry Pt receiving controlled substance: Yes Jose was queried for this patient: Yes Risks and benefits of using a controlled substance: were discussed with pt by me Vital Signs: 12/31/24 18:57 12/31/24 18:59 12/31/24 19:00 Temperature 98.3 F Temperature Source Oral Pulse Rate 52 L 54 L Pulse Rate [Radial] 53 L Respiratory Rate 18 Blood Pressure 142/78 H 140/79 Blood Pressure [Right Arm] 142/78 H Blood Pressure Mean [Right Arm] 99 Blood Pressure Source Blood Pressure Source [Right Arm] Automatic Cuff Blood Pressure Position Blood Pressure Position [Right Arm] Sitting 02 Sat by Pulse Oximetry 96 97 97 Oxygen Delivery Method Room Air 12/31/24 20:54 12/31/24 21:09 Temperature 97.9 F Temperature Source Oral Pulse Rate 48 L 54 L Pulse Rate [Radial] Respiratory Rate 18 Blood Pressure 188/90 H 163/85 H Blood Pressure [Right Arm] Blood Pressure Mean [Right Arm] Blood Pressure Source Automatic Cuff Blood Pressure Source [Right Arm] Blood Pressure Position Supine Blood Pressure Position [Right Arm] 02 Sat by Pulse Oximetry 98 Oxygen Delivery Method Room Air Lab Data Lab results reviewed: Yes I reviewed the patient's lab results. Lab Results 12/31/24 19:37: Urine Color Yellow, Urine Appearance Clear, Urine pH 6.0, Ur Specific [place] >= 1.030, Urine Protein Negative, Urine Glucose (UA) Negative, Urine Ketones Negative, Urine Blood Negative, Urine Nitrate Negative, Urine Bilirubin Negative, Urine Urobilinogen 0.2, Ur Leukocyte Esterase Negative, Urine RBC None, Urine WBC Occasional, Ur Squamous Epith Cells None, Urine Bacteria None Orders (Tests/Meds): ED MEDICATIONS Discontinued Medications Generic Name Dose Route Start Last Admin Trade Name Frankieq PRN Reason Stop Dose Admin Acetaminophen 1,000 mg 12/31/24 19:28 12/31/24 19:51 Acetaminophen 500mg Tab PO 12/31/24 19:29 1,000 mg ONCE ONE Administration Gabapentin 300 mg 12/31/24 19:28 12/31/24 19:51 Gabapentin 300mg Capsule PO 12/31/24 19:29 300 mg ONCE ONE Administration Ketorolac Tromethamine 30 mg 12/31/24 19:28 12/31/24 19:51 Ketorolac 30mg/Ml Vial IM 12/31/24 19:29 30 mg ONCE ONE Administration Lidocaine 1 each 12/31/24 19:28 12/31/24 19:51 Lidocaine 5% Transdermal Patch TD 12/31/24 19:29 1 each ONCE ONE Administration Methocarbamol 1,000 mg 12/31/24 19:29 12/31/24 19:51 Methocarbamol 500mg Tablet PO 12/31/24 19:30 1,000 mg ONCE ONE Administration ORDERS Category Date Time Status CT lumbar spine wo con Stat Cat Scan 12/31/24 19:28 Completed UA [Urinalysis and Microscopic] Stat Lab 12/31/24 19:37 Completed Medical Decision Narrative: In summary, this patient is a 54-year-old male presenting to the Emergency Department for evaluation of low back pain and right leg pain. Differential diagnoses considered include but are not limited to lumbar radiculopathy, low back pain with sciatica, musculoskeletal strain/sprain, cauda equina syndrome, spinal cord compression, disc radiation, fracture. Ruling out the most morbid conditions drove assessment. It should be noted patient's history includes chronic back pain, hyperlipidemia which may or may not be at goal therapy. This complicates all aspects of care by increasing patient's risk for morbidity. I reviewed patient's past medical records and noted previous evaluations for back pain with radiculopathy in the past. On exam, the patient has right-sided low back tenderness with positive straight leg raise on the right. He is neurologically intact in his lower extremities. No calf pain, redness, tenderness that would suggest DVT. No skin changes at all. Workup included CT lumbar spine, urinalysis, postvoid residual bladder ultrasound. He had 0 mL on postvoid residual. He was given oral gabapentin, Robaxin, Tylenol, topical Lidoderm patch, and IM Toradol for symptomatic improvement of pain. I independently interpreted CT scan prior to the radiologist read and noted no acute fracture. Please see their read for final interpretation. They note degenerative change, spinal canal stenosis, neuroforaminal stenosis which I feel is likely the cause of the patient's pain and radiculopathy. Urinalysis is not concerning for infection. On reassessment, the patient had improvement in his symptoms after interventions above. He is feeling better. He is neurologically intact in his lower extremities with no urinary retention, so I do not feel that he has cauda equina syndrome or spinal cord compression. I feel he is appropriate for discharge home with prescriptions for gabapentin, Robaxin, prednisone, and instructions for close follow-up with pain management as well as with primary care. Strict return precautions were given Critical Care Critical Care Time Critical Care Time: No
[2024-12-31 19:41] LABS: Microscopic, Urine URINE MICROSCOPIC (MICROSCOPIC)
[2024-12-31 19:44] LABS: Appearance,Urine CLEAR (Clear); Bilirubin,Urine Negative (Negative); Blood, Urine Negative (Negative); Color,Urine YELLOW (Yellow); Glucose,Urine (UA) Negative (Negative); Ketones,Urine Negative (Negative); Leukocyte Esterase,Urine Negative (Negative); Nitrate,Urine Negative (Negative); Protein,Urine Negative (Negative); Specific Gravity, Urine >= 1.030 (1.005-1.030); Urobilinogen,Urine 0.2 EU/dl (0.2)
--- NOTE | 2024-12-31 19:47 | PC.NURSE ---
Post Void bladder scan shows 0mL in bladder
[2024-12-31] MEDS: LIDOCAINE 5% TRANSDERMAL PATCH 1 EACH TD (19:51)
[2024-12-31] MEDS: GABAPENTIN 300MG CAPSULE 300 MG PO (19:51)
[2024-12-31] MEDS: KETOROLAC 30MG/ML VIAL 30 MG IM (19:51)
[2024-12-31] MEDS: ACETAMINOPHEN 500MG TAB 1000 MG PO (19:51)
[2024-12-31] MEDS: METHOCARBAMOL 500MG TABLET 1000 MG PO (19:51)
[2024-12-31 20:08] LABS: WBC,Urine Occasional #/hpf (0-3)
[2024-12-31 20:54] VITALS: BP 188/90; PULSE 48; O2SAT 98
[2024-12-31 21:09] VITALS: BP 163/85; PULSE 54; RESP 18; TEMP 36.6; O2SAT 98
== END 2024-12-31 21:10 | disposition home or self-care (01) ==
PROVIDERS: Emergency Provider Emergency Medicine; PCP Nurse Practitioner Family
DX: M48.061 Spinal stenosis, lumbar region without neurogenic claudication (principal); M54.16 Radiculopathy, lumbar region; M79.604 Pain in right leg
CPT/HCPCS: 72131; 81001; 96372; 99284; J1885

== ENCOUNTER 2025-02-24 10:40 | Outpatient (CLI) | payer MEDICARE, SELFPAY ==
--- OUTSIDE RECORDS SUMMARY | 2024-12-29 17:31 | XMS_ITS | Encounter Summary ---
Author Organization [place] [address] Care Team Providers Care Collection Support Specialist Name Role Phone Nonstaff, Referring Primary Care Provider Fernando howell Reason for Visit * Reason Comments Leg Pain R leg pain onset of worsening yesterday with pain worsening Recent shot, and now the pain is harder Encounter Details Date Type Department Care Team (Late st Contact Info) Description 12/29/2024 5:31 PM EDT - 12/29/2024 7:23 PM EDT Emergency [facility] [address] [place] [address] Hugo Dunham MD [address] [place] [address] Chronic right-sided low back pain with right-sided sciatica (Primary Dx); Urinary incontinence, unspecified type Discharge Disposition: Home or Self Care Social History Tobacco Use Types Packs/Day Years Used Date Smoking Tobacco: Never Smokeless Tobacco: Never Alcohol Use Standard Drinks/Week Comments Yes 0 (1 standard drink = 0.6 oz pur e alcohol) rarely Sex and Gender Information Value Date Recorded Sex Assigned at Not on file Legal Sex Male 3:03 AM EDT Gender Identity Not on file Sexual Orientation Not on file documented as of this encounter Last Filed Vital Signs Vital Sign Reading Time Taken Comments Blood Pressure 144/74 12/29/2024 5:32 PM EDT Pulse 64 12/29/2024 5:25 PM EDT Temperature 36.8 C (98.2 F) 12/29/2024 5:37 PM EDT Respiratory Rate 16 12/29/2024 5:25 PM EDT Oxygen Saturation 98% 12/29/2024 5:25 PM EDT Inhaled Oxygen Concentration - - Weight - - Height - - Body Mass Index - - documented in this encounter Functional Status * Suicide Severity Rating Answer Date of Assessment Author No Risk 12/29/2024 5:28 PM EDT Griselda Griffith RN * [place] Suicide Severity Rating Scale (Q shift for moderate and high) Question Answer Date of Assessment Author 1. In the past month, have you wished you were or wished you could go to sleep and not wake up? 0 12/29/2024 5:28 PM EDT Griselda Griffith RN 2. In the past month, have you actually had any thoughts of killing yourself? (If no, skip to question 6) 0 12/29/2024 5:28 PM EDT Griselda Griffith RN 6. Have you ever done anything, started to do anything, or prepared to do anything to end your life? 0 12/29/2024 5:28 PM EDT Denise Griffith RN documented as of this encounter Discharge Instructions * Discharge Instructions* Delon Cunha APRN - 12/29/2024 7:[address] to [facility] Emergency Department at [address] [place] [address] Leah Hairston, [place] [address] to have MRI. documented in this encounter Medications at Time of Discharge aspirin 81 mg Oral Tablet, Delayed Release (E.C.) 81 mg. 07/04/2020 fenofibrate (TRICOR) 145 mg Oral Tablet Take 145 mg by mouth daily. 07/15/2023 lamoTRIgine (LAMICTAL) 200 mg Oral Tablet 200 mg 2 times daily. 07/15/2023 omeprazole (PRILOSEC) 20 mg Take 1 Cap by mouth daily. 20 Cap 0 06/06/2011 prochlorperazine (COMPAZINE) 10 mg tablet Take 1 Tab by mouth every 6 hours as needed for Nausea (or headache). 30 Tab 2 05/19/2012 XARELTO 10 mg Oral Tablet 03/31/2024 documented as of this encounter Discharge Disposition Disposition Code Departure Means Destination Comment s Home or Self [facility]itent[facility] documented in this encounter ED Notes * Delon Cunha, WIRE COATING MACHINE OPERATOR - 12/29/2024 5:21 PM EDT CHIEF COMPLAINT Chief Complaint Patient presents with Leg Pain R leg pain onset of worsening yesterday with pain worsening Recent shot, and now the pain is harder I saw this patient for my attending physician Dr Dunham, Hugo Yeboah MD who was available for directconsultation during assessment, workup and disposition planning. ED COURSE & MEDICAL DECISION MAKING Sincere Randhawa is a 54 y.o. male with a PMHx listed below, presenting with low back and right lowerextremity pain. # Low back pain with right-sided sciatica (Chronic) - On exam, patient nontoxic and hemodynamically stable. No focal neurologic deficit. Patient independently ambulatory with steady gait. No perceivable lateralizing lower extremity weakness. Primarilyright-sided low back pain with associated sciatica. He does report some urinary incontinence which is certainly concerning. No reported infectious symptoms or current anticoagulant use. No reported trauma. He does also have history of DVT presumably provoked as he is no longer on anticoagulant therapy. No forthright obvious clinical exam findings consistent with a thromboembolic disease process. No evidence of neurovascular compromise. Palpable DP PT pulses distally with brisk capillary refill.Will plan on D-dimer to screen for thrombolic risk. Will attempt to get MRI to rule out space-occupying central lesion although suspicion at this time is fairly low. Suspect benign musculoskeletal etiology. Will trial NSAIDs and muscle relaxants for pain. D-dimer reassuring against thromboembolic disease. Unable to facilitate MRI and in light of this reported urinary incontinence do feel it necessary to rule out central neurologic process although additional historical findings, lack of risk factors and physical exam are all reassuring against currently. Case was discussed briefly with provider at [facility]. Patient will be transferred there via private vehicle to facilitate MRI imaging studies. - History obtained by patient and family member at bedside as well as chart review. - Pertinent Labs & Imaging studies reviewed. (See chart for ordered tests and details). - Independent Imaging Interpretation: None - Consultants: None - Social Determinants of Health: Patient is primarily Norwegian-speaking which obviously complicates all aspects of care. Patient deferred formal interpreting services today with bilingual family emberat bedside - Care of patient discussed with nursing team and nursing documentation reviewed. ED COURSE Medications Administered Medications ketorolac (TORADOL) injection 30 mg (30 mg Intramuscular Given 12/29/241800) methocarbamoL (ROBAXIN) tablet 1,000 mg (1,000 mg Oral Given 12/29/241801) Prescriptions Written ED Current Prescriptions None Future Appointments No future appointments. FINAL IMPRESSION 1. Chronic right-sided low back pain with right-sided sciatica 2. Urinary incontinence, unspecified type HPI Sincere Randhawa is a 54 y.o. male presenting with low back and right lower extremity pain. Patient'sfamily member at bedside provides translation as patient is primarily Norwegian-speaking. Formal interpreting services were deferred by patient. He reports at least a year long history of worsening low back pain. It is primarily right-sided. He reports worsening of radiating pain into his hip down his right lower extremity all the way to his foot. This has increased in severity over the past coupleof days and yesterday while eating at a restaurant he went to get up and felt a pop behind his knee. He states he was unable to ambulate for some time but eventually the pain subsided or improved to the point where he was able to ambulate. He denies any focal weakness of the right lower extremity but reports worsening pain with ambulation. He also reports occasional urinary incontinence where hedoes not feel the sensation of having to go to the bathroom. He denies any saddle paresthesias, loss of bowel continence or constipation or urinary hesitancy however. He denies any radiating abdominal pain. He denies any lower extremity swelling. He describes the pain in his right lower extremity is more of a throb and the pain in his back is more of a ache . He was on anticoagulants for some time due to presumably a provoked DVT but is no longer on anticoagulants per family at bedside. Denies any chest pain or shortness of breath. REVIEW OF SYSTEMS A complete review of systems is negative except as noted in the HPI. PAST MEDICAL HISTORY Past Medical History: Diagnosis Date Heartburn Seizures (HCC) Shortness of breath FAMILY HISTORY No family history on file. SOCIAL HISTORY Social History Socioeconomic History Marital status: Single Spouse name: None Number of children: None Years of education: None Highest education level: None Tobacco Use Smoking status: Never Smokeless tobacco: Never Vaping Use Vaping status: Never Used Substance and Sexual Activity Alcohol use: Yes Comment: rarely Drug use: No Social Drivers of Health Food Insecurity: High Risk (06/20/2024) Received from [facility] SDOH Screening In the past 2 months, did you or others you live with eat smaller meals or skip meals because you didn't have money for food?: Yes Received from [facility] Family and Community Support Received from [facility] Abuse Screen Received from [facility] Housing Stability SURGICAL HISTORY Past Surgical History: Procedure Laterality Date BRAIN SURGERY CURRENT MEDICATIONS No current facility-administered medications on file prior to encounter. Current Outpatient Medications on File Prior to Encounter Medication Sig Dispense Refill aspirin 81 mg Oral Tablet, Delayed Release (E.C.) 81 mg. fenofibrate (TRICOR) 145 mg Oral Tablet Take 145 mg by mouth daily. lamoTRIgine (LAMICTAL) 200 mg Oral Tablet 200 mg. omeprazole (PRILOSEC) 20 mg Take 1 Cap by mouth daily. 20 Cap 0 prochlorperazine (COMPAZINE) 10 mg tablet Take 1 Tab by mouth every 6 hours as needed for Nausea (or headache). 30 Tab 2 XARELTO 10 mg Oral Tablet (Patient not taking: Reported on 11/05/2024) ALLERGIES Allergies Allergen Reactions Adhesive Tape-Silicones Hydrocodone PHYSICAL EXAM VITAL SIGNS: ED Triage Vitals [12/29/24 1725] Temp Pulse 64 Resp 16 BP SpO2 98 % Height Weight Constitutional: Appears comfortable. No acute distress. Nontoxic. HENT: Atraumatic. Normocephalic. Eyes: Conjunctiva normal. EOMI Neck: ROM normal, supple. Cardiovascular: Regular rate and regular rhythm. Extremities appear warm and well perfused. Thorax & Lungs: Respiratory effort normal. Abdomen: Nondistended. Nontender. Musculoskeletal: No deformity or swelling. Diffuse tenderness along the paraspinal muscles of the right lower lumbar sacral region without obvious midline tenderness, step-off or deformity. Moves all4 extremities spontaneously with apparent equal strength. Skin: Warm and dry. Neurologic: Awake and alert. A&O x 4. , Speech without aphasia or dysarthria and mentation normal., CN II-XII grossly intact., 5/5 strength in all 4 distal extremities., Sensation grossly intact to light touch in BUE and BLE., No arm or leg drift., and intact, steady and independently ambulatory gait. LABS/RADIOLOGY Reviewed (See Orders) Results for orders placed or performed during the hospital encounter of 12/29/24 CBC WITH DIFF Result Value Ref Range WBC 4.6 3.7 - 10.3 x10(3)/mcL RBC 4.54 (L) 4.60 - 6.10 x10(6)/mcL Hgb 13.6 (L) 13.7 - 17.5 g/dL Hct 39.0 (L) 40.0 - 51.0 % MCV 85.9 80.0 - 100.0 fL MCH 30.0 26.0 - 34.0 pg MCHC 34.9 30.7 - 35.5 g/dL RDW 12.6 <=14.9 % Platelet 181 155 - 369 x10(3)/mcL MPV 10.8 8.8 - 12.5 fL Neut Percent 50.8 % Imm Gran% 0.2 % Lymph Percent 38.5 % Travis Percent 6.7 % Eos Percent 3.2 % Baso Percent 0.6 % Neut # 2.3 1.6 - 6.1 x10(3)/mcL IMMGRAN# 0.0 0.0 - 0.1 x10(3)/mcL Lymph # 1.8 1.2 - 3.9 x10(3)/mcL Travis # 0.3 0.3 - 0.9 x10(3)/mcL Eos# 0.2 0.0 - 0.5 x10(3)/mcL Baso # 0.0 0.0 - 0.1 x10(3)/mcL BASIC METABOLIC PANEL Result Value Ref Range Sodium 139 136 - 145 mmol/L Potassium 3.6 3.5 - 5.0 mmol/L Chloride 104 98 - 107 mmol/L Total CO2 22 22 - 29 mmol/L Anion Gap 13 7 - 16 mmol/L Calcium 8.7 8.6 - 10.4 mg/dL Glucose Lvl 186 (H) 70 - 99 mg/dL BUN 13 6 - 20 mg/dL Creatinine 0.77 0.67 - 1.30 mg/dL eGFR (CKD-EPIcr 2020) 106 >=60 mL/min/1.73 m2 D-DIMER Result Value Ref Range D-Dimer <215 <=500 ng/mL FEU Narrative For patients between the ages of 50 - 75, an age-adjusted D-Dimer cut-off in combination with non-high clinical probability may be considered for the exclusion of venous thromboembolism (calculation = age x 10). DUY Fernandez, et al. Lizeth Ball Sorter Med. 2017;166(5):361-363 GERRI Birmingham, et al. Lizeth Ball Sorter Med. 2015;(163):701-711. Shelley Ugalde, et al. SHARA. 2014;(11):2173-4878. MRI LUMBAR SPINE WO CONTRAST (Results Pending) Abnormal Labs Reviewed CBC WITH DIFF - Abnormal; Notable for the following components: Result Value RBC 4.54 (*) Hgb 13.6 (*) Hct 39.0 (*) All other components within normal limits BASIC METABOLIC PANEL - Abnormal; Notable for the following components: Glucose Lvl 186 (*) All other components within normal limits EKG PROCEDURES/ULTRASOUND DISPOSITION The patient has been transferred to [facility] emergency department CRITICAL CARE Condition at Discharge/Transfer from Department/Shift Turnover: Improved In cases where narcotics are prescribed, JONAH report was obtained, reviewed, and made part of record. After examining available information, and risks of prescribing or dispensing controlled substances was explained to the patient (including non-treatment or other treatment), it is considered medically appropriate to administer narcotics as prescribed. This note was dictated using voice-recognition software, which occasionally construes inadvertent typographic errors. Delon Cunha APRN 12/29/241931 Cosigned by Hugo Dunham MD at 12/29/2024 11:20 PM EDT Associated attestation - Hugo Dunham MD - 12/29/2024 11:20 PM EDT I have reviewed the chief complaint and history of the present illness and review of systems as well as the past medical/social/family history sections for this patient. I have participated in the care for this patient. I personally approve the management plan for this patient. This chart was completed using voice recognition technology and may contain unintended errors documented in this encounter Plan of Treatment Not on file documented as of this encounter Procedures Procedure Name Priority Date/Time Associated Diagnosis Comments D-DIMER STAT 12/29/2024 6:11 PM EDT CBC WITH DIFF STAT 12/29/2024 6:11 PM EDT BASIC METABOLIC PANEL STAT 12/29/2024 6:11 PM EDT documented in this encounter Results * D-DIMER (12/29/2024 6:11 PM EDT) D-Dimer <215 <=500 ng/mL FEU 12/29/2024 6:31 PM EDT [facility] Comment:This is an automated latex enhanced immunoassay for the quantitative determination of D-Dimer that may be used, in conjunction with a clinical pretest probability assessment, to exclude venous thromboembolism in patients suspected of deep venous thrombosis (DVT) and pulmonary embolism (PE). The cutoff for exclusion of DVT and PE is 500 ng/mL Fibrinogen Equivalent Units (FEU). Elevated D-Dimer levels may be associated with PE, DVT, disseminated intravascular coagulation, recent surgery, recent bleeding, , malignancy, and inflammation. Blood VENOUS BLOOD / Unknown Venipuncture / Unknown 12/29/2024 6:11 PM EDT 12/29/2024 6:13 PM EDT Narrative [facility] - 12/29/2024 6:31 PM EDT For patients between the ages of 50 - 75, an age-adjusted D-Dimer cut-off in combination with non-high clinical probability may be considered for the exclusion of venous thromboembolism (calculation = age x 10). DUY Fernandez, et al. Lizeth Ball Sorter Med. 2017;166(5):361-363 GERRI Birmingham, et al. Lizeth Ball Sorter Med. 2015;(163):701-711. Shelley Ugalde, et al. SHARA. 2014;(11):9465-2577. us Delon Walker E[place] WIRE COATING MACHINE OPERATOR HEMATOLOGY ORDERABLES Fi nal Result [facility] [address] [place] [address] * (ABNORMAL) BASIC METABOLIC PANEL (12/29/2024 6:11 PM EDT) Sodium 139 136 - 145 mmol/L 12/29/2024 6:32 PM EDT [facility] Potassium 3.6 3.5 - 5.0 mmol/L 12/29/2024 6:32 PM EDT [facility] Chloride 104 98 - 107 mmol/L 12/29/2024 6:32 PM EDT [facility] Total CO2 22 22 - 29 mmol/L 12/29/2024 6:32 PM EDT [facility] Anion Gap 13 7 - 16 mmol/L 12/29/2024 6:32 PM T [facility] Calcium 8.7 8.6 - 10.4 mg/dL 12/29/2024 6:32 PM T [facility] Glucose Lvl 186(H) 70 - 99 mg/dL 12/29/2024 6:32 PM EDT [facility] BUN 13 6 - 20 mg/dL 12/29/2024 6:32 PM EDT [facility] Creatinine 0.77 0.67 - 1.30 mg/dL 12/29/2024 6:32 PM T [facility] eGFR (CKD-EPIcr 2020) 106 >=60 mL/min/1.7 3 m2 12/29/2024 6:32 PM T [facility] Comment:Estimated GFR was ca lculated using the CKD-EPIcr (2020) equation refit without race. The equation is recommended by the National Kidney Foundation - [place] [employer] Neph[employer] Task Force. Blood VENOUS BLOOD / Unknown Venipuncture / Unknown 12/29/2024 6:11 PM EDT 12/29/2024 6:13 PM EDT us Delon Walker Eiedgarlois WIRE COATING MACHINE OPERATOR CHEMISTRY ORDERABLES Fin al Result [facility] [address] [place] [address] * (ABNORMAL) CBC WITH DIFF (12/29/2024 6:11 PM EDT) WBC 4.6 3.7 - 10.3 x10(3)/mcL 12/29/2024 6:17 PM EDT [facility] RBC 4.54(L) 4.60 - 6.10 x10(6)/mcL 12/29/2024 6:17 PM EDT [facility] Hgb 13.6(L) 13.7 - 17.5 g/dL 12/29/2024 6:17 PM EDT [facility] Hct 39.0(L) 40.0 - 51.0 % 12/29/2024 6:17 PM EDT [facility] MCV 85.9 80.0 - 100.0 fL 12/29/2024 6:17 PM EDT [facility] MCH 30.0 26.0 - 34.0 pg 12/29/2024 6:17 PM EDT [facility] MCHC 34.9 30.7 - 35.5 g/dL 12/29/2024 6:17 PM EDT [facility] RDW 12.6 <=14.9 % 12/29/2024 6:17 PM EDT [facility] Platelet 181 155 - 369 x10(3)/mcL 12/29/2024 6:17 PM EDT [facility] MPV 10.8 8.8 - 12.5 fL 12/29/2024 6:17 PM EDT [facility] Neut Percent 50.8 % 12/29/2024 6:17 PM EDT [facility] Comment:Neutrophils equals s egs plus bands Imm Gran% 0.2 % 12/29/2024 6:17 PM EDT [facility] Comment:Automated count of m etamyelocytes, myelocytes and promyelocytes. Lymph Percent 38.5 % 12/29/2024 6:17 PM EDT [facility] Travis Percent 6.7 % 12/29/2024 6:17 PM EDT [facility] Eos Percent 3.2 % 12/29/2024 6:17 PM EDT [facility] Baso Percent 0.6 % 12/29/2024 6:17 PM EDT [facility] Neut # 2.3 1.6 - 6.1 x10(3)/[facility] 12/29/2024 6:17 PM T [facility] Comment:Neutrophils equals s egs plus bands IMMGRAN# 0.0 0.0 - 0.1 x10(3)/[facility] 12/29/2024 6:17 PM T [facility] Comment:Automated count of m etamyelocytes, myelocytes and promyelocytes. An absolute IG <0.1 is reported as 0.0. Lymph # 1.8 1.2 - 3.9 x10(3)/[facility] 12/29/2024 6:17 PM EDT [facility] Travis # 0.3 0.3 - 0.9 x10(3)/[facility] 12/29/2024 6:17 PM EDT [facility] Eos# 0.2 0.0 - 0.5 x10(3)/[facility] 12/29/2024 6:17 PM EDT [facility] Baso # 0.0 0.0 - 0.1 x10(3)/[facility] 12/29/2024 6:17 PM EDT [facility] Blood VENOUS BLOOD / Unknown Venipuncture / Unknown 12/29/2024 6:11 PM EDT 12/29/2024 6:13 PM EDT us Delon Cunha WIRE COATING MACHINE OPERATOR HEMATOLOGY ORDERABLES Fi nal Result [facility] [address] [place] [address] documented in this encounter Visit Diagnoses Diagnosis Chronic right-sided low back pain with right-sided sciatica- Primary Urinary incontinence, unspecified type documented in this encounter Administered Medications Inactive Administered Medications - up to 1 most recent administrations Medication Order MAR Action Action Date Dose Rate Site ketorolac (TORADOL) injection 30 mg 30 mg, Intramuscular, ONCE, 1 dose, On Fri12/29/24 at 1745, For IV Administration: Give undiluted over at least 15 seconds. Maximum IV dose is 30mg. For IM Administration: Give undiluted, slowly and deeply into the muscle. Given 12/29/2024 6:01 PM EDT 30 mg Right Arm methocarbamoL (ROBAXIN) tablet 1,000 mg 1,000 mg, Oral, ONCE, 1 dose, On Fri12/29/24 at 1745 Given 12/29/2024 6:02 PM EDT 1,000 mg documented in this encounter Active and Recently Administered Medications Times are shown in EDT. Scheduled Medication Order 12/27/2024 12/28/2024 12/29/2024 ketorolac (TORADOL) injection 30 mg (COMPLETED) 30 mg, Intramuscular, ONCE, 1 dose, On Fri12/29/24 at 1745, For IV Administration: Give undiluted over at least 15 seconds. Maximum IV dose is 30mg. For IM Administration: Give undiluted, slowly and deeply into the muscle. 180 (Given - Provid er: Lidna Watt RN) methocarbamoL (ROBAXIN) tablet 1,000 mg (COMPLETED) 1,000 mg, Oral, ONCE, 1 dose, On Fri12/29/24 at 1745 180 (Given - Provid er: Linda Watt RN) documented in this encounter Care Teams Collection Support Specialist Relationship Specialty Start Date End Date Nonstaff, Referring PCP - General 04/25/11 documented as of this encounter
--- OUTSIDE RECORDS SUMMARY | 2024-12-29 20:24 | XMS_ITS | Encounter Summary ---
Author Organization [place] [address] Care Team Providers Care Marine Fire Fighter Name Role Phone Nonstaff, Referring Primary Care Provider Fernando howell Reason for Visit * Reason Comments Hip Pain Was sent from [facility] for mri lumbar for right hip pain Encounter Details Date Type Department Care Team (Late st Contact Info) Description 12/29/2024 8:24 PM EDT - 12/29/2024 10:59 PM EDT Emergency [facility] [address] [id number] Saroj Gonzalez MD [address] [place] [id number] Discharge Disposition: Left Without Being Seen Social History Tobacco Use Types Packs/Day Years [...] Sign Reading Time Taken Comments Blood Pressure 136/74 12/29/2024 8:47 PM EDT Pulse 54 12/29/2024 8:47 PM EDT Temperature 36.7 C (98 F) 12/29/2024 8:47 PM EDT Respiratory Rate 16 12/29/2024 8:26 PM EDT Oxygen Saturation 99% 12/29/2024 8:47 PM EDT Inhaled Oxygen Concentration - - Weight 84.8 kg (187 lb) 12/29/2024 8:47 PM EDT Height - - Body Mass Index 29.29 06/28/2024 5:59 PM EST documented in this encounter Functional Status * Suicide Severity Rating Answer Date of Assessment Author No Risk 12/29/2024 5:28 PM EDT Griselda Griffith RN * [place] Suicide Severity Rating Scale (Q shift for [...] Griffith RN documented as of this encounter Medications at Time of Discharge [...] Discharge Disposition Disposition Code Departure Means Destination Left Without Being Seen Home documented in this encounter ED Notes * Joselin Do sSantos - 12/29/2024 10:52 PM EDT Order for MRI placed. On-call cartography technician notified @[id number] documented in this encounter Plan of Treatment Not on file documented as of this encounter Visit Diagnoses Not on filedocumented in this encounter Care Teams Marine Fire Fighter Relationship Specialty Start Date End Date Nonstaff, Referring PCP - General 04/25/11 documented as of this encounter
--- OUTSIDE RECORDS SUMMARY | 2025-02-21 21:01 | XMS_ITS | Encounter Summary ---
Author Organization [place] [address] Care Team Providers Care Correctional Substance Abuse Counselor Name Role Phone Nonstaff, Referring Primary Care Provider Fernando howell Reason for Visit * Reason Comments Allergies Started 2 days ago w ith runny nose, watery eyes, headache, + cough, itchy eyes, sneezing, this all started after working in the garden. Certified Procedural Coder; benadry Encounter Details Date Type Department Care Team (Late st Contact Info) Description 02/21/2025 9:01 PM EDT - 02/21/2025 9:42 PM EDT [facility] [address] [facility] [place] [address] Nico Dyson MD [address] [place] [address] Seasonal allergic rhinitis, unspecified trigger (Primary Dx); Allergic conjunctivitis of both eyes Discharge Disposition: Home or Self Care Social [...] Sign Reading Time Taken Comments Blood Pressure 133/65 02/21/2025 9:40 PM EDT Pulse 60 02/21/2025 9:40 PM EDT Temperature 36.7 C (98.1 F) 02/21/2025 9:11 PM EDT Respiratory Rate 20 02/21/2025 9:40 PM EDT Oxygen Saturation 98% 02/21/2025 9:40 PM EDT Inhaled Oxygen Concentration - - Weight 83.9 kg (185 lb) 02/21/2025 8:59 PM EDT Height 170.2 cm (5' 7 ) 02/21/2025 8:59 PM EDT Body Mass Index 28.98 02/21/2025 8:59 PM EDT documented in this encounter Functional Status * Suicide Severity Rating Answer Date of Assessment Author No Risk 02/21/2025 9:01 PM EDT Jessica Gonzalez RN * [place] Suicide Severity Rating Scale (Q shift for moderate and high) Question Answer Date of Assessment Author 1. In the past month, have you wished you were or wished you could go to sleep and not wake up? 0 02/21/2025 9:01 PM EDT Jessica Gonzalez RN 2. In the past month, have you actually had any thoughts of killing yourself? (If no, skip to question 6) 0 02/21/2025 9:01 PM EDT Jessica Gonzalez RN 6. Have you ever done anything, started to do anything, or prepared to do anything to end your life? 0 02/21/2025 9:01 PM EDT Portillo Gonzalez RN documented as of this encounter Discharge Instructions * Discharge Instructions* Nico Dyson MD - 02/21/2025 9:15 PM EDT TAKE ZYRTEC 10 MG DAILY USE OPCON A EYE DROPS TWICE DAILY USE NASACORT NASAL SPRAY DAILY COOL COMPRESSES TO THE FACE NEEDED RECHECK IN A WEEK IF NO BETTER * Attachments The following attachments cannot be sent through Care Everywhere. * How to use eye medicines (Danish) * Environmental allergies in adults (Danish) * How to use nasal medicines (Danish) documented in this encounter Medications at Time [...] Means Destination Comment s Home or Self Halfway documented in this encounter ED Notes * Nico Dyson MD - 02/21/2025 8:56 PM EDT CHIEF COMPLAINT Chief Complaint Patient presents with Allergies Started 2 days ago with runny nose, watery eyes, headache, + cough, sneezing, this all started after working in the garden. Certified Procedural Coder; benadry HPI Sincere Larry is a 54 y.o. male who presents with complaint of runny nose watery eyes headache coughing and sneezing. Symptoms started after working in garden 2 days ago. He has taken Benadryl with no improvement. He denies any fever or chills. He has not experienced any shortness of breath. He denies any headache lightheadedness or dizziness. REVIEW OF SYSTEMS See HPI for further details. Review of systems otherwise negative. PAST MEDICAL HISTORY Past Medical History: Diagnosis [...] Food Insecurity: High Risk (06/20/2024) Received from [facility] SDOH Screening In the past 2 months, did you or others you live with eat smaller meals or skip meals because you didn't have money for food?: Yes Received from [facility] Family and Community Support Received from [facility] Abuse Screen Received from [facility] Housing Stability SURGICAL HISTORY Past Surgical History: Procedure Laterality Date BRAIN SURGERY CURRENT MEDICATIONS No current facility-administered medications for this encounter. Current Outpatient Medications: aspirin 81 mg Oral Tablet, Delayed Release (E.C.), 81 mg., Disp: , Rfl: fenofibrate (TRICOR) 145 mg Oral Tablet, Take 145 mg by mouth daily., Disp: , Rfl: lamoTRIgine (LAMICTAL) 200 mg Oral Tablet, 200 mg 2 times daily., Disp: , Rfl: omeprazole (PRILOSEC) 20 mg, Take 1 Cap by mouth daily., Disp: 20 Cap, Rfl: 0 prochlorperazine (COMPAZINE) 10 mg tablet, Take 1 Tab by mouth every 6 hours as needed for Nausea (or headache)., Disp: 30 Tab, Rfl: 2 XARELTO 10 mg Oral Tablet, , Disp: , Rfl: ALLERGIES Allergies Allergen Reactions Adhesive Tape-Silicones Hydrocodone PHYSICAL EXAM VITAL SIGNS: Pulse 68 Resp 20 Ht 5' 7 (1.702 m) Wt 185 lb (83.9 kg) SpO2 96% BMI 28.98 kg/m?? Constitutional: Well developed, Well nourished, No acute distress, Non-toxic appearance. HENT: Normocephalic, Atraumatic, Bilateral external ears normal, Oropharynx moist, No oral exudates, Nose congested. Eyes: PERRLA, EOMI, Conjunctiva engorged bilaterally, No discharge. Neck: Normal range of motion, No tenderness, Supple, No stridor. Lymphatic: No lymphadenopathy noted. Cardiovascular: Normal heart rate, Normal rhythm, No murmurs, No rubs, No gallops. Thorax & Lungs: Normal breath sounds, No respiratory distress, No wheezing, No chest tenderness. Abdomen: Bowel sounds normal, Soft, No tenderness, No masses, No pulsatile masses. Skin: Warm, Dry, No erythema, No rash. Back: No tenderness, No CVA tenderness. Extremities: Intact distal pulses, No edema, No tenderness, No cyanosis, No clubbing. Musculoskeletal: Good range of motion in all major joints. No tenderness to palpation or major deformities noted. Neurologic: Alert & oriented x 3, Normal motor function, Normal sensory function, No focal deficits noted. Psychiatric: Affect normal, Judgment normal, Mood normal. RADIOLOGY/PROCEDURES/LABS/EKG COURSE & MEDICAL DECISION MAKING Pertinent Labs & Imaging studies reviewed. (See chart for details) Patient presents with runny eyes conjunctival engorgement runny nose and stuffiness. Patient appears to be suffering from seasonal allergic rhinitis and conjunctivitis. He will be discharged home with instructions to take Zyrtec, Nasacort, and Opcon a eyedrops and recheck in a few days if symptoms do not improve. FINAL IMPRESSION 1. Seasonal allergic rhinitis, unspecified trigger 2. Allergic conjunctivitis of both eyes Electronically signed by: Nico Dyson MD, 02/21/2025 9:03 PM Nico Dyson MD 02/21/252115 documented in this encounter Plan of Treatment Not on file documented as of this encounter Visit Diagnoses Diagnosis Seasonal allergic rhinitis, unspecified trigger- Primary Allergic conjunctivitis of both eyes Other chronic allergic conjunctivitis documented in this encounter Care Teams Correctional Substance Abuse Counselor Relationship Specialty Start Date End Date Nonstaff, Referring PCP - General 04/25/11 documented as of this encounter
--- OUTSIDE RECORDS SUMMARY | 2025-02-24 10:46 | XMS_ITS | Encounter Summary ---
Author Organization [facility] [place] [address] Care Team Providers Care Shovel Mechanic Name Role Phone Nonstaff, Referring Primary Care Provider Fernando howell Encounter Details Date Type Department Care Team (Latest Contact Info) Description 02/21/2025 Travel Social History Tobacco Use Types Packs/Day Years [...] on file documented as of this encounter Functional Status * Suicide Severity Rating Answer Date of Assessment Author No Risk 02/21/2025 9:01 PM BASSEMT Jessica Gonzalez RN * [place] Suicide Severity Rating Scale (Q shift for moderate and high) Question Answer Date of Assessment Author 1. In the past month, have you wished you were or wished you could go to sleep and not wake up? 0 02/21/2025 9:01 PM Jessica Clark RN 2. In the past month, have you actually had any thoughts of killing yourself? (If no, skip to question 6) 0 02/21/2025 9:01 PM Jessica Clark RN 6. Have you ever done anything, started to do anything, or prepared to do anything to end your life? 0 02/21/2025 9:01 PM BASSEMT Portillo Gonzalez RN documented as of this encounter Plan of Treatment Not on file documented as of this encounter Visit Diagnoses Not on filedocumented in this encounter Care Teams Shovel Mechanic Relationship Specialty Start Date End Date Nonstaff, Referring PCP - General 04/25/11 documented as of this encounter
--- OUTSIDE RECORDS SUMMARY | 2025-02-24 10:47 | XMS_ITS | Encounter Summary ---
Author Organization [facility] [place] [address] Care Team Providers Care Fbi Investigator Name Role Phone Nonstaff, Referring Primary Care Provider Fernando howell Encounter Details Date Type Department Care Team (Latest Contact Info) Description 12/29/2024 Travel Social History Tobacco Use Types Packs/Day [...] 5:28 PM EDT Griselda Griffith RN * [place] Suicide Severity Rating Scale (Q shift for [...] Griffith RN documented as of this encounter Plan of Treatment Not on file documented as of this encounter Visit Diagnoses Not on filedocumented in this encounter Care Teams Fbi Investigator Relationship Specialty Start Date End Date Nonstaff, Referring PCP - General 04/25/11 documented as of this encounter
--- OUTSIDE RECORDS SUMMARY | 2025-02-24 10:47 | XMS_ITS | Clinical Summary ---
Author Organization [facility] Address [address] [place] [address] Phone Care Team Providers Care Test Baker Name Role Phone Nonstaff, Referring Primary Care Provider Unavai lable Allergies Active Allergy Reactions Criticality Noted Date Comments Adhesive Tape-Silicones 05/16/2012 Hydrocodone 04/25/2011 Medications omeprazole (PRILOSEC) 20 mg Take 1 Cap by mouth daily. 20 Cap 0 06/06/2011 Active prochlorperazine (COMPAZINE) 10 mg tablet Take 1 Tab by mouth every 6 hours as needed for Nausea (or headache). 30 Tab 2 05/19/2012 Active lamoTRIgine (LAMICTAL) 200 mg Oral Tablet 200 mg 2 times daily. 07/15/2023 Active XARELTO 10 mg Oral Tablet 03/31/2024 Active aspirin 81 mg Oral Tablet, Delayed Release (E.C.) 81 mg. 07/04/2020 Active fenofibrate (TRICOR) 145 mg Oral Tablet Take 145 mg by mouth daily. 07/15/2023 Active Encounters Date Type Department Care Team Description 02/21/2025 9:01 PM EDT - 02/21/2025 9:42 PM EDT Emergency [facility] [address] [place] [address] Nico Dyson MD Seasonal allergic rhinitis, unspecified trigger (Primary Dx); Allergic conjunctivitis of both eyes Discharge Disposition: Home or Self Care 02/21/2025 Travel 12/29/2024 8:24 PM EDT - 12/29/2024 10:59 PM EDT Emergency [facility] [place] [address] Saroj Gonzalez MD Discharge Disposition: Left Without Being Seen 12/29/2024 5:31 PM EDT - 12/29/2024 7:23 PM EDT [facility] [address] [facility] [place] [address] Hugo Dunham MD Chronic right-sided low back pain with right-sided sciatica (Primary Dx); Urinary incontinence, unspecified type Discharge Disposition: Home or Self Care 12/29/2024 Travel from Last 3 Months Immunizations Immunization Administration Dates Next Due Influenza Vaccine, Unspecified Formulation 05/17 Pneumococcal Polysaccharide 23 Valent 05/17/2012 Surgical History Surgery Date Site/Laterality Comments BRAIN SURGERY Medical History Medical History Date Comments Shortness of breath Heartburn Seizures (HCC) Social History Tobacco Use Types Packs/Day Years Used Date Smoking Tobacco: Never Smokeless Tobacco: Never Alcohol Use Standard Drinks/Week Comments Yes 0 (1 standard drink = 0.6 oz pur e alcohol) rarely Sex and Gender Information Value Date Recorded Sex Assigned at Not on file Legal Sex Male 3:03 AM EDT Gender Identity Not on file Sexual Orientation Not on file Obstetrics History Last Filed Vital Signs Vital Sign Reading [...] Mass Index 28.98 02/21/2025 8:59 PM EDT Plan of Treatment Health Maintenance Due Date Last Done Comments Wellness Exam Medicare 1972 DTaP/TDaP/Td (1 - Tdap) 1988 Hepatitis B Vaccine (1 of 3 - 19+ 3-dose series) 1988 Cologuard 2014 Colon Cancer Screening 2014 Colonoscopy 2014 FIT 2014 Sigmoidoscopy 2014 Virtual Colonography 2014 Pneumococcal Vaccine 50+ (2 of 2 - PCV) 2019 05/17/2012 Zoster (1 of 2) 2019 COVID-19 Vaccine (3 - season) 2024 05/04/2021, 04/13/2021 Influenza Vaccine (#1) 2025 2, 07/18/2021, 07/04/2020, Additional history exists Meningococcal B Vaccine Aged Out No l onger eligible based on patient's age to complete this topic Procedures Procedure Name Priority Date/Time Associated Diagnosis Comments D-DIMER STAT 12/29/2024 6:11 PM EDT BASIC METABOLIC PANEL STAT 12/29/2024 6:11 PM EDT CBC WITH DIFF STAT 12/29/2024 6:11 PM EDT from Last 3 Months Results * D-DIMER (12/29/2024 6:11 PM EDT) D-Dimer <215 <=500 ng/mL FEU 12/29/2024 6:31 PM EDT [facility] Comment:This is an automated latex [...] PM EDT 12/29/2024 6:13 PM EDT Narrative [facility] - 12/29/2024 6:31 PM EDT For patients between the ages of 50 - 75, an age-adjusted D-Dimer cut-off in combination with non-high clinical probability may be considered for the exclusion of venous thromboembolism (calculation = age x 10). DUY Fernandez, et al. Lizeth Meters Superintendent Med. 2017;166(5):361-363 GERRI Birmingham, et al. Lizeth Meters Superintendent Med. 2015;(163):701-711. Shelley Ugalde et al. SHARA. 2014;(11):1385-6700. Delon Cunha CIRCULAR HEAD SAW OPERATOR HEMATOLOGY ORDERABLES Fi nal Result [facility] [address] [place], [place] [id number] * (ABNORMAL) CBC WITH DIFF (12/29/2024 6:11 PM EDT) WBC 4.6 3.7 - 10.3 x10(3)/mcL 12/29/2024 6:17 PM EDT [facility] RBC 4.54(L) 4.60 - 6.10 x10(6)/mcL 12/29/2024 6:17 PM EDT [facility] Hgb 13.6(L) 13.7 - 17.5 g/dL 12/29/2024 6:17 PM EDT [facility] Hct 39.0(L) 40.0 - 51.0 % 12/29/2024 6:17 PM EDT [facility] MCV 85.9 80.0 - 100.0 fL 12/29/2024 6:17 PM EDT [facility] MCH 30.0 26.0 - 34.0 pg 12/29/2024 6:17 PM EDT [facility] MCHC 34.9 30.7 - 35.5 g/dL 12/29/2024 6:17 PM EDT [facility] RDW 12.6 <=14.9 % 12/29/2024 6:17 PM EDT [facility] Platelet 181 155 - 369 x10(3)/mcL 12/29/2024 6:17 PM EDT [facility] MPV 10.8 8.8 - 12.5 fL 12/29/2024 6:17 PM EDT [facility] Neut Percent 50.8 % 12/29/2024 6:17 PM EDT [facility] Comment:Neutrophils equals s egs plus bands Imm Gran% 0.2 % 12/29/2024 6:17 PM EDT [facility] Comment:Automated count of m etamyelocytes, myelocytes and promyelocytes. Lymph Percent 38.5 % 12/29/2024 6:17 PM EDT [facility] [place] Percent 6.7 % 12/29/2024 6:17 PM EDT [facility] Eos Percent 3.2 % 12/29/2024 6:17 PM EDT [facility] Baso Percent 0.6 % 12/29/2024 6:17 PM EDT [facility] Neut # 2.3 1.6 - 6.1 x10(3)/[facility] 12/29/2024 6:17 PM T [facility] Comment:Neutrophils equals s egs plus bands IMMGRAN# 0.0 0.0 - 0.1 x10(3)/mcL 12/29/2024 6:17 PM EDT [facility] Comment:Automated count of m etamyelocytes, myelocytes and promyelocytes. An absolute IG <0.1 is reported as 0.0. Lymph # 1.8 1.2 - 3.9 x10(3)/[facility] 12/29/2024 6:17 PM EDT [facility] [place] # 0.3 0.3 - 0.9 x10(3)/[facility] 12/29/2024 6:17 PM EDT [facility] Eos# 0.2 0.0 - 0.5 x10(3)/[facility] 12/29/2024 6:17 PM EDT [facility] Baso # 0.0 0.0 - 0.1 x10(3)/[facility] 12/29/2024 6:17 PM T [facility] Blood VENOUS BLOOD / Unknown Venipuncture / Unknown 12/29/2024 6:11 PM EDT 12/29/2024 6:13 PM EDT us Delon Cunha CIRCULAR HEAD SAW OPERATOR HEMATOLOGY ORDERABLES Fi nal Result [facility] [address] [place] [address] * (ABNORMAL) BASIC METABOLIC PANEL (12/29/2024 6:11 PM EDT) Sodium 139 136 - 145 mmol/L 12/29/2024 6:32 PM EDT [facility] Potassium 3.6 3.5 - 5.0 mmol/L 12/29/2024 6:32 PM EDT [facility] Chloride 104 98 - 107 mmol/L 12/29/2024 6:32 PM EDT [facility] Total CO2 22 22 - 29 mmol/L 12/29/2024 6:32 PM EDT [facility] Anion Gap 13 7 - 16 mmol/L 12/29/2024 6:32 PM T [facility] Calcium 8.7 8.6 - 10.4 mg/dL 12/29/2024 6:32 PM T [facility] Glucose Lvl 186(H) 70 - 99 mg/dL 12/29/2024 6:32 PM T [facility] BUN 13 6 - 20 mg/dL 12/29/2024 6:32 PM T [facility] Creatinine 0.77 0.67 - 1.30 mg/dL 12/29/2024 6:32 PM T [facility] eGFR (CKD-EPIcr 2020) 106 >=60 mL/min/1.7 3 m2 12/29/2024 6:32 PM T [facility] Comment:Estimated GFR was ca lculated using the CKD-EPIcr (2020) equation refit without race. The equation is recommended by the National Kidney Foundation - [place] [employer] of Nephrology Task Force. Blood VENOUS BLOOD / Unknown Venipuncture / Unknown 12/29/2024 6:11 PM EDT 12/29/2024 6:13 PM EDT us Delon Cunha CIRCULAR HEAD SAW OPERATOR CHEMISTRY ORDERABLES Fin al Result [facility] [address] [place], [place] [id number] from Last 3 Months Insurance A[employer] MEDICARE ADVANTAGE HMO-POS AARP MEDICARE CMPLT FS HMO MR Care Teams Test Baker Relationship Specialty Start Date End Date Nonstaff, Referring PCP - General 04/25/11
--- OUTSIDE RECORDS SUMMARY | 2025-02-24 10:47 | XMS_ITS | Data Portability ---
Author Organization [place] - [facility] Address [address] [place] [address] Care Team Providers Care Special Diet Cook Name Role Phone CHADWICK HOLLEY Primary Care Provider CHADWICK HOLLEY Referring Provider Assessment Encounter Date Assessment Date Assessment LastModified by Organization Details LastModified Time 05/28/2022 05/28/2022 PREVIOUS SUMMARY: # Dysphagia/ Heartburn - Continue Omeprazole - EGD scheduled - EUS added on- has RUQ abdominal pain, will get labs today. 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 [email or web address] Not available 05/28/2022 13:49:47 Plan of Treatment Reminders Order Date Submit Date Provider Last Modified By Organization Details Last Modified Time Details Appointments None record ed. Lab None record ed. Referral None record ed. Procedures None record ed. Surgeries None record ed. Imaging None record ed. Medication Orders None record ed. Patient TargetsNo targets recorded. Patient InstructionsNo instructions recorded. Reason for Referral None Reported. Results Created Date Observation Date Name Description Value Unit Range Abnormal Flag Note LastModifiedBy Organization Detail LastModifiedTime Result Notes None recorded. Problems Name Problem SNOMED Code Status Onset Date Resolution Date Notes Provider Name and Address Organization Details Recorded Time Constipation 36615285 Active 2021 Not Available [facility] 13:29:24 Problem Notes None recorded. Medical Equipment None Reported. Medications Name Sig Start Date Stop Date Status Note LastModified by Organization Details LastModified Time atorvastatin 40 mg tablet 1 tablet Orally Once a day for 30 day(s) active Not Available Not Available No t Available Lamictal 100 mg tablet 1 tablet Orally Once a day for 30 day(s) active Not Available Not Available No t Available Vitals Date Recorded Body weight Heart rate Systolic And Diastolic Provider Name and Address Organization Details Last Updated DateTime 05/28/2022 45553.08 g 54 /min 151/82 mm[Hg] Ivon Chowdhury [place] - [facility] - [place] & [place] 05/28/2022 13:08:23 Social History None recorded. Functional Status None recorded. Mental Status None recorded. Family History Nothing Reported. Medical History No medical history recorded. Past Encounters Encounter ID Performer Location Encounter Start Date Encounter Closed Date Diagnosis/Indication Diagnosis SNOMED-CT Code Diagnosis ICD10 Code Diagnosis Note [id number] Karen Neville NP [facility] [address] [place] [address] 05/28/2022 12:56:46 05/28/2022 13:38:58 Helicobacter pylori gastrointestinal tract infection 304470290 B96.81 continue medication regimen. Reports heartburn is improving. Reminded patient no alcohol for at least 3 days after treatment regimen. EGD done April 2022 was normal may continue acid suppressio n therapy as needed for intermitte nt heartburn; however, advised patient symptoms should be resolved once therapy is complete with dietary modificati ons. follow-up as needed Constipation 69502850 K5 9.00 continue MiraLax once daily. Increase water and fiber intake in diet increased exercise 30 minutes 5 days per week. Colonoscop y done April 2022 was normal repeat colon advised in 10 years. Health Concerns Section Related Observation LastModified by Organization Detai ls LastModified Time None Recorded Concern Status LastModified by Organization Details LastModified Time None Recorded Advance Directives Directive None Recorded Payers Insurance Date Sequence Insurance Name Policy Number Policy Joseph Covered Member ID Joseph Member ID Guarantor Name 05/28/2022 1 [place] PILO REM[place] OF [place] [id number] Sincere Randhawa [id number] Sincere Randhawa Notes Date Note Type Note Provider Name and Address Organization Details Recorded Time 05/28/2022 text/html PREVIOUS (03/08) Patient is a 51-year-old male here today with his sister. Patient understands some Polish sister translates 1st language is Senegalese. Patient was referred to our office by his PCP concern for sphincter of oddi dysfunction. Patient has a history of right upper quadrant abdominal pain, constipation and heartburn patient reports he is now taking pantoprazole and feels heartburn is better controlled. Denies nausea, vomiting or hematemesis. Denies regular alcohol consumption, reports only on holidays. Reports intermittent dysphagia to solids. Has history of constipation has been taking MiraLax which seems to help. Denies diarrhea or hematochezia. CURRENT (05/28/22) Patient is here today for follow up s/p EGD and Colon. Patient is currently taking his medication regimen for H pylori and reports he is already starting to feel better. Denies complaints or concerns otherwise. Karen Neville, LORA [address], [place], [address], [facility] [place] & [place] 05/28/2022 13:50:07
--- OUTSIDE RECORDS SUMMARY | 2025-02-24 10:47 | XMS_ITS | Continuity of Care Document ---
Author Organization [place] - [facility], NEUROSURGERY [address] [place] [address] Assessment Encounter Date Assessment Date Assessment LastModified by Organization Details LastModified Time 01/28/2025 01/28/2025 Mr. Edis Larry is a 54 y/o male who is presenting with lumbar pain with RLE radiation, although he reports that the pain in his right leg radiates from his right foot up his leg and into his back. His symptoms have been refractory to conservative measures, including ESIs, and have been progressive over the past 2 years. He did not bring his imaging for review, but his report does indicate the presence of severe right L4/5 and L5/S1 foraminal stenosis. I have asked them to acquire these studies for my personal review so that I may render a decision on the role of surgical intervention. I will have him acquire lumbar x-rays as well as cervical x-rays given his prior hand complaints to ensure there is no obvious pathology identified. I will also acquire x-rays of his hip given his groin pain that is worsened with provocative maneuvers. Once his imaging is acquired, we will discuss the next steps in management. [email or web address] Not available 01/30/2025 21:59:16 Plan of Treatment Reminders Order Date Submit Date Provider Last Modified By Organization Details Last Modified Time Details Appointments DR GORDON EMG 2024 08:30A M Neurology _tech Not available Not available Not available Lab None recorded. Referral None recorded. Procedures None recorded. Surgeries None recorded. Imaging None recorded. Medication Orders None recorded. Patient TargetsNo targets recorded. Patient InstructionsNo instructions recorded. Reason for Referral None Reported. Results Created Date Observation Date Name Description Value Unit Range Abnormal Flag Note LastModifiedBy Organization Detail LastModifiedTime 01/29/20 25 01/28/2025 XR, cervi alisson spine , 4 or 5 view [facility] [address] [place] [address] [phone] Patien t Name: SINCERE walker : [phone] Orderi ng Provid er: RYAN Walker EXAM DATE: 2024 EXAM: XR CERVIC AL SPINE AP/LAT /FLEX/ EXT CLINIC AL INFORM ATION: IMAGES PROVID ED: Latera l views of the cervic al spine in flexio n and extens ion. COMPAR BRIGIDO: None. FINDIN GS: FINDIN GS: Verteb ral body height s are normal . Mild narrow ing of severa l disc spaces with diffus e spurri ng. No abnorm ality of alignm ent is seen. No instab ility is seen on flexio n or extens ion. No radiog raphic eviden ce of injury is noted. Metall ic foreig n body sugges quoc in the vicini ty of the sella turcic a. IMPRES MANAV: Mild to modera te diffus e DDD. No instab ility. Interp reted By: Gadiel Garrison MD Electr onical ly Signed By: Gadiel Garrison MD on 025 2:22 PM [email or web address] [facility] [address] [place], [phone], 02/07/2025 18:26:38 01/29/20 25 01/28/2025 XR, lumbo sacra l spine , 4 or more view [facility] [address] [place] [address] [phone] Patien t Name: SINCERE walker : [phone] Orderi ng Provid er: RYAN Walker EXAM DATE: 2024 EXAM: XR LUMBAR SPINE AP/LAT /FLEX/ EXT CLINIC AL INFORM ATION: Back pain. IMAGES PROVID ED: AP, latera l and coned- down views of the lumbar spine with additi onal latera l views in flexio n and extens ion. COMPAR BRIGIDO: None. FINDIN GS: Verteb ral body height s are normal . Diffus e modera te endpla te spurri ng is presen t. No abnorm ality of alignm ent is seen. No instab ility is seen on flexio n or extens ion. No radiog raphic eviden ce of injury is noted. IMPRES MANAV: Mild diffus e DDD No instab ility. Interp reted By: Gadiel Garrison MD Electr onical ly Signed By: Gadiel Garrison MD on 2:23 PM [email or web address] [facility] [address] [place] [address], [phone], 02/07/2025 18:26:37 01/29/20 25 01/28/2025 XR, hip, bilat eral, 3 or 4 view [facility] [address] [place] [address] [id number] Patien t Name: SINCERE VERGARA Patien t : [address] t 40 Orderi ng Provid er: RYAN MALAGON T EXAM DATE: 2024 EXAM: XR ADRIANA HIPS, 3 OR 4 VWS COMPAR BRIGIDO: None. HISTOR Y: Bilate ral hip pain. FINDIN GS: There are mild degene rative change s in both hips. There is mild margin al spurri ng. The joint space appear s normal . There are mild degene rative change s in the SI joints . There is no acute fractu re. IMPRES MANAV: 1. There are mild degene rative change s in the hips and pelvis . Interp reted By: Kedar fox MD Electr onical ly Signed By: Kedar fox MD on 2:29 PM [email or web address] [facility] [address] [place] [address], [phone], 02/07/2025 18:26:38 02/01/20 25 12/31/2024 CT, lumba r spine , w/o contr ast No observ ation record ed. BARCODE Not Available 2024 10:46:38 02/01/20 25 12/09/2024 MRI, lumba r spine , w/o contr ast No observ ation record ed. BARCODE Not Available 2024 10:46:38 Result Notes Documentation Provider Name and Address Organization Details Recorded Time Xr, Cervical Spine, 4 Or 5 View : [facility] [address] [place] [address] Patient Name: SINCERE GAMBOA Patient : 1970 Patient Ordering Provider: RYAN DYER EXAM DATE: 01/28/2025 EXAM: XR CERVICAL SPINE AP/LAT/FLEX/EXT CLINICAL INFORMATION: IMAGES PROVIDED: Lateral views of the cervical spine in flexion and extension. COMPARISON: None. FINDINGS: FINDINGS: Vertebral body heights are normal. Mild narrowing of several disc spaces with diffuse spurring. No abnormality of alignment is seen. No instability is seen on flexion or extension. No radiographic evidence of injury is noted. Metallic foreign body suggested in the vicinity of the sella turcica. IMPRESSION: Mild to moderate diffuse DDD. No instability. Interpreted By: Gadiel Garrison MD DYER MD [address] [place] [address], [phone], [facility] 02/07/2025 18:26:38 Xr, Lumbosacral Spine, 4 Or More View : [facility] [address] [place] [address] Patient Name: SINCERE GAMBOA Patient : 1970 Patient Ordering Provider: RYAN DYER EXAM DATE: 01/28/2025 EXAM: XR LUMBAR SPINE AP/LAT/FLEX/EXT CLINICAL INFORMATION: Back pain. IMAGES PROVIDED: AP, lateral and coned-down views of the lumbar spine with additional lateral views in flexion and extension. COMPARISON: None. FINDINGS: Vertebral body heights are normal. Diffuse moderate endplate spurring is present. No abnormality of alignment is seen. No instability is seen on flexion or extension. No radiographic evidence of injury is noted. IMPRESSION: Mild diffuse DDD No instability. Interpreted By: Gadiel Garrison MD DYER MD [address] [place] [address], [phone] 02/07/2025 18:26:37 Xr, Hip, Bilateral, 3 Or 4 View : [facility] [address] [place] [address] Patient Name: SINCERE GAMBOA Patient : 1970 Patient Ordering Provider: RYAN DYER EXAM DATE: 01/28/2025 EXAM: XR ADRIANA HIPS, 3 OR 4 VWS COMPARISON: None. HISTORY: Bilateral hip pain. FINDINGS: There are mild degenerative changes in both hips. There is mild marginal spurring. The joint space appears normal. There are mild degenerative changes in the SI joints. There is no acute fracture. IMPRESSION: 1. There are mild degenerative changes in the hips and pelvis. Interpreted By: Nickolas Rivero MD DYER MD [address] [place] [address], [phone] 02/07/2025 18:26:38 Procedures Surgical History Date Name Laterality Status Provider Name and Address Organization Details Recorded Time cardiac catheterization completed [facility] 01/28/2025 13:11:02 repair of aneurysm completed [facility] 01/28/2025 13:11:25 cholecystectomy completed [facility] 01/28/2025 13:11:33 Imaging Results None recorded. Procedure Notes None recorded. Medical Equipment None Reported. Allergies No known drug allergies Medications Name Sig Start Date Stop Date Status Note LastModified by Organization Details LastModified Time lamotrigine 200 mg tablet Take 1 tablet twice a day by oral route. active Not Available Not Available No t Available Neurontin 300 mg capsule Take 1 capsule twice a day by oral route. active Not Available Not Available No t Available methocarbamol 750 mg tablet Take 1 tablet 3 times a day by oral route. active Not Available Not Available No t Available ezetimibe 10 mg tablet Take 1 tablet every day by oral route. active Not Available Not Available No t Available Vitals Date Recorded Body height Body mass index (BMI) Body weight Systolic And Diastolic Provider Name and Address Organization Details Last Updated DateTime 01/28/2025 170.18 cm 29.4 kg/m2 49709.37 g 142/80 mm[Hg] Meaghan Dealholz [facility] 01/28/2025 13:15:53 Social History None recorded. Functional Status None recorded. Mental Status None recorded. Family History Relationship Description Onset Age of this Age Resolved Age Notes LastModified by Organization Details LastModified Time Unspecified Relation Malignant neoplastic disease [email or web address] Not available 01/28 13:10:15 Unspecified Relation Diabetes mellitus [email or web address] Not available 01/28 13:10:20 Unspecified Relation Hypertensive disorder [email or web address] Not available 01/28 13:10:26 Unspecified Relation Myocardial infarction [email or web address] Not available 01/16 13:10:33 Unspecified Relation Cerebrovascu lar accident [email or web address] Not available 13:10:39 Unspecified Relation Aneurysm [email or web address] Not available 01/28 13:10:44 Medical History Condition Response Epilepsy/Seizures Y Stroke Y Hypertension Y High Cholesterol Y Past Encounters Encounter ID Performer Location Encounter Start Date Encounter Closed Date Diagnosis/Indication Diagnosis SNOMED-CT Code Diagnosis ICD10 Code Diagnosis Note [id number] RYAN DYER MD [facility] [address] [place] [address] 01/28/2025 12:11:24 01/31/2025 04:04:36 Lumbar spondylosis 113937622 M47.816 Health Concerns Section Related Observation LastModified by Organization Detai ls LastModified Time None Recorded Concern Status LastModified by Organization Details LastModified Time None Recorded Payers Encounter Date Sequence Insurance Name Policy Number Policy Joseph Covered Member ID Joseph Member ID Guarantor Name 01/28/2025 1 [facility] (MEDICARE REPLACEMENT/A DVANTAGE - HMO) [employer] [place] [id number] Sincere Larry Notes Date Note Type Note Provider Name and Address Organization Details Recorded Time 01/28/2025 text/html Mr. Edis Larry is a 54 y/o male who I am seeing at the request of Sallie Shelton APRN, in relation to lumbar pain with RLE radiation. He has been experiencing these symptoms for 2 years and they are progressively worsening. 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 His symptoms are worsened with walking. He describes an atypical radiation of pain, seemingly beginning in his right foot and coursing up his inner calf medially, into his inner thigh/groin, before wrapping laterally around into his lumbar region There are paresthesias in the distribution of this pain. Even with repeat questioning, he says that he feels like the pain is shooting upwards and not from his lumbar region downwards. He denies LLE pain outside of pain in the popliteal fossa when he is transitioning from sitting to standing. He participated in PT ~2 years ago and has been performing home exercises since that time without improvement. He has has injections, last in 04/2024, which made his pain worse. He has trialed gabapentin, Robaxin, and NSAIDs without relief. He is apparently on disability due to these symptoms. His pain is reportedly so severe that it keeps him awake at night. He suffed a stroke in 2013 and takes ASA. He has a history of seizures and takes lamictal. He has a history of two unruptured intracerebral aneurysms s/p coiling at [facility] in ~2018. He also says that for a period he felt like his hands were weak and that he was dropping items, but this all occurred ~3 years ago and these symptoms have spontaneously imrpoved since that time. He did not bring his CD for review, but his imaging report describes severe R>L L5/S1 and L4/5 foraminal stenosis. RYAN DYER MD [address] [place], [phone], [facility] 01/30/2025 21:59:19
[2025-02-24 11:03] VITALS: BP 153/73; PULSE 64; RESP 16; TEMP 36.8; O2SAT 98
[2025-02-24] MEDS: INCLISIRAN SODIUM 284 MG/1.5 ML SYRINGE SUBCUT (11:03)
== END 2025-02-24 11:17 | disposition home or self-care (01) ==
LOC: INF 10:41
PROVIDERS: PCP Nurse Practitioner Family; Visit Provider Nurse Practitioner Family
DX: Z23 Encounter for immunization (principal)
CPT/HCPCS: 96372; J1306